=== PATIENT | female | born 1945 | race Caucasian/White ===

== ENCOUNTER 2022-03-22 13:10 | Outpatient (CLI) | payer MEDICARE, SELFPAY ==
--- NOTE | 2022-03-22 13:00 | CRLHL7_ITS ---
For Patients: As a result of the Cures Act, medical imaging exams and procedure reports are released immediately into your electronic medical record. You may view this report before your referring provider. If you have questions, please contact your health care provider. CLINICAL HISTORY: CAD, surgery clearance TECHNIQUE: The carotid circulations and the vertebral arteries in the neck were examined with lopez-scale ultrasound, color-flow and Doppler spectral analysis. Degrees of stenosis were determined using SRU 2002 Consensus Panel Criteria. FINDINGS: Sonographic images demonstrate extensive bilateral atherosclerotic plaque formation without suspicious soft tissue mass. There was antegrade blood flow demonstrated within the vertebral arteries. The subclavian arteries demonstrated a biphasic waveform. The spectral Doppler tracings of the common carotid, internal and external carotid arteries demonstrate abnormal turbulence and spectral broadening bilaterally. There was no significant elevation of peak systolic blood flow which would indicate a hemodynamically-significant stenosis by SRU criteria. However, the velocities are dampened bilaterally. The ICA/CCA peak systolic velocity ratio measures 2.0 on the right and 2.3 on the left. IMPRESSION: Extensive bilateral atherosclerotic disease and spectral broadening/turbulence within the carotid system bilaterally along with diminished velocities and mildly elevated ratios. Findings likely represent a 50-69 percent stenosis of the ICAs bilaterally. However, further evaluation with CTA suggested for further evaluation. Dictated by Austen Perez MD @ 03/26/2022 8:58:25 AM (Electronically Signed)
== END 2022-03-22 13:11 | disposition home or self-care (01) ==
LOC: US 13:15
PROVIDERS: PCP Family Medicine; Visit Provider Internal Medicine
DX: I25.10 Atherosclerotic heart disease of native coronary artery without angina pectoris; I65.23 Occlusion and stenosis of bilateral carotid arteries
CPT/HCPCS: 93880

== ENCOUNTER 2022-06-02 12:05 | Observation (INO) | payer MEDICARE, SELFPAY ==
[2022-06-02 12:15] VITALS: BP 110/76; PULSE 77; RESP 18; TEMP 37.1; O2SAT 92; BMI 25.5
--- NOTE | 2022-06-02 12:58 | ED_ITS ---
HPI - General Adult General Date Seen: 06/02/22 Chief complaint: Psychiatric Problem/Disorder Stated complaint: Mental Health and blood pressure Time Seen by Provider: 06/02/22 12:10 Source: patient and family History of Present Illness HPI narrative: Patient is a 77-year-old woman here for evaluation of depression. She tells me that she has had a little bit of trouble with depression for a couple of years, she has been managed on fluoxetine. She says that for a while she was on 2 pills, but had some trouble with fatigue on that and so was decreased to 1 pill. She says she has done well on that and has not had any significant problems until the past couple of weeks. Of note, she had COVID in mid April. She says since then she has not been well. She has had significant fatigue. She says she gets up in the morning, has some coffee, but then goes back to bed. She has no motivation, she feels sad, has no appetite. She says sometimes she will eat a little fruit but often eats nothing. She may get up and make herself so mething to eat later in the day but sometimes not. She has a roommate but her roommate is gone all day at work. She has a son who lives locally. She has 1 daughter who used to live nearby but has now moved away. Another daughter who lives an hour and half away who is with her here today. She is not sleeping well although she says that is not unusual for her. She wakes up every few hours to go to the bathroom. She says that yesterday she at thoughts of killing herself. She says that she ran through her medications and thought that her tramadol and Tylenol with codeine could be used to help her go to sleep. She says that she just feels useless. Her daughter notes that she has had some trouble in the past year and a half, since suffering a hip fracture, and developing problems with her rotator cuff. She has had a lot of pain with that. Her rotator cuff was supposed to be fixed a couple of times but due to COVID that surgery was pushed out. That has limited her activities and has affected her mood, but she has never seen her anywhere close to how down she is right now. It also mentioned her blood pressure as it was a little lower than the use to at home, 94 systolic. However, she was started on a new blood pressure medication this morning, losartan, on recommendation of the forms builder that she saw on virtual visit yesterday. She has a decreased ejection fraction of 20%. She is not complaining of lightheadedness or syncope. No complaints of chest pain, difficulty breathing, etc.. She does not smoke or drink, no other substances. Related Data Home Medications Medication Instructions Recorded Confirmed acetaminophen 300 mg-codeine 30 mg 1 tab PO PRN 06/02/22 tablet albuterol sulfate 90 mcg/actuation 2 puff inhalation Q4H PRN 06/02/22 06/02/22 aerosol inhaler aspirin 81 mg capsule 81 mg PO DAILY 06/02/22 06/02/22 atorvastatin 40 mg tablet 40 mg PO DAILY 06/02/22 06/02/22 calcium carbonate 600 mg calcium 600 mg PO DAILY 06/02/22 06/02/22 (1,500 mg) tablet (Calcium) carvedilol 3.125 mg tablet 3.125 mg PO BIDWMEAL 06/02/22 06/02/22 cholecalciferol (vitamin D3) 50 50 mcg PO DAILY 06/02/22 06/02/22 mcg (2,000 unit) capsule (Vitamin D3) famotidine 40 mg tablet 40 mg PO DAILY 06/02/22 06/02/22 fluoxetine 40 mg capsule 40 mg PO DAILY 06/02/22 06/02/22 fluticasone fur. 100 mcg-umeclid 1 inh inhalation DAILY 06/02/22 06/02/22 62.5 mcg-vilant 25 mcg inhalat.powder (Trelegy Ellipta) fluticasone fur. 200 mcg-umeclid 1 inh inhalation DAILY 06/02/22 06/02/22 62.5 mcg-vilant 25 mcg inhalat.powder (Trelegy Ellipta) ipratropium 0.5 mg-albuterol 3 mg 3 ml inhalation QID PRN 06/02/22 06/02/22 (2.5 mg base)/3 mL nebulization soln levothyroxine 88 mcg tablet 88 mcg PO DAILY 06/02/22 06/02/22 losartan 25 mg tablet 12.5 mg PO DAILY 06/02/22 06/02/22 mirabegron 25 mg tablet,extended 25 mg PO DAILY 06/02/22 06/02/22 release 24 hr (Myrbetriq) torsemide 20 mg tablet 20 mg PO BIDWMEAL 06/02/22 06/02/22 warfarin 2 mg tablet See Rx Instructions PO .COMPLEX 06/02/22 06/02/22 Allergies Allergy/AdvReac Type Severity Reaction Status Date / Time BRAD Inhibitors Allergy Unknown Verified 06/02/22 12:22 bupropion [From Wellbutrin] Allergy Unknown Verified 06/02/22 12:22 hydrocodone Allergy Unknown Verified 06/02/22 12:22 oxycodone Allergy Unknown Verified 06/02/22 12:22 Review of Systems Status of ROS: Reports: 10 or more systems reviewed and unremarkable except as noted in History and below [facility] Social History service: No Exam Narrative: Exam Narrative: Vital signs as noted above. In general, an alert, nontoxic elderly woman. Well groomed. No eye contact. Head: Normocephalic, atraumatic. Eyes: Pupils are equal reactive. Extraocular movements are full. Conjunctivae are normal. ENT: Mucous membranes are moist. Throat is normal. Neck: Supple without lymphadenopathy. Heart: Regular rate and rhythm. I do not hear a murmur at this time. Lungs: Clear bilaterally. No increased work of breathing, crackles or wheezes. Abdomen: Soft and nontender. No organomegaly. Extremities: Well perfused. No edema. No calf tenderness. Pulses intact. Neurologic: Patient is alert and oriented to person and place. Speech is fluent. Face is symmetric. Moves all extremities equally. Affect: Flat. Skin: Warm and dry. Well perfused. Const: Vital Signs, click to edit/add: Vital Signs - 24 hr 06/02/22 12:15 06/02/22 20:30 06/02/22 21:03 Temperature 98.7 F Pulse Rate [Pulse Oximeter] 77 75 Respiratory Rate 18 18 Blood Pressure [Le ft Upper Arm] 110/76 95/70 Pulse Oximetry 92 94 94 Oxygen Delivery Me thod Room Air Room Air Nasal Cannula Oxygen Flow Rate 1.5 Documenting provider has reviewed patient's vital signs: yes Course Course Hospital Course: After conversation with the patient, I do think she would be best served by inpatient management at this time. I am concerned with her thoughts yesterday of self-harm and her getting as far as deciding which medications she could take. Her affect is extremely flat, she is not making eye contact, and she has reached the point where she is having difficulty getting out of bed to manage activities of daily living. This is an acute change for her in the past couple of weeks. I checked routine labs, CBC, metabolic panel, TSH is pending, other labs are normal. Urinalysis is negative, drug screen is negative, Tylenol, aspirin and alcohol levels are negative. She has been cooperative and without further complaints here. She has spoken with [facility] and they agree with my assessment. Will work on finding inpatient placement for her. At this time no inpatient beds are available. Patient has been cooperative and comfortable here. Evening meds ordered. Patient will be signed out to Dr. Velazquez Vital Signs Vital signs: Initial Vital Signs Temperature 98.7 F 06/02/22 12:15 Temperature Source Temporal Artery Scan 06/02/22 12:15 Pulse Rate 77 06/02/22 12:15 Respiratory Rate 18 06/02/22 12:15 Blood Pressure 110/76 06/02/22 12:15 Blood Pressure Mean 87 06/02/22 12:15 Blood Pressure Position Supine 06/02/22 12:15 Pulse Oximetry 92 06/02/22 12:15 Oxygen Delivery Method 06/02/22 12:15 Vital Signs Temperature 98.7 F 06/02/22 12:15 Pulse Rate 77 06/02/22 12:15 Respiratory Rate 18 06/02/22 12:15 Blood Pressure 110/76 06/02/22 12:15 Pulse Oximetry 92 06/02/22 12:15 Oxygen Delivery Method 06/02/22 12:15 Temperature 98.7 F 06/02/22 12:15 Pulse Rate 75 06/02/22 20:30 Respiratory Rate 18 06/02/22 20:30 Blood Pressure 95/70 06/02/22 20:30 Pulse Oximetry 94 06/02/22 21:03 Oxygen Delivery Method 06/02/22 21:03 Oxygen Flow Rate 1.5 06/02/22 21:03 Medical Decision Making Lab Data Labs: Lab Results 06/02/22 06/02/22 06/02/22 Range/Units 13:05 13:05 13:05 WBC 5.29 (4.50-11.00) K/uL RBC 5.03 (4.00-5.20) m/uL Hgb 15.0 (12.0-16.0) gm/dL Hct 45.0 (33.0-51.0) % MCV 90 (80-100) fL MCH 30 (26-34) pg MCHC 33 (32-36) gm/dL RDW Coeff of Sudha 14.8 (11.5-15.5) % Plt Count 227 (140-440) K/uL Neut % (Auto) 59.8 (42.0-72.0) % Lymph % (Auto) 25.0 (20-44) % [place] % (Auto) 12.5 H (0.0-11.0) % Eos % (Auto) 1.7 (0.0-7.0) % Baso % (Auto) 0.6 (0.0-3.0) % Neut # (Auto) 3.17 (1.7-7.0) K/uL Lymph # (Auto) 1.32 (0.90-2.90) K/uL [place] # (Auto) 0.70 (0.00-0.90) K/UL Eos # (Auto) 0.09 (0.00-0.50) K/uL Baso # (Auto) 0.03 (0.00-0.30) K/uL Abs Immat Gran (auto) 0.02 (0.00-0.30) K/uL Sodium 135 (135-149) mmol/L Potassium 3.9 (3.6-5.1) mmol/L Chloride 98 (96-114) mmol/L Carbon Dioxide 33 H (20-32) mmol/L BUN 21 (7-30) mg/dL Creatinine 1.1 (0.5-1.5) mg/dL Estimated Creat Clear 40.33 Estimated GFR 51 ml/min Glucose 104 (60-115) mg/dL Calcium 9.2 (8.4-10.6) mg/dL TSH (0.270-4.200) uIU/mL Urine Color Yellow (Yellow) Urine Appearance Clear (Clear) Urine pH 7.5 (5.0-8.5) Ur Specific [place] 1.015 (1.000-1.030) Urine Protein Negative (Negative) Urine Glucose (UA) Negative (Negative) Urine Ketones Negative (Negative) Urine Blood Negative (Negative) Urine Nitrite Negative (Negative) Urine Bilirubin Negative (Negative) Urine Urobilinogen 0.2 (0.2-1.0) Ur Leukocyte Esterase Negative (Negative) Urine RBC 0-2 (0-2) Urine WBC 0-2 (0-5) Ur Squamous Epith Cells None (None-Few) Urine Bacteria None (None) Salicylates (1.0-10) mg/dL Urine Opiates Screen (Negative) Ur Oxycodone Screen (Negative) Urine Methadone Screen (Negative) Ur Propoxyphene Screen (Negative) Acetaminophen < 10.0 L (10.0-30.0) ug/mL Ur Barbiturates Screen (Negative) Ur Phencyclidine Scrn (Negative) Ur Amphetamines Screen (Negative) U Methamphetamines Scrn (Negative) U Benzodiazepines Scrn (Negative) Urine Cocaine Screen (Negative) U Marijuana (THC) Screen (Negative) Ur Drug Screen Comment Ethyl Alcohol (0.01-0.03) % SARS-CoV-2 (PCR) (Negative) 06/02/22 06/02/22 06/02/22 Range/Units 13:05 13:05 13:05 WBC (4.50-11.00) K/uL RBC (4.00-5.20) m/uL Hgb (12.0-16.0) gm/dL Hct (33.0-51.0) % MCV (80-100) fL MCH (26-34) pg MCHC (32-36) gm/dL RDW Coeff of Sudha (11.5-15.5) % Plt Count (140-440) K/uL Neut % (Auto) (42.0-72.0) % Lymph % (Auto) (20-44) % [place] % (Auto) (0.0-11.0) % Eos % (Auto) (0.0-7.0) % Baso % (Auto) (0.0-3.0) % Neut # (Auto) (1.7-7.0) K/uL Lymph # (Auto) (0.90-2.90) K/uL [place] # (Auto) (0.00-0.90) K/UL Eos # (Auto) (0.00-0.50) K/uL Baso # (Auto) (0.00-0.30) K/uL Abs Immat Gran (auto) (0.00-0.30) K/uL Sodium (135-149) mmol/L Potassium (3.6-5.1) mmol/L Chloride (96-114) mmol/L Carbon Dioxide (20-32) mmol/L BUN (7-30) mg/dL Creatinine (0.5-1.5) mg/dL Estimated Creat Clear Estimated GFR ml/min Glucose (60-115) mg/dL Calcium (8.4-10.6) mg/dL TSH 3.370 (0.270-4.200) uIU/mL Urine Color (Yellow) Urine Appearance (Clear) Urine pH (5.0-8.5) Ur Specific [place] (1.000-1.030) Urine Protein (Negative) Urine Glucose (UA) (Negative) Urine Ketones (Negative) Urine Blood (Negative) Urine Nitrite (Negative) Urine Bilirubin (Negative) Urine Urobilinogen (0.2-1.0) Ur Leukocyte Esterase (Negative) Urine RBC (0-2) Urine WBC (0-5) Ur Squamous Epith Cells (None-Few) Urine Bacteria (None) Salicylates < 1.0 L (1.0-10) mg/dL Urine Opiates Screen Negative (Negative) Ur Oxycodone Screen Negative (Negative) Urine Methadone Screen Negative (Negative) Ur Propoxyphene Screen Negative (Negative) Acetaminophen (10.0-30.0) ug/mL Ur Barbiturates Screen Negative (Negative) Ur Phencyclidine Scrn Negative (Negative) Ur Amphetamines Screen Negative (Negative) U Methamphetamines Scrn Negative (Negative) U Benzodiazepines Scrn Negative (Negative) Urine Cocaine Screen Negative (Negative) U Marijuana (THC) Screen Negative (Negative) Ur Drug Screen Comment See Note Ethyl Alcohol < 0.01 L (0.01-0.03) % SARS-CoV-2 (PCR) (Negative) 06/02/22 Range/Units 14:20 WBC (4.50-11.00) K/uL RBC (4.00-5.20) m/uL Hgb (12.0-16.0) gm/dL Hct (33.0-51.0) % MCV (80-100) fL MCH (26-34) pg MCHC (32-36) gm/dL RDW Coeff of Sudha (11.5-15.5) % Plt Count (140-440) K/uL Neut % (Auto) (42.0-72.0) % Lymph % (Auto) (20-44) % [place] % (Auto) (0.0-11.0) % Eos % (Auto) (0.0-7.0) % Baso % (Auto) (0.0-3.0) % Neut # (Auto) (1.7-7.0) K/uL Lymph # (Auto) (0.90-2.90) K/uL [place] # (Auto) (0.00-0.90) K/UL Eos # (Auto) (0.00-0.50) K/uL Baso # (Auto) (0.00-0.30) K/uL Abs Immat Gran (auto) (0.00-0.30) K/uL Sodium (135-149) mmol/L Potassium (3.6-5.1) mmol/L Chloride (96-114) mmol/L Carbon Dioxide (20-32) mmol/L BUN (7-30) mg/dL Creatinine (0.5-1.5) mg/dL Estimated Creat Clear Estimated GFR ml/min Glucose (60-115) mg/dL Calcium (8.4-10.6) mg/dL TSH (0.270-4.200) uIU/mL Urine Color (Yellow) Urine Appearance (Clear) Urine pH (5.0-8.5) Ur Specific [place] (1.000-1.030) Urine Protein (Negative) Urine Glucose (UA) (Negative) Urine Ketones (Negative) Urine Blood (Negative) Urine Nitrite (Negative) Urine Bilirubin (Negative) Urine Urobilinogen (0.2-1.0) Ur Leukocyte Esterase (Negative) Urine RBC (0-2) Urine WBC (0-5) Ur Squamous Epith Cells (None-Few) Urine Bacteria (None) Salicylates (1.0-10) mg/dL Urine Opiates Screen (Negative) Ur Oxycodone Screen (Negative) Urine Methadone Screen (Negative) Ur Propoxyphene Screen (Negative) Acetaminophen (10.0-30.0) ug/mL Ur Barbiturates Screen (Negative) Ur Phencyclidine Scrn (Negative) Ur Amphetamines Screen (Negative) U Methamphetamines Scrn (Negative) U Benzodiazepines Scrn (Negative) Urine Cocaine Screen (Negative) U Marijuana (THC) Screen (Negative) Ur Drug Screen Comment Ethyl Alcohol (0.01-0.03) % SARS-CoV-2 (PCR) Negative SARS-CoV-2 (Negative) Discharge Plan Discharge Prescriptions: No Action fluoxetine 40 mg capsule 40 mg PO DAILY Label Comments: TAKE 1 CAPSULE BY MOUTH EVERY DAY. atorvastatin 40 mg tablet 40 mg PO DAILY ipratropium-albuterol 0.5 mg-3 mg(2.5 mg base)/3 mL solution for nebulization 3 ml INHALATION QID PRN Label Comments: USE 3 ML VIA NEBULIZER FOUR TIMES DAILY NEEDED FOR SHORTNESS OF BREATH torsemide 20 mg tablet 20 mg PO BIDWMEAL Label Comments: TAKE 1 TABLET BY MOUTH TWICE DAILY WITH MEALS acetaminophen-codeine 300-30 mg tablet 1 tab PO PRN carvedilol 3.125 mg tablet 3.125 mg PO BIDWMEAL levothyroxine 88 mcg tablet 88 mcg PO DAILY warfarin 2 mg tablet See Rx Instructions PO .COMPLEX Rx Instructions: Take 2 tablets by mouth every MWF Take 3 tablets all other days or as directed losartan 25 mg tablet 12.5 mg PO DAILY Rx Instructions: Take 0.5 tablets by mouth once daily albuterol sulfate 90 mcg/actuation HFA aerosol inhaler 2 puff INHALATION Q4H PRN Label Comments: INHALE 1 TO 2 PUFFS BY MOUTH EVERY 4 HOURS NEEDED FOR SHORTNESS OF BREATH Myrbetriq 25 mg tablet extended release 24 hr 25 mg PO DAILY Trelegy Ellipta 100-62.5-25 mcg blister with device 1 inh INHALATION DAILY Label Comments: INHALE 1 PUFF BY MOUTH EVERY DAY Trelegy Ellipta 200-62.5-25 mcg blister with device 1 inh INHALATION DAILY Label Comments: INHALE 1 PUFF BY MOUTH EVERY DAY aspirin 81 mg capsule 81 mg PO DAILY calcium carbonate [Calcium 600] 600 mg calcium (1,500 mg) tablet 600 mg PO DAILY cholecalciferol (vitamin D3) [Vitamin D3] 50 mcg (2,000 unit) capsule 50 mcg PO DAILY famotidine 40 mg tablet 40 mg PO DAILY Rx Instructions: Take 1 tablet by mouth every day in the evening Follow Up/Referrals: Karma Jang MD [Primary Care Provider] -
[2022-06-02 13:15] LABS: Basophils Absolute Auto 0.03 K/uL (0.00-0.30); Basophils Percent Auto 0.6 % (0.0-3.0); Eosinophils Absolute Auto 0.09 K/uL (0.00-0.50); Eosinophils Percent Auto 1.7 % (0.0-7.0); Immature Granulocytes Abs Auto 0.02 K/uL (0.00-0.30); Lymphocytes Absolute Auto 1.32 K/uL (0.90-2.90); Mean Corpuscular HGB Conc 33 gm/dL (32-36); Mean Corpuscular Hemoglobin 30 pg (26-34); Mean Corpuscular Volume 90 fL (80-100); Monocytes Percent Auto 12.5 % (0.0-11.0); Neutrophils Absolute Auto 3.17 K/uL (1.7-7.0); Neutrophils Percent Auto 59.8 % (42.0-72.0); Platelet Count* 227 K/uL (140-440); RDW Coefficient of Variation % 14.8 % (11.5-15.5); Red Blood Count 5.03 m/uL (4.00-5.20); White Blood Count* 5.29 K/uL (4.50-11.00)
[2022-06-02 13:19] LABS: Appearance Urine Clear (Clear); Bilirubin Urine Negative (Negative); Blood Urine Negative (Negative); Color Urine Yellow (Yellow); Glucose Urine Negative (Negative); Ketones Urine Negative (Negative); Leukocyte Esterase Urine Negative (Negative); Nitrite Urine Negative (Negative); Protein Urine Negative (Negative); Specific Gravity Urine 1.015 (1.000-1.030); Urobilinogen Urine 0.2 (0.2-1.0); pH Urine 7.5 (5.0-8.5)
[2022-06-02 13:20] LABS: Slide Review Reflex No
[2022-06-02 13:27] LABS: RBC Urine 0-2 (0-2); WBC Urine 0-2 (0-5)
[2022-06-02 13:28] LABS: Cannabinoid Screen Urine Negative (Negative); Chloride* 98 mmol/L (96-114)
[2022-06-02 13:29] LABS: Amphetamine Screen Urine Negative (Negative); Barbiturate Screen Urine Negative (Negative); Benzodiazepines Screen Urine Negative (Negative); Cocaine Screen Urine Negative (Negative); Methadone Screen Urine Negative (Negative); Methamphetamines Screen Urine Negative (Negative); Opiate Screen Urine Negative (Negative); Oxycodone Screen Urine Negative (Negative); Phencyclidine Screen Urine Negative (Negative); Potassium* 3.9 mmol/L (3.6-5.1); Sodium* 135 mmol/L (135-149)
[2022-06-02 13:31] LABS: Creatinine* 1.1 mg/dL (0.5-1.5); Est. Creatinine Clearance* 40.33; Estimated Glomerular Filt Rate 51 ml/min
[2022-06-02 13:32] LABS: Blood Urea Nitrogen* 21 mg/dL (7-30); Calcium* 9.2 mg/dL (8.4-10.6); Carbon Dioxide* 33 mmol/L (20-32); Glucose* 104 mg/dL (60-115)
[2022-06-02 13:34] LABS: Acetaminophen* < 10.0 ug/mL (10.0-30.0)
[2022-06-02 13:35] LABS: Ethanol* < 0.01 % (0.01-0.03); Salicylate* < 1.0 mg/dL (1.0-10)
[2022-06-02 15:01] LABS: SARS PCR* Negative SARS-CoV-2 (Negative)
--- NOTE | 2022-06-02 16:30 | PC.NURSE ---
got bed ID from [facility], no beds today anywhere except could call [facility], [facility] called and they have no beds in [place] or [place] which is where they do 65 plus
[2022-06-02 20:30] VITALS: BP 95/70; PULSE 75; RESP 18; O2SAT 94
--- NOTE | 2022-06-02 20:30 | PC.NURSE ---
Patient has been cooperative and pleasant with staff. Has been reading a book. Makes needs known.
--- NOTE | 2022-06-02 20:30 | PC.NURSE ---
Patient states she normally wears 1.5L O2 via NC at home for bedtime. Dr. Alfaro made aware.
[2022-06-02 21:03] VITALS: O2SAT 94
--- NOTE | 2022-06-02 21:54 | PC.NURSE ---
Ok per Dr. Alfaro to give home dose of Mirabegron as we do not have this medication.
[2022-06-02] MEDS: WARFARIN 3 MG TABLET 6 MG PO (22:17)
[2022-06-02] MEDS: FAMOTIDINE 20 MG TABLET 40 MG PO (22:19)
[2022-06-02] MEDS: MELATONIN 3 MG TABLET 6 MG PO (22:20)
[2022-06-03 07:32] VITALS: BP 112/88; PULSE 83; RESP 22; TEMP 36.4; O2SAT 88
[2022-06-03 09:12] LABS: INR 1.59 (0.91-1.10); Prothrombin Time 19.4 Seconds
[2022-06-03] MEDS: LEVOTHYROXINE 88 MCG TABLET PO (09:56)
[2022-06-03] MEDS: TORSEMIDE 20 MG TABLET PO (09:59)
[2022-06-03] MEDS: ASPIRIN 81 MG TABLET EC PO (09:59)
[2022-06-03] MEDS: CARVEDILOL 3.125MG PO ×2 (10:01→20:21)
--- NOTE | 2022-06-03 13:13 | ED.NURSE ---
to [facility] via [facility]. did order a meal. was upset about not getting a menu earlier. was concerned about her inr and oxygen. did have a shower in m/s earlier. uses oxygen at home at night and prn during the day .
--- NOTE | 2022-06-03 13:24 | W.PC.EDHO ---
Primary Language: Preferred Language: Orientation Status: [] Alert & Oriented [] Slight Confusion [] Known Dx Dementia Transfers By: [] Assist of 1 [] Assist of 2 [] Lift Active Medications Generic Name Dose Route Start Last Admin Trade Name Kimberly PRN Reason Stop Dose Admin Aspirin 81 mg 06/03/22 10:00 06/03/22 09:59 Aspirin 81 Mg Tablet Ec PO 81 mg DAILY RAMIREZ Administration Levothyroxine Sodium 88 mcg 06/03/22 10:00 06/03/22 09:56 Levothyroxine 88 Mcg Tablet PO 88 mcg DAILY RAMIREZ Administration Fluoxetine 40mg Cap 0 each 06/03/22 21:00 06/03/22 10:00 PO 1 each HS RAMIREZ Administration Carvedilol 3.125mg 0 each 06/03/22 09:45 06/03/22 10:01 PO 1 each BIDWM RAMIREZ Administration Losartan 25mg Tab 0 each 06/03/22 09:45 06/03/22 09:56 PO 1 each DAILY RAMIREZ Administration Torsemide 20 mg 06/03/22 10:00 06/03/22 09:59 Torsemide 20 Mg Tablet PO 20 mg BIDWM RAMIREZ Administration Discontinued Medications Generic Name Dose Route Start Last Admin Trade Name Kimberly PRN Reason Stop Dose Admin Famotidine 40 mg 06/03/22 09:00 06/02/22 22:19 Famotidine 20 Mg Tablet PO 40 mg DAILY RAMIREZ Administration Melatonin 6 mg 06/02/22 22:01 06/02/22 22:20 Melatonin 3 Mg Tablet PO 06/02/22 22:02 6 mg HS ONE Administration Warfarin Sodium 6 mg 06/02/22 21:03 06/02/22 22:17 Warfarin 3 Mg Tablet PO 06/02/22 21:04 6 mg ONCE ONE Administration Description of Symptoms ED Triage Present Problem my depression has gotten worse, called crisis Description center today and my blood pressure was low and needs to be checked. bp at home 127/67 and 94/57. pt on fluxoteine pt sees primary doctor for depression at [facility]. pt started losartan this am after virtual visit with customer service teller yesterday. [place] Coma Scale [place] coma scale total score 15 Pain Pain Description [Right Dull, Achy Shoulder] Pain Intensity [Right Shoulder 0 ] Pain Scale Used [Right Numeric (1 - 10) Shoulder] Oxygen Administration Pulse Oximetry 88 Pulse Oximetry 94 Pulse Oximetry 94 Pulse Oximetry 92 Oxygen Delivery Method Room Air Oxygen Delivery Method Nasal Cannula Oxygen Delivery Method Room Air Oxygen Delivery Method Room Air Oxygen Flow Rate 1.5
[2022-06-03 14:16] VITALS: BP 93/76; RESP 20; TEMP 36.6; O2SAT 90; BMI 24.8
[2022-06-03 15:48] VITALS: RESP 22; O2SAT 90
--- NOTE | 2022-06-03 16:23 | RESP.RT ---
Pt seen per MD request. On RA SPO2 88% Reviewed rechristie, she does wear oxygen at 1.5 L as prescribed in February at night. She states she uses it more in the day, as needed. Suspect she needs it around the clock, as per pt. she is easily winded at that is some of the reason she has not left the house. She recently acquired portable oxygen but has not used yet. BBS are clear Pt uses Trelegy, Ellipta. She has not used it today, we do not have it here, so she has called roommate to bring to hospital. When it arrives I suggest she use it. She has a good understanding of her respiratory medications. Does see pulmonology at [place], and she stated they have increased her Trelegy dosage.
--- NOTE | 2022-06-03 16:58 | PM.IMHP1 ---
Hospitalist- H&P: HPI History of Present Illness Time Seen by Provider: 15:30 Date Seen: 06/03/22 Chief complaint: Suicidal ideations, low blood pressure Narrative: Nery Oropeza is a 77 year old woman who presented to the [facility] Emergency Department over 24 hours ago for help with depression, suicidal thoughts, and low blood pressures. She has struggled with major depression for over 30 years. She has been on various medications often on throughout that time. Historically she used to have her depression fairly well controlled on fluoxetine 80 mg daily. About 2 years ago she fell and sustained a fracture of her right hip. At that time her dose of fluoxetine was decreased to 40 mg daily. She states that since that time she has struggled with her depression. Over the last 2 weeks however she states that it has been especially difficult for her. She describes isolation, anhedonia, increased anger and frustration, decreased oral intake, weight loss. Has chronic difficulties with sleeping, sleeping intermittently throughout the night, but has been in bed much more so recently than she has in the past. Started having ideas or thoughts about life not being worth it, that she is worthless, thinking how she could expedite this by possibly taking more of her medications than prescribed. She eventually called the crisis line spoke with someone and they recommended she come in for assessment and that she did. In our emergency department efforts have been made to transfer patient to a [facility] however there are no beds available across the [address] [place] [address] region. After being in the emergency department for over 24 hours a decision was made to transfer the patient to the floor while there continued efforts to try to find a appropriate geriatric psych inpatient bed for her. In the emergency department no adjustments have been made in her mood stabilization medications. Review of Systems Status of ROS: Reports: 10 or more systems reviewed and unremarkable except as noted in History and below Narrative: Denies angina, anginal equivalent, palpitations, diaphoresis, fevers, rigors, change in her baseline level of cough. Has baseline dyspnea at rest and this increases with exertion. Utilizes oxygen at 1.5 liters/minute at at bedtime. Is supposed to be using oxygen during the day with activities but she has not been. Continues to have discomforts with aching shoulders. Was scheduled for elective shoulder arthroplasty which was canceled twice, once for increase cardiac assessment and a 2nd time due to recent acquisition of COVID. Early to mid April she had COVID. Was hospitalized for few days at a hospital in [place] when she was in route to visit a daughter in [place]. Since then her mood has been increasingly more depressed. Recently saw cardiologists who recommended she start losartan in addition to the beta-marisa carvedilol that she is on. This is because of her underlying ischemic cardiomyopathy with decreased ejection fraction of 20-25% does have a permanent pacemaker implant but does not having AIDC. Discussions have been started about patient having AIDC implant in the near future. She feels that her health as rapidly declining and this is becoming increasingly overwhelming for her. On the other hand when I discussed with her her desires relative to resuscitation efforts, she is very clear that she wants us to attempt resuscitation in the event of cardiopulmonary demise. She designates her son Mykel as her power of corporate associate attorney for health should that be required. Lives home alone. Does receive support from her children who live near and far. [facility] Medical History Acid reflux Anticoagulated on warfarin Anticoagulation goal of INR 2 to 3 Anxiety Atrial fibrillation CAD (coronary artery disease) CHF (congestive heart failure) Chronic deep vein thrombosis of left lower extremity Chronic hypoxemic respiratory failure Chronic pain of both shoulders CKD stage 4 secondary to hypertension Closed nondisplaced fracture of greater trochanter of right femur with routine healing COPD (chronic obstructive pulmonary disease) Depression Hyperlipidemia Hypertension Hypothyroidism Intrinsic urethral sphincter deficiency Ischemic cardiomyopathy Mixed stress and urge urinary incontinence 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 Panlobular emphysema Paroxysmal atrial fibrillation Presence of permanent cardiac pacemaker Recurrent major depression resistant to treatment Surgical History History of cataract surgery History of cholecystectomy History of hip replacement Social History Highest level of school completed/degree received: high school graduate Smoking Status: Former smoker What tobacco products do you use: cigarettes Smoking quit date/years: >15 years ago Do you use any of these nicotine containing products: None Second hand tobacco smoke exposure: No How often do you have a drink containing alcohol: never AUDIT-C Alcohol total score: 0 Caffeine: Yes (Daily) service: No Meds Home Medications and Allergies Home Medications Medication Instructions Recorded Confirmed Type albuterol sulfate 90 mcg/actuation 2 puff inhalation Q4H PRN 06/02/22 06/02/22 History aerosol inhaler aspirin 81 mg capsule 81 mg PO DAILY 06/02/22 06/02/22 History atorvastatin 40 mg tablet 40 mg PO HS 06/02/22 06/03/22 History calcium carbonate 600 mg calcium 600 mg PO DAILY 06/02/22 06/02/22 History (1,500 mg) tablet (Calcium) carvedilol 3.125 mg tablet 3.125 mg PO BIDWMEAL 06/02/22 06/02/22 History cholecalciferol (vitamin D3) 50 50 mcg PO DAILY 06/02/22 06/02/22 History mcg (2,000 unit) capsule (Vitamin D3) famotidine 40 mg tablet 40 mg PO HS 06/02/22 06/03/22 History fluoxetine 40 mg capsule 40 mg PO DAILY 06/02/22 06/02/22 History fluticasone fur. 200 mcg-umeclid 1 inh inhalation DAILY 06/02/22 06/02/22 History 62.5 mcg-vilant 25 mcg inhalat.powder (Trelegy Ellipta) ipratropium 0.5 mg-albuterol 3 mg 3 ml inhalation QID PRN 06/02/22 06/02/22 History (2.5 mg base)/3 mL nebulization soln levothyroxine 88 mcg tablet 88 mcg PO DAILY 06/02/22 06/02/22 History losartan 25 mg tablet 12.5 mg PO DAILY 06/02/22 06/02/22 History mirabegron 25 mg tablet,extended 25 mg PO DAILY 06/02/22 06/02/22 History release 24 hr (Myrbetriq) torsemide 20 mg tablet 20 mg PO BIDWMEAL 06/02/22 06/02/22 History warfarin 2 mg tablet 4 - 6 mg PO DAILY 06/02/22 06/03/22 History loperamide-simethicone 2 mg-125 mg 1 tab PO BID PRN 06/03/22 06/03/22 History tablet (Imodium Multi-Symptom Relief) multivitamin (Multiple Vitamins 1 tab PO DAILY 06/03/22 06/03/22 History tablet) Allergies Allergy/AdvReac Type Severity Reaction Status Date / Time BRAD Inhibitors Allergy Unknown Verified 06/02/22 12:22 bupropion [From Wellbutrin] Allergy Unknown Verified 06/02/22 12:22 hydrocodone Allergy Unknown Verified 06/02/22 12:22 oxycodone Allergy Unknown Verified 06/02/22 12:22 Exam Narrative: Exam Narrative: Alert, oriented to self, place, time, situation. No acute distress. Depressed mood. Articulate, cooperative, friendly. Mood and affect are congruent. Appears thin. Accentuated bony prominences of face and neck. Thin arms and legs. Hearing and vision are preserved. Midline nasal septum. Dentition in fair repair. Moist buccal mucosa. No icterus. Extraocular muscles intact. Neck is thin. Neck is supple. Midline trachea. Normal thyroid. No JVD, hepatojugular reflux, or carotid bruits. No lymphadenopathy in the pre or postauricular chains, anterior or posterior cervical chains, submandibular or submental fossa, supra or infraclavicular fossa, or axilla bilaterally. Lungs are clear to auscultation. Full respirations. Heart tones with regular rhythm. Soft systolic murmur. No gallops or rubs. Abdomen is thin. Active bowel sounds. Soft, nontender. Extremities without edema. Palpable pulses upper and lower extremities. Ambulates independently, list to the left. No tremor, asterixis, or ataxia. Independent transfer, station, and gait. Skin is thin, intact. Ecchymosis of upper extremities noted. No cyanosis, petechiae, or rash. No jaundice. Const: Vital Signs, click to edit/add: Vital Signs - 24 hr 06/02/22 20:30 06/02/22 21:03 06/03/22 07:32 Temperature 97.6 F Pulse Rate [Pulse Oximeter] 75 83 Respiratory Rate 18 22 Blood Pressure [Le ft Arm] Blood Pressure [Le ft Upper Arm] 95/70 112/88 Pulse Oximetry 94 94 88 Oxygen Delivery Me thod Room Air Nasal Cannula Room Air Oxygen Flow Rate 1.5 06/03/22 14:16 06/03/22 15:48 Temperature 97.8 F Pulse Rate [Pulse Oximeter] Respiratory Rate 20 22 Blood Pressure [Le ft Arm] 93/76 Blood Pressure [Le ft Upper Arm] Pulse Oximetry 90 90 Oxygen Delivery Me thod Room Air Room Air Oxygen Flow Rate Documenting provider has reviewed patient's vital signs: yes Assessment and Plan Assessment and plan (1) Suicidal thoughts: Status: Acute (2) Recurrent major depression resistant to treatment: Status: Acute (3) Ischemic cardiomyopathy: Status: Acute (4) Hypotension: Status: Acute (5) Panlobular emphysema: Status: Acute (6) Chronic hypoxemic respiratory failure: Status: Acute (7) Oxygen dependent: Status: Acute (8) CKD stage 4 secondary to hypertension: Status: Acute Plan 1. Given no bed availability for geriatric psychiatric admission and patient being our emergency department for over 24 hours, we are admitting her to observation as we continue with our efforts to try to find an appropriate placement for her. 2. As we are waiting for availability of a geriatric psychiatric bed, I will initiate efforts to adjust some of her psychiatric medications. I will increase the fluoxetine from 40 mg to 60 mg daily. I will start her on buspirone, small dose of 5 mg twice daily. If she tolerates this then we can increase the dose to 7.5-10 mg twice daily. 3. Would benefit from outpatient psychotherapy such as cognitive behavioral therapy. 4. Patient would certainly benefit from an ARB such as losartan. On the other hand she is relatively hypotensive with this medicine added to her current dose of carvedilol. As such I will continue on the losartan 12.5 mg daily and decrease her carvedilol to 1/2 of a 3.125 mg tab twice daily. 5. Physical therapy, occupational therapy, respiratory therapy, social media marketer, Nutritional consultations. 6. Continue with other supportive efforts. 7. Patient agreeable to above stated plans and recommendations.
--- NOTE | 2022-06-03 17:34 | PC.NURSE ---
PATIENT PLEASANT AND COOPERATIVE, UP SBA WITH NO ASSISTIVE DEVICES, PER PATIENT CURRENTLY NO PLAN TO HARM SELF IM JUST VERY DEPRESSED, NO SUICIDAL PRECAUTIONS AT THIS TIME, TOLERATING REGULAR DIET, NO IV PRESENT, CHRONIC PAIN IN RIGHT SHOULDER AND HIP BOTH AGGREGATED WITH MOVEMENT AND USE.
[2022-06-03] MEDS: WARFARIN 2 MG TABLET 4 MG PO (20:19)
[2022-06-03] MEDS: ATORVASTATIN CALCIUM 40 MG TABLET PO (20:21)
[2022-06-03] MEDS: MYRBETRIQ 25MG PO (20:23)
[2022-06-03] MEDS: BUSPIRONE 10 MG TABLET 5 MG PO (20:25)
[2022-06-03] MEDS: SENNOSIDES/DOCUSATE TABLET 1 TAB PO (20:29)
[2022-06-03 20:30] VITALS: BP 155/94; RESP 20; TEMP 36.6; O2SAT 91
[2022-06-03] MEDS: MELATONIN 3 MG TABLET 6 MG PO (22:10)
[2022-06-03 23:00] VITALS: RESP 18; RESP 20; O2SAT 90
[2022-06-04] VITALS (8 sets, daily range): BP systolic 115–128; BP diastolic 70–78; PULSE 71–75; RESP 14–20; TEMP 36.1–36.6; O2SAT 93–98
--- NOTE | 2022-06-04 06:52 | PC.NURSE ---
SHIFT NOTE : Pt pleasant and cooperative, denies suicidal ideations at this time. Up SBA in the room. Denies pain. Uneventful night.
[2022-06-04] MEDS: LEVOTHYROXINE 88 MCG TABLET PO (08:32)
[2022-06-04] MEDS: ASPIRIN 81 MG TABLET EC PO (08:33)
[2022-06-04] MEDS: FLUOXETINE HCL 20 MG CAPSULE 60 MG PO (08:33)
[2022-06-04] MEDS: BUSPIRONE 10 MG TABLET 5 MG PO ×2 (08:33→20:53)
[2022-06-04] MEDS: MULTIVITAMIN/MINERALS 1 TABLET 1 TAB PO (08:34)
[2022-06-04] MEDS: Fluticasone-Umeclidin-Vilanter [Trelegy Ellipta] 200-62.5-25 mcg IH (08:34)
[2022-06-04] MEDS: CARVEDILOL 3.125MG PO ×2 (08:34→20:38)
[2022-06-04] MEDS: TORSEMIDE 20 MG TABLET 10 MG PO (08:35)
--- NOTE | 2022-06-04 10:13 | PC.SOCIAL ---
Dischagre plan: Late entry: On 06/03/22, attempted to find in-pt mental health placement Per MD request. Per RN, pt is assistance of one with ADL's at this time. Called the following facilities with the listed result: 1. [facility]- no beds available. 2. [facility]- no bed available. 3. [place] [facility] - no bed available. 4. [facility] - no bed availale. 5. [facility] - cannot provide ADL assistance. 6. [facility] - cannot accept suicidal ideation. Called [facility] in [place] and spoke with Danielito who confirmed theya re unable to assist with ADL's. However, if pt improves and does not need assistance with ADL's, they can evaluate pt at that time. marriage and family social worker to follow up as needed.
--- NOTE | 2022-06-04 12:03 | PC.NURSE ---
PATIENT PLEASANT AND COOPERATIVE WITH STAFFING, EATING 100% OF MEALS, SISTER HERE VISITING TODAY, TOOK MEDIATIONS WHOLE WITH WATER, DECLINED PAIN OTHER THAN CHRONIC PAIN IN RIGHT SHOULDER AND LEFT HIP DECLINING NEED FOR INTERVENTION.
--- NOTE | 2022-06-04 14:36 | PC.NURSE ---
Shift Summary [id number]: Patient pleasant and cooperative. Has been resting in bed most of afternoon. Sister hear for lunch has since gone home. Denies pain, nausea or SOB. Continues to use o2 @ 1.5L/NC.
--- NOTE | 2022-06-04 15:24 | P.IMPN_ITS ---
Progress Note: A&P Assessment and plan (1) Recurrent major depression resistant to treatment: Problem details: Increase fluoxetine to 60 mg daily. Started BusPar yesterday at 5 mg b.i.d., increasing to 5 mg t.i.d. for the rest of this week. Inpatient psychotherapy in [place] is being pursued. I think she would be an excellent candidate for this. While she has several chronic illnesses she is ambulatory and can attend to her self-care. She has a supportive family. She has insight and a desire to feel better. In regards to risk of suicide: Patient states she had passive thoughts of overdose a few days ago. However she felt like she could never go through with this as she has never understood suicide and how people could do this to her their families. At this point she is interactive, asking for a treatment plan and looking forward to feeling better. Status: Acute (2) Ischemic cardiomyopathy: Problem details: Known. Reviewed March 2022 echo. Status: Acute (3) Panlobular emphysema: Problem details: Oxygen dependent. Continue home medications Status: Acute (4) Chronic hypoxemic respiratory failure: Problem details: Stable Status: Acute (5) Oxygen dependent: Problem details: Stable Status: Acute (6) CKD stage 4 secondary to hypertension: Problem details: Stable Status: Acute (7) Chronic anticoagulation: Problem details: Will check INR in the morning. Continue warfarin. Status: Acute (8) Paroxysmal atrial fibrillation: Status: Acute (9) Presence of permanent cardiac pacemaker: Problem details: Noted. Status: Acute Subjective Date Seen: 06/04/22 Interval history: Daily Progress Note - Hospital #:2 CC: Resistant major depression, passive suicidal ideation OVERNIGHT UPDATES FROM STAFF & MED, LAB, IMAGING UPDATES Stable night. States that she knows the medicines take a while to take effect but she is feeling more hopeful today. When I went in to visit with her she was playing cards with her sister. No side effects of current medications identified. No thoughts of self-harm. She states she is actually hopeful that a plan can be put in place and she will start feeling better soon. She is open to inpatient or intensive outpatient therapies. Vital stable. She is on continuous oxygen via nasal cannula at 1.5 L for an O2 sat of 93%. CBC on the was unremarkable. INR on the 1.59 Basic metabolic panel with TSH on the 11th is unremarkable. Review of Systems: See subjective Cardiac: No new chest pain/pressure/palpitations. Respiratory: no new dyspnea. GI: No abdominal bloating Objective: Vitals: see above Lungs: Clear. Cardiac: S1S2. Disposition/Potential discharge - Likely to return to previous living situation. Total time is 35 minutes with greater than 50% spent in counseling and coordination of care. Exam Const: Vital Signs, click to edit/add: Vital Signs - 24 hr 06/03/22 15:48 06/03/22 20:30 06/03/22 23:00 Temperature 98 F Respiratory Rate 22 20 20 Blood Pressure [Le ft Arm] 155/94 H Pulse Oximetry 90 91 Oxygen Delivery Me thod Room Air Nasal Cannula Oxygen Flow Rate 1.5 06/03/22 23:00 06/04/22 00:00 06/04/22 04:00 Temperature Respiratory Rate 18 20 18 Blood Pressure [Le ft Arm] Pulse Oximetry 90 Oxygen Delivery Me thod Nasal Cannula Nasal Cannula Nasal Cannula Oxygen Flow Rate 1.5 1.5 1.5 06/04/22 07:00 06/04/22 07:00 06/04/22 08:00 Temperature 97.9 F Respiratory Rate 20 20 20 Blood Pressure [Le ft Arm] 128/78 Pulse Oximetry 93 93 Oxygen Delivery Me thod Nasal Cannula Nasal Cannula Oxygen Flow Rate 1.5 1.5
--- NOTE | 2022-06-04 16:08 | PC.SOCIAL ---
Discharge planning- Phone call to [facility] in [place] at [phone]. Spoke to Danielito and completed initial referral information. Danielito informed that he would call pt directly in her room to complete pt part of initial referral. Provided med/surg phone number and room number. Received a phone call back from Danielito at [facility]. Danielito states he spoke to his trust evaluation supervisor and she has more questions on the pt's ability to do ADL's independently. Informed Danielito that this worker received information that pt is completing her own ADL's independently in the hospital. Danielito asked clarifying information on whether the pt is ready for discharge and would be safe to discharge to home. Provided information that this worker received from nuclear medical tech that pt is safe for discharge and medically cleared. Danielito asked that [facility] have pt call the [facility] directly. Went to pt. room and informed pt that this worker completed the initial referral to [facility]. Informed pt that the [facility] is waiting for pt to call and complete pt portion of the referral. Provided pt with the phone number to the [facility]. Offered to assist pt with phone call to facility. Pt was playing a card game with her sister and stated she will call after the game and she will use her cell phone to call. Received another phone call from [facility] that was referred to charge nurse on med/surg so charge nurse could provide information on pt's physical status and discharge.
[2022-06-04] MEDS: ATORVASTATIN CALCIUM 40 MG TABLET PO (20:38)
[2022-06-04] MEDS: WARFARIN 2 MG TABLET 4 MG PO (20:40)
[2022-06-04] MEDS: MYRBETRIQ 25MG PO (20:40)
[2022-06-04] MEDS: MELATONIN 3 MG TABLET 6 MG PO (20:44)
[2022-06-04] MEDS: CALCIUM CARBONATE 500 MG TABLET PO (20:54)
--- NOTE | 2022-06-04 21:40 | PC.NURSE ---
alert and oriented. talked positive about card games and getting involved volenteering at the senior center. vs wnl. sats 93 ra awake. up in [place]ard with walker. did well. up in chair most of evening. ate all of dinner.
[2022-06-05] VITALS: O2SAT 93
[2022-06-05 02:24] VITALS: BP 134/81; PULSE 75; RESP 14; TEMP 36.7; O2SAT 92
--- NOTE | 2022-06-05 04:46 | PC.NURSE ---
[id number]: patient pleasant and cooperative. appears to have slept well between cares. 1LPM NC overnight to maintain sats above 90%. up ad linda with walker.
[2022-06-05] MEDS: LEVOTHYROXINE 88 MCG TABLET PO (06:54)
[2022-06-05 07:55] LABS: INR 1.69 (0.91-1.10); Prothrombin Time 20.3 Seconds
[2022-06-05 08:15] VITALS: BP 141/86; PULSE 76; RESP 16; TEMP 36.9; O2SAT 91
[2022-06-05] MEDS: TORSEMIDE 20 MG TABLET 10 MG PO (09:14)
[2022-06-05] MEDS: BUSPIRONE 10 MG TABLET 5 MG PO (09:14)
[2022-06-05] MEDS: MULTIVITAMIN/MINERALS 1 TABLET 1 TAB PO (09:14)
[2022-06-05] MEDS: FLUOXETINE HCL 20 MG CAPSULE 60 MG PO (09:15)
[2022-06-05] MEDS: ASPIRIN 81 MG TABLET EC PO (09:15)
[2022-06-05] MEDS: Fluticasone-Umeclidin-Vilanter [Trelegy Ellipta] 200-62.5-25 mcg IH (09:15)
[2022-06-05] MEDS: CARVEDILOL 3.125MG PO (09:16)
--- NOTE | 2022-06-05 10:36 | PC.SOCIAL ---
Went into pt room to assist pt in calling [facility] ([phone]) to set up an appointment for an assessment. Pt talked to Danielito from [facility] and Danielito sent documents for pt to sign and sent a zoom link to begin the assessment right away. This worker assisted pt in submitting documents that needed signature and installing zoom on her cell phone. Danielito called this worker and stated that he could not continue the assessment until pt was back at her home. Informed Danielito that pt. was discharging from the hospital within the hour and this worker will go speak to pt's son and pt and let them know when pt is back home she should call [facility] again. Danielito stated that pt could also come to [facility] if she is wanting to stay inpatient. This worker met pt and pt's son, Mykel, and relayed the information from [facility]. Danielito stated that he will call with pt and come up with the best plan.
--- NOTE | 2022-06-05 10:59 | PC.NURSE ---
Discharge. Pt has been very pleasant. she is alert x4 and knows her mediations and doses. no pain. she is up with SBA. she had o2 on @ 1L nc. she uses o2 at hs. she is eating, drinking and voiding with no problems. went over discharge packet with pt and son. went over 2 new meds. appts x1 instruction and education. pt went over and signed personal belonging sheet. all pt belongings and paperwork sent with pt. pt got a w/c ride to her car.
--- NOTE | 2022-06-05 16:12 | PM.DS1 ---
DS: Providers Provider Date Seen: 06/05/22 Date of admission: 06/03/22 12:56 Primary care physician: Karma Jang MD Admitting Clinician: Liliam Villarreal MD Consults: 06/03/22 16:02 Consult to Respiratory Therapy [CONS] Routine Comment: Reason(s) for RT Consult:: Consult Comment: O2 needs; ? outpatient pulm rehab? Consult to [facility] [CONS] Routine Comment: Reason for Consult:: Discharge Planning Needs Attending Physician on discharge: Liliam Villarreal MD Date of Discharge: 06/05/22 DS: Diagnosis Discharge Diagnosis (1) Recurrent major depression resistant to treatment: Status: Acute Problem details: Increase fluoxetine to 60 mg daily. Started BusPar yesterday at 5 mg b.i.d., increasing to 5 mg t.i.d. for the rest of this week. Inpatient psychotherapy in [place] is being pursued. I think she would be an excellent candidate for this. While she has several chronic illnesses she is ambulatory and can attend to her self-care. She has a supportive family. She has insight and a desire to feel better. In regards to risk of suicide: Patient states she had passive thoughts of overdose a few days ago. However she felt like she could never go through with this as she has never understood suicide and how people could do this to her their families. At this point she is interactive, asking for a treatment plan and looking forward to feeling better. (2) Chronic hypoxemic respiratory failure: Status: Acute Problem details: Stable (3) Ischemic cardiomyopathy: Status: Acute Problem details: Known. Reviewed March 2022 echo. (4) Severe depression: Status: Acute (5) Presence of permanent cardiac pacemaker: Status: Acute Problem details: Noted. (6) Chronic anticoagulation: Status: Acute Problem details: Will check INR in the morning. Continue warfarin. (7) Paroxysmal atrial fibrillation: Status: Acute (8) Oxygen dependent: Status: Acute Problem details: Stable (9) Panlobular emphysema: Status: Acute Problem details: Oxygen dependent. Continue home medications (10) CKD stage 4 secondary to hypertension: Status: Acute Problem details: Stable DS: Summary Hospital Course Hospital Course: HOSPITALIST DISCHARGE SUMMARY ATTENDING PHYSICIAN: Liliam Villarreal MD FINAL DIAGNOSIS: Major depressive disorder, recalcitrant to treatment Chronic comorbidities HOSPITAL FOLLOWUP ISSUES: 1. [facility] Arrangements were made for evaluation this morning at the patient's home. 2. Continue increased doses of fluoxetine and titrating doses BusPar REFERRALS WHILE ADMITTED: None REFERRALS AFTER DISCHARGE: None BRIEF HOSPITAL COURSE: Elsa Gray was admitted after depression had worsened this summer. She had passive thoughts of suicide. She did not have an active plan or an active attempt. She has several chronic illnesses which include oxygen-dependent COPD, ischemic cardiomyopathy and atrial fibrillation on oral anticoagulation. She has worked her whole life and in the last year actually has been fully retired. This has been a very tough transition. She feels useless and has felt more depressed than ever before. No psychotic features. She had an uneventful stay in our emergency room and on the floor. Ultimately she was diagnosed on an increased dose of fluoxetine and we initiated BusPar at 5 mg t.i.d.. She was discharged in the care of her son and was being directly evaluated in her home by the [facility] who has inpatient program for acute psychotherapy. This was a good fit for Elsa and she had insight and was motivated to feel better. VITAL SIGN, MEDICATION, LAB/MICRO, IMAGING SUMMARY (full details available in account tabs or by records request) DISCHARGE MEDICATIONS: See Reconciled list REVIEW OF SYSTEMS No new chest pain or dyspnea Pain controlled No voiding difficulties Tolerating diet challenge PHYSICAL EXAM: CONSTITUTIONAL: VITAL SIGNS: see record. HEENT: Normocephalic, atraumatic. PERRL, EOMI, conjunctivae pink, no scleral icterus. Ears and nose externally normal. Pharynx normal. NECK: No JVD. No carotid bruit, no thyromegaly, no adenopathy. CHEST: Clear to auscultation bilaterally. HEART: S1 and S2 normal. Edema ABDOMEN: Soft, nontender. Normal bowel sounds. MUSCULOSKELETAL: No gross joint deformity or swelling. NEURO: Cranial nerves intact. Grossly intact. No asymmetric findings. SKIN: No rashes, petechiae, concerning changes PSYCHIATRIC: Mood euthymic. DISPOSITION: Time spent on discharge 37 minutes. Status at Discharge Functional status at discharge: uses cane/walker Overall status at discharge: patient is progressing back to baseline Time Spent with Patient Time attestation: Total time spent providing and/or coordinating discharge services: Time spent: Greater than 30 minutes Exam Const: Vital Signs, click to edit/add: Vital Signs - 24 hr 06/04/22 16:37 06/04/22 17:00 06/04/22 23:53 Temperature 97 F L 97.4 F L Pulse Rate [Left B rachial] 75 71 Respiratory Rate 14 14 Blood Pressure [Le ft Arm] 115/70 115/72 Pulse Oximetry 98 93 93 Oxygen Delivery Me thod Room Air Room Air Room Air Oxygen Flow Rate 1.5 06/04/22 23:00 06/05/22 00:00 06/05/22 02:24 Temperature 98.1 F Pulse Rate [Left B rachial] 71 75 Respiratory Rate 14 14 Blood Pressure [Le ft Arm] 134/81 Pulse Oximetry 93 92 Oxygen Delivery Me thod Nasal Cannula Nasal Cannula Oxygen Flow Rate 1 1 06/05/22 08:15 06/05/22 08:15 06/05/22 08:15 Temperature 98.4 F Pulse Rate [Left B rachial] 76 76 Respiratory Rate 16 16 Blood Pressure [Le ft Arm] 141/86 H Pulse Oximetry 91 91 Oxygen Delivery Me thod Nasal Cannula Nasal Cannula Oxygen Flow Rate 1 1 DS: Data Data Completed and Pending Labs on day of discharge: Labs from last 24 hours 06/05/22 06:05 INR 1.69 H Discharge Plan Discharge Disposition: Home w/ Parent or Adult Date of Admission: 06/03/22 12:56 Attending Provider on Discharge: Liliam Villarreal Primary Care Provider: Karma Jang I Anticipated Discharge Date/Time: 06/05/22 08:09 Discharge Medications: New buspirone 10 mg Tablet 5 mg PO TID Qty: 60 0RF melatonin 3 mg Tablet 6 mg PO HS PRNQty: 60 0RF Continued atorvastatin 40 mg tablet 40 mg PO HS ipratropium-albuterol 0.5 mg-3 mg(2.5 mg base)/3 mL solution for nebulization 3 ml INHALATION QID PRN Label Comments: USE 3 ML VIA NEBULIZER FOUR TIMES DAILY NEEDED FOR SHORTNESS OF BREATH torsemide 20 mg tablet 20 mg PO BIDWMEAL Label Comments: TAKE 1 TABLET BY MOUTH TWICE DAILY WITH MEALS carvedilol 3.125 mg tablet 3.125 mg PO BIDWMEAL levothyroxine 88 mcg tablet 88 mcg PO DAILY warfarin 2 mg tablet 4 - 6 mg PO DAILY Rx Instructions: Take 4mg every MWF Take 6mg all other days losartan 25 mg tablet 12.5 mg PO DAILY Rx Instructions: Take 0.5 tablets by mouth once daily albuterol sulfate 90 mcg/actuation HFA aerosol inhaler 2 puff INHALATION Q4H PRN Label Comments: INHALE 1 TO 2 PUFFS BY MOUTH EVERY 4 HOURS NEEDED FOR SHORTNESS OF BREATH Myrbetriq 25 mg tablet extended release 24 hr 25 mg PO DAILY Trelegy Ellipta 200-62.5-25 mcg blister with device 1 inh INHALATION DAILY Label Comments: INHALE 1 PUFF BY MOUTH EVERY DAY aspirin 81 mg capsule 81 mg PO DAILY calcium carbonate [Calcium 600] 600 mg calcium (1,500 mg) tablet 600 mg PO DAILY cholecalciferol (vitamin D3) [Vitamin D3] 50 mcg (2,000 unit) capsule 50 mcg PO DAILY famotidine 40 mg tablet 40 mg PO HS multivitamin [Multiple Vitamins] Tablet 1 tab PO DAILY loperamide-simethicone [Imodium Multi-Symptom Relief] 2-125 mg tablet 1 tab PO BID PRN Changed fluoxetine 40 mg capsule 60 mg PO DAILY Qty: 60 0RF Label Comments: TAKE 1 CAPSULE BY MOUTH EVERY DAY. Rx Instructions: please substitute to tablets in order to do 60mg. Discharge Orders: Discharge Order (Routine); Ordered 06/05/22 Ordered By: Liliam Villarreal Patient Education: Buspirone (By mouth), Melatonin (By mouth), Depression (DC) Activity Level: Activity as Tolerated Activity Detail: [facility] from [place] will meet you at your home this morning. Follow Up Appointments: Karma Jang MD [Primary Care Provider] - Forms: [employer] Info Instructions AMA Form Signed: No (not applicable)
== END 2022-06-05 10:45 | disposition home or self-care (01) ==
LOC: ED 13:02 → MEDSURG 06-03 12:57
PROVIDERS: Family Medicine; Admitting Provider Family Medicine; Emergency Provider Emergency Medicine; PCP Family Medicine; Visit Provider Family Medicine
DX: F32.2 Major depressive disorder, single episode, severe without psychotic features (principal); I25.5 Ischemic cardiomyopathy; I12.9 Hypertensive chronic kidney disease with stage 1 through stage 4 chronic kidney disease, or unspecified chronic kidney disease; N18.4 Chronic kidney disease, stage 4 (severe); J96.11 Chronic respiratory failure with hypoxia; I95.9 Hypotension, unspecified; Z99.81 Dependence on supplemental oxygen; J43.1 Panlobular emphysema; I48.0 Paroxysmal atrial fibrillation; Z79.01 Long term (current) use of anticoagulants; Z95.0 Presence of cardiac pacemaker; Z79.82 Long term (current) use of aspirin; R45.851 Suicidal ideations; E78.5 Hyperlipidemia, unspecified; Z87.891 Personal history of nicotine dependence; Z98.890 Other specified postprocedural states
CPT/HCPCS: 36415; 80048; 80143; 80179; 80306; 81001; 82077; 84443; 85025; 85610; 87635; 99284; A9153; A9270; G0378

== ENCOUNTER 2022-09-23 08:06 | Outpatient (RCR) | payer MEDICAID, SELFPAY | END 2022-12-27 13:02 | disposition home or self-care (01) | LOC: MOW 08:06 | PROVIDERS: PCP Family Medicine; Visit Provider Family Medicine | DX: Z76.0 Encounter for issue of repeat prescription (principal) | CPT/HCPCS: S5170 ==

== ENCOUNTER 2022-10-10 16:57 | Emergency (ER) | payer MEDICARE, MEDICAID, SELFPAY ==
[2022-10-10] VITALS (21 sets, daily range): BP systolic 119–159; BP diastolic 80–90; PULSE 69–82; RESP 14; TEMP 36.7; O2SAT 89–95; BMI 25.1
--- NOTE | 2022-10-10 17:46 | ED.WEAKNESS ---
HPI - Weakness General Time Seen by Provider: 17:46 Date Seen: 10/10/22 Chief complaint: Weakness Stated complaint: Low BP,O2 Low,Pacemaker issues Time Seen by Provider: 10/10/22 17:45 Source: patient, RN notes reviewed and old records reviewed Mode of arrival: ambulatory Limitations: no limitations History of Present Illness HPI Narrative: Patient is a very pleasant 77-year-old female with a history of paroxysmal atrial fibrillation with a pacemaker on chronic anticoagulation as well as COPD O2 at night who comes to the emergency room for evaluation regarding fatigue. Patient notes that she did not sleep well overnight but has no specific complaints. She states that this morning she woke up and she felt okay. At lunch time she felt her legs be very weak and was associated with some shortness of breath. She was able to get herself into her walker and took a nebulizer and states she felt much better. She denies any chest pain at that time. She went about the rest of her day without difficulty and decided that she was going to take a nap in the afternoon as she felt fatigued. She was not able to sleep. She notes that she did use oxygen this afternoon in she usually does not. She only uses oxygen at night and it is 1.5 L at a time. She denies any chills, dysuria but does note increased urinary frequency. She denies any chest pain. She has not had a recent illness. According to a note from her home health nurse this afternoon she had a blood pressure of 88/60 and a pulse of 56. She states that her pacemaker should keep her up over 70. At that time on room air she was at 91%. Usually she is around 93-94% Since she has been in the emergency room her heart rate has been in the 70s. Her blood pressure is 117 systolic. She has no episodes of diaphoresis. Denies any chest pain. Related Data Home Medications Medication Instructions Recorded Confirmed albuterol sulfate 90 mcg/actuation 2 puff inhalation Q4H PRN 06/02/22 07/06/22 aerosol inhaler aspirin 81 mg capsule 81 mg PO DAILY 06/02/22 07/06/22 atorvastatin 40 mg tablet 40 mg PO HS 06/02/22 07/06/22 calcium carbonate 600 mg calcium 600 mg PO DAILY 06/02/22 07/06/22 (1,500 mg) tablet (Calcium) carvedilol 3.125 mg tablet 3.125 mg PO BIDWMEAL 06/02/22 07/06/22 cholecalciferol (vitamin D3) 50 50 mcg PO DAILY 06/02/22 07/06/22 mcg (2,000 unit) capsule (Vitamin D3) famotidine 40 mg tablet 40 mg PO HS 06/02/22 07/06/22 fluticasone fur. 200 mcg-umeclid 1 inh inhalation DAILY 06/02/22 07/06/22 62.5 mcg-vilant 25 mcg inhalat.powder (Trelegy Ellipta) ipratropium 0.5 mg-albuterol 3 mg 3 ml inhalation QID PRN 06/02/22 07/06/22 (2.5 mg base)/3 mL nebulization soln levothyroxine 88 mcg tablet 88 mcg PO DAILY 06/02/22 07/06/22 losartan 25 mg tablet 12.5 mg PO DAILY 06/02/22 06/02/22 mirabegron 25 mg tablet,extended 25 mg PO DAILY 06/02/22 07/06/22 release 24 hr (Myrbetriq) torsemide 20 mg tablet 20 mg PO BIDWMEAL 06/02/22 07/06/22 warfarin 2 mg tablet 4 - 6 mg PO DAILY 06/02/22 07/06/22 loperamide-simethicone 2 mg-125 mg 1 tab PO BID PRN 06/03/22 07/06/22 tablet (Imodium Multi-Symptom Relief) multivitamin (Multiple Vitamins 1 tab PO DAILY 06/03/22 07/06/22 tablet) Previous Rx's Medication Instructions Recorded buspirone 10 mg tablet 5 mg PO TID #60 tabs 06/05/22 fluoxetine 40 mg capsule 60 mg PO DAILY #60 caps 06/05/22 melatonin 3 mg tablet 6 mg PO HS PRN #60 tabs 06/05/22 cefdinir 300 mg capsule 300 mg PO BID 7 days #14 caps 10/10/22 Allergies Allergy/AdvReac Type Severity Reaction Status Date / Time bacitracin Allergy Mild Verified 07/06/22 12:19 [From Neosporin Plus] lidocaine Allergy Mild Verified 07/06/22 12:19 [From Neosporin Plus] neomycin Allergy Mild Verified 07/06/22 12:19 [From Neosporin Plus] Penicillins Allergy Mild Rash Verified 07/06/22 12:18 polymyxin B Allergy Mild Verified 07/06/22 12:19 [From Neosporin Plus] pramoxine Allergy Mild Verified 07/06/22 12:19 [From Neosporin Plus] BRAD Inhibitors Allergy Unknown Verified 07/06/22 12:18 bupropion [From Wellbutrin] Allergy Unknown Verified 07/06/22 12:18 hydrocodone Allergy Unknown Verified 07/06/22 12:18 oxycodone Allergy Unknown Verified 07/06/22 12:18 Review of Systems Status of ROS: Reports: 10 or more systems reviewed and unremarkable except as noted in History and below Const: Denies: fever or chills [facility] History (Updated 10/10/22 @ 20:15 by Margoth Gordillo MD) Acid reflux Anticoagulated on warfarin Anticoagulation goal of INR 2 to 3 Anxiety Atrial fibrillation CAD (coronary artery disease) CHF (congestive heart failure) Chronic anticoagulation Chronic deep vein thrombosis of left lower extremity Chronic hypoxemic respiratory failure Chronic pain of both shoulders CKD stage 4 secondary to hypertension Closed nondisplaced fracture of greater trochanter of right femur with routine healing COPD (chronic obstructive pulmonary disease) Depression Hyperlipidemia Hypertension Hypothyroidism Intrinsic urethral sphincter deficiency Ischemic cardiomyopathy Mixed stress and urge urinary incontinence 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 Panlobular emphysema Paroxysmal atrial fibrillation Presence of permanent cardiac pacemaker Recurrent major depression resistant to treatment Severe depression Surgical History History of cataract surgery History of cholecystectomy History of hip replacement Social History Highest level of school completed/degree received: high school graduate Smoking Status: Former smoker What tobacco products do you use: cigarettes Smoking quit date/years: >15 years ago Do you use any of these nicotine containing products: None Second hand tobacco smoke exposure: No How often do you have a drink containing alcohol: never AUDIT-C Alcohol total score: 0 Non-prescribed substance use: denies use Caffeine: Yes (Daily) service: No Exam Narrative: Exam Narrative: Patient is alert and oriented. She is not in any acute distress. She is mentating normally. Eyes are clear. Oral cavity moist mucous membranes. Neck is supple without lymphadenopathy. Heart with a regular rate and rhythm at this time. Lungs are with decreased breath sounds in the left lower lung base. Abdomen is soft nontender. Lower extremities without any evidence of fluid retention. Calves are without any discomfort and negative Homans sign. When patient sits up and does deep breathing oxygen levels to 95%. Const: Vital Signs, click to edit/add: Vital Signs - 24 hr 10/10/22 17:16 10/10/22 17:45 10/10/22 18:00 Temperature 98.0 F Pulse Rate 76 69 Pulse Rate [Pulse Oximeter] 75 Respiratory Rate 14 Blood Pressure Blood Pressure [Ri ght Upper Arm] 119/83 Pulse Oximetry 95 90 90 Oxygen Delivery Me thod Room Air Room Air 10/10/22 18:01 10/10/22 18:15 10/10/22 18:30 Temperature Pulse Rate 71 70 79 Pulse Rate [Pulse Oximeter] Respiratory Rate Blood Pressure 139/82 Blood Pressure [Ri ght Upper Arm] Pulse Oximetry 91 89 93 Oxygen Delivery Me thod 10/10/22 18:31 10/10/22 18:54 10/10/22 19:00 Temperature Pulse Rate 76 81 71 Pulse Rate [Pulse Oximeter] Respiratory Rate Blood Pressure 159/83 H Blood Pressure [Ri ght Upper Arm] Pulse Oximetry 91 90 91 Oxygen Delivery Me thod 10/10/22 19:15 10/10/22 19:30 10/10/22 19:31 Temperature Pulse Rate 74 75 71 Pulse Rate [Pulse Oximeter] Respiratory Rate Blood Pressure 146/82 H Blood Pressure [Ri ght Upper Arm] Pulse Oximetry 90 90 90 Oxygen Delivery Me thod 10/10/22 19:45 10/10/22 20:00 10/10/22 20:01 Temperature Pulse Rate 74 75 74 Pulse Rate [Pulse Oximeter] Respiratory Rate Blood Pressure 150/90 H Blood Pressure [Ri ght Upper Arm] Pulse Oximetry 92 90 90 Oxygen Delivery Me thod 10/10/22 20:15 10/10/22 20:30 10/10/22 20:33 Temperature Pulse Rate 82 76 77 Pulse Rate [Pulse Oximeter] Respiratory Rate Blood Pressure Blood Pressure [Ri ght Upper Arm] Pulse Oximetry 90 90 91 Oxygen Delivery Me thod 10/10/22 20:34 10/10/22 20:45 Temperature Pulse Rate 74 70 Pulse Rate [Pulse Oximeter] Respiratory Rate Blood Pressure 152/80 H Blood Pressure [Ri ght Upper Arm] Pulse Oximetry 91 90 Oxygen Delivery Me thod Documenting provider has reviewed patient's vital signs: yes Course Course Hospital Course: At this time will check CBC troponin, EKG, comprehensive panel, proBNP, urinalysis and chest x-ray. Differential diagnosis includes but is not limited to acute coronary event, COPD exacerbation, COVID, influenza, CHF, urinary tract infection, sepsis. Reevaluation(s) Reevaluation #1: Patient has remained with O2 sats 90-92% and even improved when she has deep breathing. She has no fever and has had show no hypotension nor bradycardia. Reevaluation #2: I do share with patient that she has had 2 blood test that are negative for any heart attack. She is sitting up in bed at this time. She appears anxious to go. I do state that I think she has a urinary tract infection although I am not 100% certain. She does describe increased frequency. She notes no pain at this time. She is in agreement with an antibiotic. She states that she has allergies to sulfa and to penicillin. Vital Signs Vital signs: Initial Vital Signs Temperature 98.0 F 10/10/22 17:16 Temperature Source Temporal Artery Scan 10/10/22 17:16 Pulse Rate 75 10/10/22 17:16 Pulse Rhythm 10/10/22 17:16 Respiratory Rate 14 10/10/22 17:16 Blood Pressure 119/83 10/10/22 17:16 Blood Pressure Mean 95 10/10/22 17:16 Blood Pressure Position Sitting 10/10/22 17:16 Pulse Oximetry 95 10/10/22 17:16 Oxygen Delivery Method 10/10/22 17:16 Vital Signs Temperature 98.0 F 10/10/22 17:16 Pulse Rate 75 10/10/22 17:16 Respiratory Rate 14 10/10/22 17:16 Blood Pressure 119/83 10/10/22 17:16 Pulse Oximetry 95 10/10/22 17:16 Oxygen Delivery Method 10/10/22 17:16 Temperature 98.0 F 10/10/22 17:16 Pulse Rate 70 10/10/22 20:45 Respiratory Rate 14 10/10/22 17:16 Blood Pressure 152/80 H 10/10/22 20:34 Pulse Oximetry 90 10/10/22 20:45 Oxygen Delivery Method 10/10/22 17:45 MDM - Weakness MDM Narrative Medical decision making narrative: 1. COPD exacerbation-chest x-ray is clear but patient has decreased breath sounds left lower lung base and slightly decreased oxygen levels. Hard to say if this is a chronic condition or not. It would explain increased oxygen needs. Patient is negative for COVID/influenza and RSV. Chest x-ray without evidence of infiltrate. She has no evidence of underlying acute coronary event with 2- troponins and negative EKGs. She did have episode of shortness of breath earlier today that was resolved with a nebulizer. She has no calf tenderness or history of recent activity. Given patient's coexisting UTI as well as allergies to penicillin and sulfa, will treat with 1 dose of Rocephin 1 g IM. Patient will then start on cefdinir 300 mg p.o. b.i.d. x7 days. This was sent to the pharmacy. Lactate is negative. 2. UTI-patient has 3+ leukocyte esterase and positive nitrates. This is not a contaminated specimen. It is unusual however that is showing 0-2 rbc's and 0-2 wbc's. Patient does report urinary frequency but does not have any pain at this time. I do believe she has a UTI and this is also likely source of her weakness. Cefdinir is going to be used for this. I do not have previous records to indicate any history of difficult to treat infection or antibiotic resistance. 3. Elevated proBNP-patient has elevated proBNP of greater than 7000. I have no previous values for comparison. She has known ejection fraction that is reduced. Tonight she has no evidence of heart failure. 3. Disposition -home with family at this time. For any change in symptoms. Return for fever, vomiting, difficulty breathing and as needed. Patient has reported an episode of hypotension with systolic blood pressure at 88 and pulse of 50. Throughout her stay here she has never been bradycardic nor has she been hypotensive. EKG initially shows a paced rhythm in the 70s. Subsequent EKG shows wide QRS rhythm at a rate of 81. I do not note any evidence of acute coronary event and troponins are negative x2. I am able to speak to patient's son regarding what I think her diagnoses. Initially we were going to use doxycycline but that has been canceled and we will now use cefdinir. Patient is in agreement that she will return for any worsening symptoms. Medical Records Attestation: I reviewed the patient's medical records. Lab Data Attestation: I reviewed the patient's lab results. Labs: Lab Results 10/10/22 10/10/22 10/10/22 Range/Units 17:45 18:34 19:01 WBC 7.02 (4.50-11.00) K/uL RBC 4.28 (4.00-5.20) m/uL Hgb 12.4 (12.0-16.0) gm/dL Hct 38.3 (33.0-51.0) % MCV 90 (80-100) fL MCH 29 (26-34) pg MCHC 32 (32-36) gm/dL RDW Coeff of Sudha 14.4 (11.5-15.5) % Plt Count 266 (140-440) K/uL Neut % (Auto) 62.8 (42.0-72.0) % Lymph % (Auto) 24.4 (20-44) % [place] % (Auto) 10.0 (0.0-11.0) % Eos % (Auto) 1.9 (0.0-7.0) % Baso % (Auto) 0.6 (0.0-3.0) % Neut # (Auto) 4.42 (1.7-7.0) K/uL Lymph # (Auto) 1.71 (0.90-2.90) K/uL [place] # (Auto) 0.70 (0.00-0.90) K/UL Eos # (Auto) 0.13 (0.00-0.50) K/uL Baso # (Auto) 0.04 (0.00-0.30) K/uL Sodium (135-149) mmol/L Potassium (3.6-5.1) mmol/L Chloride (96-114) mmol/L Carbon Dioxide (20-32) mmol/L BUN (7-30) mg/dL Creatinine (0.5-1.5) mg/dL Estimated Creat Clear Estimated GFR ml/min Glucose (60-115) mg/dL Lactate (0.5-1.9) mmol/L Calcium (8.4-10.6) mg/dL Total Bilirubin (0.1-1.5) mg/dL AST (12-35) U/L ALT (4-35) U/L Alkaline Phosphatase (40-150) U/L C-Reactive Protein (0.5-1.0) mg/dL NT-Pro-B Natriuret Pep pg/mL Total Protein (6.0-8.3) g/dL Albumin (3.3-5.0) g/dL Urine Color Yellow (Yellow) Urine Appearance Clear (Clear) Urine pH 7.0 (5.0-8.5) Ur Specific [place] 1.010 (1.000-1.030) Urine Protein Negative (Negative) Urine Glucose (UA) Negative (Negative) Urine Ketones Negative (Negative) Urine Blood Trace-intact A (Negative) Urine Nitrite Positive A (Negative) Urine Bilirubin Negative (Negative) Urine Urobilinogen 0.2 (0.2-1.0) Ur Leukocyte Esterase 3+ A (Negative) Urine RBC 0-2 (0-2) Urine WBC 0-2 (0-5) Ur Squamous Epith Cells Few (None-Few) Urine Bacteria Few A (None) SARS-CoV-2 (PCR) Negative SARS-CoV-2 (Negative) Influenza Type A (PCR) Negative PCR FLU A (Negative) Influenza Type B (PCR) Negative PCR FLU B (Negative) RSV (PCR) Negative PCR RSV (Negative) POC Troponin I (0.01-0.04) ng/ml 10/10/22 10/10/22 10/10/22 Range/Units 19:01 19:01 19:01 WBC (4.50-11.00) K/uL RBC (4.00-5.20) m/uL Hgb (12.0-16.0) gm/dL Hct (33.0-51.0) % MCV (80-100) fL MCH (26-34) pg MCHC (32-36) gm/dL RDW Coeff of Sudha (11.5-15.5) % Plt Count (140-440) K/uL Neut % (Auto) (42.0-72.0) % Lymph % (Auto) (20-44) % [place] % (Auto) (0.0-11.0) % Eos % (Auto) (0.0-7.0) % Baso % (Auto) (0.0-3.0) % Neut # (Auto) (1.7-7.0) K/uL Lymph # (Auto) (0.90-2.90) K/uL [place] # (Auto) (0.00-0.90) K/UL Eos # (Auto) (0.00-0.50) K/uL Baso # (Auto) (0.00-0.30) K/uL Sodium 135 (135-149) mmol/L Potassium 4.2 (3.6-5.1) mmol/L Chloride 103 (96-114) mmol/L Carbon Dioxide 25 (20-32) mmol/L BUN 36 H (7-30) mg/dL Creatinine 1.2 (0.5-1.5) mg/dL Estimated Creat Clear 36.97 Estimated GFR 46 ml/min Glucose 96 (60-115) mg/dL Lactate 0.9 (0.5-1.9) mmol/L Calcium 9.3 (8.4-10.6) mg/dL Total Bilirubin 0.7 (0.1-1.5) mg/dL AST 27 (12-35) U/L ALT 20 (4-35) U/L Alkaline Phosphatase 122 (40-150) U/L C-Reactive Protein 0.6 (0.5-1.0) mg/dL NT-Pro-B Natriuret Pep 7270 pg/mL Total Protein 6.7 (6.0-8.3) g/dL Albumin 3.9 (3.3-5.0) g/dL Urine Color (Yellow) Urine Appearance (Clear) Urine pH (5.0-8.5) Ur Specific [place] (1.000-1.030) Urine Protein (Negative) Urine Glucose (UA) (Negative) Urine Ketones (Negative) Urine Blood (Negative) Urine Nitrite (Negative) Urine Bilirubin (Negative) Urine Urobilinogen (0.2-1.0) Ur Leukocyte Esterase (Negative) Urine RBC (0-2) Urine WBC (0-5) Ur Squamous Epith Cells (None-Few) Urine Bacteria (None) SARS-CoV-2 (PCR) (Negative) Influenza Type A (PCR) (Negative) Influenza Type B (PCR) (Negative) RSV (PCR) (Negative) POC Troponin I 0.02 (0.01-0.04) ng/ml 10/10/22 Range/Units 20:29 WBC (4.50-11.00) K/uL RBC (4.00-5.20) m/uL Hgb (12.0-16.0) gm/dL Hct (33.0-51.0) % MCV (80-100) fL MCH (26-34) pg MCHC (32-36) gm/dL RDW Coeff of Sudha (11.5-15.5) % Plt Count (140-440) K/uL Neut % (Auto) (42.0-72.0) % Lymph % (Auto) (20-44) % [place] % (Auto) (0.0-11.0) % Eos % (Auto) (0.0-7.0) % Baso % (Auto) (0.0-3.0) % Neut # (Auto) (1.7-7.0) K/uL Lymph # (Auto) (0.90-2.90) K/uL [place] # (Auto) (0.00-0.90) K/UL Eos # (Auto) (0.00-0.50) K/uL Baso # (Auto) (0.00-0.30) K/uL Sodium (135-149) mmol/L Potassium (3.6-5.1) mmol/L Chloride (96-114) mmol/L Carbon Dioxide (20-32) mmol/L BUN (7-30) mg/dL Creatinine (0.5-1.5) mg/dL Estimated Creat Clear Estimated GFR ml/min Glucose (60-115) mg/dL Lactate (0.5-1.9) mmol/L Calcium (8.4-10.6) mg/dL Total Bilirubin (0.1-1.5) mg/dL AST (12-35) U/L ALT (4-35) U/L Alkaline Phosphatase (40-150) U/L C-Reactive Protein (0.5-1.0) mg/dL NT-Pro-B Natriuret Pep pg/mL Total Protein (6.0-8.3) g/dL Albumin (3.3-5.0) g/dL Urine Color (Yellow) Urine Appearance (Clear) Urine pH (5.0-8.5) Ur Specific [place] (1.000-1.030) Urine Protein (Negative) Urine Glucose (UA) (Negative) Urine Ketones (Negative) Urine Blood (Negative) Urine Nitrite (Negative) Urine Bilirubin (Negative) Urine Urobilinogen (0.2-1.0) Ur Leukocyte Esterase (Negative) Urine RBC (0-2) Urine WBC (0-5) Ur Squamous Epith Cells (None-Few) Urine Bacteria (None) SARS-CoV-2 (PCR) (Negative) Influenza Type A (PCR) (Negative) Influenza Type B (PCR) (Negative) RSV (PCR) (Negative) POC Troponin I 0.00 L (0.01-0.04) ng/ml Imaging Data Chest x-ray: Attestation: I have reviewed the pertinent imaging results. My impression: No obvious infiltrates. Radiologist's impression: ?portable AP view of the chest was obtained. There is a left-sided pacemaker. The leads appear intact. There are sternotomy wires.? The cardiac silhouette and pulmonary vasculature are within normal limits. There is bibasilar atelectasis or scarring. The lungs otherwise are clear. There are degenerative changes in the shoulders right greater than left. Impression: Bibasilar atelectasis or scarring. ECG Data Attestation: I personally reviewed and interpreted this ECG as follows: ECG interpretation date: 10/10/22 Prior ECG tracings: available for review Interpretation: EKG 1. Shows patent atrial paced rhythm at a rate of 72. EKG 2. By my read shows sinus rhythm at a rate of 81. She does have wide QRS complexes I do not see any pacer spikes. Discharge Plan Discharge Clinical Impression: Breath shortness, Weakness, Acute UTI Patient Disposition: Home, Self-Care Condition: Improved Additional Instructions: At this time we did not note any slow heart rate or low blood pressure. You have a urinalysis that strongly suggests a urinary tract infection. In addition I am wondering if you have a flare of COPD. We gave you a dose of a antibiotic called Rocephin tonight. We will have you continue a similar antibiotic tomorrow called cefdinir. I will send that to your pharmacy. Increase her fluids. Monitor for any return of weakness, fever, chest pain, shortness of breath and return if that should occur. Prescriptions: New cefdinir 300 mg capsule 300 mg PO BID 7 Days Qty: 14 0RF No Action atorvastatin 40 mg tablet 40 mg PO HS ipratropium-albuterol 0.5 mg-3 mg(2.5 mg base)/3 mL solution for nebulization 3 ml INHALATION QID PRN Label Comments: USE 3 ML VIA NEBULIZER FOUR TIMES DAILY NEEDED FOR SHORTNESS OF BREATH torsemide 20 mg tablet 20 mg PO BIDWMEAL Label Comments: TAKE 1 TABLET BY MOUTH TWICE DAILY WITH MEALS carvedilol 3.125 mg tablet 3.125 mg PO BIDWMEAL levothyroxine 88 mcg tablet 88 mcg PO DAILY warfarin 2 mg tablet 4 - 6 mg PO DAILY Rx Instructions: Take 4mg every MWF Take 6mg all other days losartan 25 mg tablet 12.5 mg PO DAILY Rx Instructions: Take 0.5 tablets by mouth once daily albuterol sulfate 90 mcg/actuation HFA aerosol inhaler 2 puff INHALATION Q4H PRN Label Comments: INHALE 1 TO 2 PUFFS BY MOUTH EVERY 4 HOURS NEEDED FOR SHORTNESS OF BREATH Myrbetriq 25 mg tablet extended release 24 hr 25 mg PO DAILY Trelegy Ellipta 200-62.5-25 mcg blister with device 1 inh INHALATION DAILY Label Comments: INHALE 1 PUFF BY MOUTH EVERY DAY aspirin 81 mg capsule 81 mg PO DAILY calcium carbonate [Calcium 600] 600 mg calcium (1,500 mg) tablet 600 mg PO DAILY cholecalciferol (vitamin D3) [Vitamin D3] 50 mcg (2,000 unit) capsule 50 mcg PO DAILY famotidine 40 mg tablet 40 mg PO HS multivitamin [Multiple Vitamins] Tablet 1 tab PO DAILY loperamide-simethicone [Imodium Multi-Symptom Relief] 2-125 mg tablet 1 tab PO BID PRN buspirone 10 mg Tablet 5 mg PO TID Qty: 60 0RF melatonin 3 mg Tablet 6 mg PO HS PRNQty: 60 0RF fluoxetine 40 mg capsule 60 mg PO DAILY Qty: 60 0RF Label Comments: TAKE 1 CAPSULE BY MOUTH EVERY DAY. Rx Instructions: please substitute to tablets in order to do 60mg. Follow Up/Referrals: Karma Jang MD [Primary Care Provider] - Stand Alone Forms: [facility] Info Instructions
--- NOTE | 2022-10-10 18:08 | CRLHL7_ITS ---
For Patients: As a result of the Cures Act, medical imaging exams and procedure reports are released immediately into your electronic medical record. You may view this report before your referring provider. If you have questions, please contact your health care provider. INDICATION: Low O2 levels. Pacemaker issues. Comparison: None could FINDINGS: A portable AP view of the chest was obtained. There is a left-sided pacemaker. The leads appear intact. There are sternotomy wires. The cardiac silhouette and pulmonary vasculature are within normal limits. There is bibasilar atelectasis or scarring. The lungs otherwise are clear. There are degenerative changes in the shoulders right greater than left. Impression: Bibasilar atelectasis or scarring. Dictated by Justo Blackwell MD @ 10/10/2022 6:46:47 PM (Electronically Signed)
[2022-10-10 18:40] LABS: PCR FLU A Negative PCR FLU A (Negative); PCR FLU B Negative PCR FLU B (Negative); PCR RSV Negative PCR RSV (Negative)
[2022-10-10 18:46] LABS: Appearance Urine Clear (Clear); Bilirubin Urine Negative (Negative); Blood Urine Trace-intact (Negative); Color Urine Yellow (Yellow); Glucose Urine Negative (Negative); Ketones Urine Negative (Negative); Leukocyte Esterase Urine 3+ (Negative); Nitrite Urine Positive (Negative); Protein Urine Negative (Negative); Urobilinogen Urine 0.2 (0.2-1.0)
[2022-10-10 18:48] LABS: SARS PCR* Negative SARS-CoV-2 (Negative)
--- NOTE | 2022-10-10 18:49 | ED.NURSE ---
Pt refusing IV, but states she will consent to IV placement if MD deems it necessary after blood results are back. MD updated. Call to lab for blood draw.
[2022-10-10 18:59] LABS: Bacteria Urine Few; RBC Urine 0-2 (0-2); Squamous Epithelial Cell Urine Few (None-Few); WBC Urine 0-2 (0-5)
[2022-10-10 19:16] LABS: Lactate* 0.9 mmol/L (0.5-1.9)
[2022-10-10 19:18] LABS: Troponin, Point-of-Care* 0.02 ng/ml (0.01-0.04)
[2022-10-10 19:19] LABS: Basophils Absolute Auto 0.04 K/uL (0.00-0.30); Basophils Percent Auto 0.6 % (0.0-3.0); Eosinophils Absolute Auto 0.13 K/uL (0.00-0.50); Eosinophils Percent Auto 1.9 % (0.0-7.0); Hematocrit 38.3 % (33.0-51.0); Hemoglobin* 12.4 gm/dL (12.0-16.0); Immature Granulocytes Abs Auto 0.02 K/uL (0.00-0.30); Immature Granulocytes Pct Auto 0.3 %; Lymphocytes Absolute Auto 1.71 K/uL (0.90-2.90); Lymphocytes Percent Auto 24.4 % (20-44); Mean Corpuscular HGB Conc 32 gm/dL (32-36); Mean Corpuscular Hemoglobin 29 pg (26-34); Mean Corpuscular Volume 90 fL (80-100); Neutrophils Absolute Auto 4.42 K/uL (1.7-7.0); Neutrophils Percent Auto 62.8 % (42.0-72.0); Platelet Count* 266 K/uL (140-440); RDW Coefficient of Variation % 14.4 % (11.5-15.5); Red Blood Count 4.28 m/uL (4.00-5.20); White Blood Count* 7.02 K/uL (4.50-11.00)
[2022-10-10 19:20] LABS: Slide Review Reflex No
[2022-10-10 19:33] LABS: Chloride* 103 mmol/L (96-114)
[2022-10-10 19:34] LABS: Albumin* 3.9 g/dL (3.3-5.0); Potassium* 4.2 mmol/L (3.6-5.1); Sodium* 135 mmol/L (135-149)
[2022-10-10 19:36] LABS: Creatinine* 1.2 mg/dL (0.5-1.5); Est. Creatinine Clearance* 36.97; Estimated Glomerular Filt Rate 46 ml/min
[2022-10-10 19:37] LABS: Alanine Aminotransferase* 20 U/L (4-35); Alkaline Phosphatase* 122 U/L (40-150); Aspartate Amino Transferase* 27 U/L (12-35); Bilirubin Total* 0.7 mg/dL (0.1-1.5); Blood Urea Nitrogen* 36 mg/dL (7-30); Carbon Dioxide* 25 mmol/L (20-32); Glucose* 96 mg/dL (60-115); Total Protein* 6.7 g/dL (6.0-8.3)
[2022-10-10 19:38] LABS: Calcium* 9.3 mg/dL (8.4-10.6)
[2022-10-10 19:40] LABS: C Reactive Protein* 0.6 mg/dL (0.5-1.0)
[2022-10-10 19:46] LABS: NT Pro B Type NatriureticPept* 7270 pg/mL
[2022-10-10] MEDS: LIDOCAINE 1% 5 ml (pf) 5 ML VIAL 2.1 ML IM (20:54)
[2022-10-10] MEDS: cefTRIAXone 1 GM VIAL IM (20:54)
--- NOTE | 2022-10-10 21:15 | ED.NURSE ---
written snd verbal D/C per MD and RN. then cancelled Inst[facility] as she discussed with son and pt. Pt able to transfer self to w/c with stand by assist.
== END 2022-10-10 21:00 | disposition home or self-care (01) ==
PROVIDERS: Emergency Provider Family Medicine; PCP Family Medicine
DX: J44.1 Chronic obstructive pulmonary disease with (acute) exacerbation (principal); N39.0 Urinary tract infection, site not specified
CPT/HCPCS: 36415; 71045; 80053; 81001; 83605; 83880; 84484; 85025; 86140; 87086; 87186; 87502; 87634; 87635; 93005; 94761; 96365; 99285; J0696

== ENCOUNTER 2023-03-21 14:52 | Outpatient (RCR) | payer MEDICAID, SELFPAY | END 2024-01-19 14:51 | disposition home or self-care (01) | LOC: MOW 14:52 | PROVIDERS: PCP Family Medicine; Visit Provider Family Medicine | DX: Z76.0 Encounter for issue of repeat prescription (principal) | CPT/HCPCS: S5170 ==

== ENCOUNTER 2023-04-02 17:46 | Emergency (ER) | payer MEDICARE, MEDICAID, SELFPAY ==
[2023-04-02] VITALS (17 sets, daily range): BP systolic 118–144; BP diastolic 70–92; PULSE 37–100; RESP 16; TEMP 36.7; O2SAT 89–95; BMI 25.1
--- NOTE | 2023-04-02 18:00 | ED.NURSE ---
pt had hematoma on the lower right extremity wrapped with a meaghan bandage. skin tear on the right wrist bandage replaced with Telfa, 2x2 and Coban.
--- NOTE | 2023-04-02 18:08 | CRLHL7_ITS ---
For Patients: As a result of the Century Cures Act, medical imaging exams and procedure reports are released immediately into your electronic medical record. You may view this report before your referring provider. If you have questions, please contact your health care provider. CLINICAL HISTORY: Trauma. TECHNIQUE: Standard helical CT image acquisition of the brain was performed. COMPARISON: None available. FINDINGS: There is small volume subarachnoid hemorrhage within the left superior frontal sulcus. No significant mass effect or midline shift. [place]-white matter differentiation is preserved. Age-appropriate mild generalized parenchymal volume loss with resulting prominence of cerebral sulci and the ventricular system. No displaced calvarial fracture. Thinning of the ocular lenses. The paranasal sinuses are unremarkable. The mastoid air cells are unremarkable. IMPRESSION: 1. Small volume subarachnoid hemorrhage in the left superior frontal sulcus which is favored to be posttraumatic in etiology. 2. Age-appropriate mild generalized parenchymal volume loss. These findings were discussed with Dr. Alfaro at 1856 hours on 04/02/2023. Please note that all CT scans at this facility use dose modulation, iterative reconstruction, and/or weight-based dosing when appropriate to reduce radiation dose to as low as reasonably achievable. Dictated by Cal Contreras MD @ 04/02/2023 7:00:45 PM (Electronically Signed)
--- NOTE | 2023-04-02 18:44 | CRLHL7_ITS ---
For Patients: As a result of the Cures Act, medical imaging exams and procedure reports are released immediately into your electronic medical record. You may view this report before your referring provider. If you have questions, please contact your health care provider. Indication: Fall, pain Technique: Three views Comparison: None Findings/Impression: Bones: No evidence of fracture. Status post lower cervical spine fusion and prior median sternotomy. Joint spaces: Narrowing of the acromiohumeral distance consistent with rotator cuff disease. Glenohumeral osteoarthritis with bone on bone apposition and marginal osteophytes. No dislocation. Soft tissues: Atherosclerosis. Pacemaker wires partially included on the exam. Dictated by Noah Chavarria MD @ 04/02/2023 8:22:13 PM (Electronically Signed)
--- NOTE | 2023-04-02 18:44 | CRLHL7_ITS ---
For Patients: As a result of the Cures Act, medical imaging exams and procedure reports are released immediately into your electronic medical record. You may view this report before your referring provider. If you have questions, please contact your health care provider. Indication: Fall, pain Technique: Three views Comparison: None Findings/Impression: Bones: No evidence of fracture. Joint spaces: Osteoarthritis at the 1st carpometacarpal joint. Soft tissues: Prominent lateral soft tissue swelling. Atherosclerosis. Dictated by Noah Chavarria MD @ 04/02/2023 8:18:28 PM (Electronically Signed)
--- NOTE | 2023-04-02 19:20 | ED_ITS ---
HPI - General Adult General Date Seen: 04/02/23 Chief complaint: Fall/Minor Trauma Stated complaint: Fell, R leg/wrist injuries Time Seen by Provider: 04/02/23 18:34 Source: patient Mode of arrival: ambulatory Limitations: no limitations History of Present Illness HPI narrative: Patient is an 78-year-old woman who is on Coumadin, she says for history of CABG as well as DVT PE, she also has a history of atrial fibrillation on review of her records. She had a fall at home, she says she was at the sink running water and suddenly had to urinate. She was rushing to the bathroom when she fell hitting her head 1st on the refrigerator and then on the ground. She also hit her wrist and shoulder. She denies any loss of consciousness, seizure, nausea or vomiting. She actually does not have a headache either. Denies neck pain. She notes bruising and swelling on her right wrist and says it is somewhat sore but not that painful. She has some soreness in her right shoulder as well, says she does not have a rotator cuff on that side but does not feel that that is significantly painful either. She also has some swelling on her right medial lower leg, it is somewhat painful when she moves that. She the right side of her head, right shoulder, right wrist, right leg. Related Data Home Medications Medication Instructions Recorded Confirmed albuterol sulfate 90 mcg/actuation 2 puff inhalation Q4H PRN 06/02/22 12/23/22 aerosol inhaler aspirin 81 mg capsule 81 mg PO DAILY 06/02/22 12/23/22 atorvastatin 40 mg tablet 40 mg PO HS 06/02/22 12/23/22 calcium carbonate 600 mg calcium 600 mg PO DAILY 06/02/22 12/23/22 (1,500 mg) tablet (Calcium) carvedilol 3.125 mg tablet 3.125 mg PO BIDWMEAL 06/02/22 12/23/22 cholecalciferol (vitamin D3) 50 50 mcg PO DAILY 06/02/22 12/23/22 mcg (2,000 unit) capsule (Vitamin D3) famotidine 40 mg tablet 40 mg PO HS 06/02/22 12/23/22 fluticasone fur. 200 mcg-umeclid 1 inh inhalation DAILY 06/02/22 12/23/22 62.5 mcg-vilant 25 mcg inhalat.powder (Trelegy Ellipta) ipratropium 0.5 mg-albuterol 3 mg 3 ml inhalation QID PRN 06/02/22 12/23/22 (2.5 mg base)/3 mL nebulization soln levothyroxine 88 mcg tablet 88 mcg PO DAILY 06/02/22 12/23/22 losartan 25 mg tablet 12.5 mg PO DAILY 06/02/22 12/23/22 mirabegron 25 mg tablet,extended 25 mg PO DAILY 06/02/22 12/23/22 release 24 hr (Myrbetriq) torsemide 20 mg tablet 20 mg PO BIDWMEAL 06/02/22 12/23/22 warfarin 2 mg tablet 4 - 6 mg PO DAILY 06/02/22 12/23/22 loperamide-simethicone 2 mg-125 mg 1 tab PO BID PRN 06/03/22 12/23/22 tablet (Imodium Multi-Symptom Relief) multivitamin (Multiple Vitamins 1 tab PO DAILY 06/03/22 12/23/22 tablet) spironolactone 25 mg tablet 12.5 mg PO QDAY 12/23/22 12/23/22 Previous Rx's Medication Instructions Recorded fluoxetine 40 mg capsule 60 mg (1.5 x 40 mg) PO DAILY #60 06/05/22 caps doxycycline hyclate 100 mg capsule 100 mg PO BID #20 caps 12/23/22 Allergies Allergy/AdvReac Type Severity Reaction Status Date / Time bacitracin Allergy Mild Verified 07/06/22 12:19 [From Neosporin Plus] lidocaine Allergy Mild Verified 07/06/22 12:19 [From Neosporin Plus] neomycin Allergy Mild Verified 07/06/22 12:19 [From Neosporin Plus] Penicillins Allergy Mild Rash Verified 07/06/22 12:18 polymyxin B Allergy Mild Verified 07/06/22 12:19 [From Neosporin Plus] pramoxine Allergy Mild Verified 07/06/22 12:19 [From Neosporin Plus] BRAD Inhibitors Allergy Unknown Verified 07/06/22 12:18 bupropion [From Wellbutrin] Allergy Unknown Verified 07/06/22 12:18 hydrocodone Allergy Unknown Verified 07/06/22 12:18 oxycodone Allergy Unknown Verified 07/06/22 12:18 Review of Systems Status of ROS: Reports: 10 or more systems reviewed and unremarkable except as noted in History and below [facility] Medical History COPD exacerbation ?J44.1 - Chronic obstructive pulmonary disease with (acute) exacerbation (ICD-10) Cough ?R05.9 - Cough, unspecified (ICD-10) Chronic anticoagulation ?Z79.01 - extermination inspector (current) use of anticoagulants (ICD-10) Presence of permanent cardiac pacemaker ?Z95.0 - Presence of cardiac pacemaker (ICD-10) Oxygen dependent ?Z99.81 - Dependence on supplemental oxygen (ICD-10) Chronic hypoxemic respiratory failure ?J96.11 - Chronic respiratory failure with hypoxia (ICD-10) Panlobular emphysema ?J43.1 - Panlobular emphysema (ICD-10) Chronic pain of both shoulders ?M25.511 - Pain in right shoulder (ICD-10) ?M25.512 - Pain in left shoulder (ICD-10) ?G89.29 - Other chronic pain (ICD-10) Anticoagulation goal of INR 2 to 3 ?Z51.81 - Encounter for therapeutic drug level monitoring (ICD-10) ?Z79.01 - senior care (current) use of anticoagulants (ICD-10) Anticoagulated on warfarin ?Z79.01 - extermination inspector (current) use of anticoagulants (ICD-10) Paroxysmal atrial fibrillation ?I48.0 - Paroxysmal atrial fibrillation (ICD-10) Closed nondisplaced fracture of greater trochanter of right femur with routine healing ?S72.114D - Nondisplaced fracture of greater trochanter of right femur, subsequent encounter for closed fracture with routine healing (ICD-10) Chronic deep vein thrombosis of left lower extremity ?I82.502 - Chronic embolism and thrombosis of unspecified deep veins of left lower extremity (ICD-10) Intrinsic urethral sphincter deficiency ?N36.42 - Intrinsic sphincter deficiency (ISD) (ICD-10) Mixed stress and urge urinary incontinence ?N39.46 - Mixed incontinence (ICD-10) CKD stage 4 secondary to hypertension ?I12.9 - Hypertensive chronic kidney disease with stage 1 through stage 4 chronic kidney disease, or unspecified chronic kidney disease (ICD-10) ?N18.4 - Chronic kidney disease, stage 4 (severe) (ICD-10) Ischemic cardiomyopathy ?I25.5 - Ischemic cardiomyopathy (ICD-10) Recurrent major depression resistant to treatment ?F33.9 - Major depressive disorder, recurrent, unspecified (ICD-10) Hyperlipidemia ?E78.5 - Hyperlipidemia, unspecified (ICD-10) Hypertension ?I10 - Essential (primary) hypertension (ICD-10) MRSA (methicillin resistant Staphylococcus aureus) ?A49.02 - Methicillin resistant Staphylococcus aureus infection, unspecified site (ICD-10) Hypothyroidism ?E03.9 - Hypothyroidism, unspecified (ICD-10) COPD (chronic obstructive pulmonary disease) ?J44.9 - Chronic obstructive pulmonary disease, unspecified (ICD-10) CHF (congestive heart failure) ?I50.9 - Heart failure, unspecified (ICD-10) CAD (coronary artery disease) ?I25.10 - Atherosclerotic heart disease of [place] coronary artery without angina pectoris (ICD-10) Depression ?F32.A - Depression, unspecified (ICD-10) Atrial fibrillation ?I48.91 - Unspecified atrial fibrillation (ICD-10) Anxiety ?F41.9 - Anxiety disorder, unspecified (ICD-10) Acid reflux ?K21.9 - Gastro-esophageal reflux disease without esophagitis (ICD-10) Severe depression ?F32.2 - Major depressive disorder, single episode, severe without psychotic features (ICD-10) Surgical History History of hip replacement ?Z96.649 - Presence of unspecified artificial hip joint (ICD-10) History of cholecystectomy ?Z90.49 - Acquired absence of other specified parts of digestive tract (ICD- 10) History of cataract surgery ?Z98.49 - Cataract extraction status, unspecified eye (ICD-10) Social History Highest level of school completed/degree received: high school graduate Smoking Status: Former smoker What tobacco products do you use: cigarettes Smoking quit date/years: >15 years ago Do you use any of these nicotine containing products: None Second hand tobacco smoke exposure: No How often do you have a drink containing alcohol: never AUDIT-C Alcohol total score: 0 Non-prescribed substance use: denies use Caffeine: Yes (Daily) service: No Exam Narrative: Exam Narrative: Vital signs as noted above. In general, an alert, nontoxic elderly woman. She is alert, conversant. Head: Normocephalic, small bruise on the right temporal area. No significant hematoma, laceration, abrasion. Eyes: Pupils are equal reactive. Extraocular movements are full. Conjunctivae are normal. ENT: Mucous membranes are moist. No facial trauma. Neck: Supple without lymphadenopathy. Nontender to palpation. Heart: Regular rate and rhythm. Lungs: No increased work of breathing. Abdomen: Soft and nontender. No organomegaly. Extremities: Right wrist she has a significant amount of subcutaneous bleeding, but she does not seem to have bony tenderness. She has a skin tear over the thenar eminence. No tenderness over the shoulder, range of motion is limited but she says this is baseline. On the right lower leg she has a hematoma over the medial aspect. She does not have any bony tenderness over the ankle. Neurologic: Patient is alert and oriented to person and place. Speech is fluent. Face is symmetric. Moves all extremities equally. Affect: Normal. Skin: Warm and dry. Well perfused. Const: Vital Signs, click to edit/add: Vital Signs - 24 hr 04/02/23 18:03 Temperature 98.1 F Pulse Rate [Pulse Oximeter] 77 Respiratory Rate 16 Blood Pressure [Ri ght Upper Arm] 120/70 Pulse Oximetry 94 Oxygen Delivery Me thod Room Air Documenting provider has reviewed patient's vital signs: yes Course Course Hospital Course: On arrival patient went over for a CT of the head. By my review the showed a small amount of hemorrhage in the left frontal lobe. I did call and ask that the radiologist read this emergently, radiology read was of a small amount of subarachnoid blood in the left frontal lobe. As such, I have ordered 10 mg of IV vitamin K as well as Kcentra. Neurosurgery paged at 7:10 p.m.. She is neurologically intact, continues to be without complaints. Labs are pending including CBC, coags, metabolic panel, LFTs. I have ordered x-rays of her wrist and shoulder. X-rays of her wrist and shoulder read by Radiology as negative for any acute findings. I spoke with Dr. Trejo from [facility] who recommended transfer there to the ICU as well as reversal of her anticoagulation which is already been accomplished. They do have a 4-8 hour bed delay. She needs a repeat head CT at 6 hours, so if she is still in our ER at that time we will do that here. I have relayed this to Dr. Putnam, as I will not be here at that time. For now, she is neurologically intact, without any complaints. Vital Signs Vital signs: Initial Vital Signs Temperature 98.1 F 04/02/23 18:03 Temperature Source Temporal Artery Scan 04/02/23 18:03 Pulse Rate 77 04/02/23 18:03 Respiratory Rate 16 04/02/23 18:03 Blood Pressure 120/70 04/02/23 18:03 Blood Pressure Mean 86 04/02/23 18:03 Blood Pressure Position Sitting 04/02/23 18:03 Pulse Oximetry 94 04/02/23 18:03 Oxygen Delivery Method Room Air 04/02/23 18:03 Vital Signs Temperature 98.1 F 04/02/23 18:03 Pulse Rate 77 04/02/23 18:03 Respiratory Rate 16 04/02/23 18:03 Blood Pressure 120/70 04/02/23 18:03 Pulse Oximetry 94 04/02/23 18:03 Oxygen Delivery Method Room Air 04/02/23 18:03 Temperature 98.1 F 04/02/23 18:03 Pulse Rate 70 04/02/23 22:00 Respiratory Rate 16 04/02/23 18:03 Blood Pressure 133/76 04/02/23 21:47 Pulse Oximetry 92 04/02/23 22:00 Oxygen Delivery Method Room Air 04/02/23 18:03 Medical Decision Making Lab Data Labs: Lab Results 04/02/23 Range/Units 19:33 WBC 5.64 (4.50-11.00) K/uL RBC 4.59 (4.00-5.20) m/uL Hgb 13.5 (12.0-16.0) gm/dL Hct 41.4 (33.0-51.0) % MCV 90 (80-100) fL MCH 29 (26-34) pg MCHC 33 (32-36) gm/dL RDW Coeff of Sudha 15.1 (11.5-15.5) % Plt Count 210 (140-440) K/uL Neut % (Auto) 64.6 (42.0-72.0) % Lymph % (Auto) 25.9 (20-44) % Cass % (Auto) 7.4 (0.0-11.0) % Eos % (Auto) 1.4 (0.0-7.0) % Baso % (Auto) 0.5 (0.0-3.0) % Neut # (Auto) 3.64 (1.7-7.0) K/uL Lymph # (Auto) 1.46 (0.90-2.90) K/uL Cass # (Auto) 0.40 (0.00-0.90) K/UL Eos # (Auto) 0.08 (0.00-0.50) K/uL Baso # (Auto) 0.03 (0.00-0.30) K/uL Abs Immat Gran (auto) 0.01 (0.00-0.30) K/uL Imm/Tot Granulo (auto) 0.2 % INR 2.79 H (0.91-1.10) APTT 33 (23-33) Seconds Sodium 136 (135-149) mmol/L Potassium 4.4 (3.6-5.1) mmol/L Chloride 101 (96-114) mmol/L Carbon Dioxide 28 (20-32) mmol/L BUN 45 H (7-30) mg/dL Creatinine 1.3 (0.5-1.5) mg/dL Estimated Creat Clear 33.56 Estimated GFR 42 ml/min Glucose 94 (60-115) mg/dL Calcium 9.1 (8.4-10.6) mg/dL Total Bilirubin 0.6 (0.1-1.5) mg/dL Direct Bilirubin 0.2 (0.0-0.5) mg/dL AST 38 H (12-35) U/L ALT 29 (4-35) U/L Alkaline Phosphatase 82 (40-150) U/L Total Protein 6.9 (6.0-8.3) g/dL Albumin 4.1 (3.3-5.0) g/dL Discharge Plan Discharge Clinical Impression: Traumatic subarachnoid hemorrhage, Anticoagulated Patient Disposition: [facility] Condition: Stable Prescriptions: No Action spironolactone 25 mg tablet 12.5 mg PO QDAY doxycycline hyclate 100 mg capsule 100 mg PO BID Qty: 20 0RF atorvastatin 40 mg tablet 40 mg PO HS ipratropium-albuterol 0.5 mg-3 mg(2.5 mg base)/3 mL solution for nebulization 3 ml INHALATION QID PRN Patient Comments: USE 3 ML VIA NEBULIZER FOUR TIMES DAILY NEEDED FOR SHORTNESS OF BREATH torsemide 20 mg tablet 20 mg PO BIDWMEAL Patient Comments: TAKE 1 TABLET BY MOUTH TWICE DAILY WITH MEALS carvedilol 3.125 mg tablet 3.125 mg PO BIDWMEAL levothyroxine 88 mcg tablet 88 mcg PO DAILY warfarin 2 mg tablet 4 - 6 mg PO DAILY Rx Instructions: Take 4mg every MWF Take 6mg all other days losartan 25 mg tablet 12.5 mg PO DAILY Rx Instructions: Take 0.5 tablets by mouth once daily albuterol sulfate 90 mcg/actuation HFA aerosol inhaler 2 puff INHALATION Q4H PRN Patient Comments: INHALE 1 TO 2 PUFFS BY MOUTH EVERY 4 HOURS NEEDED FOR SHORTNESS OF BREATH Myrbetriq 25 mg tablet extended release 24 hr 25 mg PO DAILY Trelegy Ellipta 200-62.5-25 mcg blister with device 1 inh INHALATION DAILY Patient Comments: INHALE 1 PUFF BY MOUTH EVERY DAY aspirin 81 mg capsule 81 mg PO DAILY calcium carbonate [Calcium 600] 600 mg calcium (1,500 mg) tablet 600 mg PO DAILY cholecalciferol (vitamin D3) [Vitamin D3] 50 mcg (2,000 unit) capsule 50 mcg PO DAILY famotidine 40 mg tablet 40 mg PO HS multivitamin [Multiple Vitamins] Tablet 1 tab PO DAILY loperamide-simethicone [Imodium Multi-Symptom Relief] 2-125 mg tablet 1 tab PO BID PRN fluoxetine 40 mg capsule 60 mg PO DAILY Qty: 60 0RF Patient Comments: TAKE 1 CAPSULE BY MOUTH EVERY DAY. Rx Instructions: please substitute to tablets in order to do 60mg. Stand Alone Forms: [employer] Info Instructions
--- OUTSIDE RECORDS SUMMARY | 2023-04-02 19:37 | XMS_ITS | Continuity of Care Document ---
Author Name Unknown Organization [facility] Address [address] [place] [id number] Care Team Providers Care Contact Lens Cutter Name Role Phone Enoc Hidalgo Primary Care Physician Encounter LUISA_SANDRA EDWARDS [id number] Date(s): 01/21/23 - 01/21/[address] [phone] Encounter Diagnosis Chronic atrial fibrillation, unspecified(Final) - Discharge Disposition: Home Attending Physician: Karma Jang MD Allergies, Adverse Reactions, Alerts No Known Medication Allergies Medications Zithromax 250 mg oral tablet 1 packet(s), Oral, Once, Instructions: as directed on package labeling, # 6 tab(s), 0 Refill(s), Pharmacy: Prescription Pharmacy, Tab Start Date: 01/17/23 Status: Ordered Problem List Condition Confirmation Course Effective Dates Status [facility] Informant COPD without exacerbation Confirmed Active CHF (congestive heart failure) Confirmed Active Results Laboratory List Name Date PT/INR 01/21/23 Most recent to oldest [Reference Range]: 1 INR [0.8-1.2 mg/dL] 1.9 mg/dL *HI* (01/21/23 3:25 PM) PT [11.9-14.2 second(s)] 21.9 second(s) *HI* (01/21/23 3:25 PM) Patient Care team information Care Team Personnel Name: Enoc Hidalgo DO Position: [facility] Physician Acute/ED/Clinic Member Role: Primary Care Physician Address: Address: [place] [address]
--- OUTSIDE RECORDS SUMMARY | 2023-04-02 19:37 | XMS_ITS | Continuity of Care Document ---
Author Name Unknown Organization [facility] Address [address] [place] [phone] Care Team Providers Care Waxed Bag Machine Operator Name Role Phone Enoc Hidalgo Primary Care Physician [phone] Encounter KELY EDWARDS [id number] Date(s): 02/10/23 - 02/10/[address] [phone] Discharge Disposition: Home Attending Physician: Karma Jang [...] Active Results Laboratory List Name Date PT/INR 02/10/23 Most recent to oldest [Reference Range]: 1 INR [0.8-1.2 mg/dL] 1.9 mg/dL *HI* (02/10/23 4:45 PM) PT [11.9-14.2 second(s)] 21.4 second(s) *HI* (02/10/23 4:45 PM) Patient Care team information Care Team Personnel Name: Enoc Hidalgo DO Position: [facility] Physician Acute/ED/Clinic Member Role: Primary Care Physician Address: Address: [address] [place] [address]
--- OUTSIDE RECORDS SUMMARY | 2023-04-02 19:37 | XMS_ITS | Continuity of Care Document ---
Author Name Unknown Organization [facility] Address [address] [place] [phone] Care Team Providers Care Wireless Store Manager Name Role Phone Enoc Hidalgo Primary Care Physician Encounter KELY EDWARDS [id number] Date(s): 01/02/23 - 01/02/[address] [phone] Encounter Diagnosis Chronic atrial fibrillation, unspecified(Final) - Discharge Disposition: Home Attending Physician: Karma Jang MD Results Laboratory List Name Date PT/INR 01/02/23 Most recent to oldest [Reference Range]: 1 INR [0.8-1.2 mg/dL] 2.3 mg/dL *HI* (01/02/23 12:50 PM) PT [11.9-14.2 second(s)] 24.8 second(s) *HI* (01/02/23 12:50 PM) Patient Care team information Care Team Personnel Name: Enoc Hidalgo DO Position: [facility] Physician Acute/ED/Clinic Member Role: Primary Care Physician Address: Address: [place] [id number]
[2023-04-02 19:42] LABS: Basophils Absolute Auto 0.03 K/uL (0.00-0.30); Basophils Percent Auto 0.5 % (0.0-3.0); Eosinophils Absolute Auto 0.08 K/uL (0.00-0.50); Eosinophils Percent Auto 1.4 % (0.0-7.0); Hematocrit 41.4 % (33.0-51.0); Hemoglobin* 13.5 gm/dL (12.0-16.0); Immature Granulocytes Abs Auto 0.01 K/uL (0.00-0.30); Immature Granulocytes Pct Auto 0.2 %; Lymphocytes Absolute Auto 1.46 K/uL (0.90-2.90); Lymphocytes Percent Auto 25.9 % (20-44); Mean Corpuscular HGB Conc 33 gm/dL (32-36); Mean Corpuscular Hemoglobin 29 pg (26-34); Mean Corpuscular Volume 90 fL (80-100); Monocytes Percent Auto 7.4 % (0.0-11.0); Neutrophils Absolute Auto 3.64 K/uL (1.7-7.0); Neutrophils Percent Auto 64.6 % (42.0-72.0); Platelet Count* 210 K/uL (140-440); RDW Coefficient of Variation % 15.1 % (11.5-15.5); Red Blood Count 4.59 m/uL (4.00-5.20); White Blood Count* 5.64 K/uL (4.50-11.00)
--- NOTE | 2023-04-02 19:43 | ED.NURSE ---
contacted logging supervisor to bring medications from pharmacy, pt at neurological baseline will continue to monitor
[2023-04-02 19:57] LABS: Albumin* 4.1 g/dL (3.3-5.0); Chloride* 101 mmol/L (96-114)
[2023-04-02 19:58] LABS: Potassium* 4.4 mmol/L (3.6-5.1); Sodium* 136 mmol/L (135-149)
[2023-04-02 20:00] LABS: Bilirubin Direct* 0.2 mg/dL (0.0-0.5); Bilirubin Total* 0.6 mg/dL (0.1-1.5); Carbon Dioxide* 28 mmol/L (20-32); Creatinine* 1.3 mg/dL (0.5-1.5); Est. Creatinine Clearance* 33.56; Estimated Glomerular Filt Rate 42 ml/min; INR 2.79 (0.91-1.10); Partial Thromboplastin Time* 33 Seconds (23-33); Prothrombin Time 30.7 Seconds; Total Protein* 6.9 g/dL (6.0-8.3)
[2023-04-02 20:01] LABS: Alanine Aminotransferase* 29 U/L (4-35); Alkaline Phosphatase* 82 U/L (40-150); Aspartate Amino Transferase* 38 U/L (12-35); Blood Urea Nitrogen* 45 mg/dL (7-30); Calcium* 9.1 mg/dL (8.4-10.6); Glucose* 94 mg/dL (60-115)
[2023-04-02 20:02] LABS: Slide Review Reflex No
[2023-04-02] MEDS: PHYTONADIONE (VIT K1) 10 MG in 0.9 % SODIUM CHLORIDE 50 ml 50 ML 100 MG IVPB (20:04)
--- NOTE | 2023-04-02 21:09 | ED.NURSE ---
Remote pharmacy utilized to verify dosing of K-Centra. Two vials with factor IX of 1035 each. These were reconstituted and total volume given was 69.5ml for total of 1800U.
--- NOTE | 2023-04-02 21:58 | ED.NURSE ---
Voice mail left with transfer information to patient's son.
--- NOTE | 2023-04-02 22:29 | ED.NURSE ---
Patient transferred to [place] [id number]. No changes to neurologic status since arrival to ED.
== END 2023-04-02 22:31 | disposition short-term general hospital (02) ==
PROVIDERS: Emergency Provider Emergency Medicine; PCP Family Medicine
DX: S06.6X0A Traumatic subarachnoid hemorrhage without loss of consciousness, initial encounter (principal); W01.10XA Fall on same level from slipping, tripping and stumbling with subsequent striking against unspecified object, initial encounter; M25.511 Pain in right shoulder; M25.531 Pain in right wrist
CPT/HCPCS: 36415; 70450; 73030; 73110; 80048; 80076; 85025; 85610; 85730; 96365; 99284; 99285; J3430; J7168

== ENCOUNTER 2023-04-02 22:18 | Outpatient (CLI) | payer MEDICARE, MEDICAID, SELFPAY | END 2023-04-02 22:19 | disposition home or self-care (01) | LOC: AMB 04-03 09:26 | PROVIDERS: PCP Family Medicine; Visit Provider Family Medicine | DX: R51.9 Headache, unspecified (principal) | CPT/HCPCS: A0425; A0428 ==

== ENCOUNTER 2023-04-20 13:27 | Emergency (ER) | payer MEDICARE, MEDICAID, SELFPAY ==
[2023-04-20] VITALS (15 sets, daily range): BP systolic 85–120; BP diastolic 56–79; PULSE 71–83; RESP 18; TEMP 36.4–36.6; O2SAT 82–94; BMI 24.3
--- NOTE | 2023-04-20 13:51 | ED.GENADULT ---
HPI - General Adult General Chief complaint: Weakness Stated complaint: weak and shakey, short of breath Time Seen by Provider: 04/20/23 13:30 Source: patient Mode of arrival: wheelchair Limitations: no limitations History of Present Illness HPI narrative: 78-year-old female coming in today complaining of weakness. States that she had an episode of diarrhea 2 days ago and has been lying in bed since. Aside from the 1 episode of significant amount of loose stool, she has had no more bowel movements since. She complains of increased urinary frequency with little urine output. She states that she has not been eating anything over the last 2 days but has been drinking water and had a powerade yesterday. She denies headache, changes in her vision, chest pain or shortness of breath, no abdominal pain. Patient fell approximately 2 weeks ago and was transferred to [facility] for a intracranial hemorrhage. She states that she was discharged to a long-term care facility and went home this last Friday. She feels like she was doing fine until Friday when she had the episode of diarrhea. She complains of feeling ?weak?. However, there is not appear to be any changes in her physical abilities-for example she continues to use a walker which she has used since her fall and she gets around independently. She has not really wanted to get out of bed in the last 2 days because she does not feel good. Again, she has been able to get up and use the bathroom and get water independently. She vomited 1 time 4 days ago, has not had any vomiting since. She denies any nausea. There was no blood in her episode of diarrhea. She denies any fevers. She had an episode of chills this morning. Related Data Home Medications Medication Instructions Recorded Confirmed albuterol sulfate 90 mcg/actuation 2 puff inhalation Q4H PRN 06/02/22 04/20/23 aerosol inhaler atorvastatin 40 mg tablet 40 mg PO HS 06/02/22 04/20/23 calcium carbonate 600 mg calcium 600 mg PO DAILY 06/02/22 04/20/23 (1,500 mg) tablet (Calcium) carvedilol 3.125 mg tablet 3.125 mg PO BIDWMEAL 06/02/22 04/20/23 cholecalciferol (vitamin D3) 50 50 mcg PO DAILY 06/02/22 04/20/23 mcg (2,000 unit) capsule (Vitamin D3) famotidine 40 mg tablet 40 mg PO HS 06/02/22 04/20/23 fluticasone fur. 200 mcg-umeclid 1 inh inhalation DAILY 06/02/22 04/20/23 62.5 mcg-vilant 25 mcg inhalat.powder (Trelegy Ellipta) levothyroxine 88 mcg tablet 88 mcg PO DAILY 06/02/22 04/20/23 mirabegron 25 mg tablet,extended 25 mg PO DAILY 06/02/22 04/20/23 release 24 hr (Myrbetriq) warfarin 2 mg tablet 4 - 6 mg PO DAILY 06/02/22 04/20/23 loperamide-simethicone 2 mg-125 mg 1 tab PO BID PRN 06/03/22 04/20/23 tablet (Imodium Multi-Symptom Relief) multivitamin (Multiple Vitamins 1 tab PO DAILY 06/03/22 04/20/23 tablet) spironolactone 25 mg tablet 12.5 mg PO QDAY 12/23/22 04/20/23 acetaminophen 300 mg-codeine 30 mg tab PO 04/20/23 tablet Previous Rx's Medication Instructions Recorded fluoxetine 40 mg capsule 60 mg (1.5 x 40 mg) PO DAILY #60 06/05/22 caps nitrofurantoin 100 mg PO Q12H 5 days #10 caps 04/20/23 monohydrate/macrocrystals 100 mg capsule (Macrobid) Allergies Allergy/AdvReac Type Severity Reaction Status Date / Time bacitracin Allergy Mild Verified 07/06/22 12:19 [From Neosporin Plus] lidocaine Allergy Mild Verified 07/06/22 12:19 [From Neosporin Plus] neomycin Allergy Mild Verified 07/06/22 12:19 [From Neosporin Plus] Penicillins Allergy Mild Rash Verified 07/06/22 12:18 polymyxin B Allergy Mild Verified 07/06/22 12:19 [From Neosporin Plus] pramoxine Allergy Mild Verified 07/06/22 12:19 [From Neosporin Plus] BRAD Inhibitors Allergy Unknown Verified 07/06/22 12:18 bupropion [From Wellbutrin] Allergy Unknown Verified 07/06/22 12:18 hydrocodone Allergy Unknown Verified 07/06/22 12:18 oxycodone Allergy Unknown Verified 07/06/22 12:18 Review of Systems Status of ROS: Reports: 10 or more systems reviewed and unremarkable except as noted in History and below [facility] Medical History COPD exacerbation ?J44.1 - Chronic obstructive pulmonary disease with (acute) exacerbation (ICD-10) Cough ?R05.9 - Cough, unspecified (ICD-10) Chronic anticoagulation ?Z79.01 - shelter (current) use of anticoagulants (ICD-10) Presence of permanent cardiac pacemaker ?Z95.0 - Presence of cardiac pacemaker (ICD-10) Oxygen dependent ?Z99.81 - Dependence on supplemental oxygen (ICD-10) Chronic hypoxemic respiratory failure ?J96.11 - Chronic respiratory failure with hypoxia (ICD-10) Panlobular emphysema ?J43.1 - Panlobular emphysema (ICD-10) Chronic pain of both shoulders ?M25.511 - Pain in right shoulder (ICD-10) ?M25.512 - Pain in left shoulder (ICD-10) ?G89.29 - Other chronic pain (ICD-10) Anticoagulation goal of INR 2 to 3 ?Z51.81 - Encounter for therapeutic drug level monitoring (ICD-10) ?Z79.01 - termite renewal inspector (current) use of anticoagulants (ICD-10) Anticoagulated on warfarin ?Z79.01 - termite renewal inspector (current) use of anticoagulants (ICD-10) Paroxysmal atrial fibrillation ?I48.0 - Paroxysmal atrial fibrillation (ICD-10) Closed nondisplaced fracture of greater trochanter of right femur with routine healing ?S72.114D - Nondisplaced fracture of greater trochanter of right femur, subsequent encounter for closed fracture with routine healing (ICD-10) Chronic deep vein thrombosis of left lower extremity ?I82.502 - Chronic embolism and thrombosis of unspecified deep veins of left lower extremity (ICD-10) Intrinsic urethral sphincter deficiency ?N36.42 - Intrinsic sphincter deficiency (ISD) (ICD-10) Mixed stress and urge urinary incontinence ?N39.46 - Mixed incontinence (ICD-10) CKD stage 4 secondary to hypertension ?I12.9 - Hypertensive chronic kidney disease with stage 1 through stage 4 chronic kidney disease, or unspecified chronic kidney disease (ICD-10) ?N18.4 - Chronic kidney disease, stage 4 (severe) (ICD-10) Ischemic cardiomyopathy ?I25.5 - Ischemic cardiomyopathy (ICD-10) Recurrent major depression resistant to treatment ?F33.9 - Major depressive disorder, recurrent, unspecified (ICD-10) Hyperlipidemia ?E78.5 - Hyperlipidemia, unspecified (ICD-10) Hypertension ?I10 - Essential (primary) hypertension (ICD-10) MRSA (methicillin resistant Staphylococcus aureus) ?A49.02 - Methicillin resistant Staphylococcus aureus infection, unspecified site (ICD-10) Hypothyroidism ?E03.9 - Hypothyroidism, unspecified (ICD-10) COPD (chronic obstructive pulmonary disease) ?J44.9 - Chronic obstructive pulmonary disease, unspecified (ICD-10) CHF (congestive heart failure) ?I50.9 - Heart failure, unspecified (ICD-10) CAD (coronary artery disease) ?I25.10 - Atherosclerotic heart disease of [place] coronary artery without angina pectoris (ICD-10) Depression ?F32.A - Depression, unspecified (ICD-10) Atrial fibrillation ?I48.91 - Unspecified atrial fibrillation (ICD-10) Anxiety ?F41.9 - Anxiety disorder, unspecified (ICD-10) Acid reflux ?K21.9 - Gastro-esophageal reflux disease without esophagitis (ICD-10) Severe depression ?F32.2 - Major depressive disorder, single episode, severe without psychotic features (ICD-10) Surgical History History of hip replacement ?Z96.649 - Presence of unspecified artificial hip joint (ICD-10) History of cholecystectomy ?Z90.49 - Acquired absence of other specified parts of digestive tract (ICD-10) History of cataract surgery ?Z98.49 - Cataract extraction status, unspecified eye (ICD-10) Social History Highest level of school completed/degree received: high school graduate Smoking Status: Former smoker What tobacco products do you use: cigarettes Smoking quit date/years: >15 years ago Do you use any of these nicotine containing products: None Second hand tobacco smoke exposure: No How often do you have a drink containing alcohol: never How often do you have six or more drinks on one occasion: Never AUDIT-C Alcohol total score: 0 Non-prescribed substance use: denies use Caffeine: Yes (Daily) service: No Exam Narrative: Exam Narrative: Elderly, well-developed patient in no acute distress. Alert and oriented x3. Answers questions appropriately. Mood and affect are appropriate. Thoughts are goal oriented and rational. No tangential or magical thinking noted. Patient speaks in full sentences without needing to catch her breath. HEENT: Normocephalic atraumatic. Pupils are equally round reactive to light. Extraocular muscles are intact. Conjunctivae are moist without any icterus noted. Moist mucous membranes. Posterior pharynx is normal. Neck is soft without any lymphadenopathy or thyromegaly. No masses are appreciated. Cardiovascular: Heart is regular rate and rhythm S1 and S2 are present without any murmurs. Lungs: Clear to auscultation bilaterally no wheezes rhonchi or rales are appreciated. Patient takes deep breaths without any discomfort. Abdomen: Soft and nontender nondistended with normal bowel sounds. No guarding or rebound. Extremities: Bilateral lower extremities are without edema. Normal DP and PT pulses. Patient does have a ulceration on the inner lower leg on the right which per the patient is a sequelae from her recent fall. She also has bruising over the right wrist which she also states is from her fall. Images of her wrist were obtained according to the patient and no fractures were found. Patient does have chronic right shoulder pain which is unchanged, she has visible discomfort when having to move that arm. Skin: Well perfused. Const: Vital Signs, click to edit/add: Vital Signs - 24 hr 04/20/23 13:32 04/20/23 14:02 04/20/23 14:15 Temperature 97.8 F Pulse Rate 73 74 Pulse Rate [Right Pulse Oximeter] 76 Respiratory Rate 18 Blood Pressure Blood Pressure [Le ft Upper Arm] 85/56 L Pulse Oximetry 94 93 90 Oxygen Delivery Me thod Room Air 04/20/23 14:30 04/20/23 14:45 04/20/23 14:50 Temperature Pulse Rate 71 74 Pulse Rate [Right Pulse Oximeter] Respiratory Rate Blood Pressure Blood Pressure [Le ft Upper Arm] Pulse Oximetry 89 90 89 Oxygen Delivery Me thod 04/20/23 14:52 04/20/23 15:00 04/20/23 15:01 Temperature Pulse Rate 79 75 76 Pulse Rate [Right Pulse Oximeter] Respiratory Rate Blood Pressure 90/60 110/65 Blood Pressure [Le ft Upper Arm] Pulse Oximetry 87 L 91 92 Oxygen Delivery Me thod 04/20/23 15:15 04/20/23 15:31 04/20/23 15:37 Temperature Pulse Rate 71 81 Pulse Rate [Right Pulse Oximeter] Respiratory Rate Blood Pressure 120/79 Blood Pressure [Le ft Upper Arm] Pulse Oximetry 90 89 Oxygen Delivery Me thod 04/20/23 16:00 04/20/23 16:01 04/20/23 16:26 Temperature 97.6 F Pulse Rate 83 Pulse Rate [Right Pulse Oximeter] Respiratory Rate 18 Blood Pressure 117/67 Blood Pressure [Le ft Upper Arm] Pulse Oximetry 91 82 L Oxygen Delivery Me thod Course Course Hospital Course: IV was established and fluids were started. Patient was placed on a private duty nurse. EKG, read by me, shows atrial paced rhythm with premature atrial complexes, left axis deviation, pulse 76. Upon arrival patient cell blood pressure was 85, this went up to 90 without intervention, and after 500 mL of normal saline she was up to 120 systolic. She also appear to become hypoxic during her 1st hour here, dipping down to 87% on room air and hovering around 89-90%. However these appear to be erroneous readings - after her finger pulse ox was changed patient went up to and stayed between 94-97% on room air. Her lab work was unremarkable, however urinalysis was grossly positive for signs of infection. Because of this she received IV Rocephin while she was here. Of note, blood pressure remained stable in the 120s systolic throughout her stay after fluids were given. Vital Signs Vital signs: Initial Vital Signs Temperature 97.8 F 04/20/23 13:32 Temperature Source Temporal Artery Scan 04/20/23 13:32 Pulse Rate 76 04/20/23 13:32 Respiratory Rate 18 04/20/23 13:32 Blood Pressure 85/56 L 04/20/23 13:32 Blood Pressure Mean 65 L 04/20/23 13:32 Blood Pressure Position Sitting 04/20/23 13:32 Pulse Oximetry 94 04/20/23 13:32 Oxygen Delivery Method Room Air 04/20/23 13:32 Vital Signs Temperature 97.8 F 04/20/23 13:32 Pulse Rate 76 04/20/23 13:32 Respiratory Rate 18 04/20/23 13:32 Blood Pressure 85/56 L 04/20/23 13:32 Pulse Oximetry 94 04/20/23 13:32 Oxygen Delivery Method Room Air 04/20/23 13:32 Temperature 97.6 F 04/20/23 16:26 Pulse Rate 83 04/20/23 16:00 Respiratory Rate 18 04/20/23 16:26 Blood Pressure 117/67 04/20/23 16:01 Pulse Oximetry 82 L 04/20/23 16:01 Oxygen Delivery Method Room Air 04/20/23 13:32 Medical Decision Making MDM Narrative Medical decision making narrative: 78-year-old female with UTI, weakness, low blood pressure on arrival now resolved. Patient was monitored for over 3 hours and remained hemodynamically stable. She will be discharged home with Macrobid. We did discuss the potential hospitalization given her low blood pressure on presentation 1 the patient is adamant that she feels better and would like to go home at this point. We discussed that she needs to get out of bed and walk around, she also needs to eat and increase her fluid intake. Patient states that she will do these things because she does not want to return to the hospital. Medical Records Medical records reviewed: Yes I reviewed the patient's medical records Lab Data Lab results reviewed: Yes I reviewed the patient's lab results Labs: Lab Results 04/20/23 04/20/23 04/20/23 Range/Units 14:00 14:35 15:30 WBC 7.45 (4.50-11.00) K/uL RBC 4.67 (4.00-5.20) m/uL Hgb 13.8 (12.0-16.0) gm/dL Hct 42.4 (33.0-51.0) % MCV 91 (80-100) fL MCH 30 (26-34) pg MCHC 33 (32-36) gm/dL RDW Coeff of Sudha 14.6 (11.5-15.5) % Plt Count 219 (140-440) K/uL Neut % (Auto) 67.2 (42.0-72.0) % Lymph % (Auto) 23.0 (20-44) % [place] % (Auto) 8.9 (0.0-11.0) % Eos % (Auto) 0.5 (0.0-7.0) % Baso % (Auto) 0.1 (0.0-3.0) % Neut # (Auto) 5.01 (1.7-7.0) K/uL Lymph # (Auto) 1.71 (0.90-2.90) K/uL [place] # (Auto) 0.70 (0.00-0.90) K/UL Eos # (Auto) 0.04 (0.00-0.50) K/uL Baso # (Auto) 0.01 (0.00-0.30) K/uL Abs Immat Gran (auto) 0.02 (0.00-0.30) K/uL Imm/Tot Granulo (auto) 0.3 % INR 0.96 (0.91-1.10) Sodium 135 (135-149) mmol/L Potassium 4.1 (3.6-5.1) mmol/L Chloride 104 (96-114) mmol/L Carbon Dioxide 23 (20-32) mmol/L BUN 22 (7-30) mg/dL Creatinine 1.1 (0.5-1.5) mg/dL Estimated Creat Clear 39.67 Estimated GFR 51 ml/min Glucose 102 (60-115) mg/dL Lactate 1.2 (0.5-1.9) mmol/L Calcium 8.9 (8.4-10.6) mg/dL Total Bilirubin 0.8 (0.1-1.5) mg/dL Direct Bilirubin 0.0 (0.0-0.5) mg/dL AST 30 (12-35) U/L ALT 25 (4-35) U/L Alkaline Phosphatase 87 (40-150) U/L Troponin I 0.01 (0.01-0.04) ng/mL C-Reactive Protein < 0.5 L (0.5-1.0) mg/dL Total Protein 6.6 (6.0-8.3) g/dL Albumin 3.8 (3.3-5.0) g/dL Lipase 84 (23-300) U/L TSH 3.990 (0.270-4.20) uIU/mL Urine Color Yellow (Yellow) Urine Appearance Cloudy A (Clear) Urine pH 7.0 (5.0-8.5) Ur Specific [place] 1.015 (1.000-1.030) Urine Protein Trace A (Negative) Urine Glucose (UA) Negative (Negative) Urine Ketones Negative (Negative) Urine Blood 1+ A (Negative) Urine Nitrite Positive A (Negative) Urine Bilirubin Negative (Negative) Urine Urobilinogen 0.2 (0.2-1.0) Ur Leukocyte Esterase 3+ A (Negative) Urine RBC 10-25 A (0-2) Urine WBC 50-100 A (0-5) Urine WBC Clumps Few A (None) Ur Squamous Epith Cells Few (None-Few) Urine Bacteria Moderate A (None) SARS-CoV-2 (PCR) Negative SARS-CoV-2 (Negative) Monoscreen Negative (Negative) Influenza Type A (PCR) Negative PCR FLU A (Negative) Influenza Type B (PCR) Negative PCR FLU B (Negative) RSV (PCR) Negative PCR RSV (Negative) POC Troponin I 0.01 (0.01-0.04) ng/ml Imaging Data Chest x-ray: Attestation: I have reviewed the pertinent imaging results. Radiologist's impression: Chest 1 view Comparison: 12/23/2022 Findings: Cardiomegaly similar to prior. No focal lung consolidation, pleural effusion or pneumothorax. Pacemaker leads and sternal wires are unchanged. High-riding humeral head consistent with underlying chronic rotator cuff tear. Impression: No acute cardiopulmonary abnormality. ECG Data Attestation: I personally reviewed and interpreted this ECG as follows: Discharge Plan Discharge Clinical Impression: Decreased oral intake, Acute UTI, Hypotension Patient Disposition: Home, Self-Care Condition: Stable Additional Instructions: Make sure that you are getting out of bed every day and walking around. You need to eat daily and increase your fluid intake. Return to the ER if you start to feel worse, develop increasing weakness, fevers or vomiting. Take all antibiotics as prescribed. Prescriptions: New nitrofurantoin monohyd/m-cryst [Macrobid] 100 mg capsule 100 mg PO Q12H 5 Days Qty: 10 0RF Rx Instructions: must administer with a meal/food No Action spironolactone 25 mg tablet 12.5 mg PO QDAY atorvastatin 40 mg tablet 40 mg PO HS carvedilol 3.125 mg tablet 3.125 mg PO BIDWMEAL levothyroxine 88 mcg tablet 88 mcg PO DAILY warfarin 2 mg tablet 4 - 6 mg PO DAILY Hold Instructions: on hold Rx Instructions: Take 4mg every MWF Take 6mg all other days albuterol sulfate 90 mcg/actuation HFA aerosol inhaler 2 puff INHALATION Q4H PRN Patient Comments: INHALE 1 TO 2 PUFFS BY MOUTH EVERY 4 HOURS NEEDED FOR SHORTNESS OF BREATH Myrbetriq 25 mg tablet extended release 24 hr 25 mg PO DAILY Treleariadna Ellipta 200-62.5-25 mcg blister with device 1 inh INHALATION DAILY Patient Comments: INHALE 1 PUFF BY MOUTH EVERY DAY calcium carbonate [Calcium 600] 600 mg calcium (1,500 mg) tablet 600 mg PO DAILY cholecalciferol (vitamin D3) [Vitamin D3] 50 mcg (2,000 unit) capsule 50 mcg PO DAILY famotidine 40 mg tablet 40 mg PO HS multivitamin [Multiple Vitamins] Tablet 1 tab PO DAILY loperamide-simethicone [Imodium Multi-Symptom Relief] 2-125 mg tablet 1 tab PO BID PRN fluoxetine 40 mg capsule 60 mg PO DAILY Qty: 60 0RF Patient Comments: TAKE 1 CAPSULE BY MOUTH EVERY DAY. Rx Instructions: please substitute to tablets in order to do 60mg. acetaminophen-codeine 300-30 mg tablet PO Follow Up/Referrals: Karma Jang MD [Primary Care Provider] - Stand Alone Forms: [employer] Info Instructions
[2023-04-20 14:43] LABS: Lactate* 1.2 mmol/L (0.5-1.9)
[2023-04-20] MEDS: 0.9 % SODIUM CHLORIDE 1000 ml 1,000 ML IV (14:45)
[2023-04-20 14:52] LABS: Basophils Absolute Auto 0.01 K/uL (0.00-0.30); Basophils Percent Auto 0.1 % (0.0-3.0); Eosinophils Absolute Auto 0.04 K/uL (0.00-0.50); Eosinophils Percent Auto 0.5 % (0.0-7.0); Hematocrit 42.4 % (33.0-51.0); Hemoglobin* 13.8 gm/dL (12.0-16.0); Immature Granulocytes Abs Auto 0.02 K/uL (0.00-0.30); Immature Granulocytes Pct Auto 0.3 %; Lymphocytes Absolute Auto 1.71 K/uL (0.90-2.90); Mean Corpuscular HGB Conc 33 gm/dL (32-36); Mean Corpuscular Hemoglobin 30 pg (26-34); Mean Corpuscular Volume 91 fL (80-100); Monocytes Percent Auto 8.9 % (0.0-11.0); Neutrophils Absolute Auto 5.01 K/uL (1.7-7.0); Neutrophils Percent Auto 67.2 % (42.0-72.0); Platelet Count* 219 K/uL (140-440); RDW Coefficient of Variation % 14.6 % (11.5-15.5); Red Blood Count 4.67 m/uL (4.00-5.20); White Blood Count* 7.45 K/uL (4.50-11.00)
[2023-04-20 14:53] LABS: Troponin, Point-of-Care* 0.01 ng/ml (0.01-0.04)
[2023-04-20 14:59] LABS: Slide Review Reflex No
[2023-04-20 15:04] LABS: Albumin* 3.8 g/dL (3.3-5.0); Chloride* 104 mmol/L (96-114)
[2023-04-20 15:05] LABS: INR 0.96 (0.91-1.10); Potassium* 4.1 mmol/L (3.6-5.1); Prothrombin Time 13.3 Seconds; Sodium* 135 mmol/L (135-149)
[2023-04-20 15:07] LABS: Alkaline Phosphatase* 87 U/L (40-150); Aspartate Amino Transferase* 30 U/L (12-35); Bilirubin Total* 0.8 mg/dL (0.1-1.5); Blood Urea Nitrogen* 22 mg/dL (7-30); Carbon Dioxide* 23 mmol/L (20-32); Creatinine* 1.1 mg/dL (0.5-1.5); Est. Creatinine Clearance* 39.67; Estimated Glomerular Filt Rate 51 ml/min; Glucose* 102 mg/dL (60-115); Lipase* 84 U/L (23-300); Total Protein* 6.6 g/dL (6.0-8.3)
[2023-04-20 15:08] LABS: Alanine Aminotransferase* 25 U/L (4-35); Calcium* 8.9 mg/dL (8.4-10.6)
[2023-04-20 15:10] LABS: Mono Screen* Negative (Negative)
[2023-04-20 15:11] LABS: C Reactive Protein* < 0.5 mg/dL (0.5-1.0)
[2023-04-20 15:19] LABS: Troponin I* 0.01 ng/mL (0.01-0.04)
--- NOTE | 2023-04-20 15:40 | CRLHL7_ITS ---
For Patients: As a result of the Cures Act, medical imaging exams and procedure reports are released immediately into your electronic medical record. You may view this report before your referring provider. If you have questions, please contact your health care provider. INDICATION: Weakness TECHNIQUE: Chest 1 view Comparison: 12/23/2022 Findings: Cardiomegaly similar to prior. No focal lung consolidation, pleural effusion or pneumothorax. Pacemaker leads and sternal wires are unchanged. High-riding humeral head consistent with underlying chronic rotator cuff tear. Impression: No acute cardiopulmonary abnormality. Dictated by Austen Ríos MD @ 04/20/2023 5:16:11 PM (Electronically Signed)
[2023-04-20 15:50] LABS: Appearance Urine Cloudy (Clear); Bilirubin Urine Negative (Negative); Blood Urine 1+ (Negative); Color Urine Yellow (Yellow); Glucose Urine Negative (Negative); Ketones Urine Negative (Negative); Leukocyte Esterase Urine 3+ (Negative); Nitrite Urine Positive (Negative); Protein Urine Trace (Negative); Specific Gravity Urine 1.015 (1.000-1.030); Urobilinogen Urine 0.2 (0.2-1.0)
[2023-04-20 15:52] LABS: PCR FLU A Negative PCR FLU A (Negative); PCR FLU B Negative PCR FLU B (Negative); PCR RSV Negative PCR RSV (Negative)
[2023-04-20 16:06] LABS: SARS PCR* Negative SARS-CoV-2 (Negative)
[2023-04-20] MEDS: cefTRIAXone 1 GM in 0.9 % SODIUM CHLORIDE Mini-bag 100 ML IVPB (16:09)
[2023-04-20 16:11] LABS: WBC Urine 50-100 (0-5)
[2023-04-20 16:12] LABS: Bacteria Urine Moderate; Squamous Epithelial Cell Urine Few (None-Few); WBC Clumps Urine Few
--- NOTE | 2023-04-20 17:10 | ED.NURSE ---
Pt discharged after antibiotic was finished. Have d/c instructions to her and her son.
== END 2023-04-20 17:05 | disposition home or self-care (01) ==
PROVIDERS: Emergency Provider Family Medicine; PCP Family Medicine
DX: N39.0 Urinary tract infection, site not specified (principal); I95.9 Hypotension, unspecified; F50.89 Other specified eating disorder
CPT/HCPCS: 36415; 71045; 80048; 80076; 81001; 83605; 83690; 84443; 84484; 85025; 85379; 85610; 86140; 86308; 87086; 87186; 87631; 93005; 94761; 96365; 99284; 99285; J0696; J7030

== ENCOUNTER 2023-04-22 09:57 | Outpatient (CLI) | payer MEDICARE, MEDICAID, SELFPAY | END 2023-04-22 09:58 | disposition home or self-care (01) | LOC: AMB 04-25 19:36 | PROVIDERS: PCP Family Medicine; Visit Provider Family Medicine | DX: I95.9 Hypotension, unspecified (principal) | CPT/HCPCS: A0425; A0427 ==

== ENCOUNTER 2023-04-22 10:32 | Emergency (ER) | payer MEDICARE, MEDICAID, SELFPAY ==
[2023-04-22] VITALS (13 sets, daily range): BP systolic 113–154; BP diastolic 61–109; PULSE 72–80; RESP 18; TEMP 36.3; O2SAT 90–95; BMI 24.3
--- NOTE | 2023-04-22 11:09 | CRLHL7_ITS ---
For Patients: As a result of the Century Cures Act, medical imaging exams and procedure reports are released immediately into your electronic medical record. You may view this report before your referring provider. If you have questions, please contact your health care provider. INDICATION: Weakness, recent subarachnoid hemorrhage TECHNIQUE: CT head without contrast. COMPARISON: Head CT 04/02/2023 FINDINGS: CSF spaces: Previously noted extra-axial hemorrhage is no longer seen. No new extra-axial bleed. Brain parenchyma: Cerebral atrophy with mild low density in the deep white matter. [place]-white differentiation is distinct. Skull base and calvarium: The visualized paranasal sinuses and mastoid air cells demonstrate no acute or significant findings. The visualized orbits are grossly unremarkable. No skull fractures. Atherosclerosis. IMPRESSION: 1. No intracranial bleed or mass effect. Interval resolution of the previously noted subarachnoid hemorrhage. 2. Cerebral atrophy with nonspecific white matter disease, likely microangiopathy. Please note that all CT scans at this facility use dose modulation, iterative reconstruction, and/or weight-based dosing when appropriate to reduce radiation dose to as low as reasonably achievable. Dictated by Noah Chavarria MD @ 04/22/2023 12:40:54 PM (Electronically Signed)
--- NOTE | 2023-04-22 11:15 | ED_ITS ---
HPI - General Adult General Time Seen by Provider: 11:10 Date Seen: 04/22/23 Chief complaint: Weakness Stated complaint: weak, blood pressure issues Time Seen by Provider: 04/22/23 11:03 Source: patient Mode of arrival: ambulatory Limitations: no limitations History of Present Illness HPI narrative: Patient is an 78-year-old female with a history of a subarachnoid hemorrhages 2 weeks ago, CKD stage 4, hypertension, cardiac pacemaker, paroxysmal AFib, COPD presented to the emergency department for weakness. Patient states for the past 3 or 4 days she has been feeling weak. She she also had some urinary hesitancy. She can emergency department 2 days ago and was diagnosed with UTI tired started on Macrobid. She states she felt much better yesterday and everything was going well up until this morning when she woke up and stated she felt weak and shaky again. Shows the symptoms have since resolved but she was concerned because she checked her blood pressure and it was low at home. EMS arrived and they checked him out 4 times a noticed most lumbar normal but did have 1 single blood pressure levels in the 80s systolic. Of note 2 weeks ago she fell causing a subarachnoid bleed which she was transferred to [facility]. She was there for 4 days then went to rehab. She is discharged from rehab this past Friday. Denies fevers, chills, chest pain, abdominal pain, headache, vision changes, numbness, diarrhea, constipation, shortness of breath. Related Data Home Medications Medication Instructions Recorded Confirmed albuterol sulfate 90 mcg/actuation 2 puff inhalation Q4H PRN 06/02/22 04/22/23 aerosol inhaler atorvastatin 40 mg tablet 40 mg PO HS 06/02/22 04/22/23 calcium carbonate 600 mg calcium 600 mg PO DAILY 06/02/22 04/22/23 (1,500 mg) tablet (Calcium) carvedilol 3.125 mg tablet 3.125 mg PO BIDWMEAL 06/02/22 04/22/23 cholecalciferol (vitamin D3) 50 50 mcg PO DAILY 06/02/22 04/22/23 mcg (2,000 unit) capsule (Vitamin D3) famotidine 40 mg tablet 40 mg PO HS 06/02/22 04/22/23 fluticasone fur. 200 mcg-umeclid 1 inh inhalation DAILY 06/02/22 04/20/23 62.5 mcg-vilant 25 mcg inhalat.powder (Trelegy Ellipta) levothyroxine 88 mcg tablet 88 mcg PO DAILY 06/02/22 04/22/23 mirabegron 25 mg tablet,extended 25 mg PO DAILY 06/02/22 04/20/23 release 24 hr (Myrbetriq) warfarin 2 mg tablet 4 - 6 mg PO DAILY 06/02/22 04/22/23 loperamide-simethicone 2 mg-125 mg 1 tab PO BID PRN 06/03/22 04/20/23 tablet (Imodium Multi-Symptom Relief) multivitamin (Multiple Vitamins 1 tab PO DAILY 06/03/22 04/20/23 tablet) spironolactone 25 mg tablet 12.5 mg PO QDAY 12/23/22 04/20/23 acetaminophen 300 mg-codeine 30 mg tab PO 04/20/23 tablet famotidine 20 mg tablet 20 mg PO DAILY 04/22/23 04/22/23 Previous Rx's Medication Instructions Recorded fluoxetine 40 mg capsule 60 mg (1.5 x 40 mg) PO DAILY #60 06/05/22 caps nitrofurantoin 100 mg PO Q12H 5 days #10 caps 04/20/23 monohydrate/macrocrystals 100 mg capsule (Macrobid) Allergies Allergy/AdvReac Type Severity Reaction Status Date / Time bacitracin Allergy Mild Verified 04/22/23 11:00 [From Neosporin Plus] lidocaine Allergy Mild Verified 04/22/23 11:00 [From Neosporin Plus] morphine Allergy Mild Hives Verified 04/22/23 11:00 neomycin Allergy Mild Verified 04/22/23 11:00 [From Neosporin Plus] Penicillins Allergy Mild Rash Verified 04/22/23 11:00 polymyxin B Allergy Mild Verified 04/22/23 11:00 [From Neosporin Plus] pramoxine Allergy Mild Verified 04/22/23 11:00 [From Neosporin Plus] BRAD Inhibitors Allergy Unknown Verified 04/22/23 11:00 bupropion [From Wellbutrin] Allergy Unknown Verified 04/22/23 11:00 hydrocodone Allergy Unknown Verified 04/22/23 11:00 levofloxacin [From Levaquin] Allergy Unknown Verified 04/22/23 11:00 oxycodone Allergy Unknown Verified 04/22/23 11:00 sulfamethoxazole Allergy Unknown Verified 04/22/23 11:00 Review of Systems Status of ROS: Reports: 10 or more systems reviewed and unremarkable except as noted in History and below [facility] Medical History COPD exacerbation ?J44.1 - Chronic obstructive pulmonary disease with (acute) exacerbation (ICD-10) Cough ?R05.9 - Cough, unspecified (ICD-10) Chronic anticoagulation ?Z79.01 - [facility] (current) use of anticoagulants (ICD-10) Presence of permanent cardiac pacemaker ?Z95.0 - Presence of cardiac pacemaker (ICD-10) Oxygen dependent ?Z99.81 - Dependence on supplemental oxygen (ICD-10) Chronic hypoxemic respiratory failure ?J96.11 - Chronic respiratory failure with hypoxia (ICD-10) Panlobular emphysema ?J43.1 - Panlobular emphysema (ICD-10) Chronic pain of both shoulders ?M25.511 - Pain in right shoulder (ICD-10) ?M25.512 - Pain in left shoulder (ICD-10) ?G89.29 - Other chronic pain (ICD-10) Anticoagulation goal of INR 2 to 3 ?Z51.81 - Encounter for therapeutic drug level monitoring (ICD-10) ?Z79.01 - [facility] (current) use of anticoagulants (ICD-10) Anticoagulated on warfarin ?Z79.01 - [facility] (current) use of anticoagulants (ICD-10) Paroxysmal atrial fibrillation ?I48.0 - Paroxysmal atrial fibrillation (ICD-10) Closed nondisplaced fracture of greater trochanter of right femur with routine healing ?S72.114D - Nondisplaced fracture of greater trochanter of right femur, subsequent encounter for closed fracture with routine healing (ICD-10) Chronic deep vein thrombosis of left lower extremity ?I82.502 - Chronic embolism and thrombosis of unspecified deep veins of left lower extremity (ICD-10) Intrinsic urethral sphincter deficiency ?N36.42 - Intrinsic sphincter deficiency (ISD) (ICD-10) Mixed stress and urge urinary incontinence ?N39.46 - Mixed incontinence (ICD-10) CKD stage 4 secondary to hypertension ?I12.9 - Hypertensive chronic kidney disease with stage 1 through stage 4 chronic kidney disease, or unspecified chronic kidney disease (ICD-10) ?N18.4 - Chronic kidney disease, stage 4 (severe) (ICD-10) Ischemic cardiomyopathy ?I25.5 - Ischemic cardiomyopathy (ICD-10) Recurrent major depression resistant to treatment ?F33.9 - Major depressive disorder, recurrent, unspecified (ICD-10) Hyperlipidemia ?E78.5 - Hyperlipidemia, unspecified (ICD-10) Hypertension ?I10 - Essential (primary) hypertension (ICD-10) MRSA (methicillin resistant Staphylococcus aureus) ?A49.02 - Methicillin resistant Staphylococcus aureus infection, unspecified site (ICD-10) Hypothyroidism ?E03.9 - Hypothyroidism, unspecified (ICD-10) COPD (chronic obstructive pulmonary disease) ?J44.9 - Chronic obstructive pulmonary disease, unspecified (ICD-10) CHF (congestive heart failure) ?I50.9 - Heart failure, unspecified (ICD-10) CAD (coronary artery disease) ?I25.10 - Atherosclerotic heart disease of [place] coronary artery without angina pectoris (ICD-10) Depression ?F32.A - Depression, unspecified (ICD-10) Atrial fibrillation ?I48.91 - Unspecified atrial fibrillation (ICD-10) Anxiety ?F41.9 - Anxiety disorder, unspecified (ICD-10) Acid reflux ?K21.9 - Gastro-esophageal reflux disease without esophagitis (ICD-10) Severe depression ?F32.2 - Major depressive disorder, single episode, severe without psychotic features (ICD-10) Surgical History History of hip replacement ?Z96.649 - Presence of unspecified artificial hip joint (ICD-10) History of cholecystectomy ?Z90.49 - Acquired absence of other specified parts of digestive tract (ICD- 10) History of cataract surgery ?Z98.49 - Cataract extraction status, unspecified eye (ICD-10) Social History Highest level of school completed/degree received: high school graduate Smoking Status: Former smoker What tobacco products do you use: cigarettes Smoking quit date/years: >15 years ago Do you use any of these nicotine containing products: None Second hand tobacco smoke exposure: No How often do you have a drink containing alcohol: never How often do you have six or more drinks on one occasion: Never AUDIT-C Alcohol total score: 0 Non-prescribed substance use: denies use Caffeine: Yes (Daily) service: No Exam Narrative: Exam Narrative: Const: Well-nourished, Well-developed, in mild distress Eyes: PERRL, no conjunctival injection, and symmetrical lids ENMT: Atraumatic external nose and ears. Moist mucous membranes. Neck: Symmetric, trachea midline, No thyromegaly. CVS: RRR, No murmurs or gallops. Peripheral pulses 2+ and equal in all extre mities RESP: Unlabored respiratory effort. Clear to auscultation bilaterally. GI: Nontender/Nondistended, No rebound or guarding. MSK:Extremities w/o deformity, Normal Active ROM Skin: Warm, Dry. No rashes or lesions. Neuro: Normal Muscle tone, No focal neurological deficits. Psych: Awake, Alert, & Oriented x3. Appropriate mood and affect. Const: Vital Signs, click to edit/add: Vital Signs - 24 hr 04/22/23 10:43 04/22/23 11:11 04/22/23 11:15 Temperature 97.3 F L Pulse Rate 74 76 Pulse Rate [Pulse Oximeter] 74 Pulse Rate [orthos tatic lying] Pulse Rate [orthos tatic sitting] Pulse Rate [orthos tatic standing] Respiratory Rate 18 Blood Pressure Blood Pressure [Ri ght Upper Arm] 123/61 Blood Pressure [or thostatic lying] Blood Pressure [or thostatic sitting] Blood Pressure [or thostatic standing ] Pulse Oximetry 94 95 93 [facility] 04/22/23 11:30 04/22/23 11:33 04/22/23 11:47 Temperature Pulse Rate 76 80 Pulse Rate [Pulse Oximeter] Pulse Rate [orthos tatic lying] Pulse Rate [orthos tatic sitting] Pulse Rate [orthos tatic standing] Respiratory Rate Blood Pressure 113/73 Blood Pressure [Ri ght Upper Arm] Blood Pressure [or thostatic lying] Blood Pressure [or thostatic sitting] Blood Pressure [or thostatic standing ] Pulse Oximetry 93 93 94 Oxygen Delivery Me thod 04/22/23 12:07 04/22/23 12:15 04/22/23 12:30 Temperature Pulse Rate 74 72 78 Pulse Rate [Pulse Oximeter] Pulse Rate [orthos tatic lying] Pulse Rate [orthos tatic sitting] Pulse Rate [orthos tatic standing] Respiratory Rate Blood Pressure Blood Pressure [Ri ght Upper Arm] Blood Pressure [or thostatic lying] Blood Pressure [or thostatic sitting] Blood Pressure [or thostatic standing ] Pulse Oximetry 95 92 91 Oxygen Delivery Me thod 04/22/23 12:31 04/22/23 13:00 04/22/23 13:01 Temperature Pulse Rate 74 73 74 Pulse Rate [Pulse Oximeter] Pulse Rate [orthos tatic lying] Pulse Rate [orthos tatic sitting] Pulse Rate [orthos tatic standing] Respiratory Rate Blood Pressure 132/107 H 152/82 H Blood Pressure [Ri ght Upper Arm] Blood Pressure [or thostatic lying] Blood Pressure [or thostatic sitting] Blood Pressure [or thostatic standing ] Pulse Oximetry 90 91 92 Oxygen Delivery Dc thod 04/22/23 13:09 Temperature Pulse Rate Pulse Rate [Pulse Oximeter] Pulse Rate [orthos tatic lying] 76 Pulse Rate [orthos tatic sitting] 78 Pulse Rate [orthos tatic standing] 75 Respiratory Rate Blood Pressure Blood Pressure [Ri ght Upper Arm] Blood Pressure [or thostatic lying] 154/87 H Blood Pressure [or thostatic sitting] 132/109 H Blood Pressure [or thostatic standing ] 115/74 Pulse Oximetry Oxygen Delivery Me thod Course Vital Signs Vital signs: Initial Vital Signs Temperature 97.3 F L 04/22/23 10:43 Temperature Source Temporal Artery Scan 04/22/23 10:43 Pulse Rate 74 04/22/23 10:43 Respiratory Rate 18 04/22/23 10:43 Blood Pressure 123/61 04/22/23 10:43 Blood Pressure Mean 81 04/22/23 10:43 Blood Pressure Position Sitting 04/22/23 10:43 Pulse Oximetry 94 04/22/23 10:43 Oxygen Delivery Method Room Air 04/22/23 10:43 Vital Signs Temperature 97.3 F L 04/22/23 10:43 Pulse Rate 74 04/22/23 10:43 Respiratory Rate 18 04/22/23 10:43 Blood Pressure 123/61 04/22/23 10:43 Pulse Oximetry 94 04/22/23 10:43 Oxygen Delivery Method Room Air 04/22/23 10:43 Temperature 97.3 F L 04/22/23 10:43 Pulse Rate 76 04/22/23 13:09 Respiratory Rate 18 04/22/23 10:43 Blood Pressure 154/87 H 04/22/23 13:09 Pulse Oximetry 92 04/22/23 13:01 Oxygen Delivery Method Room Air 04/22/23 10:43 Medical Decision Making MDM Narrative Medical decision making narrative: Patient is an 78-year-old female presents presents tumors department for further is of weakness and hypotension. She identified a potential home she states but when EMS arrived they checked her blood pressure several times and was normal other than 1 solitary low blood pressure but resolved symptoms they checked again. She also had a recent subarachnoid hemorrhage 2 weeks ago. She was diagnosed with a UTI 2 days ago. She started Macrobid. Patient states she is feeling well just with the scope and was feeling weak and shaky. The weakness has since resolved. States she has been taking medication as directed. This 76 could be UTI causing her symptoms but with her history and continued weakness this also could send for possible bleed again in the supine will also order head CT. She is having no respiratory symptoms so pneumonia or viral URI is unlikely at this time. She is not having any abdominal symptoms and I do not believe it is necessary to get an abdominal CT. CBC, CBC, troponin, EKG, and and head CT were all ordered. Patient's EKG showed no concerning abnormalities other than smaller R-waves in the lateral leads. This is inconclusive finding concerned she is having no chest pain, abdominal pain, shortness of breath and has a normal troponin this is unlikely to be an [place]. Head CT returned showing interval resolution of the subarachnoid bleeding no other acute abnormalities. Patient's lab work all returned showing new acute abnormalities. COVID/flu/RSV were all negative. Patient's urinalysis shows good interval resolution of her UTI. Patient states she has rheumatoid follow-up with her primary doctor the end of the week. I am unsure what is causing her symptoms. She does states she feels blah but still says she is able to move around with a walker without issue. Since she did have some possible but blood pressure issues we did do orthostatic blood pressures. The came back positive with a systolic dropped from 154-115. Heart rate stayed stable. She was asymptomatic throughout this. I did offer the patient IV fluids. She declined and states she would rather be discharged home will drink plenty of fluids at home. She has a neurology appointment tomorrow and primary care follow-up within the week. She does live at home with a roommate and states she feels comfortable with going home. Patient will be discharged home at this time. Lab Data Labs: Lab Results 04/22/23 04/22/23 04/22/23 Range/Units 11:30 12:05 12:40 WBC 6.26 (4.50-11.00) K/uL RBC 4.47 (4.00-5.20) m/uL Hgb 13.4 (12.0-16.0) gm/dL Hct 41.7 (33.0-51.0) % MCV 93 (80-100) fL MCH 30 (26-34) pg MCHC 32 (32-36) gm/dL RDW Coeff of Sudha 14.9 (11.5-15.5) % Plt Count 175 (140-440) K/uL Neut % (Auto) 66.9 (42.0-72.0) % Lymph % (Auto) 22.7 (20-44) % Mathews % (Auto) 8.5 (0.0-11.0) % Eos % (Auto) 1.3 (0.0-7.0) % Baso % (Auto) 0.3 (0.0-3.0) % Neut # (Auto) 4.19 (1.7-7.0) K/uL Lymph # (Auto) 1.42 (0.90-2.90) K/uL Mathews # (Auto) 0.50 (0.00-0.90) K/UL Eos # (Auto) 0.08 (0.00-0.50) K/uL Baso # (Auto) 0.02 (0.00-0.30) K/uL Abs Immat Gran (auto) 0.02 (0.00-0.30) K/uL Imm/Tot Granulo (auto) 0.3 % INR 0.93 (0.91-1.10) Sodium 137 (135-149) mmol/L Potassium 4.3 (3.6-5.1) mmol/L Chloride 107 (96-114) mmol/L Carbon Dioxide 23 (20-32) mmol/L BUN 27 (7-30) mg/dL Creatinine 1.1 (0.5-1.5) mg/dL Estimated Creat Clear 39.67 Estimated GFR 51 ml/min Glucose 92 (60-115) mg/dL Calcium 8.8 (8.4-10.6) mg/dL Total Bilirubin 0.6 (0.1-1.5) mg/dL AST 30 (12-35) U/L ALT 22 (4-35) U/L Alkaline Phosphatase 72 (40-150) U/L Troponin I 0.01 (0.01-0.04) ng/mL Total Protein 6.2 (6.0-8.3) g/dL Albumin 3.7 (3.3-5.0) g/dL Urine Color Yellow (Yellow) Urine Appearance Clear (Clear) Urine pH 6.0 (5.0-8.5) Ur Specific [place] 1.015 (1.000-1.030) Urine Protein Negative (Negative) Urine Glucose (UA) Negative (Negative) Urine Ketones Negative (Negative) Urine Blood Negative (Negative) Urine Nitrite Negative (Negative) Urine Bilirubin Negative (Negative) Urine Urobilinogen 0.2 (0.2-1.0) Ur Leukocyte Esterase Trace A (Negative) Urine RBC 0-2 (0-2) Urine WBC 2-5 (0-5) Ur Squamous Epith Cells None (None-Few) Urine Bacteria None (None) SARS-CoV-2 (PCR) Negative SARS-CoV-2 (Negative) Influenza Type A (PCR) Negative PCR FLU A (Negative) Influenza Type B (PCR) Negative PCR FLU B (Negative) RSV (PCR) Negative PCR RSV (Negative) ECG Data Attestation: I personally reviewed and interpreted this ECG as follows: (Atrial paced rhythms rate of 74 beats per minute, left axis deviation no ST or T-wave abnormalities. Premature ventricular and atrial complexes. Other than poor R- wave progression lateral needs looks similar to previous EKGs were performed.) Prior ECG tracings: available for review (04/20/2023, 10/10/2022) Discharge Plan Discharge Clinical Impression: Dehydration Patient Disposition: Home, Self-Care Condition: Stable Instructions: Dehydration (ED) Additional Instructions: Is unclear was the exact cause of his symptoms at this time. UTI appears to have resolved but finish her antibiotic course as prescribed from your previous ED visit. Follow-up with your primary care provider. Return for new or worsening symptoms. You will receive a call from [facility] regarding your follow up appointment. If you haven't received a call from them by the end of the day, please call [phone]. Prescriptions: No Action spironolactone 25 mg tablet 12.5 mg PO QDAY atorvastatin 40 mg tablet 40 mg PO HS carvedilol 3.125 mg tablet 3.125 mg PO BIDWMEAL levothyroxine 88 mcg tablet 88 mcg PO DAILY warfarin 2 mg tablet 4 - 6 mg PO DAILY Hold Instructions: on hold Rx Instructions: Take 4mg every MWF Take 6mg all other days albuterol sulfate 90 mcg/actuation HFA aerosol inhaler 2 puff INHALATION Q4H PRN Patient Comments: INHALE 1 TO 2 PUFFS BY MOUTH EVERY 4 HOURS NEEDED FOR SHORTNESS OF BREATH Myrbetriq 25 mg tablet extended release 24 hr 25 mg PO DAILY Trelegy Ellipta 200-62.5-25 mcg blister with device 1 inh INHALATION DAILY Patient Comments: INHALE 1 PUFF BY MOUTH EVERY DAY calcium carbonate [Calcium 600] 600 mg calcium (1,500 mg) tablet 600 mg PO DAILY cholecalciferol (vitamin D3) [Vitamin D3] 50 mcg (2,000 unit) capsule 50 mcg PO DAILY famotidine 40 mg tablet 40 mg PO HS multivitamin [Multiple Vitamins] Tablet 1 tab PO DAILY loperamide-simethicone [Imodium Multi-Symptom Relief] 2-125 mg tablet 1 tab PO BID PRN fluoxetine 40 mg capsule 60 mg PO DAILY Qty: 60 0RF Patient Comments: TAKE 1 CAPSULE BY MOUTH EVERY DAY. Rx Instructions: please substitute to tablets in order to do 60mg. famotidine 20 mg tablet 20 mg PO DAILY acetaminophen-codeine 300-30 mg tablet PO nitrofurantoin monohyd/m-cryst [Macrobid] 100 mg capsule 100 mg PO Q12H 5 Days Qty: 10 0RF Rx Instructions: must administer with a meal/food Follow Up/Referrals: Karma Jang MD [Primary Care Provider] - Stand Alone Forms: [employer] Info Instructions
[2023-04-22 11:38] LABS: Basophils Absolute Auto 0.02 K/uL (0.00-0.30); Basophils Percent Auto 0.3 % (0.0-3.0); Eosinophils Absolute Auto 0.08 K/uL (0.00-0.50); Eosinophils Percent Auto 1.3 % (0.0-7.0); Hematocrit 41.7 % (33.0-51.0); Hemoglobin* 13.4 gm/dL (12.0-16.0); Immature Granulocytes Abs Auto 0.02 K/uL (0.00-0.30); Immature Granulocytes Pct Auto 0.3 %; Lymphocytes Absolute Auto 1.42 K/uL (0.90-2.90); Lymphocytes Percent Auto 22.7 % (20-44); Mean Corpuscular HGB Conc 32 gm/dL (32-36); Mean Corpuscular Hemoglobin 30 pg (26-34); Mean Corpuscular Volume 93 fL (80-100); Monocytes Percent Auto 8.5 % (0.0-11.0); Neutrophils Absolute Auto 4.19 K/uL (1.7-7.0); Neutrophils Percent Auto 66.9 % (42.0-72.0); Platelet Count* 175 K/uL (140-440); RDW Coefficient of Variation % 14.9 % (11.5-15.5); Red Blood Count 4.47 m/uL (4.00-5.20); White Blood Count* 6.26 K/uL (4.50-11.00)
[2023-04-22 11:41] LABS: Slide Review Reflex No
[2023-04-22 11:52] LABS: Albumin* 3.7 g/dL (3.3-5.0); Chloride* 107 mmol/L (96-114); Potassium* 4.3 mmol/L (3.6-5.1); Sodium* 137 mmol/L (135-149)
[2023-04-22 11:54] LABS: Creatinine* 1.1 mg/dL (0.5-1.5); Est. Creatinine Clearance* 39.67; Estimated Glomerular Filt Rate 51 ml/min
[2023-04-22 11:55] LABS: Alanine Aminotransferase* 22 U/L (4-35); Alkaline Phosphatase* 72 U/L (40-150); Aspartate Amino Transferase* 30 U/L (12-35); Bilirubin Total* 0.6 mg/dL (0.1-1.5); Blood Urea Nitrogen* 27 mg/dL (7-30); Carbon Dioxide* 23 mmol/L (20-32); Glucose* 92 mg/dL (60-115); Total Protein* 6.2 g/dL (6.0-8.3)
[2023-04-22 11:56] LABS: Calcium* 8.8 mg/dL (8.4-10.6); INR 0.93 (0.91-1.10)
[2023-04-22 12:07] LABS: Troponin I* 0.01 ng/mL (0.01-0.04)
[2023-04-22 12:46] LABS: Appearance Urine Clear (Clear); Bilirubin Urine Negative (Negative); Blood Urine Negative (Negative); Color Urine Yellow (Yellow); Glucose Urine Negative (Negative); Ketones Urine Negative (Negative); Leukocyte Esterase Urine Trace (Negative); Nitrite Urine Negative (Negative); Protein Urine Negative (Negative); Specific Gravity Urine 1.015 (1.000-1.030); Urobilinogen Urine 0.2 (0.2-1.0)
[2023-04-22 12:49] LABS: PCR FLU A Negative PCR FLU A (Negative); PCR FLU B Negative PCR FLU B (Negative); PCR RSV Negative PCR RSV (Negative)
[2023-04-22 12:51] LABS: SARS PCR* Negative SARS-CoV-2 (Negative)
--- NOTE | 2023-04-22 12:52 | ED.NURSE ---
Pt had IV in L forearm that was started by EMS pre-arrival. Bathhouse Attendant attempted to flush IV, IV occluded, not patent. IV DC'd, catheter intact. notified.
[2023-04-22 12:55] LABS: RBC Urine 0-2 (0-2)
--- NOTE | 2023-04-22 13:21 | ED.NURSE ---
Pt informed that MD ordered IV placement and fluids for her. Pt states she would prefer not to have another IV placed and would like to go home. MD notified and in RM to speak with pt.
== END 2023-04-22 13:49 | disposition home or self-care (01) ==
PROVIDERS: Emergency Provider Student in an Organized Health Care Education/Training Program; PCP Family Medicine
DX: E86.0 Dehydration (principal)
CPT/HCPCS: 36415; 70450; 80053; 81001; 84484; 85025; 85610; 87631; 93005; 99283; 99284

== ENCOUNTER 2023-04-24 14:34 | Emergency (ER) | payer MEDICARE, MEDICAID, SELFPAY ==
[2023-04-24 14:47] VITALS: BP 86/56; PULSE 72; RESP 20; TEMP 36.1; O2SAT 95; BMI 24.4
--- NOTE | 2023-04-24 15:07 | ED_ITS ---
HPI - General Adult General Chief complaint: Unspecified Complaint, Adult Stated complaint: Spiking BP Time Seen by Provider: 04/24/23 15:00 History of Present Illness HPI narrative: Patient is a 78-year-old woman who went to routine follow-up today and was noted to have a low blood pressure. This has been present most of the week. Patient has had a thorough workup x2 as recently as 2 days ago here in the emergency room she has been found have Pseudomonas in her urine and is currently started on Cipro as of today. The patient had is 0 chest pain shortness a breath orthopnea no PND. She does take a somewhat complex medical regiment for her congestive heart failure hypertension including carvedilol Entresto and spironolactone. She was directed to the emergency room and states that she is very annoyed that she has come back as she feels fine. She does have a full physical tomorrow with her regular doctor. No other complaints or concerns are noted. Related Data Home Medications Medication Instructions Recorded Confirmed albuterol sulfate 90 mcg/actuation 2 puff inhalation Q4H PRN 06/02/22 04/24/23 aerosol inhaler atorvastatin 40 mg tablet 40 mg PO HS 06/02/22 04/24/23 calcium carbonate 600 mg calcium 600 mg PO DAILY 06/02/22 04/24/23 (1,500 mg) tablet (Calcium) carvedilol 3.125 mg tablet 3.125 mg PO BIDWMEAL 06/02/22 04/24/23 cholecalciferol (vitamin D3) 50 50 mcg PO DAILY 06/02/22 04/24/23 mcg (2,000 unit) capsule (Vitamin D3) famotidine 40 mg tablet 40 mg PO HS 06/02/22 04/22/23 fluticasone fur. 200 mcg-umeclid 1 inh inhalation DAILY 06/02/22 04/24/23 62.5 mcg-vilant 25 mcg inhalat.powder (Trelegy Ellipta) levothyroxine 88 mcg tablet 88 mcg PO DAILY 06/02/22 04/24/23 mirabegron 25 mg tablet,extended 25 mg PO DAILY 06/02/22 04/24/23 release 24 hr (Myrbetriq) warfarin 2 mg tablet 4 - 6 mg PO DAILY 06/02/22 04/22/23 loperamide-simethicone 2 mg-125 mg 1 tab PO BID PRN 06/03/22 04/20/23 tablet (Imodium Multi-Symptom Relief) multivitamin (Multiple Vitamins 1 tab PO DAILY 06/03/22 04/24/23 tablet) spironolactone 25 mg tablet 12.5 mg PO QDAY 12/23/22 04/24/23 acetaminophen 300 mg-codeine 30 mg 1 tab PO PRN 04/20/23 04/24/23 tablet famotidine 20 mg tablet 20 mg PO DAILY 04/22/23 04/24/23 azithromycin 250 mg tablet mg PO 04/24/23 Previous Rx's Medication Instructions Recorded fluoxetine 40 mg capsule 60 mg (1.5 x 40 mg) PO DAILY #60 06/05/22 caps Allergies Allergy/AdvReac Type Severity Reaction Status Date / Time bacitracin Allergy Mild Verified 04/24/23 14:55 [From Neosporin Plus] lidocaine Allergy Mild Verified 04/24/23 14:55 [From Neosporin Plus] morphine Allergy Mild Hives Verified 04/24/23 14:55 neomycin Allergy Mild Verified 04/24/23 14:55 [From Neosporin Plus] Penicillins Allergy Mild Rash Verified 04/24/23 14:55 polymyxin B Allergy Mild Verified 04/24/23 14:55 [From Neosporin Plus] pramoxine Allergy Mild Verified 04/24/23 14:55 [From Neosporin Plus] BRAD Inhibitors Allergy Unknown Verified 04/24/23 14:55 bupropion [From Wellbutrin] Allergy Unknown Verified 04/24/23 14:55 hydrocodone Allergy Unknown Verified 04/24/23 14:55 levofloxacin [From Levaquin] Allergy Unknown Verified 04/24/23 14:55 oxycodone Allergy Unknown Verified 04/24/23 14:55 sulfamethoxazole Allergy Unknown Verified 04/24/23 14:55 Review of Systems Status of ROS: Reports: 10 or more systems reviewed and unremarkable except as noted in History and below [facility] Medical History COPD exacerbation ?J44.1 - Chronic obstructive pulmonary disease with (acute) exacerbation (ICD-10) Cough ?R05.9 - Cough, unspecified (ICD-10) Chronic anticoagulation ?Z79.01 - children's author (current) use of anticoagulants (ICD-10) Presence of permanent cardiac pacemaker ?Z95.0 - Presence of cardiac pacemaker (ICD-10) Oxygen dependent ?Z99.81 - Dependence on supplemental oxygen (ICD-10) Chronic hypoxemic respiratory failure ?J96.11 - Chronic respiratory failure with hypoxia (ICD-10) Panlobular emphysema ?J43.1 - Panlobular emphysema (ICD-10) Chronic pain of both shoulders ?M25.511 - Pain in right shoulder (ICD-10) ?M25.512 - Pain in left shoulder (ICD-10) ?G89.29 - Other chronic pain (ICD-10) Anticoagulation goal of INR 2 to 3 ?Z51.81 - Encounter for therapeutic drug level monitoring (ICD-10) ?Z79.01 - children's author (current) use of anticoagulants (ICD-10) Anticoagulated on warfarin ?Z79.01 - children's author (current) use of anticoagulants (ICD-10) Paroxysmal atrial fibrillation ?I48.0 - Paroxysmal atrial fibrillation (ICD-10) Closed nondisplaced fracture of greater trochanter of right femur with routine healing ?S72.114D - Nondisplaced fracture of greater trochanter of right femur, subsequent encounter for closed fracture with routine healing (ICD-10) Chronic deep vein thrombosis of left lower extremity ?I82.502 - Chronic embolism and thrombosis of unspecified deep veins of left lower extremity (ICD-10) Intrinsic urethral sphincter deficiency ?N36.42 - Intrinsic sphincter deficiency (ISD) (ICD-10) Mixed stress and urge urinary incontinence ?N39.46 - Mixed incontinence (ICD-10) CKD stage 4 secondary to hypertension ?I12.9 - Hypertensive chronic kidney disease with stage 1 through stage 4 chronic kidney disease, or unspecified chronic kidney disease (ICD-10) ?N18.4 - Chronic kidney disease, stage 4 (severe) (ICD-10) Ischemic cardiomyopathy ?I25.5 - Ischemic cardiomyopathy (ICD-10) Recurrent major depression resistant to treatment ?F33.9 - Major depressive disorder, recurrent, unspecified (ICD-10) Hyperlipidemia ?E78.5 - Hyperlipidemia, unspecified (ICD-10) Hypertension ?I10 - Essential (primary) hypertension (ICD-10) MRSA (methicillin resistant Staphylococcus aureus) ?A49.02 - Methicillin resistant Staphylococcus aureus infection, unspecified site (ICD-10) Hypothyroidism ?E03.9 - Hypothyroidism, unspecified (ICD-10) COPD (chronic obstructive pulmonary disease) ?J44.9 - Chronic obstructive pulmonary disease, unspecified (ICD-10) CHF (congestive heart failure) ?I50.9 - Heart failure, unspecified (ICD-10) CAD (coronary artery disease) ?I25.10 - Atherosclerotic heart disease of [place] coronary artery without angina pectoris (ICD-10) Depression ?F32.A - Depression, unspecified (ICD-10) Atrial fibrillation ?I48.91 - Unspecified atrial fibrillation (ICD-10) Anxiety ?F41.9 - Anxiety disorder, unspecified (ICD-10) Acid reflux ?K21.9 - Gastro-esophageal reflux disease without esophagitis (ICD-10) Severe depression ?F32.2 - Major depressive disorder, single episode, severe without psychotic features (ICD-10) Surgical History History of hip replacement ?Z96.649 - Presence of unspecified artificial hip joint (ICD-10) History of cholecystectomy ?Z90.49 - Acquired absence of other specified parts of digestive tract (ICD- 10) History of cataract surgery ?Z98.49 - Cataract extraction status, unspecified eye (ICD-10) Social History Highest level of school completed/degree received: high school graduate Smoking Status: Former smoker What tobacco products do you use: cigarettes Smoking quit date/years: >15 years ago Do you use any of these nicotine containing products: None Second hand tobacco smoke exposure: No How often do you have a drink containing alcohol: never How often do you have six or more drinks on one occasion: Never AUDIT-C Alcohol total score: 0 Non-prescribed substance use: denies use Caffeine: Yes (Daily) service: No Exam Narrative: Exam Narrative: EXAM GENERAL: Patient appears comfortable and well. EYES: No scleral icterus. ENT: Tympanic membranes and oropharynx normal. THYROID: no thyroid nodules or thyromegaly. LYMPH: No supraclavicular or cervical lymphadenopathy. SKIN: Visible skin seen during exam normal or with benign process only. EXT: No dependent lower extremity pedal edema. HEART: Regular rate and rhythm with no murmurs, rubs, or gallops. LUNGS: Clear to auscultation bilaterally with no crackles or wheezes. ABD: Soft, non tender, non distended. PSYCH: Good eye contact, speech is not pressured. Extremities no cyanosis no edema Const: Vital Signs, click to edit/add: Vital Signs - 24 hr 04/24/23 14:47 Temperature 96.9 F L Pulse Rate [Pulse Oximeter] 72 Respiratory Rate 20 Blood Pressure [Le ft Upper Arm] 86/56 L Pulse Oximetry 95 Oxygen Delivery Me thod Room Air Course Course Hospital Course: Patient seen and examined. Vital Signs Vital signs: Initial Vital Signs Temperature 96.9 F L 04/24/23 14:47 Temperature Source Temporal Artery Scan 04/24/23 14:47 Pulse Rate 72 04/24/23 14:47 Respiratory Rate 20 04/24/23 14:47 Blood Pressure 86/56 L 04/24/23 14:47 Blood Pressure Mean 66 L 04/24/23 14:47 Blood Pressure Position Sitting 04/24/23 14:47 Pulse Oximetry 95 04/24/23 14:47 Oxygen Delivery Method Room Air 04/24/23 14:47 Vital Signs Temperature 96.9 F L 04/24/23 14:47 Pulse Rate 72 04/24/23 14:47 Respiratory Rate 20 04/24/23 14:47 Blood Pressure 86/56 L 04/24/23 14:47 Pulse Oximetry 95 04/24/23 14:47 Oxygen Delivery Method Room Air 04/24/23 14:47 Temperature 96.9 F L 04/24/23 14:47 Pulse Rate 72 04/24/23 14:47 Respiratory Rate 20 04/24/23 14:47 Blood Pressure 86/56 L 04/24/23 14:47 Pulse Oximetry 95 04/24/23 14:47 Oxygen Delivery Method Room Air 04/24/23 14:47 Medical Decision Making MDM Narrative Medical decision making narrative: Patient seen examined. She is slightly hypotensive with a blood pressure of 86/56. She does not appear to be in congestive heart failure. I do not believe she is septic with Pseudomonas sits in her urine and I do think that oral ciprofloxacin is an appropriate choice. I did review her thorough workup that she has had twice in the ready this week and I do not believe repeating it is indicated. I do think that holding her Entresto would be the right thing to do and ensure close follow-up tomorrow. I did review the rest of her medications and they do see reasonable. Differential Diagnosis Differential Diagnosis: Sepsis congestive heart failure hypotension anemia Discharge Plan Discharge Clinical Impression: Chronic hypotension Patient Disposition: Home, Self-Care Condition: Stable Instructions: Hypotension (ED) Additional Instructions: Stop Entresto Keep outpatient follow-up tomorrow Activity Level: No Restrictions Discharge Diet: Regular Prescriptions: No Action spironolactone 25 mg tablet 12.5 mg PO QDAY atorvastatin 40 mg tablet 40 mg PO HS carvedilol 3.125 mg tablet 3.125 mg PO BIDWMEAL levothyroxine 88 mcg tablet 88 mcg PO DAILY warfarin 2 mg tablet 4 - 6 mg PO DAILY Hold Instructions: on hold Rx Instructions: Take 4mg every MWF Take 6mg all other days albuterol sulfate 90 mcg/actuation HFA aerosol inhaler 2 puff INHALATION Q4H PRN Patient Comments: INHALE 1 TO 2 PUFFS BY MOUTH EVERY 4 HOURS NEEDED FOR SHORTNESS OF BREATH Myrbetriq 25 mg tablet extended release 24 hr 25 mg PO DAILY Trelegy Ellipta 200-62.5-25 mcg blister with device 1 inh INHALATION DAILY Patient Comments: INHALE 1 PUFF BY MOUTH EVERY DAY calcium carbonate [Calcium 600] 600 mg calcium (1,500 mg) tablet 600 mg PO DAILY cholecalciferol (vitamin D3) [Vitamin D3] 50 mcg (2,000 unit) capsule 50 mcg PO DAILY famotidine 40 mg tablet 40 mg PO HS multivitamin [Multiple Vitamins] Tablet 1 tab PO DAILY loperamide-simethicone [Imodium Multi-Symptom Relief] 2-125 mg tablet 1 tab PO BID PRN fluoxetine 40 mg capsule 60 mg PO DAILY Qty: 60 0RF Patient Comments: TAKE 1 CAPSULE BY MOUTH EVERY DAY. Rx Instructions: please substitute to tablets in order to do 60mg. famotidine 20 mg tablet 20 mg PO DAILY azithromycin 250 mg tablet PO acetaminophen-codeine 300-30 mg tablet 1 tab PO PRN Follow Up/Referrals: Karma Jang MD [Primary Care Provider] - Stand Alone Forms: [employer] Info Instructions
[2023-04-24 15:30] VITALS: BP 97/57; PULSE 74; O2SAT 94
== END 2023-04-24 15:34 | disposition home or self-care (01) ==
LOC: ED 15:25
PROVIDERS: Emergency Provider Internal Medicine; PCP Family Medicine
DX: I95.9 Hypotension, unspecified (principal)
CPT/HCPCS: 99283

== ENCOUNTER 2023-04-25 11:01 | Outpatient (CLI) | payer MEDICARE, MEDICAID, SELFPAY | END 2023-04-25 11:02 | disposition home or self-care (01) | LOC: AMB 04-29 11:23 | PROVIDERS: PCP Family Medicine; Visit Provider Family Medicine | DX: R06.02 Shortness of breath (principal) | CPT/HCPCS: A0425; A0429 ==

== ENCOUNTER 2023-05-22 11:30 | Emergency (ER) | payer MEDICARE, MEDICAID, SELFPAY ==
[2023-05-22] VITALS (23 sets, daily range): BP systolic 132–151; BP diastolic 84–96; PULSE 59–76; RESP 16; TEMP 36.7; O2SAT 84–93; BMI 24.4
--- NOTE | 2023-05-22 12:11 | CRLHL7_ITS ---
For Patients: As a result of the Century Cures Act, medical imaging exams and procedure reports are released immediately into your electronic medical record. You may view this report before your referring provider. If you have questions, please contact your health care provider. Indication: Fall, hit head Technique: Noncontrast axial CT of the cervical spine with coronal and sagittal reformats. Comparison: Same day CT head Findings: Preserved cervical lordosis. Grade 1 retrolisthesis at C3-4. Anterior interbody fusion and posterior instrumented spinal fusion C4-C7, with mature bony ankylosis. Chronic appearing anterior wedge superior endplate compression deformity of T1. No evidence of acute cervical spine fracture. Craniocervical articulation appears within normal limits. Scattered spondylosis. Visualized spinal canal appears grossly patent, without evidence of significant osseous spinal canal stenosis. Included intracranial structures are unremarkable for technique. Small lucent foci at the lung apices, presumed paraseptal emphysema. No obvious apical pneumothorax. Impression: 1. No CT evidence of acute fracture or traumatic malalignment in the cervical spine. 2. Mature surgical spinal fusion changes from C4-7, with chronic appearing anterior wedge superior endplate compression deformity at T1. Please note that all CT scans at this facility use dose modulation, iterative reconstruction, and/or weight-based dosing when appropriate to reduce radiation dose to as low as reasonably achievable. Dictated by Ameena Gonzales MD @ 05/22/2023 1:15:43 PM (Electronically Signed)
--- NOTE | 2023-05-22 12:11 | CRLHL7_ITS ---
For Patients: As a result of the Century Cures Act, medical imaging exams and procedure reports are released immediately into your electronic medical record. You may view this report before your referring provider. If you have questions, please contact your health care provider. INDICATION: Fall, hit head TECHNIQUE: Noncontrast axial CT of the head. Coronal and sagittal reformats. Bone and soft tissue algorithms. COMPARISON: CT head 04/22/2023 FINDINGS: The ventricles and cortical sulci are mildly prominent. No midline shift or mass effect. No acute intracranial hemorrhage or extra-axial fluid collection. [place]-white matter differentiation is grossly maintained. White matter attenuation is unremarkable. Calcific plaquing at the carotid siphons. Midline structures are unremarkable. Bony calvarium appears grossly intact. Minor bubbly secretions within the right sphenoid sinus. No mastoid effusion. Bilateral lens implants. IMPRESSION: No evidence of skull fracture or acute intracranial hemorrhage. Please note that all CT scans at this facility use dose modulation, iterative reconstruction, and/or weight-based dosing when appropriate to reduce radiation dose to as low as reasonably achievable. Dictated by Ameena Gonzales MD @ 05/22/2023 1:09:32 PM (Electronically Signed)
--- NOTE | 2023-05-22 12:11 | CRLHL7_ITS ---
For Patients: As a result of the Century Cures Act, medical imaging exams and procedure reports are released immediately into your electronic medical record. You may view this report before your referring provider. If you have questions, please contact your health care provider. Indication: Fall, hit head, low back and sacral pain Technique: Noncontrast axial CT of the lumbar spine with coronal and sagittal reformats. Comparison: No relevant comparison studies available at this institution. Findings: Preserved lumbar lordosis. No significant spondylolisthesis. Acute L3 superior endplate compression fracture, with mild vertebral height loss, but no cortical retropulsion. No other acute osseous abnormality identified. Remaining vertebral body heights are grossly maintained. Scattered spondylosis, including degenerative disc bulges and facet arthropathy. No evidence of significant neural foraminal or spinal canal stenosis. Aortoiliac atherosclerotic plaquing. Postsurgical changes of cholecystectomy and right hip arthroplasty. Asymmetric SI joint degeneration, right more than left. Impression: 1. Acute L3 superior endplate compression fracture, with mild vertebral height loss, but no cortical retropulsion. 2. Lumbar spondylosis, without evidence of significant neural foraminal or spinal canal stenosis. Please note that all CT scans at this facility use dose modulation, iterative reconstruction, and/or weight-based dosing when appropriate to reduce radiation dose to as low as reasonably achievable. Dictated by Ameena Gonzales MD @ 05/22/2023 1:21:12 PM (Electronically Signed)
--- NOTE | 2023-05-22 12:24 | ED.GENADULT ---
HPI - General Adult General Date Seen: 05/22/23 Chief complaint: Fall/Minor Trauma Stated complaint: fell Time Seen by Provider: 05/22/23 11:41 Source: patient Mode of arrival: ambulatory Limitations: no limitations History of Present Illness HPI narrative: Patient is an 78-year-old female with a previous traumatic brain bleed presented to the emergency department for a fall. She states she was with her son-in-law when she let go of the cart and fell to to losing her balance. She states she was not aware she was on uneven terrain and this is why she fell. Denies any lightheadedness or dizziness before the fall. She says she fell onto her butt and then hit the back of her head on the cement. She is having mostly lower lumbar pain at this time. Denies any lightheadedness or dizziness at this time. Denies any loss of consciousness. She is on Coumadin. Denies weakness, numbness, vision changes. Does states she has a headache but most the pain is in the posterior aspect of her head, where she hit the ground. Denies any other pain at this time. Related Data Home Medications Medication Instructions Recorded Confirmed albuterol sulfate 90 mcg/actuation 2 puff inhalation Q4H PRN 06/02/22 05/22/23 aerosol inhaler atorvastatin 40 mg tablet 40 mg PO HS 06/02/22 05/22/23 calcium carbonate 600 mg calcium 600 mg PO DAILY 06/02/22 05/22/23 (1,500 mg) tablet (Calcium) carvedilol 3.125 mg tablet 3.125 mg PO BIDWMEAL 06/02/22 05/22/23 cholecalciferol (vitamin D3) 50 50 mcg PO DAILY 06/02/22 05/22/23 mcg (2,000 unit) capsule (Vitamin D3) famotidine 40 mg tablet 40 mg PO HS 06/02/22 05/22/23 fluticasone fur. 200 mcg-umeclid 1 inh inhalation DAILY 06/02/22 05/22/23 62.5 mcg-vilant 25 mcg inhalat.powder (Trelegy Ellipta) levothyroxine 88 mcg tablet 88 mcg PO DAILY 06/02/22 05/22/23 mirabegron 25 mg tablet,extended 25 mg PO DAILY 06/02/22 05/22/23 release 24 hr (Myrbetriq) warfarin 2 mg tablet 4 - 6 mg PO DAILY 06/02/22 05/22/23 loperamide-simethicone 2 mg-125 mg 1 tab PO BID PRN 06/03/22 05/22/23 tablet (Imodium Multi-Symptom Relief) multivitamin (Multiple Vitamins 1 tab PO DAILY 06/03/22 05/22/23 tablet) spironolactone 25 mg tablet 12.5 mg PO QDAY 12/23/22 05/22/23 acetaminophen 300 mg-codeine 30 mg 1 tab PO PRN 04/20/23 05/22/23 tablet famotidine 20 mg tablet 20 mg PO DAILY 04/22/23 05/22/23 Previous Rx's Medication Instructions Recorded fluoxetine 40 mg capsule 60 mg (1.5 x 40 mg) PO DAILY #60 06/05/22 caps hydromorphone 2 mg tablet 2 mg PO Q6H PRN pain #14 tabs 05/22/23 (Dilaudid) Allergies Allergy/AdvReac Type Severity Reaction Status Date / Time bacitracin Allergy Mild Verified 05/22/23 11:52 [From Neosporin Plus] lidocaine Allergy Mild Verified 05/22/23 11:52 [From Neosporin Plus] morphine Allergy Mild Hives Verified 05/22/23 11:52 neomycin Allergy Mild Verified 05/22/23 11:52 [From Neosporin Plus] Penicillins Allergy Mild Rash Verified 05/22/23 11:52 polymyxin B Allergy Mild Verified 05/22/23 11:52 [From Neosporin Plus] pramoxine Allergy Mild Verified 05/22/23 11:52 [From Neosporin Plus] BRAD Inhibitors Allergy Unknown Verified 05/22/23 11:52 bupropion [From Wellbutrin] Allergy Unknown Verified 05/22/23 11:52 hydrocodone Allergy Unknown Verified 05/22/23 11:52 levofloxacin [From Levaquin] Allergy Unknown Verified 05/22/23 11:52 oxycodone Allergy Unknown Verified 05/22/23 11:52 sulfamethoxazole Allergy Unknown Verified 05/22/23 11:52 Review of Systems Status of ROS: Reports: 10 or more systems reviewed and unremarkable except as noted in History and below [facility] Medical History COPD exacerbation ?J44.1 - Chronic obstructive pulmonary disease with (acute) exacerbation (ICD-10) Cough ?R05.9 - Cough, unspecified (ICD-10) Chronic anticoagulation ?Z79.01 - terminal operations manager (current) use of anticoagulants (ICD-10) Presence of permanent cardiac pacemaker ?Z95.0 - Presence of cardiac pacemaker (ICD-10) Oxygen dependent ?Z99.81 - Dependence on supplemental oxygen (ICD-10) Chronic hypoxemic respiratory failure ?J96.11 - Chronic respiratory failure with hypoxia (ICD-10) Panlobular emphysema ?J43.1 - Panlobular emphysema (ICD-10) Chronic pain of both shoulders ?M25.511 - Pain in right shoulder (ICD-10) ?M25.512 - Pain in left shoulder (ICD-10) ?G89.29 - Other chronic pain (ICD-10) Anticoagulation goal of INR 2 to 3 ?Z51.81 - Encounter for therapeutic drug level monitoring (ICD-10) ?Z79.01 - [facility] (current) use of anticoagulants (ICD-10) Anticoagulated on warfarin ?Z79.01 - terminal operations manager (current) use of anticoagulants (ICD-10) Paroxysmal atrial fibrillation ?I48.0 - Paroxysmal atrial fibrillation (ICD-10) Closed nondisplaced fracture of greater trochanter of right femur with routine healing ?S72.114D - Nondisplaced fracture of greater trochanter of right femur, subsequent encounter for closed fracture with routine healing (ICD-10) Chronic deep vein thrombosis of left lower extremity ?I82.502 - Chronic embolism and thrombosis of unspecified deep veins of left lower extremity (ICD-10) Intrinsic urethral sphincter deficiency ?N36.42 - Intrinsic sphincter deficiency (ISD) (ICD-10) Mixed stress and urge urinary incontinence ?N39.46 - Mixed incontinence (ICD-10) CKD stage 4 secondary to hypertension ?I12.9 - Hypertensive chronic kidney disease with stage 1 through stage 4 chronic kidney disease, or unspecified chronic kidney disease (ICD-10) ?N18.4 - Chronic kidney disease, stage 4 (severe) (ICD-10) Ischemic cardiomyopathy ?I25.5 - Ischemic cardiomyopathy (ICD-10) Recurrent major depression resistant to treatment ?F33.9 - Major depressive disorder, recurrent, unspecified (ICD-10) Hyperlipidemia ?E78.5 - Hyperlipidemia, unspecified (ICD-10) Hypertension ?I10 - Essential (primary) hypertension (ICD-10) MRSA (methicillin resistant Staphylococcus aureus) ?A49.02 - Methicillin resistant Staphylococcus aureus infection, unspecified site (ICD-10) Hypothyroidism ?E03.9 - Hypothyroidism, unspecified (ICD-10) COPD (chronic obstructive pulmonary disease) ?J44.9 - Chronic obstructive pulmonary disease, unspecified (ICD-10) CHF (congestive heart failure) ?I50.9 - Heart failure, unspecified (ICD-10) CAD (coronary artery disease) ?I25.10 - Atherosclerotic heart disease of [place] coronary artery without angina pectoris (ICD-10) Depression ?F32.A - Depression, unspecified (ICD-10) Atrial fibrillation ?I48.91 - Unspecified atrial fibrillation (ICD-10) Anxiety ?F41.9 - Anxiety disorder, unspecified (ICD-10) Acid reflux ?K21.9 - Gastro-esophageal reflux disease without esophagitis (ICD-10) Severe depression ?F32.2 - Major depressive disorder, single episode, severe without psychotic features (ICD-10) Surgical History History of hip replacement ?Z96.649 - Presence of unspecified artificial hip joint (ICD-10) History of cholecystectomy ?Z90.49 - Acquired absence of other specified parts of digestive tract (ICD-10) History of cataract surgery ?Z98.49 - Cataract extraction status, unspecified eye (ICD-10) Social History Highest level of school completed/degree received: high school graduate Smoking Status: Former smoker What tobacco products do you use: cigarettes Smoking quit date/years: >15 years ago Do you use any of these nicotine containing products: None Second hand tobacco smoke exposure: No How often do you have a drink containing alcohol: never How often do you have six or more drinks on one occasion: Never AUDIT-C Alcohol total score: 0 Non-prescribed substance use: denies use Caffeine: Yes (Daily) service: No Exam Const: Vital Signs, click to edit/add: Vital Signs - 24 hr 05/22/23 11:54 05/22/23 12:00 05/22/23 12:02 Temperature 98.0 F Pulse Rate 71 Pulse Rate [Pulse Oximeter] 68 Respiratory Rate 16 Blood Pressure Blood Pressure [Le ft Upper Arm] 151/91 H Pulse Oximetry 86 L 91 92 Oxygen Delivery Me thod Room Air Nasal Cannula Oxygen Flow Rate 2 05/22/23 12:03 05/22/23 12:15 05/22/23 12:22 Temperature Pulse Rate 74 70 70 Pulse Rate [Pulse Oximeter] Respiratory Rate Blood Pressure 133/89 144/84 H Blood Pressure [Le ft Upper Arm] Pulse Oximetry 91 89 90 Oxygen Delivery Me thod Oxygen Flow Rate 05/22/23 12:42 05/22/23 12:43 05/22/23 12:45 Temperature Pulse Rate 73 71 72 Pulse Rate [Pulse Oximeter] Respiratory Rate Blood Pressure 145/96 H Blood Pressure [Le ft Upper Arm] Pulse Oximetry 86 L 90 92 Oxygen Delivery Me thod Oxygen Flow Rate 05/22/23 13:00 05/22/23 13:02 05/22/23 13:15 Temperature Pulse Rate 71 71 70 Pulse Rate [Pulse Oximeter] Respiratory Rate Blood Pressure 137/85 Blood Pressure [Le ft Upper Arm] Pulse Oximetry 93 92 93 Oxygen Delivery Me thod Oxygen Flow Rate 05/22/23 13:21 05/22/23 13:30 05/22/23 13:42 Temperature Pulse Rate 70 70 70 Pulse Rate [Pulse Oximeter] Respiratory Rate Blood Pressure 145/86 H 146/93 H Blood Pressure [Le ft Upper Arm] Pulse Oximetry 93 93 93 Oxygen Delivery Me thod Oxygen Flow Rate 05/22/23 13:45 05/22/23 14:10 05/22/23 14:15 Temperature Pulse Rate 70 76 74 Pulse Rate [Pulse Oximeter] Respiratory Rate Blood Pressure Blood Pressure [Le ft Upper Arm] Pulse Oximetry 93 90 88 Oxygen Delivery Me thod Oxygen Flow Rate 05/22/23 14:25 05/22/23 14:30 05/22/23 14:45 Temperature Pulse Rate 71 74 73 Pulse Rate [Pulse Oximeter] Respiratory Rate Blood Pressure Blood Pressure [Le ft Upper Arm] Pulse Oximetry 84 L 88 87 L Oxygen Delivery Me thod Oxygen Flow Rate 05/22/23 14:46 05/22/23 14:49 Temperature Pulse Rate 59 L 73 Pulse Rate [Pulse Oximeter] Respiratory Rate Blood Pressure 132/94 H Blood Pressure [Le ft Upper Arm] Pulse Oximetry 84 L 89 Oxygen Delivery Me thod Oxygen Flow Rate Course Vital Signs Vital signs: Initial Vital Signs Temperature 98.0 F 05/22/23 11:54 Temperature Source Temporal Artery Scan 05/22/23 11:54 Pulse Rate 68 05/22/23 11:54 Pulse Rhythm Regular 05/22/23 11:54 Pulse Strength 3+ Normal 05/22/23 11:54 Respiratory Rate 16 05/22/23 11:54 Blood Pressure 151/91 H 05/22/23 11:54 Blood Pressure Mean 111 H 05/22/23 11:54 Blood Pressure Position Supine 05/22/23 11:54 Pulse Oximetry 86 L 05/22/23 11:54 Oxygen Delivery Method Room Air 05/22/23 11:54 Vital Signs Temperature 98.0 F 05/22/23 11:54 Pulse Rate 68 05/22/23 11:54 Respiratory Rate 16 05/22/23 11:54 Blood Pressure 151/91 H 05/22/23 11:54 Pulse Oximetry 86 L 05/22/23 11:54 Oxygen Delivery Method Room Air 05/22/23 11:54 Temperature 98.0 F 05/22/23 11:54 Pulse Rate 73 05/22/23 14:49 Respiratory Rate 16 05/22/23 11:54 Blood Pressure 132/94 H 05/22/23 14:49 Pulse Oximetry 89 05/22/23 14:49 Oxygen Delivery Method Nasal Cannula 05/22/23 12:00 Oxygen Flow Rate 2 05/22/23 12:00 Medical Decision Making MDM Narrative Medical decision making narrative: Patient is an 78-year-old female presenting emergency department after fall. She is on Coumadin. INR was ordered. She states it was mechanical in nature description of it confirms this. She had no lightheadedness or dizziness. No loss of consciousness. She is having lower back pain at this time. Rule ordered CT of the head, cervical spine, lumbar spine. INR is 2.4. Head and cervical CT showed no concerning abnormalities. Lumbar spine CT returned showing an L3 compression fracture with minimal loss of height. No retropulsion. This appears to be stable at this time. She was given Tylenol with codeine for pain. She states she cannot take oral morphine it is not want an IV at this time. I tried to give her oral oxycodone and her history is states she has allergy to it but she does not know what that is about it or what the side effect was. We did manage to ambulate the patient and staff states she ambulated well. She still appears to be in pain but states she will have family with her for the next few days to help her. I spoke to her about possible admission for rehab placement and she states she would rather go home to try it out 1st. I gave her strict return precautions. She will follow up with primary care provider. Lab Data Labs: Lab Results 05/22/23 Range/Units 14:30 INR 2.44 H (0.91-1.10) Discharge Plan Discharge Clinical Impression: Compression fracture Patient Disposition: Home w/ Parent or Adult Condition: Improved Instructions: Vertebral Compression Fracture (ED) Additional Instructions: Follow-up with your primary care provider. Take the Dilaudid as needed for pain. You can also take Tylenol and ibuprofen for pain. If you are having difficulty ambulating at home please return to emergency department immediately for possible placement for rehab. Prescriptions: New hydromorphone [Dilaudid] 2 mg tablet 2 mg PO Q6H PRN (Reason: pain) Qty: 14 0RF No Action spironolactone 25 mg tablet 12.5 mg PO QDAY atorvastatin 40 mg tablet 40 mg PO HS carvedilol 3.125 mg tablet 3.125 mg PO BIDWMEAL levothyroxine 88 mcg tablet 88 mcg PO DAILY warfarin 2 mg tablet 4 - 6 mg PO DAILY Hold Instructions: on hold Rx Instructions: Take 3mg every MWF Take 6mg all other days albuterol sulfate 90 mcg/actuation HFA aerosol inhaler 2 puff INHALATION Q4H PRN Patient Comments: INHALE 1 TO 2 PUFFS BY MOUTH EVERY 4 HOURS NEEDED FOR SHORTNESS OF BREATH Myrbetriq 25 mg tablet extended release 24 hr 25 mg PO DAILY Trelegy Ellipta 200-62.5-25 mcg blister with device 1 inh INHALATION DAILY Patient Comments: INHALE 1 PUFF BY MOUTH EVERY DAY calcium carbonate [Calcium 600] 600 mg calcium (1,500 mg) tablet 600 mg PO DAILY cholecalciferol (vitamin D3) [Vitamin D3] 50 mcg (2,000 unit) capsule 50 mcg PO DAILY famotidine 40 mg tablet 40 mg PO HS multivitamin [Multiple Vitamins] Tablet 1 tab PO DAILY loperamide-simethicone [Imodium Multi-Symptom Relief] 2-125 mg tablet 1 tab PO BID PRN fluoxetine 40 mg capsule 60 mg PO DAILY Qty: 60 0RF Patient Comments: TAKE 1 CAPSULE BY MOUTH EVERY DAY. Rx Instructions: please substitute to tablets in order to do 60mg. famotidine 20 mg tablet 20 mg PO DAILY acetaminophen-codeine 300-30 mg tablet 1 tab PO PRN Follow Up/Referrals: Karma Jang MD [Primary Care Provider] - Stand Alone Forms: Blink Info Instructions
[2023-05-22] MEDS: MORPHINE 4 MG/ML INJ IM (13:48)
[2023-05-22 14:54] LABS: INR 2.44 (0.91-1.10); Prothrombin Time 27.7 Seconds
--- NOTE | 2023-05-22 17:24 | ED.NURSE ---
Addendum entered by Iván Hernandez 05/22/23 17:29: I reassured pt that need for follow with PCP as soon as possible. Original Note: pt called in after discharge due to singular muscle spasm. she was wondering if she could take a muscle relaxer with the pain medication that was prescribed, I followed up with the MD he stated to take the muscle relaxer first if needed and then wait at least an hour before taking the pain medication, pt stated that she only had one spasm so she was going to just take the pain medication when it is due at 1730 per instructions.
--- NOTE | 2023-05-22 17:46 | ED.NURSE ---
called pt back, informed pt that i had a phone number for the spine clinic referral that she wanted pt stated I am laying down, she requested that I call back and leave a message on the pt voice mail with the number. the residential mortgage underwriter did leaving the number [phone], I also informed that pt that we no longer have the urine sample that we collected preemptively , so we would not be able to process a UA at this time, I again emphasized the importance of following up with PCP.
--- NOTE | 2023-05-23 09:52 | PC.NURSE ---
Pt called, stated that she was in the ER for a compression fx, was offered admission but pt declined. Pt stated that she could not manage at home and wondering if she should come in. Advised per d/c note that pt was to come back to ER is she was unable to ambulate. Pt stated she will come back to ER
== END 2023-05-22 15:18 | disposition home or self-care (01) ==
PROVIDERS: Emergency Provider Student in an Organized Health Care Education/Training Program; PCP Family Medicine
DX: S32.030A Wedge compression fracture of third lumbar vertebra, initial encounter for closed fracture (principal); W17.89XA Other fall from one level to another, initial encounter
CPT/HCPCS: 36415; 70450; 72125; 72131; 85610; 96372; 99283; 99284; A9270; J2270

== ENCOUNTER 2023-05-23 10:04 | Outpatient (CLI) | payer MEDICARE, MEDICAID, SELFPAY | END 2023-05-23 10:05 | disposition home or self-care (01) | LOC: AMB 05-26 13:00 | PROVIDERS: PCP Family Medicine; Visit Provider Family Medicine | DX: M54.9 Dorsalgia, unspecified (principal) | CPT/HCPCS: A0425; A0433 ==

== ENCOUNTER 2023-05-23 10:53 | Observation (INO) | payer MEDICARE, MEDICAID, SELFPAY ==
[2023-05-23 11:05] VITALS: BP 101/73; PULSE 70; TEMP 36.4; O2SAT 88
--- NOTE | 2023-05-23 11:31 | ED.GENADULT ---
HPI - General Adult General Time Seen by Provider: 11: Date Seen: 05/23/23 Chief complaint: Back Injury/Pain Stated complaint: back pain Time Seen by Provider: 05/23/23 11:09 History of Present Illness HPI narrative: This is a very pleasant 78-year-old female with a past medical history including COPD (on p.r.n. oxygen at home) mechanical heart valve (on warfarin), paroxysmal AFib, hypertension, CHF, coronary disease, anxiety, GERD, depression. She is brought to the ER today from her home today by EMS for treatment of severe low back pain. She had a mechanical trip and fall on uneven ground yesterday on 05/22. She was seen here in the ER. She is on warfarin because of mechanical heart valve. INR was 2.4. She had a workup that included a normal noncontrast head CT. CT scan of her C-spine showed no acute fracture. She has had previous C4-7 fusion and an old T1 compression fracture. CT scan of her lumbar spine showed a acute appearing L3 endplate compression fracture with mild vertebral height loss but no retropulsion of fragments. Admission was offered but declined. She was discharged home with Dilaudid tablets 2 mg q.[address] 05/22 Impression: 1. Acute L3 superior endplate compression fracture, with mild vertebral height loss, but no cortical retropulsion. 2. Lumbar spondylosis, without evidence of significant neural foraminal or spinal canal stenosis. She has been taking the prescribed Dilaudid. It is only marginally effective. She had a lot of back pain last night. Especially she had pain when she was trying to transfer on and off of her toilet. She and her family already have a elevated toilet seat that should make transferring easier. She was having so much pain that she elected to simply wear a brief, go to the bathroom, stand up urinating in the brief, and unchanged. She did want to sit on the toilet because her low back was hurting. Today she was just having so much pain that she was having trouble transferring out of her bed. She was worried she might fall again. She made the decision to call the ambulance. EMS gave her morphine 9 mg IV which has improved her pain. Now that she is resting in bed, pain is tolerable. She did become hypoxic after the pain meds and is now on 3 L nasal cannula to maintain sats in the low 90s. She is not short of breath. No chest pain. She also notes that she has been having some urinary frequency and dysuria for the past several days. She thinks she might have a UTI. It turns out she actually had an appointment to see her primary care provider (at the at the [facility] in [place]) yesterday but could not go to that appointment because our clinic was closed due to computer problems. She requests that we check a urine sample. She has not been febrile. No nauseous or vomiting. She did have a little bit of low back pain with this UTI, preceding her fall. No new numbness or weakness down her legs. Other than back pain when she tries to sit on the toilet since yesterday, no new disturbance in her bowel or bladder function. No previous lumbar spine fractures or low back surgeries. Related Data Home Medications Medication Instructions Recorded Confirmed albuterol sulfate 90 mcg/actuation 2 puff inhalation Q4H PRN 06/02/22 05/23/23 aerosol inhaler atorvastatin 40 mg tablet 40 mg PO HS 06/02/22 05/23/23 calcium carbonate 600 mg calcium 600 mg PO DAILY 06/02/22 05/23/23 (1,500 mg) tablet (Calcium) carvedilol 3.125 mg tablet 3.125 mg PO BIDWMEAL 06/02/22 05/23/23 cholecalciferol (vitamin D3) 50 50 mcg PO DAILY 06/02/22 05/23/23 mcg (2,000 unit) capsule (Vitamin D3) famotidine 40 mg tablet 40 mg PO HS 06/02/22 05/23/23 fluticasone fur. 200 mcg-umeclid 1 inh inhalation DAILY 06/02/22 05/23/23 62.5 mcg-vilant 25 mcg inhalat.powder (Trelegy Ellipta) levothyroxine 88 mcg tablet 88 mcg PO DAILY 06/02/22 05/23/23 mirabegron 25 mg tablet,extended 25 mg PO DAILY 06/02/22 05/23/23 release 24 hr (Myrbetriq) warfarin 2 mg tablet 4 - 6 mg PO DAILY 06/02/22 05/23/23 loperamide-simethicone 2 mg-125 mg 1 tab PO BID PRN 06/03/22 05/23/23 tablet (Imodium Multi-Symptom Relief) multivitamin (Multiple Vitamins 1 tab PO DAILY 06/03/22 05/23/23 tablet) spironolactone 25 mg tablet 12.5 mg PO QDAY 12/23/22 05/23/23 famotidine 20 mg tablet 20 mg PO DAILY 04/22/23 05/23/23 Previous Rx's Medication Instructions Recorded fluoxetine 40 mg capsule 60 mg (1.5 x 40 mg) PO DAILY #60 06/05/22 caps hydromorphone 2 mg tablet 2 mg PO Q6H PRN pain #14 tabs 05/22/23 (Dilaudid) Allergies Allergy/AdvReac Type Severity Reaction Status Date / Time bacitracin Allergy Mild Verified 05/22/23 11:52 [From Neosporin Plus] lidocaine Allergy Mild Verified 05/22/23 11:52 [From Neosporin Plus] morphine Allergy Mild Hives Verified 05/22/23 11:52 neomycin Allergy Mild Verified 05/22/23 11:52 [From Neosporin Plus] Penicillins Allergy Mild Rash Verified 05/22/23 11:52 polymyxin B Allergy Mild Verified 05/22/23 11:52 [From Neosporin Plus] pramoxine Allergy Mild Verified 05/22/23 11:52 [From Neosporin Plus] BRAD Inhibitors Allergy Unknown Verified 05/22/23 11:52 bupropion [From Wellbutrin] Allergy Unknown Verified 05/22/23 11:52 hydrocodone Allergy Unknown Verified 05/22/23 11:52 levofloxacin [From Levaquin] Allergy Unknown Verified 05/22/23 11:52 oxycodone Allergy Unknown Verified 05/22/23 11:52 sulfamethoxazole Allergy Unknown Verified 05/22/23 11:52 [facility] Medical History (Updated 05/23/23 @ 15:16 by Liliam Villarreal MD) Chronic anticoagulation ?Z79.01 - supervisor intermediates (current) use of anticoagulants (ICD-10) Presence of permanent cardiac pacemaker ?Z95.0 - Presence of cardiac pacemaker (ICD-10) Oxygen dependent ?Z99.81 - Dependence on supplemental oxygen (ICD-10) Chronic hypoxemic respiratory failure ?J96.11 - Chronic respiratory failure with hypoxia (ICD-10) Panlobular emphysema ?J43.1 - Panlobular emphysema (ICD-10) Chronic pain of both shoulders ?M25.511 - Pain in right shoulder (ICD-10) ?M25.512 - Pain in left shoulder (ICD-10) ?G89.29 - Other chronic pain (ICD-10) Anticoagulation goal of INR 2 to 3 ?Z51.81 - Encounter for therapeutic drug level monitoring (ICD-10) ?Z79.01 - supervisor intermediates (current) use of anticoagulants (ICD-10) Anticoagulated on warfarin ?Z79.01 - supervisor intermediates (current) use of anticoagulants (ICD-10) Paroxysmal atrial fibrillation ?I48.0 - Paroxysmal atrial fibrillation (ICD-10) Closed nondisplaced fracture of greater trochanter of right femur with routine healing ?S72.114D - Nondisplaced fracture of greater trochanter of right femur, subsequent encounter for closed fracture with routine healing (ICD-10) Chronic deep vein thrombosis of left lower extremity ?I82.502 - Chronic embolism and thrombosis of unspecified deep veins of left lower extremity (ICD-10) Intrinsic urethral sphincter deficiency ?N36.42 - Intrinsic sphincter deficiency (ISD) (ICD-10) Mixed stress and urge urinary incontinence ?N39.46 - Mixed incontinence (ICD-10) CKD stage 4 secondary to hypertension ?I12.9 - Hypertensive chronic kidney disease with stage 1 through stage 4 chronic kidney disease, or unspecified chronic kidney disease (ICD-10) ?N18.4 - Chronic kidney disease, stage 4 (severe) (ICD-10) Ischemic cardiomyopathy ?I25.5 - Ischemic cardiomyopathy (ICD-10) Recurrent major depression resistant to treatment ?F33.9 - Major depressive disorder, recurrent, unspecified (ICD-10) Hyperlipidemia ?E78.5 - Hyperlipidemia, unspecified (ICD-10) Hypertension ?I10 - Essential (primary) hypertension (ICD-10) MRSA (methicillin resistant Staphylococcus aureus) ?A49.02 - Methicillin resistant Staphylococcus aureus infection, unspecified site (ICD-10) Hypothyroidism ?E03.9 - Hypothyroidism, unspecified (ICD-10) COPD (chronic obstructive pulmonary disease) ?J44.9 - Chronic obstructive pulmonary disease, unspecified (ICD-10) CHF (congestive heart failure) ?I50.9 - Heart failure, unspecified (ICD-10) CAD (coronary artery disease) ?I25.10 - Atherosclerotic heart disease of [place] coronary artery without angina pectoris (ICD-10) Depression ?F32.A - Depression, unspecified (ICD-10) Atrial fibrillation ?I48.91 - Unspecified atrial fibrillation (ICD-10) Anxiety ?F41.9 - Anxiety disorder, unspecified (ICD-10) Acid reflux ?K21.9 - Gastro-esophageal reflux disease without esophagitis (ICD-10) Severe depression ?F32.2 - Major depressive disorder, single episode, severe without psychotic features (ICD-10) Surgical History History of hip replacement ?Z96.649 - Presence of unspecified artificial hip joint (ICD-10) History of cholecystectomy ?Z90.49 - Acquired absence of other specified parts of digestive tract (ICD-10) History of cataract surgery ?Z98.49 - Cataract extraction status, unspecified eye (ICD-10) Social History Highest level of school completed/degree received: high school graduate Smoking Status: Former smoker What tobacco products do you use: cigarettes Smoking quit date/years: >15 years ago Do you use any of these nicotine containing products: None Second hand tobacco smoke exposure: No How often do you have a drink containing alcohol: never How often do you have six or more drinks on one occasion: Never AUDIT-C Alcohol total score: 0 Non-prescribed substance use: denies use Caffeine: Yes (Daily) service: No Exam Narrative: Exam Narrative: Constitutional: Appears well-developed and well-nourished. Alert. Conversant. Non toxic. HENT: Head: Atraumatic. Nose: Nose normal. Mouth/Throat: Oral mucosa is clear and moist. no trismus. Pharynx normal. Tonsils symmetric. No tonsillar enlargement, erythema, or exudate. Eyes: Conjunctivae normal. EOM normal. Pupils equal, round, and reactive to light. No scleral icterus. Neck: Normal range of motion. Neck supple. No tracheal deviation present. No JVD Cardiovascular: Normal rate, regular rhythm. No gallop. No friction rub. No murmur heard. Symmetric radial and PT artery pulses . Both of her feet are slightly cool to the touch but she says she was hot so she is not wearing any blankets. She says she tends to get cold feet. No signs of any acute ischemia or cyanosis. Pulmonary/Chest: Effort normal. No stridor. No respiratory distress. No wheezes. No rales. No rhonchi . No tenderness. Abdominal: Soft. Bowel sounds normal. No distension. No mass. No tenderness. No rebound. No guarding. Musculoskeletal: Due to low back pain she is not able to sit up for a back exam. Palpation of her posterior/midline back does not reveal any definite step-off. RUE: Normal range of motion. No tenderness. No deformity LUE: Normal range of motion. No tenderness. No deformity RLE: Normal range of motion. No edema. No tenderness. No deformity LLE: Normal range of motion. No edema. No tenderness. No deformity Neurological: Alert and oriented to person, place, and time. Normal strength. CN II-VII intact. No sensory deficit. GCS eye subscore is 4. GCS verbal subscore is 5. GCS motor subscore is 6. Normal coordination Sensory: Normal light touch sensation bilaterally on the anteromedial thigh (L3), medial malleolus (L4), dorsal first web space (L5), lateral malleolus (S1). Strength: 5/5 strength hip flexors (L3) on the right and left 5/5 strength in the quadriceps (L4) on the right and left 5/5 strength in the tibialis anterior 5/5 strength in the EHL (L5) on the right and left 5/5 strength in the gastrocnemius (S1) on the right and left 5/5 strength in the hamstring on the right and left DTRs: symmetric in the patella (2/4) Negative straight leg raise bilaterally. Skin: Skin is warm and dry. No rash noted. No pallor. Normal capillary refill. Psychiatric: Normal mood. Normal affect. She is very pleasant. Const: Vital Signs, click to edit/add: Vital Signs - 24 hr 05/23/23 11:05 05/23/23 13:12 Temperature 97.5 F L Pulse Rate [Right Pulse Oximeter] 70 Respiratory Rate 16 Blood Pressure [Ri ght Upper Arm] 101/73 101/61 Pulse Oximetry 88 90 Oxygen Delivery Me thod Nasal Cannula Nasal Cannula Oxygen Flow Rate 3 Course Vital Signs Vital signs: Initial Vital Signs Temperature 97.5 F L 05/23/23 11:05 Temperature Source Temporal Artery Scan 05/23/23 11:05 Pulse Rate 70 05/23/23 11:05 Blood Pressure 101/73 05/23/23 11:05 Blood Pressure Mean 82 05/23/23 11:05 Blood Pressure Position Sitting 05/23/23 11:05 Pulse Oximetry 88 05/23/23 11:05 Oxygen Delivery Method Nasal Cannula 05/23/23 11:05 Vital Signs Temperature 97.5 F L 05/23/23 11:05 Pulse Rate 70 05/23/23 11:05 Blood Pressure 101/73 05/23/23 11:05 Pulse Oximetry 88 05/23/23 11:05 Oxygen Delivery Method Nasal Cannula 05/23/23 11:05 Temperature 97.5 F L 05/23/23 11:05 Pulse Rate 70 05/23/23 11:05 Respiratory Rate 16 05/23/23 13:12 Blood Pressure 101/61 05/23/23 13:12 Pulse Oximetry 90 05/23/23 13:12 Oxygen Delivery Method Nasal Cannula 05/23/23 13:12 Oxygen Flow Rate 3 05/23/23 13:12 Medical Decision Making [facility] Narrative Medical decision making narrative: Very pleasant 78-year-old female presenting to the ER today by EMS from her home. She was diagnosed yesterday with a L3 compression fracture based on CT imaging is after mechanical fall. She has already had previously normal head CT and C-spine CT yesterday. She is not having any new symptoms to suggest delayed intracranial hemorrhage or other acute injury from the fall. At this point and will do not think she needs repeat CT imaging. Her main complaint is that she is having severe low back pain uncontrolled with oral Dilaudid tablets at home. She is not able to ambulate properly, go to the bathroom, or care for herself. She is not able to meet her ADLs. Admission is required for pain control and nursing support. Discussed with the patient and she is in full hard and agreement. Discussed with our hospitalist, Dr. Villarreal, who agrees. Patient also notes that she has had some urinary frequency and dysuria for the past several days. She has a history of UTIs. Fortunately, Urinalysis actually shows scant hematuria but no pyuria or other signs of active UTI. Laboratory workup shows mildly elevated BUN, likely related to dehydration. IV fluids ordered here in the ER She was hypoxic when she presented by EMS, requiring nasal cannula. Lung sounds are clear. No evidence for any active COPD exacerbation, CHF, pneumonia. Doubt PE. No infectious symptoms to suggest COVID. Suspect hypoxia is likely related to the dose of opiates she received. Will monitor for signs of worsening hypoxia or respiratory distress. At this point I do not feel that CT tPA or other advanced imaging is indicated. Lab Data Labs: Lab Results 05/23/23 05/23/23 Range/Units 12:21 13:00 INR 1.93 H (0.91-1.10) Sodium 136 (135-149) mmol/L Potassium 4.2 (3.6-5.1) mmol/L Chloride 103 (96-114) mmol/L Carbon Dioxide 26 (20-32) mmol/L Anion Gap 7 (7-15) mEq/L BUN 32 H (7-30) mg/dL Creatinine 1.0 (0.5-1.5) mg/dL Estimated GFR 57 ml/min Glucose 107 (60-115) mg/dL Calcium 9.2 (8.4-10.6) mg/dL Urine Color Yellow (Yellow) Urine Appearance Clear (Clear) Urine pH 7.0 (5.0-8.5) Ur Specific [place] 1.020 (1.000-1.030) Urine Protein Negative (Negative) Urine Glucose (UA) Negative (Negative) Urine Ketones Negative (Negative) Urine Blood Trace-intact A (Negative) Urine Nitrite Negative (Negative) Urine Bilirubin Negative (Negative) Urine Urobilinogen 0.2 (0.2-1.0) Ur Leukocyte Esterase Negative (Negative) Urine RBC 2-5 A (0-2) Urine WBC 0-2 (0-5) Ur Squamous Epith Cells Few (None-Few) Urine Bacteria None (None) ECG Data Attestation: I personally reviewed and interpreted this ECG as follows: Interpretation: Normal sinus rhythm . Rate 71. Computer notes unusual P axis and short WI. I think this is probably sinus rhythm. WI 112 QRS: Left axis deviation. No pathologic Q-waves. ST segment/T wave: No ST segment elevation or depression. Nonspecific T-wave flattening V1-V6 QTc: For 65 Discharge Plan Discharge Clinical Impression: Closed compression fracture of L3 vertebra Patient Disposition: Admitted As Observation
[2023-05-23 12:43] LABS: Chloride* 103 mmol/L (96-114); Potassium* 4.2 mmol/L (3.6-5.1); Sodium* 136 mmol/L (135-149)
[2023-05-23 12:44] LABS: INR 1.93 (0.91-1.10); Prothrombin Time 23.1 Seconds
[2023-05-23 12:46] LABS: Anion Gap 7 mEq/L (7-15); Blood Urea Nitrogen* 32 mg/dL (7-30); Carbon Dioxide* 26 mmol/L (20-32); Estimated Glomerular Filt Rate 57 ml/min
[2023-05-23 12:47] LABS: Calcium* 9.2 mg/dL (8.4-10.6); Glucose* 107 mg/dL (60-115)
[2023-05-23 13:11] LABS: Appearance Urine Clear (Clear); Bilirubin Urine Negative (Negative); Blood Urine Trace-intact (Negative); Color Urine Yellow (Yellow); Glucose Urine Negative (Negative); Ketones Urine Negative (Negative); Leukocyte Esterase Urine Negative (Negative); Nitrite Urine Negative (Negative); Protein Urine Negative (Negative); Urobilinogen Urine 0.2 (0.2-1.0)
[2023-05-23 13:12] VITALS: BP 101/61; RESP 16; O2SAT 90
--- NOTE | 2023-05-23 13:12 | ED.NURSE ---
Received phone call for update from her home health agency, [facility]. Updated nurse. She is on for PT services. Direct: [phone]; fax: [phone]
[2023-05-23 13:35] LABS: Squamous Epithelial Cell Urine Few (None-Few); WBC Urine 0-2 (0-5)
[2023-05-23] MEDS: 0.9 % SODIUM CHLORIDE 1000 ml 1,000 ML IV (14:48)
--- NOTE | 2023-05-23 14:58 | PM.IMHP1 ---
Hospitalist- H&P: HPI History of Present Illness Date Seen: 05/23/23 Chief complaint: back pain Narrative: ADMISSION HISTORY AND PHYSICAL - HOSPITALIST Chief Complaint: fell on 05/22/23 - hitting head and back. Returned to ED after initial eval on 05/22 d/t pain HPI: Nery - 78-year-old white female - presented for the 2nd time in 2 days by EMS to our ER. She fell on the morning of 05/22/2023. She did not lose consciousness. She felt the uneven pavement tripped her up. She was witnessed falling by 2 family members. They stayed with her and called EMS. In the ER she was evaluated and noted to have some soft tissue bruising and a new compression fracture of L3. She was given IM morphine, p.o. Oxy and acetaminophen with codeine. She was sent home on p.o. Dilaudid. She had a tough night. She could not get comfortable. She felt dizzy as she might fall after her narcotics. She called EMS this morning to help her out of bed and bring her back in for evaluation. She has been clear and insightful since her fall. No evidence of a concussion. ER COURSE: Repeat labs. IV morphine for pain control. Hospital medicine team asked to evaluate for further cares. CODE STATUS: Full code EMERGENCY CONTACT PLAN: Primary Contact? Johnna,Mykel? Son?Rel to Pat? [phone]?Home Phone? [facility], medications and allergies in the Expanse tabs. INVESTIGATIONS: LABS/MICRO/ECG/IMAGING Afebrile Blood pressure lower than it was yesterday at the ED. 101/73. This is after several doses of morphine. Pulse rate 59-73 Respiratory rate 16, unlabored. Pulse ox 88-90% on her standard 2 L per nasal cannula oxygen CBC that was checked back on April 22, 1 month ago, was unremarkable Chronic anticoagulation noted. INR 1.93 today. Chemistries today reveal a mildly elevated BUN. Normal creatinine at 1.0. Otherwise normal BMP. UA looks pretty unimpressive. Negative leukocyte esterase, negative urine nitrate. 0-2 white blood cells. Imaging reviewed: CT cervical spine without contrast: No CT evidence of acute fracture or traumatic malalignment. Mature surgical spinal fusion changes noted from C4-C7. Compression deformity noted at T1. Head CT: No acute findings Lumbar CT: Acute L3 superior endplate compression fracture. Mild vertebral height loss. Spondylosis without evidence of foraminal or spinal canal stenosis. EKG: Junctional rhythm with some premature atrial complexes. Nonspecific intraventricular block. T-wave abnormality. Echo reviewed from 04/12: EF of only 28% noted. Abnormal inferior wall. Severely enlarged left atrium. Mild increase right-sided pressures. , moderate. REVIEW OF SYSTEMS: 12-point ROS completed with patient and negative unless otherwise stated in HPI or below. PHYSICAL EXAM: CONSTITUTIONAL: Conversive, good historian. A/O. Knows setting and context. VITAL SIGNS: see record. HEENT: Normocephalic, atraumatic. PERRL, EOMI, conjunctivae pink, no scleral icterus. Ears and nose externally normal. Pharynx normal. NECK: No JVD. No carotid bruit, no thyromegaly, no adenopathy. CHEST: Clear to auscultation bilaterally HEART: S1 and S2 normal. No harsh murmurs. Edema MUSCULOSKELETAL: No gross joint deformity or swelling. NEURO: Cranial nerves intact. Grossly intact. No asymmetric findings. SKIN: No rashes, petechiae, concerning changes PSYCHIATRIC: Euthymic. ADMIT TO MEDSURG: CCU FLOOR CARE DVT: Lovenox GI: PO intake Time spent: Today I spent 75 minutes seeing the patient, discussing the patient with ER staff, reviewing Expanse and EPIC notes/diagnostics, discussing the care plan with our care time that includes social work, PT/OT, pharmacy, RT, mcc and documenting my impressions and plan in the medical record. [facility] Medical History (Updated 05/23/23 @ 16:44 by Liliam Villarreal MD) Chronic anticoagulation ?Z79.01 - intermediate manager (current) use of anticoagulants (ICD-10) Presence of permanent cardiac pacemaker ?Z95.0 - Presence of cardiac pacemaker (ICD-10) Oxygen dependent ?Z99.81 - Dependence on supplemental oxygen (ICD-10) Chronic hypoxemic respiratory failure ?J96.11 - Chronic respiratory failure with hypoxia (ICD-10) Panlobular emphysema ?J43.1 - Panlobular emphysema (ICD-10) Chronic pain of both shoulders ?M25.511 - Pain in right shoulder (ICD-10) ?M25.512 - Pain in left shoulder (ICD-10) ?G89.29 - Other chronic pain (ICD-10) Anticoagulation goal of INR 2 to 3 ?Z51.81 - Encounter for therapeutic drug level monitoring (ICD-10) ?Z79.01 - [facility] (current) use of anticoagulants (ICD-10) Anticoagulated on warfarin ?Z79.01 - intermediate manager (current) use of anticoagulants (ICD-10) Paroxysmal atrial fibrillation ?I48.0 - Paroxysmal atrial fibrillation (ICD-10) Closed nondisplaced fracture of greater trochanter of right femur with routine healing ?S72.114D - Nondisplaced fracture of greater trochanter of right femur, subsequent encounter for closed fracture with routine healing (ICD-10) Chronic deep vein thrombosis of left lower extremity ?I82.502 - Chronic embolism and thrombosis of unspecified deep veins of left lower extremity (ICD-10) Intrinsic urethral sphincter deficiency ?N36.42 - Intrinsic sphincter deficiency (ISD) (ICD-10) Mixed stress and urge urinary incontinence ?N39.46 - Mixed incontinence (ICD-10) CKD stage 4 secondary to hypertension ?I12.9 - Hypertensive chronic kidney disease with stage 1 through stage 4 chronic kidney disease, or unspecified chronic kidney disease (ICD-10) ?N18.4 - Chronic kidney disease, stage 4 (severe) (ICD-10) Ischemic cardiomyopathy ?I25.5 - Ischemic cardiomyopathy (ICD-10) Recurrent major depression resistant to treatment ?F33.9 - Major depressive disorder, recurrent, unspecified (ICD-10) Hyperlipidemia ?E78.5 - Hyperlipidemia, unspecified (ICD-10) Hypertension ?I10 - Essential (primary) hypertension (ICD-10) MRSA (methicillin resistant Staphylococcus aureus) ?A49.02 - Methicillin resistant Staphylococcus aureus infection, unspecified site (ICD-10) Hypothyroidism ?E03.9 - Hypothyroidism, unspecified (ICD-10) COPD (chronic obstructive pulmonary disease) ?J44.9 - Chronic obstructive pulmonary disease, unspecified (ICD-10) CHF (congestive heart failure) ?I50.9 - Heart failure, unspecified (ICD-10) CAD (coronary artery disease) ?I25.10 - Atherosclerotic heart disease of [place] coronary artery without angina pectoris (ICD-10) Depression ?F32.A - Depression, unspecified (ICD-10) Atrial fibrillation ?I48.91 - Unspecified atrial fibrillation (ICD-10) Anxiety ?F41.9 - Anxiety disorder, unspecified (ICD-10) Acid reflux ?K21.9 - Gastro-esophageal reflux disease without esophagitis (ICD-10) Severe depression ?F32.2 - Major depressive disorder, single episode, severe without psychotic features (ICD-10) Surgical History History of hip replacement ?Z96.649 - Presence of unspecified artificial hip joint (ICD-10) History of cholecystectomy ?Z90.49 - Acquired absence of other specified parts of digestive tract (ICD-10) History of cataract surgery ?Z98.49 - Cataract extraction status, unspecified eye (ICD-10) Social History Highest level of school completed/degree received: high school graduate Smoking Status: Former smoker What tobacco products do you use: cigarettes Smoking quit date/years: >15 years ago Do you use any of these nicotine containing products: None Second hand tobacco smoke exposure: No How often do you have a drink containing alcohol: never How often do you have six or more drinks on one occasion: Never AUDIT-C Alcohol total score: 0 Non-prescribed substance use: denies use Caffeine: Yes (Daily) service: No Meds Home Medications and Allergies Home Medications Medication Instructions Recorded Confirmed Type albuterol sulfate 90 mcg/actuation 2 puff inhalation Q4H PRN 06/02/22 05/23/23 History aerosol inhaler atorvastatin 40 mg tablet 40 mg PO HS 06/02/22 05/23/23 History calcium carbonate 600 mg calcium 600 mg PO DAILY 06/02/22 05/23/23 History (1,500 mg) tablet (Calcium) carvedilol 3.125 mg tablet 3.125 mg PO BIDWMEAL 06/02/22 05/23/23 History cholecalciferol (vitamin D3) 50 50 mcg PO DAILY 06/02/22 05/23/23 History mcg (2,000 unit) capsule (Vitamin D3) famotidine 40 mg tablet 40 mg PO HS 06/02/22 05/23/23 History fluticasone fur. 200 mcg-umeclid 1 inh inhalation DAILY 06/02/22 05/23/23 History 62.5 mcg-vilant 25 mcg inhalat.powder (Trelegy Ellipta) levothyroxine 88 mcg tablet 88 mcg PO DAILY 06/02/22 05/23/23 History mirabegron 25 mg tablet,extended 25 mg PO DAILY 06/02/22 05/23/23 History release 24 hr (Myrbetriq) warfarin 2 mg tablet 4 - 6 mg PO DAILY 06/02/22 05/23/23 History loperamide-simethicone 2 mg-125 mg 1 tab PO BID PRN 06/03/22 05/23/23 History tablet (Imodium Multi-Symptom Relief) multivitamin (Multiple Vitamins 1 tab PO DAILY 06/03/22 05/23/23 History tablet) spironolactone 25 mg tablet 12.5 mg PO QDAY 12/23/22 05/23/23 History famotidine 20 mg tablet 20 mg PO DAILY 04/22/23 05/23/23 History Allergies Allergy/AdvReac Type Severity Reaction Status Date / Time bacitracin Allergy Mild Verified 05/22/23 11:52 [From Neosporin Plus] lidocaine Allergy Mild Verified 05/22/23 11:52 [From Neosporin Plus] morphine Allergy Mild Hives Verified 05/22/23 11:52 neomycin Allergy Mild Verified 05/22/23 11:52 [From Neosporin Plus] Penicillins Allergy Mild Rash Verified 05/22/23 11:52 polymyxin B Allergy Mild Verified 05/22/23 11:52 [From Neosporin Plus] pramoxine Allergy Mild Verified 05/22/23 11:52 [From Neosporin Plus] BRAD Inhibitors Allergy Unknown Verified 05/22/23 11:52 bupropion [From Wellbutrin] Allergy Unknown Verified 05/22/23 11:52 hydrocodone Allergy Unknown Verified 05/22/23 11:52 levofloxacin [From Levaquin] Allergy Unknown Verified 05/22/23 11:52 oxycodone Allergy Unknown Verified 05/22/23 11:52 sulfamethoxazole Allergy Unknown Verified 05/22/23 11:52 Exam Const: Vital Signs, click to edit/add: Vital Signs - 24 hr 05/23/23 11:05 05/23/23 13:12 Temperature 97.5 F L Pulse Rate [Right Pulse Oximeter] 70 Respiratory Rate 16 Blood Pressure [Ri ght Upper Arm] 101/73 101/61 Pulse Oximetry 88 90 Oxygen Delivery Me thod Nasal Cannula Nasal Cannula Oxygen Flow Rate 3 Hospitalist - H&P: Result Labs Labs: [facility] 05/23/23 12:21 Sodium 136 Potassium 4.2 Chloride 103 Carbon Dioxide 26 BUN 32 H Creatinine 1.0 Glucose 107 Calcium 9.2 Urine 05/23/23 Range/Units 13:00 Urine Color Yellow (Yellow) Urine Appearance Clear (Clear) Urine pH 7.0 (5.0-8.5) Ur Specific [place] 1.020 (1.000-1.030) Urine Protein Negative (Negative) Urine Glucose (UA) Negative (Negative) Assessment and Plan Assessment and plan (1) Closed compression fracture of L3 vertebra: Problem comment: -initiate calcitonin nasal spray for the next 4-6 weeks -scheduled Tylenol, 1st 4 doses of IV -scheduled Celebrex 200 mg daily -p.r.n. Dilaudid and/or tramadol -PT and OT to see -assess need for short-term rehab after the weekend Status: Acute (2) Paroxysmal atrial fibrillation: Problem comment: -rate controlled and anticoagulated Status: Acute (3) Chronic hypoxemic respiratory failure: Problem comment: -chronic COPD, on home O2. Status: Acute (4) Panlobular emphysema: Problem comment: Oxygen dependent. Continue home medications Status: Acute (5) Recurrent major depression resistant to treatment: Problem comment: Admitted at [place] in May of 2022 for passive suicidal ideation. BusPar was not tolerated. Prozac was increased to 60 mg daily. She did go to inpatient voluntarily in [place] for psych treatment. She was only able to stay for 2 days given the discomfort of the bed and furniture. She reports in May of 2023 her mood has stabilized. Status: Acute (6) CKD stage 4 secondary to hypertension: Problem comment: Stable Status: Acute (7) Oxygen dependent: Problem comment: Stable Status: Acute (8) Presence of permanent cardiac pacemaker: Problem comment: Noted. Status: Acute (9) Chronic anticoagulation: Problem comment: Will check INR in the morning. Continue warfarin. Status: Acute (10) Ischemic cardiomyopathy: Problem comment: Known. . Echo reviewed from 04/12: EF of only 28% noted. Abnormal inferior wall. Severely enlarged left atrium. Mild increase right-sided pressures. , moderate. Status: Acute
[2023-05-23] MEDS: ACETAMINOPHEN INJ 1,000 MG/100 ML VIAL 400 MG IVPB ×2 (16:00→21:34)
[2023-05-23] MEDS: CELECOXIB 200 MG CAPSULE PO (16:32)
[2023-05-23] MEDS: HYDROmorphone 0.5 mg/0.5 ml inj IVP (16:33)
[2023-05-23 17:59] VITALS: BP 138/76; PULSE 78; RESP 22; TEMP 36.7; O2SAT 91; BMI 24.5
[2023-05-23 19:00] VITALS: BP 120/83; PULSE 77; RESP 16; TEMP 36.8; O2SAT 92
[2023-05-23] MEDS: carvediloL 6.25 MG TABLET PO (19:26)
[2023-05-23] MEDS: CALCITONIN SALMON NASAL SPRAY 200 UNIT 1 SPRAY NOSTRIL-B (19:27)
[2023-05-23] MEDS: WARFARIN 3 MG TABLET PO (20:23)
[2023-05-23] MEDS: ATORVASTATIN CALCIUM 40 MG TABLET PO (20:23)
[2023-05-23] MEDS: SODIUM CHLORIDE 0.9 % (FLUSH) 10 ML SYRINGE 5 ML IVF (20:24)
[2023-05-23 22:54] VITALS: PULSE 77; PULSE 79; RESP 16; RESP 18; O2SAT 91
[2023-05-24 03:00] VITALS: BP 136/93; PULSE 76; RESP 20; TEMP 36.6; O2SAT 89
[2023-05-24] MEDS: ACETAMINOPHEN 500 MG TABLET 1000 MG PO ×4 (03:05→23:26)
--- NOTE | 2023-05-24 05:42 | PC.NURSE ---
[id number] Pt slept well during night, ambulating to br with walker, GB, SBA, and tolerating activity very well. describes pain as achy and also stated that this back ache is tolerable and she can handle it at home. IV infiltrated during the evening, pt did not want new iv started, updated and IV DC'd and transitioned to oral tylenol. pt pain well managed with this. 3LPM O2 required to maintain O2 sats during night. Pt up in chair at approx 0530.
[2023-05-24] MEDS: LEVOTHYROXINE 88 MCG TABLET PO (06:03)
[2023-05-24 07:00] VITALS: BP 136/88; PULSE 72; PULSE 76; RESP 18; RESP 20; TEMP 36.3; O2SAT 95
[2023-05-24] MEDS: carvediloL 6.25 MG TABLET PO ×2 (09:49→17:56)
[2023-05-24] MEDS: FAMOTIDINE 20 MG TABLET PO ×2 (09:51→21:34)
[2023-05-24] MEDS: FLUOXETINE HCL 20 MG CAPSULE 60 MG PO (09:51)
[2023-05-24] MEDS: MULTIVITAMIN/MINERALS 1 TABLET 1 TAB PO (09:52)
[2023-05-24] MEDS: SPIRONOLACTONE 25 MG TABLET 12.5 MG PO (09:52)
[2023-05-24] MEDS: SENNOSIDES/DOCUSATE TABLET 1 TAB PO ×2 (10:16→21:34)
[2023-05-24] MEDS: OMEPRAZOLE 20 MG CAPSULE DR PO (10:45)
[2023-05-24] MEDS: NAPROXEN 250 MG TABLET PO ×2 (10:45→17:56)
[2023-05-24 11:45] VITALS: BP 161/73; PULSE 73; RESP 18; TEMP 36.6; O2SAT 92
--- NOTE | 2023-05-24 12:49 | PM.IMPN1 ---
Progress Note: A&P Assessment and plan (1) Closed compression fracture of L3 vertebra: Problem details: -initiate calcitonin nasal spray for the next 4-6 weeks -scheduled Tylenol, 1st 4 doses of IV -scheduled naproxen 250 mg b.i.d. use with caution and close monitoring for heart failure exacerbation, acute kidney injury and GI bleeding -p.r.n. Dilaudid -PT and OT to see -assess need for short-term rehab after the weekend Status: Acute (2) Paroxysmal atrial fibrillation: Problem details: -rate controlled and anticoagulated Status: Acute (3) Chronic anticoagulation: Problem details: Will check INR in the morning. Continue warfarin. Status: Acute (4) Oxygen dependent: Problem details: Stable Status: Acute (5) Chronic hypoxemic respiratory failure: Problem details: -chronic COPD, on home O2. Status: Acute (6) CKD stage 4 secondary to hypertension: Problem details: Stable. Monitor closely with NSAID use Status: Acute (7) Ischemic cardiomyopathy: Problem details: Chronic Echo reviewed from 04/12: EF of only 28% noted. Abnormal inferior wall. Severely enlarged left atrium. Mild increase right-sided pressures. , moderate. Monitor closely with NSAID use. Restart Entresto if blood pressure allows Status: Acute Plan Continue in hospital for management of pain, physical therapy and developing plan for disposition. Time Spent With Patient Total time spent: Total time spent today is 55 minutes, 40 minutes in coordination of care discussing with patient and other providers ongoing management of pain and disability Subjective Date Seen: 05/24/23 Interval history: 78-year-old female admitted through the emergency department with uncontrolled low back pain following a fall. She had neck is and fall without loss of consciousness. She fell back, landed on her back and then did also hit her head. Evaluation was unremarkable except for low back pain and a compression fracture of L3 vertebral body. No cord compression. She was seen in the emergency department and sent home. She has been unable to manage at home secondary to pain. Pain management is been difficult. She has intolerance is to opioids though has received dilaudid and morphine without difficulties in the last 2 days. NSAIDs are relatively contraindicated due to heart failure, chronic kidney disease and hypertension. She was recently on Entresto but because her blood pressures were quite low this was discontinued. Other heart failure medicines have been continued, spironolactone and metoprolol. She reports being fairly comfortable in bed but still having quite a bit discomfort whenever she gets to sitting or standing. Exam Narrative: Exam Narrative: She is alert and oriented. She gives her own history. Respirations are clear to auscultation. She has decreased breath sounds in all lung lazo. No wheezing rales rhonchi. Cardiovascular: S1, S2, regular rate and rhythm. Abdomen is soft without tenderness or mass. Examination of her back is unremarkable she does have tenderness in her lower midline at the mid lumbar spine. She moves her lower extremities fairly well though has pain in her low back with hip flexion/lifting her legs up. Strength at the knees and ankles appears to be full bilaterally. She has intact pulses. No significant edema. Const: Vital Signs, click to edit/add: Vital Signs - 24 hr 05/23/23 13:12 05/23/23 17:59 05/23/23 17:59 Temperature 98.0 F Pulse Rate [Pulse Oximeter] 78 Respiratory Rate 16 22 22 Blood Pressure [Le ft Arm] 138/76 Blood Pressure [Ri ght Upper Arm] 101/61 Pulse Oximetry 90 91 91 Oxygen Delivery Me thod Nasal Cannula Nasal Cannula Nasal Cannula Oxygen Flow Rate 3 3 3 05/23/23 19:00 05/23/23 22:54 05/23/23 22:54 Temperature 98.3 F Pulse Rate [Pulse Oximeter] 77 77 Respiratory Rate 16 18 Blood Pressure [Le ft Arm] 120/83 Blood Pressure [Ri ght Upper Arm] Pulse Oximetry 92 91 Oxygen Delivery Me thod Nasal Cannula Oxygen Flow Rate 3 05/23/23 22:54 05/23/23 22:54 05/24/23 03:00 Temperature 97.9 F Pulse Rate [Pulse Oximeter] 79 76 Respiratory Rate 16 20 Blood Pressure [Le ft Arm] 136/93 H Blood Pressure [Ri ght Upper Arm] Pulse Oximetry 91 91 89 Oxygen Delivery Me thod Nasal Cannula Nasal Cannula Nasal Cannula Oxygen Flow Rate 3 3 3 05/24/23 07:00 05/24/23 07:00 05/24/23 07:00 Temperature Pulse Rate [Pulse Oximeter] 76 Respiratory Rate 20 18 Blood Pressure [Le ft Arm] Blood Pressure [Ri ght Upper Arm] Pulse Oximetry 95 95 Oxygen Delivery Me thod Nasal Cannula Oxygen Flow Rate 3 05/24/23 07:00 05/24/23 11:45 Temperature 97.4 F L 97.8 F Pulse Rate [Pulse Oximeter] 72 73 Respiratory Rate 18 18 Blood Pressure [Le ft Arm] 136/88 161/73 H Blood Pressure [Ri ght Upper Arm] Pulse Oximetry 95 92 Oxygen Delivery Me thod Nasal Cannula Nasal Cannula Oxygen Flow Rate 3 3 Documenting provider has reviewed patient's vital signs: yes Labs Labs: Laboratory Results - last 24 hr 05/23/23 05/23/23 12:21 13:00 INR 1.93 H Urine Color Yellow Urine Appearance Clear Urine pH 7.0 Ur Specific [place] 1.020 Urine Protein Negative Urine Glucose (UA) Negative Urine Ketones Negative Urine Blood Trace-intact A Urine Nitrite Negative Urine Bilirubin Negative Urine Urobilinogen 0.2 Ur Leukocyte Esterase Negative Urine RBC 2-5 A Urine WBC 0-2 Ur Squamous Epith Cells Few Urine Bacteria None
[2023-05-24 15:00] VITALS: BP 124/77; PULSE 80; RESP 18; TEMP 36.4; O2SAT 93
[2023-05-24] MEDS: CALCITONIN SALMON NASAL SPRAY 200 UNIT 1 SPRAY NOSTRIL-B (17:55)
--- NOTE | 2023-05-24 18:56 | PC.NURSE ---
Patient ambulates, toilets and transfers with walker, gait belt and stand by assist of one. Patient ambulated in hallway x1 and tolerated it well. Tolerating regular diet. Patient rated her pain between 2-3/10 today. Scheduled pain medications have been effective. 92-93% on 3LPM. No c/o SOB.
[2023-05-24 19:00] VITALS: BP 131/82; PULSE 71; RESP 18; TEMP 36.6; O2SAT 94
[2023-05-24] MEDS: WARFARIN 3 MG TABLET 6 MG PO (21:33)
[2023-05-24] MEDS: ATORVASTATIN CALCIUM 40 MG TABLET PO (21:34)
[2023-05-24] MEDS: SODIUM CHLORIDE 0.9 % (FLUSH) 10 ML SYRINGE 5 ML IVF (21:36)
[2023-05-24] MEDS: CALCIUM CARBONATE 500 MG TABLET PO (21:36)
[2023-05-24 23:00] VITALS: BP 141/84; PULSE 74; PULSE 79; RESP 18; TEMP 36.4; O2SAT 92
[2023-05-25 03:00] VITALS: BP 147/84; PULSE 80; RESP 18; TEMP 36.4; O2SAT 90
[2023-05-25] MEDS: ACETAMINOPHEN 500 MG TABLET 1000 MG PO ×3 (05:19→18:06)
[2023-05-25] MEDS: HYDROmorphone 2 MG TABLET PO (05:48)
--- NOTE | 2023-05-25 06:34 | PC.NURSE ---
Shift note: Pt has had 1 large loose stool tonight. Rated pain at 2 throughout the night until this morning where she said pain level has increased above 4. PRN Deluded given as prescribed. Pt refused ice pack to lower back. Vitally stable. Pt had adequate sleep. Hourly rounds completed.
[2023-05-25] MEDS: OMEPRAZOLE 20 MG CAPSULE DR PO (06:48)
[2023-05-25] MEDS: LEVOTHYROXINE 88 MCG TABLET PO (06:48)
[2023-05-25 07:00] VITALS: BP 146/90; PULSE 72; RESP 20; TEMP 36.3; O2SAT 96
[2023-05-25 07:02] LABS: Basophils Absolute Auto 0.03 K/uL (0.00-0.30); Basophils Percent Auto 0.4 % (0.0-3.0); Eosinophils Absolute Auto 0.26 K/uL (0.00-0.50); Eosinophils Percent Auto 3.4 % (0.0-7.0); Hematocrit 39.3 % (33.0-51.0); Hemoglobin* 12.6 gm/dL (12.0-16.0); Immature Granulocytes Abs Auto 0.03 K/uL (0.00-0.30); Immature Granulocytes Pct Auto 0.4 %; Lymphocytes Percent Auto 17.7 % (20-44); Mean Corpuscular HGB Conc 32 gm/dL (32-36); Mean Corpuscular Hemoglobin 30 pg (26-34); Mean Corpuscular Volume 92 fL (80-100); Monocytes Percent Auto 9.4 % (0.0-11.0); Neutrophils Absolute Auto 5.28 K/uL (1.7-7.0); Neutrophils Percent Auto 68.7 % (42.0-72.0); Platelet Count* 186 K/uL (140-440); RDW Coefficient of Variation % 14.1 % (11.5-15.5); Red Blood Count 4.26 m/uL (4.00-5.20); White Blood Count* 7.68 K/uL (4.50-11.00)
[2023-05-25 07:10] LABS: Slide Review Reflex No
[2023-05-25 07:12] LABS: Chloride* 105 mmol/L (96-114); Potassium* 5.1 mmol/L (3.6-5.1); Sodium* 135 mmol/L (135-149)
[2023-05-25 07:15] LABS: Anion Gap 4 mEq/L (7-15); Blood Urea Nitrogen* 36 mg/dL (7-30); Carbon Dioxide* 26 mmol/L (20-32); Creatinine* 1.1 mg/dL (0.5-1.5); Est. Creatinine Clearance* 39.67; Estimated Glomerular Filt Rate 51 ml/min; Glucose* 87 mg/dL (60-115)
[2023-05-25 07:16] LABS: Calcium* 8.9 mg/dL (8.4-10.6)
[2023-05-25 07:49] LABS: INR 2.34 (0.91-1.10); Prothrombin Time 26.8 Seconds
[2023-05-25] MEDS: carvediloL 6.25 MG TABLET PO ×2 (08:37→18:06)
[2023-05-25] MEDS: NAPROXEN 250 MG TABLET PO ×2 (08:37→18:07)
[2023-05-25] MEDS: FLUOXETINE HCL 20 MG CAPSULE 60 MG PO (09:45)
[2023-05-25] MEDS: MULTIVITAMIN/MINERALS 1 TABLET 1 TAB PO (09:46)
[2023-05-25] MEDS: SPIRONOLACTONE 25 MG TABLET 12.5 MG PO (09:46)
[2023-05-25 11:00] VITALS: BP 133/82; PULSE 74; RESP 18; TEMP 36.4; O2SAT 95
--- NOTE | 2023-05-25 13:06 | PM.IMPN1 ---
Progress Note: A&P Assessment and plan (1) Closed compression fracture of L3 vertebra: Problem details: -initiate calcitonin nasal spray for the next 4-6 weeks -scheduled Tylenol, 1st 4 doses of IV -scheduled naproxen 250 mg b.i.d. use with caution and close monitoring for heart failure exacerbation, acute kidney injury and GI bleeding -p.r.n. Dilaudid -PT and OT to see -assess need for short-term rehab Status: Acute (2) Paroxysmal atrial fibrillation: Problem details: -rate controlled and anticoagulated Status: Acute (3) Chronic anticoagulation: Problem details: Will check INR in the morning. Continue warfarin. Status: Acute (4) Oxygen dependent: Problem details: Stable Status: Acute (5) Chronic hypoxemic respiratory failure: Problem details: -chronic COPD, on home O2. Status: Acute (6) CKD stage 4 secondary to hypertension: Problem details: Stable. Monitor closely with NSAID use. Potassium is increasing so may need to stop Naprosyn. Status: Acute (7) Ischemic cardiomyopathy: Problem details: Chronic Echo reviewed from 04/12: EF of only 28% noted. Abnormal inferior wall. Severely enlarged left atrium. Mild increase right-sided pressures. , moderate. Monitor closely with NSAID use. Restart Entresto if blood pressure allows Status: Acute Plan Continue in-hospital for monitoring of pain, evaluation and treatment of disabilities related to recent injury and monitoring of heart failure and renal failure. Time Spent With Patient Total time spent: Total time spent today is 45 minutes, 30 minutes in coordination of care and discussion with patient other providers management pain, disability, hypertension, heart failure and renal failure and disposition Subjective Date Seen: 05/25/23 Interval history: 78-year-old female admitted through the emergency department with uncontrolled low back pain following a fall. She had neck is and fall without loss of consciousness. She fell back, landed on her back and then did also hit her head. Evaluation was unremarkable except for low back pain and a compression fracture of L3 vertebral body. No cord compression. She was seen in the emergency department and sent home. She has been unable to manage at home secondary to pain. Pain management has been difficult. She has intolerance is to opioids though has received dilaudid and morphine without difficulties in the last 2 days. NSAIDs are relatively contraindicated due to heart failure, chronic kidney disease and hypertension. She was recently on Entresto but because her blood pressures were quite low this was discontinued. Other heart failure medicines have been continued, spironolactone and metoprolol. She reports being fairly comfortable in bed but still having quite a bit discomfort whenever she gets to sitting or standing. Overnight she reports her pain management was a little bit better but still significant pain with any activity. Has been up to the bathroom with some discomfort. Exam Narrative: Exam Narrative: She is alert and appears in no distress. Breathing is unlabored on chronic oxygen by nasal cannula. Respirations are clear to auscultation with decreased breath sounds. Cardiovascular: S1, S2, regular rate and rhythm. Abdomen is soft without tenderness or mass. Palpation over her back shows tenderness at the lower end of the lumbar spine in the midline. No external signs of trauma. Const: Vital Signs, click to edit/add: Vital Signs - 24 hr 05/24/23 15:00 05/24/23 15:00 05/24/23 15:00 Temperature Pulse Rate [Pulse Oximeter] 80 Respiratory Rate 18 Blood Pressure [Le ft Arm] Pulse Oximetry 93 93 Oxygen Delivery Me thod Nasal Cannula Oxygen Flow Rate 3 05/24/23 15:00 05/24/23 19:00 05/24/23 23:00 Temperature 97.5 F L 97.9 F Pulse Rate [Pulse Oximeter] 80 71 Respiratory Rate 18 18 Blood Pressure [Le ft Arm] 124/77 131/82 Pulse Oximetry 93 94 92 Oxygen Delivery Me thod Nasal Cannula Nasal Cannula Oxygen Flow Rate 3 3 05/24/23 23:00 05/24/23 23:00 05/24/23 23:00 Temperature 97.5 F L Pulse Rate [Pulse Oximeter] 79 74 Respiratory Rate 18 18 18 Blood Pressure [Le ft Arm] 141/84 H Pulse Oximetry 92 92 Oxygen Delivery Me thod Nasal Cannula Nasal Cannula Oxygen Flow Rate 3 3 05/25/23 03:00 05/25/23 07:00 05/25/23 07:00 Temperature 97.5 F L Pulse Rate [Pulse Oximeter] 80 72 Respiratory Rate 18 20 Blood Pressure [Le ft Arm] 147/84 H Pulse Oximetry 90 96 Oxygen Delivery Me thod Nasal Cannula Oxygen Flow Rate 3 05/25/23 07:00 05/25/23 07:00 05/25/23 11:00 Temperature 97.4 F L 97.5 F L Pulse Rate [Pulse Oximeter] 72 74 Respiratory Rate 20 20 18 Blood Pressure [Le ft Arm] 146/90 H 133/82 Pulse Oximetry 96 96 95 Oxygen Delivery Me thod Nasal Cannula Nasal Cannula Nasal Cannula Oxygen Flow Rate 3 3 3 Documenting provider has reviewed patient's vital signs: yes Labs Labs: Laboratory Results - last 24 hr 05/25/23 06:27 WBC 7.68 RBC 4.26 Hgb 12.6 Hct 39.3 MCV 92 MCH 30 MCHC 32 RDW Coeff of Sudha 14.1 Plt Count 186 Neut % (Auto) 68.7 Lymph % (Auto) 17.7 L [place] % (Auto) 9.4 Eos % (Auto) 3.4 Baso % (Auto) 0.4 Neut # (Auto) 5.28 Lymph # (Auto) 1.40 [place] # (Auto) 0.70 Eos # (Auto) 0.26 Baso # (Auto) 0.03 Abs Immat Gran (auto) 0.03 Imm/Tot Granulo (auto) 0.4 INR 2.34 H Sodium 135 Potassium 5.1 Chloride 105 Carbon Dioxide 26 Anion Gap 4 L BUN 36 H Creatinine 1.1 Estimated Creat Clear 39.67 Estimated GFR 51 Glucose 87 Calcium 8.9
[2023-05-25 15:00] VITALS: BP 139/84; PULSE 74; RESP 18; TEMP 36.3; O2SAT 95; O2SAT 96
[2023-05-25] MEDS: CALCITONIN SALMON NASAL SPRAY 200 UNIT 1 SPRAY NOSTRIL-B (18:10)
--- NOTE | 2023-05-25 18:39 | PC.NURSE ---
Patient rated her pain 2/10 this morning and denied pain this afternoon, reporting she had just a dull ache. Scheduled Tylenol and Naproxen have been effective. Patient ambulated with wheeled walker, gait belt and stand by assist. Tolerated regular diet. O2 sats were 95-96% on 3 LPM.
[2023-05-25 19:00] VITALS: BP 133/89; PULSE 71; RESP 18; TEMP 36.4; O2SAT 95
[2023-05-25] MEDS: FAMOTIDINE 20 MG TABLET PO (21:32)
[2023-05-25] MEDS: ATORVASTATIN CALCIUM 40 MG TABLET PO (21:32)
[2023-05-25] MEDS: SODIUM CHLORIDE 0.9 % (FLUSH) 10 ML SYRINGE 5 ML IVF (21:34)
[2023-05-25] MEDS: WARFARIN 3 MG TABLET 6 MG PO (21:34)
[2023-05-25] MEDS: CALCIUM CARBONATE 500 MG TABLET PO (21:37)
--- NOTE | 2023-05-25 22:22 | PC.NURSE ---
Shift note: Pt is pleasant, cooperate with care and treatment. Minimal pain level of 2 to the back reported. No PRN med requested. Ambulated with A1, walker and GB within room. Pt has been on 2L of oxygen to maintain O2>90%. Vitally stable.
[2023-05-25 23:00] VITALS: BP 134/84; PULSE 75; RESP 18; TEMP 36.3; O2SAT 93
[2023-05-26] MEDS: ACETAMINOPHEN 500 MG TABLET 1000 MG PO ×2 (00:06→06:06)
[2023-05-26 03:00] VITALS: BP 126/76; PULSE 73; RESP 16; O2SAT 96
[2023-05-26] MEDS: LEVOTHYROXINE 88 MCG TABLET PO (06:06)
[2023-05-26] MEDS: OMEPRAZOLE 20 MG CAPSULE DR PO (06:06)
[2023-05-26] MEDS: HYDROmorphone 2 MG TABLET PO (06:08)
--- NOTE | 2023-05-26 06:29 | PC.NURSE ---
Pleasant and cooperative with cares. Pain reported to back, patient requested ice pack at 0330 for back with minimal relief, received PRN dilaudid at 0600 for pain 12/30. Multiple bruises to upper extremities in various stages of healing. Transfers with Ax1, ambulates with walker and gait belt.
[2023-05-26 06:30] LABS: Basophils Absolute Auto 0.02 K/uL (0.00-0.30); Basophils Percent Auto 0.3 % (0.0-3.0); Eosinophils Absolute Auto 0.15 K/uL (0.00-0.50); Eosinophils Percent Auto 2.4 % (0.0-7.0); Hematocrit 36.5 % (33.0-51.0); Hemoglobin* 11.7 gm/dL (12.0-16.0); Immature Granulocytes Abs Auto 0.02 K/uL (0.00-0.30); Immature Granulocytes Pct Auto 0.3 %; Lymphocytes Percent Auto 17.1 % (20-44); Mean Corpuscular HGB Conc 32 gm/dL (32-36); Mean Corpuscular Hemoglobin 30 pg (26-34); Mean Corpuscular Volume 92 fL (80-100); Monocytes Percent Auto 8.6 % (0.0-11.0); Neutrophils Absolute Auto 4.37 K/uL (1.7-7.0); Neutrophils Percent Auto 71.3 % (42.0-72.0); Platelet Count* 160 K/uL (140-440); RDW Coefficient of Variation % 14.3 % (11.5-15.5); Red Blood Count 3.97 m/uL (4.00-5.20); White Blood Count* 6.14 K/uL (4.50-11.00)
[2023-05-26 06:33] LABS: Slide Review Reflex No
[2023-05-26 06:47] LABS: Chloride* 107 mmol/L (96-114); Potassium* 4.7 mmol/L (3.6-5.1); Sodium* 138 mmol/L (135-149)
[2023-05-26 06:50] LABS: Anion Gap 3 mEq/L (7-15); Carbon Dioxide* 28 mmol/L (20-32); Est. Creatinine Clearance* 43.63; Estimated Glomerular Filt Rate 57 ml/min
[2023-05-26 06:51] LABS: Blood Urea Nitrogen* 29 mg/dL (7-30); Calcium* 8.6 mg/dL (8.4-10.6); Glucose* 95 mg/dL (60-115)
[2023-05-26 06:53] LABS: C Reactive Protein* 2.5 mg/dL (0.5-1.0)
[2023-05-26 07:00] VITALS: BP 147/106; PULSE 78; RESP 16; TEMP 36.4; O2SAT 95
[2023-05-26 07:18] LABS: INR 3.08 (0.91-1.10); Prothrombin Time 33.3 Seconds
[2023-05-26] MEDS: carvediloL 6.25 MG TABLET PO (07:38)
[2023-05-26] MEDS: NAPROXEN 250 MG TABLET PO (07:38)
[2023-05-26] MEDS: FLUOXETINE HCL 20 MG CAPSULE 60 MG PO (10:02)
[2023-05-26] MEDS: MULTIVITAMIN/MINERALS 1 TABLET 1 TAB PO (10:02)
[2023-05-26] MEDS: SPIRONOLACTONE 25 MG TABLET 12.5 MG PO (10:02)
[2023-05-26] MEDS: SODIUM CHLORIDE 0.9 % (FLUSH) 10 ML SYRINGE 5 ML IVF (10:03)
[2023-05-26 11:00] VITALS: BP 125/96; PULSE 66; RESP 16; TEMP 36.4; O2SAT 94
--- NOTE | 2023-05-26 12:39 | PM.DS1 ---
DS: Providers Provider Date Seen: 05/26/23 Date of admission: 05/23/23 15:14 Primary care physician: Karma Jang MD Attending Physician on discharge: Jaiden Nazario MD Date of Discharge: 05/26/23 DS: Diagnosis Discharge Diagnosis (1) Closed compression fracture of L3 vertebra: Status: Acute Problem details: -initiate calcitonin nasal spray for the next 4-6 weeks -scheduled Tylenol, 1st 4 doses of IV -scheduled naproxen 250 mg b.i.d. use with caution and close monitoring for heart failure exacerbation, acute kidney injury and GI bleeding -p.r.n. Dilaudid (2) Paroxysmal atrial fibrillation: Status: Acute Problem details: -rate controlled and anticoagulated (3) Chronic anticoagulation: Status: Acute Problem details: Will check INR in the morning. Continue warfarin. (4) Oxygen dependent: Status: Acute Problem details: Stable (5) Chronic hypoxemic respiratory failure: Status: Acute Problem details: -chronic COPD, on home O2. (6) CKD stage 4 secondary to hypertension: Status: Acute Problem details: Stable. Monitor closely with NSAID use. Potassium is increasing so may need to stop Naprosyn. (7) Ischemic cardiomyopathy: Status: Acute Problem details: Chronic Echo reviewed from 04/12: EF of only 28% noted. Abnormal inferior wall. Severely enlarged left atrium. Mild increase right-sided pressures. , moderate. Monitor closely with NSAID use. Restart Entresto if blood pressure allows DS: Summary Hospital Course Hospital Course: 78-year-old female fell on the morning of 05/22/2023. She did not lose consciousness. She felt the uneven pavement tripped her up. She was witnessed falling by 2 family members. They stayed with her and called EMS. In the ER she was evaluated and noted to have some soft tissue bruising and a new compression fracture of L3. She was given IM morphine, p.o. Oxy and acetaminophen with codeine. She was sent home on p.o. Dilaudid. She had a tough night. She could not get comfortable. She felt dizzy as she might fall after her narcotics. She called EMS this morning to help her out of bed and bring her back in for evaluation. She received dilaudid, acetaminophen and Naprosyn for pain and has had marked improvement in low back pain. No evidence of neurologic impairment of the spinal cord or radiculopathy. She has tolerated the pain medicines fairly well. Monitoring of her heart failure and renal failure has shown no exacerbation of her chronic disease with the use of Naprosyn. She advised that this is a high risk medicine for her and should be limited to a short course of treatment given comorbidities. Therapy has assessed that she is going to be able to function independently at home. Status at Discharge Cognitive/behavioral status at discharge: Baseline normal cognition Overall status at discharge: patient is progressing back to baseline Time Spent with Patient Time attestation: Total time spent providing and/or coordinating discharge services: Time spent: Greater than 30 minutes Exam Narrative: Exam Narrative: She is alert and appears in no distress. She is sitting on the edge of her bed playing on her computer. Respirations are clear to auscultation. Cardiovascular: S1, S2, irregular rate and rhythm. No murmur gallop or rub. Abdomen is soft without tenderness. No significant tenderness over her back. She moves her lower extremities well. Const: Vital Signs, click to edit/add: Vital Signs - 24 hr 05/25/23 15:00 05/25/23 15:00 05/25/23 15:00 Temperature Pulse Rate [Pulse Oximeter] 74 Respiratory Rate 18 18 Blood Pressure [Le ft Arm] Pulse Oximetry 95 96 Oxygen Delivery Me thod Nasal Cannula Oxygen Flow Rate 3 05/25/23 15:00 05/25/23 19:00 05/25/23 23:00 Temperature 97.4 F L 97.6 F Pulse Rate [Pulse Oximeter] 74 71 Respiratory Rate 18 18 Blood Pressure [Le ft Arm] 139/84 133/89 Pulse Oximetry 96 95 93 Oxygen Delivery Me thod Nasal Cannula Nasal Cannula Oxygen Flow Rate 3 3 05/25/23 23:00 05/25/23 23:00 05/26/23 03:00 Temperature 97.4 F L Pulse Rate [Pulse Oximeter] 75 73 Respiratory Rate 18 16 Blood Pressure [Le ft Arm] 134/84 126/76 Pulse Oximetry 93 93 96 Oxygen Delivery Me thod Nasal Cannula Nasal Cannula Room Air Oxygen Flow Rate 2 2 05/26/23 07:00 05/26/23 07:00 05/26/23 07:00 Temperature Pulse Rate [Pulse Oximeter] 78 Respiratory Rate 16 16 Blood Pressure [Le ft Arm] Pulse Oximetry 95 95 Oxygen Delivery Me thod Room Air Oxygen Flow Rate 2 05/26/23 07:00 Temperature 97.5 F L Pulse Rate [Pulse Oximeter] 78 Respiratory Rate 16 Blood Pressure [Le ft Arm] 147/106 H Pulse Oximetry 95 Oxygen Delivery Me thod Room Air Oxygen Flow Rate 2 Documenting provider has reviewed patient's vital signs: yes DS: Data Data Completed and Pending Labs on day of discharge: Labs from last 24 hours 05/26/23 05:56 WBC 6.14 RBC 3.97 L Hgb 11.7 L Hct 36.5 MCV 92 MCH 30 MCHC 32 RDW Coeff of [place] 14.3 Plt Count 160 Neut % (Auto) 71.3 Lymph % (Auto) 17.1 L [place] % (Auto) 8.6 Eos % (Auto) 2.4 Baso % (Auto) 0.3 Neut # (Auto) 4.37 Lymph # (Auto) 1.00 [place] # (Auto) 0.50 Eos # (Auto) 0.15 Baso # (Auto) 0.02 Abs Immat Gran (auto) 0.02 Imm/Tot Granulo (auto) 0.3 INR 3.08 H Sodium 138 Potassium 4.7 Chloride 107 Carbon Dioxide 28 Anion Gap 3 L BUN 29 Creatinine 1.0 Estimated Creat Clear 43.63 Estimated GFR 57 Glucose 95 Calcium 8.6 C-Reactive Protein 2.5 H Additional Comments Additional comments: Indication: Fall, hit head, low back and sacral pain Technique: Noncontrast axial CT of the lumbar spine with coronal and sagittal reformats. Comparison: No relevant comparison studies available at this institution. Findings: Preserved lumbar lordosis. No significant spondylolisthesis. Acute L3 superior endplate compression fracture, with mild vertebral height loss, but no cortical retropulsion. No other acute osseous abnormality identified. Remaining vertebral body heights are grossly maintained. Scattered spondylosis, including degenerative disc bulges and facet arthropathy. No evidence of significant neural foraminal or spinal canal stenosis. Aortoiliac atherosclerotic plaquing. Postsurgical changes of cholecystectomy and right hip arthroplasty. Asymmetric SI joint degeneration, right more than left. Impression: 1. Acute L3 superior endplate compression fracture, with mild vertebral height loss, but no cortical retropulsion. 2. Lumbar spondylosis, without evidence of significant neural foraminal or spinal canal stenosis. Discharge Plan Discharge Disposition: Home, Self-Care Date of Admission: 05/23/23 15:14 Attending Provider on Discharge: Justo Nazario Primary Care Provider: Karma Jang I Condition: Improved Anticipated Discharge Date/Time: 05/26/23 10:03 Discharge Medications: New calcitonin (salmon) 200 unit/actuation [place],Non-Aerosol 1 spray intranasal Q24H Qty: 3.7 0RF naproxen sodium [Aleve] 220 mg tablet 220 mg PO BID PRN (Reason: pain) Qty: 14 0RF hydromorphone 2 mg tablet 2 mg PO Q6H Qty: 20 0RF acetaminophen 500 mg Tablet 1,000 mg PO TID Qty: 100 0RF Continued spironolactone 25 mg tablet 12.5 mg PO DAILY atorvastatin 40 mg tablet 40 mg PO HS levothyroxine 88 mcg tablet 88 mcg PO DAILY warfarin 2 mg tablet 3 - 6 mg PO DAILY Hold Instructions: on hold Rx Instructions: Take 3mg every MWF Take 6mg all other days albuterol sulfate 90 mcg/actuation HFA aerosol inhaler 2 puff INHALATION Q4H PRN Patient Comments: INHALE 1 TO 2 PUFFS BY MOUTH EVERY 4 HOURS NEEDED FOR SHORTNESS OF BREATH Trelegy Ellipta 200-62.5-25 mcg blister with device 1 inh INHALATION DAILY Patient Comments: INHALE 1 PUFF BY MOUTH EVERY DAY cholecalciferol (vitamin D3) [Vitamin D3] 50 mcg (2,000 unit) capsule 50 mcg PO DAILY multivitamin [Multiple Vitamins] Tablet 1 tab PO DAILY famotidine 20 mg tablet 20 mg PO HS calcium carbonate-vitamin D3 [Calcium 600 + D(3)] 600 mg-5 mcg (200 unit) tablet 1 tab PO DAILY carvedilol 6.25 mg tablet 6.25 mg PO BID fluoxetine 20 mg capsule 20 mg PO DAILY Myrbetriq 50 mg tablet extended release 24 hr 50 mg PO DAILY torsemide 10 mg tablet 10 mg PO DAILY PRN Rx Instructions: FOR LOWER LEG SWELLING fluoxetine 40 mg capsule 40 mg PO DAILY Patient Comments: Rx Instructions: please substitute to tablets in order to do 60mg. Changed Senna Plus 8.6-50 mg capsule 1 tab-cap PO BID PRNQty: 30 0RF Discontinued hydromorphone [Dilaudid] 2 mg tablet 2 mg PO Q6H PRN (Reason: pain) Qty: 14 0RF Hold Instructions: now admitted Discharge Orders: Discharge Order (Routine); Ordered 05/26/23 Ordered By: Justo Nazario Patient Education: Acetaminophen (By mouth), Naproxen (By mouth), Hydromorphone (By mouth), Calcitonin (Into the nose), Back Pain (GEN) Additional Instructions: See your doctor in 1 week to re-evaluate your pain and your medications. You should have blood tests to check your INR, CBC and basic metabolic panel at that time as well. Take enough laxative, senna, to have a bowel movement about once a day without straining. Activity Level: Activity as Tolerated Discharge Diet: Heart Healthy (2 gm sodium, low fat) Follow Up Appointments: Karma Jang MD [Primary Care Provider] - 05/29/23 2:45 pm (Gracia Garza for postop follow-up. Lab appointment at 3:20 to check CBC, INR, basic metabolic panel. ) Forms: [employer] Info Instructions
== END 2023-05-26 12:04 | disposition home or self-care (01) ==
LOC: ED 14:45 → MEDSURG 15:14
PROVIDERS: Family Medicine; Admitting Provider Family Medicine; Emergency Provider Emergency Medicine; PCP Family Medicine; Visit Provider Family Medicine
DX: S32.030A Wedge compression fracture of third lumbar vertebra, initial encounter for closed fracture (principal); T14.8XXA Other injury of unspecified body region, initial encounter; I48.0 Paroxysmal atrial fibrillation; J96.11 Chronic respiratory failure with hypoxia; R79.89 Other specified abnormal findings of blood chemistry; J44.9 Chronic obstructive pulmonary disease, unspecified; J43.1 Panlobular emphysema; I12.9 Hypertensive chronic kidney disease with stage 1 through stage 4 chronic kidney disease, or unspecified chronic kidney disease; N18.4 Chronic kidney disease, stage 4 (severe); E78.5 Hyperlipidemia, unspecified; R31.9 Hematuria, unspecified; K21.9 Gastro-esophageal reflux disease without esophagitis; E86.0 Dehydration; F33.9 Major depressive disorder, recurrent, unspecified; I25.5 Ischemic cardiomyopathy; I50.9 Heart failure, unspecified; I51.7 Cardiomegaly; Z51.81 Encounter for therapeutic drug level monitoring; W19.XXXA Unspecified fall, initial encounter; Z96.649 Presence of unspecified artificial hip joint; Z79.01 Long term (current) use of anticoagulants; Z99.81 Dependence on supplemental oxygen; Z95.0 Presence of cardiac pacemaker; Z90.49 Acquired absence of other specified parts of digestive tract; Z98.49 Cataract extraction status, unspecified eye; Z87.891 Personal history of nicotine dependence; Z87.440 Personal history of urinary (tract) infections
CPT/HCPCS: 36415; 80048; 81001; 85025; 85610; 86140; 93005; 94761; 96365; 96366; 96375; 97116; 97161; 97165; 97535; 99283; 99285; A9153; A9270; G0378; J0131; J1170; J7030

== ENCOUNTER 2023-05-29 13:14 | Outpatient (CLI) | payer MEDICARE, MEDICAID, SELFPAY | END 2023-05-29 13:15 | disposition home or self-care (01) | LOC: AMB 05-31 20:04 | PROVIDERS: PCP Family Medicine; Visit Provider Emergency Medicine Emergency Medical Services | DX: I10 Essential (primary) hypertension (principal); R53.1 Weakness | CPT/HCPCS: A0425; A0427 ==

== ENCOUNTER 2023-05-29 13:50 | Inpatient (IN) | payer MEDICARE, MEDICAID, SELFPAY ==
[2023-05-29] VITALS (26 sets, daily range): BP systolic 88–125; BP diastolic 51–108; PULSE 57–96; RESP 18–32; TEMP 36–36.9; O2SAT 80–96; BMI 25.1; BMI 25.7
--- NOTE | 2023-05-29 14:10 | CRLHL7_ITS ---
For Patients: As a result of the Cures Act, medical imaging exams and procedure reports are released immediately into your electronic medical record. You may view this report before your referring provider. If you have questions, please contact your health care provider. Indication: Hypoxia, shortness of breath Comparison: Single view chest April 20, 2023 Technique: Single AP view chest Findings: There is hyperinflation and chronic interstitial change. There is dense airspace opacification of the right hemithorax consistent with infiltrates. The left hemithorax is relatively clear. The cardiac silhouette is mildly prominent with median sternotomy wires and surgical clips in the left hemithorax. The bony thorax is grossly intact. Impression: Dense airspace opacification in the right hemithorax consistent with infiltrates. Dictated by Jean Pierre Head MD @ 05/29/2023 3:46:38 PM (Electronically Signed)
--- NOTE | 2023-05-29 14:12 | ED.GENADULT ---
HPI - General Adult General Chief complaint: Hypotension Stated complaint: Sepsis Time Seen by Provider: 05/29/23 13:54 History of Present Illness HPI narrative: This 78-year-old female comes in reporting cough and shortness of breath. She normally uses 1.5 L of oxygen by nasal cannula at home at nighttime but states that she has been using 2 L through the day for the last couple days. She arrives here with oximetry at 85% on room air and require 6 L oxygen by nasal cannula to improved and 90%. She does have COPD and a remote history of smoking. She does have a cough. She was seen recently in the emergency department because of a fall where was determined that she had a compression fracture of L3. She has been taking some pain medicines for this. He does not report any fevers. Related Data Home Medications Medication Instructions Recorded Confirmed albuterol sulfate 90 mcg/actuation 2 puff inhalation Q4H PRN 06/02/22 05/23/23 aerosol inhaler atorvastatin 40 mg tablet 40 mg PO HS 06/02/22 05/23/23 cholecalciferol (vitamin D3) 50 50 mcg PO DAILY 06/02/22 05/23/23 mcg (2,000 unit) capsule (Vitamin D3) fluticasone fur. 200 mcg-umeclid 1 inh inhalation DAILY 06/02/22 05/23/23 62.5 mcg-vilant 25 mcg inhalat.powder (Trelegy Ellipta) levothyroxine 88 mcg tablet 88 mcg PO DAILY 06/02/22 05/23/23 warfarin 2 mg tablet 3 - 6 mg PO DAILY 06/02/22 05/23/23 multivitamin (Multiple Vitamins 1 tab PO DAILY 06/03/22 05/23/23 tablet) spironolactone 25 mg tablet 12.5 mg PO DAILY 12/23/22 05/23/23 famotidine 20 mg tablet 20 mg PO HS 04/22/23 05/23/23 calcium carbonate 600 mg-vitamin 1 tab PO DAILY 05/23/23 05/23/23 D3 5 mcg (200 unit) tablet (Calcium 600 + D(3)) carvedilol 6.25 mg tablet 6.25 mg PO BID 05/23/23 05/23/23 fluoxetine 20 mg capsule 20 mg PO DAILY 05/23/23 05/23/23 fluoxetine 40 mg capsule 40 mg PO DAILY 05/23/23 05/23/23 mirabegron 50 mg tablet,extended 50 mg PO DAILY 05/23/23 05/23/23 release 24 hr (Myrbetriq) torsemide 10 mg tablet 10 mg PO DAILY PRN 05/23/23 05/23/23 Previous Rx's Medication Instructions Recorded acetaminophen 500 mg tablet 1,000 mg (2 x 500 mg) PO TID #100 05/26/23 tabs calcitonin (salmon) 200 1 spray intranasal Q24H #3.7 mL 05/26/23 unit/actuation nasal spray hydromorphone 2 mg tablet 2 mg PO Q6H #20 tabs 05/26/23 naproxen sodium 220 mg tablet 220 mg PO BID PRN pain #14 tabs 05/26/23 (Aleve) sennosides 8.6 mg-docusate sodium 1 tab-cap PO BID PRN #30 caps 05/26/23 50 mg capsule (Senna Plus) Allergies Allergy/AdvReac Type Severity Reaction Status Date / Time bacitracin Allergy Mild Verified 05/22/23 11:52 [From Neosporin Plus] lidocaine Allergy Mild Verified 05/22/23 11:52 [From Neosporin Plus] morphine Allergy Mild Hives Verified 05/22/23 11:52 neomycin Allergy Mild Verified 05/22/23 11:52 [From Neosporin Plus] Penicillins Allergy Mild Rash Verified 05/22/23 11:52 polymyxin B Allergy Mild Verified 05/22/23 11:52 [From Neosporin Plus] pramoxine Allergy Mild Verified 05/22/23 11:52 [From Neosporin Plus] BRAD Inhibitors Allergy Unknown Verified 05/22/23 11:52 bupropion [From Wellbutrin] Allergy Unknown Verified 05/22/23 11:52 hydrocodone Allergy Unknown Verified 05/22/23 11:52 levofloxacin [From Levaquin] Allergy Unknown Verified 05/22/23 11:52 oxycodone Allergy Unknown Verified 05/22/23 11:52 sulfamethoxazole Allergy Unknown Verified 05/22/23 11:52 Review of Systems Status of ROS: Reports: 10 or more systems reviewed and unremarkable except as noted in History and below Narrative: Constitutional: No fevers, no weight gain or loss. Eyes: No discharge. No vision changes. HENT: No congestion, no sore throat, no ear pain. Cardiovascular: No chest pain, no palpitations. Respiratory: Shortness of breath. Cough. Gastrointestinal: No abdominal pain, no vomiting, no diarrhea. Genitourinary: No dysuria, no hematuria. Musculoskeletal: Normal range of motion. Skin: No rashes, no pruritis. Neurological: No dizziness, weakness, sensory change, speech change. Endo/Heme/Allergies: No bruising or bleeding. No polydipsia. Pysch: no suicidality, no anxiety, no insomnia. All other systems reviewed and are negative. [facility] Medical History (Updated 05/29/23 @ 16:01 by Milo Sampson MD) Chronic anticoagulation ?Z79.01 - senior living (current) use of anticoagulants (ICD-10) Presence of permanent cardiac pacemaker ?Z95.0 - Presence of cardiac pacemaker (ICD-10) Oxygen dependent ?Z99.81 - Dependence on supplemental oxygen (ICD-10) Chronic hypoxemic respiratory failure ?J96.11 - Chronic respiratory failure with hypoxia (ICD-10) Panlobular emphysema ?J43.1 - Panlobular emphysema (ICD-10) Chronic pain of both shoulders ?M25.511 - Pain in right shoulder (ICD-10) ?M25.512 - Pain in left shoulder (ICD-10) ?G89.29 - Other chronic pain (ICD-10) Anticoagulation goal of INR 2 to 3 ?Z51.81 - Encounter for therapeutic drug level monitoring (ICD-10) ?Z79.01 - senior living (current) use of anticoagulants (ICD-10) Anticoagulated on warfarin ?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 anticoagulants (ICD-10) Paroxysmal atrial fibrillation ?I48.0 - Paroxysmal atrial fibrillation (ICD-10) Closed nondisplaced fracture of greater trochanter of right femur with routine healing ?S72.114D - Nondisplaced fracture of greater trochanter of right femur, subsequent encounter for closed fracture with routine healing (ICD-10) Chronic deep vein thrombosis of left lower extremity ?I82.502 - Chronic embolism and thrombosis of unspecified deep veins of left lower extremity (ICD-10) Intrinsic urethral sphincter deficiency ?N36.42 - Intrinsic sphincter deficiency (ISD) (ICD-10) Mixed stress and urge urinary incontinence ?N39.46 - Mixed incontinence (ICD-10) CKD stage 4 secondary to hypertension ?I12.9 - Hypertensive chronic kidney disease with stage 1 through stage 4 chronic kidney disease, or unspecified chronic kidney disease (ICD-10) ?N18.4 - Chronic kidney disease, stage 4 (severe) (ICD-10) Ischemic cardiomyopathy ?I25.5 - Ischemic cardiomyopathy (ICD-10) Recurrent major depression resistant to treatment ?F33.9 - Major depressive disorder, recurrent, unspecified (ICD-10) Hyperlipidemia ?E78.5 - Hyperlipidemia, unspecified (ICD-10) Hypertension ?I10 - Essential (primary) hypertension (ICD-10) MRSA (methicillin resistant Staphylococcus aureus) ?A49.02 - Methicillin resistant Staphylococcus aureus infection, unspecified site (ICD-10) Hypothyroidism ?E03.9 - Hypothyroidism, unspecified (ICD-10) COPD (chronic obstructive pulmonary disease) ?J44.9 - Chronic obstructive pulmonary disease, unspecified (ICD-10) CHF (congestive heart failure) ?I50.9 - Heart failure, unspecified (ICD-10) CAD (coronary artery disease) ?I25.10 - Atherosclerotic heart disease of [place] coronary artery without angina pectoris (ICD-10) Depression ?F32.A - Depression, unspecified (ICD-10) Atrial fibrillation ?I48.91 - Unspecified atrial fibrillation (ICD-10) Anxiety ?F41.9 - Anxiety disorder, unspecified (ICD-10) Acid reflux ?K21.9 - Gastro-esophageal reflux disease without esophagitis (ICD-10) Severe depression ?F32.2 - Major depressive disorder, single episode, severe without psychotic features (ICD-10) Surgical History History of hip replacement ?Z96.649 - Presence of unspecified artificial hip joint (ICD-10) History of cholecystectomy ?Z90.49 - Acquired absence of other specified parts of digestive tract (ICD-10) History of cataract surgery ?Z98.49 - Cataract extraction status, unspecified eye (ICD-10) Social History What is your current living situation?: I presently have a place to live Problems where you live: no known problems Problems where you live details: N/A In the past 12 months, utilities in danger of being shut off: no In the past 12 mos, have been you worried that your food would run out before you had money to buy more?: never true In the past 12 mos, the food you bought just didn't last and you didn't have money to buy more?: never true Highest level of school completed/degree received: high school graduate Smoking Status: Former smoker What tobacco products do you use: cigarettes Smoking quit date/years: >15 years ago Do you use any of these nicotine containing products: None Second hand tobacco smoke exposure: No How often do you have a drink containing alcohol: never How often do you have six or more drinks on one occasion: Never AUDIT-C Alcohol total score: 0 Non-prescribed substance use: denies use Caffeine: Yes (Coffee) How often does anyone, including family, friends and others, physically hurt you: never How often does anyone, including family, friends and others, insult or talk down to you: never How often does anyone, including family, friends and others, threaten you with harm: never How often does anyone, including family, friends and others, scream or curse at you: never service: No Exam Narrative: Exam Narrative: Constitutional: Well-developed, well-nourished, no acute distress. HEENT: Normocephalic, atraumatic. Neck: Normal range of motion. Nontender. Supple. Heart: Regular. No murmurs. Normal rate. Intact distal pulses. Lungs: Decreased air movement. No use of accessory muscles for breathing when on 6 L oxygen by nasal cannula. Abdomen: Normal bowel sounds. Nontender. No rebound tenderness. Genitalia: Deferred. Back: No midline tenderness. Normal range of motion. Extremities: Normal range of motion. No injury. No pedal edema. Skin: Intact. No rash. Warm. No erythema or pallor. Neurologic: No altered sensation. No weakness. Alert and oriented. Psychiatric: No suicidality. No anxiety or depression. No insomnia. Nursing notes and vitals signs are reviewed. Const: Vital Signs, click to edit/add: Vital Signs - 24 hr 05/29/23 13:53 05/29/23 14:11 05/29/23 14:13 Temperature 96.8 F L Pulse Rate 72 Pulse Rate [Right Pulse Oximeter] 75 Respiratory Rate 18 Blood Pressure Blood Pressure [Ri ght Upper Arm] 100/62 Pulse Oximetry 85 L 90 92 Oxygen Delivery Me thod Room Air Nasal Cannula Oxygen Flow Rate 6 05/29/23 14:15 05/29/23 14:30 05/29/23 14:32 Temperature Pulse Rate 77 96 79 Pulse Rate [Right Pulse Oximeter] Respiratory Rate Blood Pressure 109/58 L Blood Pressure [Ri ght Upper Arm] Pulse Oximetry 89 80 L 92 Oxygen Delivery Me thod Oxygen Flow Rate 05/29/23 14:45 05/29/23 15:00 05/29/23 15:16 Temperature Pulse Rate 70 76 69 Pulse Rate [Right Pulse Oximeter] Respiratory Rate Blood Pressure Blood Pressure [Ri ght Upper Arm] Pulse Oximetry 91 88 96 Oxygen Delivery Me thod Oxygen Flow Rate Course Vital Signs Vital signs: Initial Vital Signs Temperature 96.8 F L 05/29/23 13:53 Temperature Source Temporal Artery Scan 05/29/23 13:53 Pulse Rate 75 05/29/23 13:53 Respiratory Rate 18 05/29/23 13:53 Blood Pressure 100/62 05/29/23 13:53 Blood Pressure Mean 74 05/29/23 13:53 Blood Pressure Position Sitting 05/29/23 13:53 Pulse Oximetry 85 L 05/29/23 13:53 Oxygen Delivery Method Room Air 05/29/23 13:53 Vital Signs Temperature 96.8 F L 05/29/23 13:53 Pulse Rate 75 05/29/23 13:53 Respiratory Rate 18 05/29/23 13:53 Blood Pressure 100/62 05/29/23 13:53 Pulse Oximetry 85 L 05/29/23 13:53 Oxygen Delivery Method Room Air 05/29/23 13:53 Temperature 96.8 F L 05/29/23 13:53 Pulse Rate 69 05/29/23 15:16 Respiratory Rate 18 05/29/23 13:53 Blood Pressure 109/58 L 05/29/23 14:32 Pulse Oximetry 96 05/29/23 15:16 Oxygen Delivery Method Nasal Cannula 05/29/23 14:13 Oxygen Flow Rate 6 05/29/23 14:13 Medical Decision Making MDM Narrative Medical decision making narrative: This patient comes in reporting shortness of breath and coughing. She arrives with oximetry at 85% on room air and need 6 L of oxygen to get up to 90%. She has a history of COPD and does use oxygen at night but has been using oxygen at 2 L during the day over the past couple days. Chest x-ray shows bilateral infiltrates. Lab results returned with reassuring findings. Her white count is in normal range. Her EKG does show atrial fibrillation but no sign of ST or T-wave abnormalities. After blood cultures are obtained the patient received doses of cefepime and vancomycin. I spoke with the hospitalist research nurse practitioner, Dr. Vanegas, who agrees to her admission. This patient is not tripping triggers for sepsis workup. She did have a recent hospitalization so this could be viewed as a hospital-acquired pneumonia and therefore more broad-spectrum antibiotics are indicated. The patient received a DuoNeb here and a 1 time dose of dexamethasone intravenously. Lab Data Labs: Lab Results 05/29/23 05/29/23 Range/Units 14:11 14:30 WBC 8.98 (4.50-11.00) K/uL RBC 3.74 L (4.00-5.20) m/uL Hgb 11.1 L (12.0-16.0) gm/dL Hct 34.8 (33.0-51.0) % MCV 93 (80-100) fL MCH 30 (26-34) pg MCHC 32 (32-36) gm/dL RDW Coeff of Sudha 15.0 (11.5-15.5) % Plt Count 197 (140-440) K/uL Neut % (Auto) 88.4 H (42.0-72.0) % Lymph % (Auto) 7.3 L (20-44) % [place] % (Auto) 3.8 (0.0-11.0) % Eos % (Auto) 0.1 (0.0-7.0) % Baso % (Auto) 0.1 (0.0-3.0) % Neut # (Auto) 7.90 H (1.7-7.0) K/uL Lymph # (Auto) 0.70 L (0.90-2.90) K/uL [place] # (Auto) 0.30 (0.00-0.90) K/UL Eos # (Auto) 0.01 (0.00-0.50) K/uL Baso # (Auto) 0.01 (0.00-0.30) K/uL Abs Immat Gran (auto) 0.03 (0.00-0.30) K/uL Imm/Tot Granulo (auto) 0.3 % Diff Slide Review Acceptable Review (Acceptable) VBG pH 7.367 (7.32-7.43) VBG pCO2 40 (40-50) mmHG VBG pO2 56.5 H (25-47) mmHG VBG HCO3 23 (21-28) mmol/L Sodium 134 L (135-149) mmol/L Potassium 5.5 H (3.6-5.1) mmol/L Chloride 103 (96-114) mmol/L Carbon Dioxide 22 (20-32) mmol/L Anion Gap 9 (7-15) mEq/L BUN 75 H (7-30) mg/dL Creatinine 2.0 H (0.5-1.5) mg/dL Estimated Creat Clear 21.82 Estimated GFR 25 ml/min Glucose 105 (60-115) mg/dL Calcium 9.4 (8.4-10.6) mg/dL SARS-CoV-2 (PCR) Negative SARS-CoV-2 (Negative) Influenza Type A (PCR) Negative PCR FLU A (Negative) Influenza Type B (PCR) Negative PCR FLU B (Negative) RSV (PCR) Negative PCR RSV (Negative) POC Troponin I 0.02 (0.01-0.04) ng/ml Discharge Plan Discharge Clinical Impression: Pneumonia Patient Disposition: Admitted As Inpatient Condition: Unchanged Prescriptions: No Action spironolactone 25 mg tablet 12.5 mg PO DAILY atorvastatin 40 mg tablet 40 mg PO HS levothyroxine 88 mcg tablet 88 mcg PO DAILY warfarin 2 mg tablet 3 - 6 mg PO DAILY Hold Instructions: on hold Rx Instructions: Take 3mg every MWF Take 6mg all other days albuterol sulfate 90 mcg/actuation HFA aerosol inhaler 2 puff INHALATION Q4H PRN Patient Comments: INHALE 1 TO 2 PUFFS BY MOUTH EVERY 4 HOURS NEEDED FOR SHORTNESS OF BREATH Trelegy Ellipta 200-62.5-25 mcg blister with device 1 inh INHALATION DAILY Patient Comments: INHALE 1 PUFF BY MOUTH EVERY DAY cholecalciferol (vitamin D3) [Vitamin D3] 50 mcg (2,000 unit) capsule 50 mcg PO DAILY multivitamin [Multiple Vitamins] Tablet 1 tab PO DAILY famotidine 20 mg tablet 20 mg PO HS calcium carbonate-vitamin D3 [Calcium 600 + D(3)] 600 mg-5 mcg (200 unit) tablet 1 tab PO DAILY carvedilol 6.25 mg tablet 6.25 mg PO BID fluoxetine 20 mg capsule 20 mg PO DAILY Myrbetriq 50 mg tablet extended release 24 hr 50 mg PO DAILY torsemide 10 mg tablet 10 mg PO DAILY PRN Rx Instructions: FOR LOWER LEG SWELLING fluoxetine 40 mg capsule 40 mg PO DAILY Patient Comments: Rx Instructions: please substitute to tablets in order to do 60mg. calcitonin (salmon) 200 unit/actuation [place],Non-Aerosol 1 spray intranasal Q24H Qty: 3.7 0RF naproxen sodium [Aleve] 220 mg tablet 220 mg PO BID PRN (Reason: pain) Qty: 14 0RF Senna Plus 8.6-50 mg capsule 1 tab-cap PO BID PRNQty: 30 0RF hydromorphone 2 mg tablet 2 mg PO Q6H Qty: 20 0RF acetaminophen 500 mg Tablet 1,000 mg PO TID Qty: 100 0RF Follow Up/Referrals: Karma Jang MD [Primary Care Provider] -
--- NOTE | 2023-05-29 14:13 | ED.NURSE ---
Patient reports using oxygen only at night at 1.5L via [place]. She arrivives via EMS with sats in mid 80's on 2L. Patient now receiving Oxygen at 6L with sats 89-90%.
[2023-05-29 14:48] LABS: HCO3 VBG 23 mmol/L (21-28); PCO2 VBG 40 mmHG (40-50); PO2 VBG 56.5 mmHG (25-47); pH VBG 7.367 (7.32-7.43)
[2023-05-29 14:53] LABS: Basophils Absolute Auto 0.01 K/uL (0.00-0.30); Basophils Percent Auto 0.1 % (0.0-3.0); Eosinophils Absolute Auto 0.01 K/uL (0.00-0.50); Eosinophils Percent Auto 0.1 % (0.0-7.0); Hematocrit 34.8 % (33.0-51.0); Hemoglobin* 11.1 gm/dL (12.0-16.0); Immature Granulocytes Abs Auto 0.03 K/uL (0.00-0.30); Immature Granulocytes Pct Auto 0.3 %; Lymphocytes Percent Auto 7.3 % (20-44); Mean Corpuscular HGB Conc 32 gm/dL (32-36); Mean Corpuscular Hemoglobin 30 pg (26-34); Mean Corpuscular Volume 93 fL (80-100); Monocytes Percent Auto 3.8 % (0.0-11.0); Neutrophils Percent Auto 88.4 % (42.0-72.0); Platelet Count* 197 K/uL (140-440); Red Blood Count 3.74 m/uL (4.00-5.20); White Blood Count* 8.98 K/uL (4.50-11.00)
[2023-05-29 14:57] LABS: Slide Review Reflex Yes
[2023-05-29 15:01] LABS: Troponin, Point-of-Care* 0.02 ng/ml (0.01-0.04)
[2023-05-29 15:05] LABS: Chloride* 103 mmol/L (96-114); Sodium* 134 mmol/L (135-149)
[2023-05-29 15:08] LABS: Anion Gap 9 mEq/L (7-15); Carbon Dioxide* 22 mmol/L (20-32); Est. Creatinine Clearance* 21.82; Estimated Glomerular Filt Rate 25 ml/min
[2023-05-29 15:09] LABS: Blood Urea Nitrogen* 75 mg/dL (7-30); Calcium* 9.4 mg/dL (8.4-10.6); Glucose* 105 mg/dL (60-115)
[2023-05-29] MEDS: IPRAT-ALBUT 0.5-2.5 MG/3 ML NEB 1 NEB IH (15:11)
[2023-05-29 15:16] LABS: Potassium* 5.5 mmol/L (3.6-5.1)
[2023-05-29 15:25] LABS: PCR FLU A Negative PCR FLU A (Negative); PCR FLU B Negative PCR FLU B (Negative); PCR RSV Negative PCR RSV (Negative)
[2023-05-29 15:34] LABS: SARS PCR* Negative SARS-CoV-2 (Negative)
[2023-05-29 15:42] LABS: Slide Review Acceptable Review (Acceptable)
[2023-05-29 15:46] LABS: Prothrombin Time 59.2 Seconds
[2023-05-29 16:03] LABS: INR 6.98 (0.91-1.10)
--- NOTE | 2023-05-29 16:18 | PM.IMHP1 ---
Hospitalist- H&P: HPI History of Present Illness Date Seen: 05/29/23 Chief complaint: fall Narrative: Nery Oropeza is a 78 year old female who presented to the ED this afternoon for weakness and dyspnea. She notes fairly abrupt onset of weakness and dyspnea today; BP was also noted to be low during her home health PT visit. She has had to increase her supplemental oxygen at home today for symptoms. No fever, intermittent cough. Nery was recently hospitalized after a fall at home that resulted in a compression fracture of L3, has been taking prn Dilaudid (+ APAP, Calcitonin and Naproxen) for pain, but happily reports that she has had very little back pain today. ER Course and findings: - patient required up to 6L per NC to maintain oxygen saturations - BP 100-109/58-62 - R sided infiltrated on CXR - INR 6.98 - Creatinine 2.0 (baseline creatinine 1.2-1.3), K 5.5, Na 132 - EKG exhibited rate controlled atrial fibrillation Histories updated below. PCP is Dr. Jang at [facility] in [place]. Review of Systems Narrative: - no melena or hematochezia - no bleeding gums - mood stable - no chest pain PFSH [facility] Medical History (Updated 05/29/23 @ 19:05 by Ninfa Vanegas MD) Subarachnoid hemorrhage ?I60.9 - Nontraumatic subarachnoid hemorrhage, unspecified (ICD-10) Chronic anticoagulation ?Z79.01 - nursing home (current) use of anticoagulants (ICD-10) Presence of permanent cardiac pacemaker ?Z95.0 - Presence of cardiac pacemaker (ICD-10) Chronic hypoxemic respiratory failure ?J96.11 - Chronic respiratory failure with hypoxia (ICD-10) Panlobular emphysema ?J43.1 - Panlobular emphysema (ICD-10) Chronic pain of both shoulders ?M25.511 - Pain in right shoulder (ICD-10) ?M25.512 - Pain in left shoulder (ICD-10) ?G89.29 - Other chronic pain (ICD-10) Anticoagulation goal of INR 2 to 3 ?Z51.81 - Encounter for therapeutic drug level monitoring (ICD-10) ?Z79.01 - nursing home (current) use of anticoagulants (ICD-10) Anticoagulated on warfarin ?Z79.01 - ad terminal makeup operator (current) use of anticoagulants (ICD-10) Paroxysmal atrial fibrillation ?I48.0 - Paroxysmal atrial fibrillation (ICD-10) Closed nondisplaced fracture of greater trochanter of right femur with routine healing ?S72.114D - Nondisplaced fracture of greater trochanter of right femur, subsequent encounter for closed fracture with routine healing (ICD-10) Chronic deep vein thrombosis of left lower extremity ?I82.502 - Chronic embolism and thrombosis of unspecified deep veins of left lower extremity (ICD-10) Intrinsic urethral sphincter deficiency ?N36.42 - Intrinsic sphincter deficiency (ISD) (ICD-10) Mixed stress and urge urinary incontinence ?N39.46 - Mixed incontinence (ICD-10) CKD stage 4 secondary to hypertension ?I12.9 - Hypertensive chronic kidney disease with stage 1 through stage 4 chronic kidney disease, or unspecified chronic kidney disease (ICD-10) ?N18.4 - Chronic kidney disease, stage 4 (severe) (ICD-10) Ischemic cardiomyopathy ?I25.5 - Ischemic cardiomyopathy (ICD-10) Recurrent major depression resistant to treatment ?F33.9 - Major depressive disorder, recurrent, unspecified (ICD-10) Hyperlipidemia ?E78.5 - Hyperlipidemia, unspecified (ICD-10) Hypertension ?I10 - Essential (primary) hypertension (ICD-10) MRSA (methicillin resistant Staphylococcus aureus) ?A49.02 - Methicillin resistant Staphylococcus aureus infection, unspecified site (ICD-10) Hypothyroidism ?E03.9 - Hypothyroidism, unspecified (ICD-10) COPD (chronic obstructive pulmonary disease) ?J44.9 - Chronic obstructive pulmonary disease, unspecified (ICD-10) CHF (congestive heart failure) ?I50.9 - Heart failure, unspecified (ICD-10) CAD (coronary artery disease) ?I25.10 - Atherosclerotic heart disease of [place] coronary artery without angina pectoris (ICD-10) Depression ?F32.A - Depression, unspecified (ICD-10) Atrial fibrillation ?I48.91 - Unspecified atrial fibrillation (ICD-10) Anxiety ?F41.9 - Anxiety disorder, unspecified (ICD-10) Acid reflux ?K21.9 - Gastro-esophageal reflux disease without esophagitis (ICD-10) Severe depression ?F32.2 - Major depressive disorder, single episode, severe without psychotic features (ICD-10) Surgical History History of hip replacement ?Z96.649 - Presence of unspecified artificial hip joint (ICD-10) History of cholecystectomy ?Z90.49 - Acquired absence of other specified parts of digestive tract (ICD-10) History of cataract surgery ?Z98.49 - Cataract extraction status, unspecified eye (ICD-10) Social History (Updated 05/29/23 @ 18:21 by Ninfa Vanegas MD) Narrative: Lives with a roommate in [place], adult children. Son Mykel and daughter Lakesha would share medical decision making duties. Requests Full Code status, understands that her progressive lung disease puts her at high risk if she were to ever need intubation. She would not want to be kept alive on a ventilator nursing home. What is your current living situation?: I presently have a place to live Problems where you live: no known problems Problems where you live details: none In the past 12 months, utilities in danger of being shut off: no In the past 12 mos, have been you worried that your food would run out before you had money to buy more?: never true In the past 12 mos, the food you bought just didn't last and you didn't have money to buy more?: never true Highest level of school completed/degree received: Associate degree: occupational, technical, vocational program Smoking Status: Former smoker What tobacco products do you use: cigarettes Smoking quit date/years: >15 years ago Do you use any of these nicotine containing products: None Second hand tobacco smoke exposure: No How often do you have a drink containing alcohol: never How often do you have six or more drinks on one occasion: Never AUDIT-C Alcohol total score: 0 Non-prescribed substance use: denies use Caffeine: Yes (cups coffee) How often does anyone, including family, friends and others, physically hurt you: never How often does anyone, including family, friends and others, insult or talk down to you: never How often does anyone, including family, friends and others, threaten you with harm: never How often does anyone, including family, friends and others, scream or curse at you: never service: No Meds Home Medications and Allergies Home Medications Medication Instructions Recorded Confirmed Type albuterol sulfate 90 mcg/actuation 2 puff inhalation Q4H PRN 06/02/22 05/29/23 History aerosol inhaler atorvastatin 40 mg tablet 40 mg PO HS 06/02/22 05/29/23 History cholecalciferol (vitamin D3) 50 50 mcg PO DAILY 06/02/22 05/29/23 History mcg (2,000 unit) capsule (Vitamin D3) fluticasone fur. 200 mcg-umeclid 1 inh inhalation DAILY 06/02/22 05/29/23 History 62.5 mcg-vilant 25 mcg inhalat.powder (Trelegy Ellipta) levothyroxine 88 mcg tablet 88 mcg PO DAILY 06/02/22 05/29/23 History warfarin 2 mg tablet 3 - 6 mg PO DAILY 06/02/22 05/29/23 History multivitamin (Multiple Vitamins 1 tab PO DAILY 06/03/22 05/29/23 History tablet) spironolactone 25 mg tablet 12.5 mg PO DAILY 12/23/22 05/29/23 History famotidine 20 mg tablet 20 mg PO HS 04/22/23 05/29/23 History calcium carbonate 600 mg-vitamin 1 tab PO DAILY 05/23/23 05/29/23 History D3 5 mcg (200 unit) tablet (Calcium 600 + D(3)) carvedilol 6.25 mg tablet 6.25 mg PO BID 05/23/23 05/29/23 History fluoxetine 20 mg capsule 20 mg PO DAILY 05/23/23 05/29/23 History fluoxetine 40 mg capsule 40 mg PO DAILY 05/23/23 05/29/23 History mirabegron 50 mg tablet,extended 50 mg PO DAILY 05/23/23 05/29/23 History release 24 hr (Myrbetriq) torsemide 10 mg tablet 10 mg PO DAILY PRN 05/23/23 05/29/23 History Allergies Allergy/AdvReac Type Severity Reaction Status Date / Time bacitracin Allergy Mild Verified 05/22/23 11:52 [From Neosporin Plus] lidocaine Allergy Mild Verified 05/22/23 11:52 [From Neosporin Plus] morphine Allergy Mild Hives Verified 05/22/23 11:52 neomycin Allergy Mild Verified 05/22/23 11:52 [From Neosporin Plus] Penicillins Allergy Mild Rash Verified 05/22/23 11:52 polymyxin B Allergy Mild Verified 05/22/23 11:52 [From Neosporin Plus] pramoxine Allergy Mild Verified 05/22/23 11:52 [From Neosporin Plus] BRAD Inhibitors Allergy Unknown Verified 05/22/23 11:52 bupropion [From Wellbutrin] Allergy Unknown Verified 05/22/23 11:52 hydrocodone Allergy Unknown Verified 05/22/23 11:52 levofloxacin [From Levaquin] Allergy Unknown Verified 05/22/23 11:52 oxycodone Allergy Unknown Verified 05/22/23 11:52 sulfamethoxazole Allergy Unknown Verified 05/22/23 11:52 Exam Narrative: Exam Narrative: GEN: Alert and answering questions appropriately, intermittent tachypnea HEENT: EOMIs bilaterally, no scleral icterus CV: Rate controlled atrial fibrillation, heart sounds distant with no concerning murmurs R: Decreased breath sounds throughout, R>L, expiratory wheezing bilateral apices Ab: Soft and nontender Ext: wwp, no concerning edema Skin: Scattered bruising throughout extremities Neuro: No focal deficits, no resting tremor, gait not observed Psych: Appropriate Const: Vital Signs, click to edit/add: Vital Signs - 24 hr 05/29/23 13:53 05/29/23 14:11 05/29/23 14:13 Temperature 96.8 F L Pulse Rate 72 Pulse Rate [Right Pulse Oximeter] 75 Respiratory Rate 18 Blood Pressure Blood Pressure [Ri ght Upper Arm] 100/62 Pulse Oximetry 85 L 90 92 Oxygen Delivery Me thod Room Air Nasal Cannula Oxygen Flow Rate 6 05/29/23 14:15 05/29/23 14:30 05/29/23 14:32 Temperature Pulse Rate 77 96 79 Pulse Rate [Right Pulse Oximeter] Respiratory Rate Blood Pressure 109/58 L Blood Pressure [Ri ght Upper Arm] Pulse Oximetry 89 80 L 92 Oxygen Delivery Me thod Oxygen Flow Rate 05/29/23 14:45 05/29/23 15:00 05/29/23 15:16 Temperature Pulse Rate 70 76 69 Pulse Rate [Right Pulse Oximeter] Respiratory Rate Blood Pressure Blood Pressure [Ri ght Upper Arm] Pulse Oximetry 91 88 96 Oxygen Delivery Me thod Oxygen Flow Rate Hospitalist - H&P: Result Labs Labs: Short CBC 05/29/23 Range/Units 14:30 WBC 8.98 (4.50-11.00) K/uL Hgb 11.1 L (12.0-16.0) gm/dL Hct 34.8 (33.0-51.0) % Plt Count 197 (140-440) K/uL [facility] 05/29/23 14:30 Sodium 134 L Potassium 5.5 H Chloride 103 Carbon Dioxide 22 BUN 75 H Creatinine 2.0 H Glucose 105 Calcium 9.4 Assessment and Plan Assessment and plan (1) Acute and chronic respiratory failure with hypoxia: Problem comment: - multifactorial: pneumonia, emphysema, ischemic heart disease - supplemental oxygen, antibiotics, home medications, nebs, RT referral - will obtain CT to evaluate for any pulmonary hemorrhage Status: Acute (2) Pneumonia: Problem comment: - given recent hospitalization and comorbidities, will treat as HAP with Vancomycin and Cefepime - CT pending to evaluate for hemorrhage given supratherapeutic INR Status: Acute (3) Acute kidney injury: Problem comment: - creatinine 2.0 on 05/29, outpatient baseline 1.2-1.3 - associated hyperkalemia - hold nephrotoxins Status: Acute (4) Closed compression fracture of L3 vertebra: Problem comment: - diagnosed 05/22 after a fall at home, hospitalized for pain management and sent home on calcitonin nasal spray, APAP, Naproxen, prn Dilaudid Status: Acute (5) Paroxysmal atrial fibrillation: Problem comment: - rate controlled on Coreg, anticoagulated on Coumadin Status: Acute (6) Supratherapeutic INR: Problem comment: - no evidence of acute bleeding but given fall risk, acute illness, and comorbidities, will give 5mg of oral Vitamin K and hold Coumadin - follow INR closely Status: Acute (7) Hyperkalemia: Problem comment: - no EKG changes - hold spironolactone - albuterol and Lasix x1, follow closely - telemetry Status: Acute Plan - per above - SCDs for ppx, pharmacologic prophylaxis contraindicated given supratherapeutic INR - Full Code status requested
[2023-05-29] MEDS: CEFEPIME HCL 1 GM in 0.9 % SODIUM CHLORIDE Mini-bag 100 ML IVPB (16:28)
--- NOTE | 2023-05-29 18:23 | CRLHL7_ITS ---
For Patients: As a result of the Century Cures Act, medical imaging exams and procedure reports are released immediately into your electronic medical record. You may view this report before your referring provider. If you have questions, please contact your health care provider. INDICATION: Acute hypoxic respiratory failure. TECHNIQUE: CT chest without contrast. COMPARISON: Radiograph, May 29, 2023. FINDINGS: Lungs and pleura: Multifocal ground-glass consolidation in the right upper, and bilateral lower lobes with dense consolidation in the right middle lobe. Moderate pulmonary emphysema. Trace right pleural effusion. Heart and vasculature: Cardiomegaly with coronary artery calcifications. Thoracic aorta and pulmonary artery are normal in caliber. Aortic arch calcifications. Left chest wall pacemaking device with leads in the right atrium and right ventricle Lymph nodes/mediastinum: Patulous fluid-filled esophagus. No mediastinal, hilar, or axillary adenopathy. Chest wall: No masses. Upper abdomen: No significant findings. Bones: Unremarkable for age. IMPRESSION: Multifocal pneumonia with ground-glass consolidation in the right upper, bilateral lower lobes and dense consolidation in the right middle lobe. Pulmonary emphysema. Trace right pleural effusion. Cardiomegaly with coronary artery calcifications. Patulous fluid-filled esophagus which could predispose to aspiration. Please note that all CT scans at this facility use dose modulation, iterative reconstruction, and/or weight-based dosing when appropriate to reduce radiation dose to as low as reasonably achievable. Dictated by Artemio Ivey MD @ 05/29/2023 7:44:03 PM (Electronically Signed)
--- NOTE | 2023-05-29 19:31 | RESP.RT ---
Patient requested to sit in chair and eat. Patient SATing 95% on 4L NC. She has a strong nonproductive cough. She states that she is breathing comfortably at this time.
[2023-05-29] MEDS: CALCITONIN SALMON NASAL SPRAY 200 UNIT 1 SPRAY NOSTRIL-B (19:58)
[2023-05-29] MEDS: FUROSEMIDE 10 MG/ML inj 20 MG IVP (19:59)
[2023-05-29] MEDS: ATORVASTATIN CALCIUM 40 MG TABLET PO (20:31)
[2023-05-29] MEDS: FAMOTIDINE 20 MG TABLET PO (20:31)
[2023-05-29] MEDS: SENNOSIDES/DOCUSATE TABLET 1 TAB PO (20:31)
[2023-05-29] MEDS: HYDROmorphone 2 MG TABLET PO (20:31)
[2023-05-29 21:17] LABS: Chloride* 101 mmol/L (96-114)
[2023-05-29 21:18] LABS: Potassium* 5.1 mmol/L (3.6-5.1); Sodium* 135 mmol/L (135-149)
[2023-05-29 21:20] LABS: Creatinine* 2.1 mg/dL (0.5-1.5); Est. Creatinine Clearance* 20.78; Estimated Glomerular Filt Rate 23 ml/min
[2023-05-29 21:21] LABS: Anion Gap 8 mEq/L (7-15); Blood Urea Nitrogen* 77 mg/dL (7-30); Calcium* 9.2 mg/dL (8.4-10.6); Carbon Dioxide* 26 mmol/L (20-32); Glucose* 125 mg/dL (60-115)
[2023-05-30] VITALS (11 sets, daily range): BP systolic 99–121; BP diastolic 53–85; PULSE 57–110; RESP 18–26; TEMP 36.7–37.1; O2SAT 86–92
[2023-05-30] MEDS: HYDROmorphone 2 MG TABLET PO ×4 (01:11→19:11)
[2023-05-30 06:16] LABS: Lactate* 0.8 mmol/L (0.5-1.9)
[2023-05-30 06:25] LABS: Eosinophils Absolute Auto 0.02 K/uL (0.00-0.50); Eosinophils Percent Auto 0.2 % (0.0-7.0); Hematocrit 32.2 % (33.0-51.0); Hemoglobin* 10.2 gm/dL (12.0-16.0); Immature Granulocytes Abs Auto 0.01 K/uL (0.00-0.30); Immature Granulocytes Pct Auto 0.1 %; Lymphocytes Percent Auto 7.6 % (20-44); Mean Corpuscular HGB Conc 32 gm/dL (32-36); Mean Corpuscular Hemoglobin 29 pg (26-34); Mean Corpuscular Volume 93 fL (80-100); Neutrophils Percent Auto 86.1 % (42.0-72.0); Platelet Count* 181 K/uL (140-440); RDW Coefficient of Variation % 14.9 % (11.5-15.5); Red Blood Count 3.47 m/uL (4.00-5.20); White Blood Count* 8.37 K/uL (4.50-11.00)
[2023-05-30 06:27] LABS: Slide Review Reflex No
[2023-05-30 06:45] LABS: Chloride* 101 mmol/L (96-114)
[2023-05-30 06:46] LABS: Sodium* 134 mmol/L (135-149)
[2023-05-30 06:48] LABS: Bilirubin Total* 1.1 mg/dL (0.1-1.5); Creatinine* 2.1 mg/dL (0.5-1.5); Est. Creatinine Clearance* 20.78; Estimated Glomerular Filt Rate 23 ml/min
[2023-05-30 06:49] LABS: Alanine Aminotransferase* 105 U/L (4-35); Alkaline Phosphatase* 281 U/L (40-150); Anion Gap 8 mEq/L (7-15); Aspartate Amino Transferase* 102 U/L (12-35); Blood Urea Nitrogen* 79 mg/dL (7-30); Calcium* 9.2 mg/dL (8.4-10.6); Carbon Dioxide* 25 mmol/L (20-32); Glucose* 102 mg/dL (60-115); Total Protein* 5.8 g/dL (6.0-8.3)
[2023-05-30 06:50] LABS: INR 2.92 (0.91-1.10); Prothrombin Time 31.9 Seconds
[2023-05-30] MEDS: LEVOTHYROXINE 88 MCG TABLET PO (06:50)
[2023-05-30 06:59] LABS: Troponin I* 0.05 ng/mL (0.01-0.04)
[2023-05-30 07:04] LABS: Procalcitonin* 2.28 ng/mL (<0.50)
--- NOTE | 2023-05-30 07:34 | PC.NURSE ---
Pt alert and oriented x3. Afebrile. Pt pulled of telemonitor and refused to have it on. Pt also refused having oxygen alarms on due to noise but agreed to have pulse oximeter on overnight. updated and ordered to?DC tele and approved having oxygen alarms off.?Associate Financial Analyst and charge nurse monitored pt?s oxygen closely overnight. Pt?s O2 stats ranged between 86-91% on 3-3.5L nasal cannula. Pt had episodes of O2 dipping down to 83%-84% and required temporary periods of?4L of oxygen. Pt reports 4/10 pain in right shoulder, pain managed with scheduled?medications. Pt denies chest pain, SOB and N/V. Pt is up A1 with walker gait belt, voiding. Pt slept intermittently throughout night. ?
[2023-05-30] MEDS: ACETAMINOPHEN 500 MG TABLET 1000 MG PO ×3 (08:51→21:38)
[2023-05-30] MEDS: carvediloL 6.25 MG TABLET PO ×2 (08:52→20:41)
[2023-05-30] MEDS: FLUOXETINE HCL 20 MG CAPSULE 60 MG PO (08:53)
[2023-05-30] MEDS: SENNOSIDES/DOCUSATE TABLET 1 TAB PO (08:54)
[2023-05-30] MEDS: SODIUM CHLORIDE 0.9 % (FLUSH) 10 ML SYRINGE 5 ML IVF ×2 (08:56→20:45)
[2023-05-30] MEDS: Fluticasone-Umeclidin-Vilanter [Trelegy Ellipta] 200-62.5-25 mcg 1 EACH IH (09:37)
[2023-05-30] MEDS: ALBUTEROL SULFATE 2.5 MG/3 ML VIAL.NEB NEB (09:41)
--- NOTE | 2023-05-30 12:05 | PM.IMPN1 ---
Progress Note: A&P Assessment and plan (1) Pneumonia: Problem details: - continue IV Vancomycin and Cefepime for suspected HAP - lactate 0.8. BC x2, strep pneumo, Legionella pending. Added sputum culture Gram stain - Mucinex b.i.d., saline nebs, Tessalon Perles p.r.n. Status: Acute (2) Acute and chronic respiratory failure with hypoxia: Problem details: - multifactorial: pneumonia, emphysema, ischemic heart disease. CT chest reviewed, no hemorrhage. - oxygen demand improving, currently 2.5 L, usual home uses 1.5 L - continue supplemental oxygen to maintain saturations 88-92%, continued to wean as able - RT for pulmonary support - will obtain CT to evaluate for any pulmonary hemorrhage Status: Acute (3) COPD (chronic obstructive pulmonary disease): Problem details: - as above - continue home Trelegy, scheduled DuoNebs, p.r.n. albuterol nebs Status: Acute (4) Acute kidney injury: Problem details: - history of CKD stage IV - creatinine 2.1, outpatient baseline 1.2-1.3 - associated hyperkalemia, resolved - hold nephrotoxins, renally dosed IV antibiotics - will give one more dose of lasix, monitoring for hypotension - continue to monitor with BMP Status: Acute (5) Hyperkalemia: Problem details: - resolved - hold spironolactone - telemetry, patient not tolerating Status: Acute (6) Closed compression fracture of L3 vertebra: Problem details: - diagnosed 05/22 after a fall at home, hospitalized for pain management and sent home on calcitonin nasal spray, APAP, Naproxen, prn Dilaudid - continue scheduled Tylenol, calcitonin nasal spray, p.r.n. Dilaudid. Noted allergy to lidocaine. Avoid NSAIDs given BRAYAN on CKD - PT Status: Acute (7) Paroxysmal atrial fibrillation: Problem details: - rate controlled on Coreg, anticoagulated on Coumadin, pharmacy to manage Status: Acute (8) Supratherapeutic INR: Problem details: - no evidence of acute bleeding but given fall risk, acute illness, and comorbidities - INR 2.92, down from 6.98, following vitamin K - will continue to drop - daily INRs, pharmacy to manage Coumadin Status: Acute (9) Anemia: Problem details: - hemoglobin 10.2, previously 11.7, baseline >12.5. No evidence acute bleed. Suspect dilutional, recheck in a.m. Status: Acute (10) CHF (congestive heart failure): Problem details: - torsemide has been held in setting of BRAYAN. Receiving 2nd single dose of Lasix. Monitor for fluid overload Status: Acute (11) Hypertension: Problem details: - hypotensive on admission, this has improved, will need to continue to monitor. Currently only receiving carvedilol - outpatient follow-up if sustained versus in setting of acute illness for further medication management Status: Acute (12) Hyperlipidemia: Problem details: - continue statin Status: Acute Time Spent With Patient Total time spent: Total time spent caring for the patient today was 45 minutes. This includes time spent for the visit reviewing the chart, time spent during the visit, time spent after the visit and documentation and planning in coordination of care. Subjective Date Seen: 05/30/23 Interval history: Patient is seen this morning with her daughter, Lakesha. She reports feeling a little better since admission. Continues to feel short of breath however is requiring less oxygen at this time. Normal home oxygen use is 1.5 L. This morning she is down to 2.5 L, previously 6-8 L in the ED. She complains of a dark brown productive cough. Denies chest pain. Denies nausea. Tolerating orals. Continues with decreased appetite. Daughter questions recent episodes of low blood pressure. She tells me that since her mother has been sick she has had notably lower blood pressures. From what they are telling me, it does not sound as though this has been addressed during post hospital visits with her PCP. Denies significant symptoms with this. Daughter also expresses concern for her mother when she returns to home, remains too weak to care for herself, and ends up back in the hospital. Exam Narrative: Exam Narrative: PHYSICAL EXAM General: Mildly frustrated this morning, otherwise conversant and NAD. HEENT: Normocephalic, atraumatic, sclera white, EOMI, oral mucosa moist Cardiovascular: RRR, S1S2. No pitting edema Pulmonary: Diffusely diminished with coarse breath sounds throughout. Mild dyspnea nasal cannula Neurological: Alert, answering questions appropriately, cranial nerves intact, no focal findings Extremities: No gross joint deformity or swelling. AROMI Skin: Warm, dry. No rash Const: Vital Signs, click to edit/add: Vital Signs - 24 hr 05/29/23 13:53 05/29/23 14:11 05/29/23 14:13 Temperature 96.8 F L Pulse Rate 72 Pulse Rate [Left B rachial] Pulse Rate [Left R adial] Pulse Rate [Pulse Oximeter] Pulse Rate [Right Pulse Oximeter] 75 Respiratory Rate 18 Blood Pressure Blood Pressure [Le ft Arm] Blood Pressure [Ri ght Upper Arm] 100/62 Pulse Oximetry 85 L 90 92 Oxygen Delivery Me thod Room Air Nasal Cannula Nasal Cannula Oxygen Flow Rate 6 6 05/29/23 14:15 05/29/23 14:30 05/29/23 14:32 Temperature Pulse Rate 77 96 79 Pulse Rate [Left B rachial] Pulse Rate [Left R adial] Pulse Rate [Pulse Oximeter] Pulse Rate [Right Pulse Oximeter] Respiratory Rate Blood Pressure 109/58 L Blood Pressure [Le ft Arm] Blood Pressure [Ri ght Upper Arm] Pulse Oximetry 89 80 L 92 Oxygen Delivery Me thod Nasal Cannula Nasal Cannula Nasal Cannula Oxygen Flow Rate 6 6 6 05/29/23 14:45 05/29/23 15:00 05/29/23 15:16 Temperature Pulse Rate 70 76 69 Pulse Rate [Left B rachial] Pulse Rate [Left R adial] Pulse Rate [Pulse Oximeter] Pulse Rate [Right Pulse Oximeter] Respiratory Rate Blood Pressure Blood Pressure [Le ft Arm] Blood Pressure [Ri ght Upper Arm] Pulse Oximetry 91 88 96 Oxygen Delivery Me thod Nasal Cannula Nasal Cannula Nasal Cannula Oxygen Flow Rate 6 6 6 05/29/23 15:26 05/29/23 15:28 05/29/23 15:30 Temperature Pulse Rate 71 77 73 Pulse Rate [Left B rachial] Pulse Rate [Left R adial] Pulse Rate [Pulse Oximeter] Pulse Rate [Right Pulse Oximeter] Respiratory Rate Blood Pressure 125/108 H 103/66 Blood Pressure [Le ft Arm] Blood Pressure [Ri ght Upper Arm] Pulse Oximetry 90 90 91 Oxygen Delivery Me thod Nasal Cannula Nasal Cannula Nasal Cannula Oxygen Flow Rate 6 6 6 05/29/23 15:32 05/29/23 15:45 05/29/23 15:59 Temperature Pulse Rate 71 75 80 Pulse Rate [Left B rachial] Pulse Rate [Left R adial] Pulse Rate [Pulse Oximeter] Pulse Rate [Right Pulse Oximeter] Respiratory Rate Blood Pressure 114/64 Blood Pressure [Le ft Arm] Blood Pressure [Ri ght Upper Arm] Pulse Oximetry 90 90 94 Oxygen Delivery Me thod Nasal Cannula Nasal Cannula Nasal Cannula Oxygen Flow Rate 6 6 6 05/29/23 16:00 05/29/23 16:02 05/29/23 16:15 Temperature Pulse Rate 76 79 82 Pulse Rate [Left B rachial] Pulse Rate [Left R adial] Pulse Rate [Pulse Oximeter] Pulse Rate [Right Pulse Oximeter] Respiratory Rate Blood Pressure Blood Pressure [Le ft Arm] Blood Pressure [Ri ght Upper Arm] Pulse Oximetry 94 94 94 Oxygen Delivery Me thod Nasal Cannula Nasal Cannula Nasal Cannula Oxygen Flow Rate 6 6 6 05/29/23 16:30 05/29/23 16:32 05/29/23 16:45 Temperature Pulse Rate 72 73 77 Pulse Rate [Left B rachial] Pulse Rate [Left R adial] Pulse Rate [Pulse Oximeter] Pulse Rate [Right Pulse Oximeter] Respiratory Rate Blood Pressure 113/51 L Blood Pressure [Le ft Arm] Blood Pressure [Ri ght Upper Arm] Pulse Oximetry 89 92 91 Oxygen Delivery Me thod Nasal Cannula Nasal Cannula Nasal Cannula Oxygen Flow Rate 6 6 6 05/29/23 16:53 05/29/23 17:33 05/29/23 18:26 Temperature 96.9 F L Pulse Rate Pulse Rate [Left B rachial] 57 L Pulse Rate [Left R adial] Pulse Rate [Pulse Oximeter] Pulse Rate [Right Pulse Oximeter] Respiratory Rate 20 32 H Blood Pressure Blood Pressure [Le ft Arm] 123/60 Blood Pressure [Ri ght Upper Arm] Pulse Oximetry 92 89 92 Oxygen Delivery Me thod Nasal Cannula Nasal Cannula Oxygen Flow Rate 6 4 05/29/23 19:45 05/29/23 20:10 05/30/23 00:30 Temperature 98.4 F Pulse Rate Pulse Rate [Left B rachial] Pulse Rate [Left R adial] 68 78 Pulse Rate [Pulse Oximeter] Pulse Rate [Right Pulse Oximeter] Respiratory Rate 24 24 24 Blood Pressure Blood Pressure [Le ft Arm] 88/52 L Blood Pressure [Ri ght Upper Arm] Pulse Oximetry 91 91 Oxygen Delivery Me thod Nasal Cannula Nasal Cannula Oxygen Flow Rate 3 2 05/30/23 00:30 05/30/23 00:30 05/30/23 02:45 Temperature 98.7 F 98.0 F Pulse Rate Pulse Rate [Left B rachial] Pulse Rate [Left R adial] 78 73 Pulse Rate [Pulse Oximeter] Pulse Rate [Right Pulse Oximeter] Respiratory Rate 24 24 26 H Blood Pressure Blood Pressure [Le ft Arm] 108/53 L 101/55 L Blood Pressure [Ri ght Upper Arm] Pulse Oximetry 86 L 86 L 89 Oxygen Delivery Me thod Nasal Cannula Nasal Cannula Nasal Cannula Oxygen Flow Rate 3 3 3.5 05/30/23 07:00 05/30/23 07:00 05/30/23 07:00 Temperature 98.1 F Pulse Rate Pulse Rate [Left B rachial] Pulse Rate [Left R adial] Pulse Rate [Pulse Oximeter] 73 73 Pulse Rate [Right Pulse Oximeter] Respiratory Rate 20 20 Blood Pressure Blood Pressure [Le ft Arm] 121/66 Blood Pressure [Ri ght Upper Arm] Pulse Oximetry 91 91 Oxygen Delivery Me thod Nasal Cannula Nasal Cannula Oxygen Flow Rate 2.5 2.5 Labs Labs: Laboratory Results - last 24 hr 05/29/23 05/29/23 05/29/23 14:11 14:30 20:51 WBC 8.98 RBC 3.74 L Hgb 11.1 L Hct 34.8 MCV 93 MCH 30 MCHC 32 RDW Coeff of Sudha 15.0 Plt Count 197 Neut % (Auto) 88.4 H Lymph % (Auto) 7.3 L [place] % (Auto) 3.8 Eos % (Auto) 0.1 Baso % (Auto) 0.1 Neut # (Auto) 7.90 H Lymph # (Auto) 0.70 L [place] # (Auto) 0.30 Eos # (Auto) 0.01 Baso # (Auto) 0.01 Abs Immat Gran (auto) 0.03 Imm/Tot Granulo (auto) 0.3 Diff Slide Review Acceptable Review INR 6.98 H* VBG pH 7.367 VBG pCO2 40 VBG pO2 56.5 H VBG HCO3 23 Sodium 134 L 135 Potassium 5.5 H 5.1 Chloride 103 101 Carbon Dioxide 22 26 Anion Gap 9 8 BUN 75 H 77 H Creatinine 2.0 H 2.1 H Estimated Creat Clear 21.82 20.78 Estimated GFR 25 23 Glucose 105 125 H Lactate Calcium 9.4 9.2 Total Bilirubin AST ALT Alkaline Phosphatase Troponin I Total Protein Albumin Procalcitonin SARS-CoV-2 (PCR) Negative SARS-CoV-2 Influenza Type A (PCR) Negative PCR FLU A Influenza Type B (PCR) Negative PCR FLU B RSV (PCR) Negative PCR RSV POC Troponin I 0.02 05/30/23 05:54 WBC 8.37 RBC 3.47 L Hgb 10.2 L Hct 32.2 L MCV 93 MCH 29 MCHC 32 RDW Coeff of Sudha 14.9 Plt Count 181 Neut % (Auto) 86.1 H Lymph % (Auto) 7.6 L [place] % (Auto) 6.0 Eos % (Auto) 0.2 Baso % (Auto) 0.0 Neut # (Auto) 7.20 H Lymph # (Auto) 0.60 L [place] # (Auto) 0.50 Eos # (Auto) 0.02 Baso # (Auto) 0.00 Abs Immat Gran (auto) 0.01 Imm/Tot Granulo (auto) 0.1 Diff Slide Review INR 2.92 H VBG pH VBG pCO2 VBG pO2 VBG HCO3 Sodium 134 L Potassium 5.0 Chloride 101 Carbon Dioxide 25 Anion Gap 8 BUN 79 H Creatinine 2.1 H Estimated Creat Clear 20.78 Estimated GFR 23 Glucose 102 Lactate 0.8 Calcium 9.2 Total Bilirubin 1.1 AST 102 H ALT 105 H Alkaline Phosphatase 281 H Troponin I 0.05 H Total Protein 5.8 L Albumin 3.0 L Procalcitonin 2.28 H SARS-CoV-2 (PCR) Influenza Type A (PCR) Influenza Type B (PCR) RSV (PCR) POC Troponin I Imaging CT scan - chest: Radiologist's impression: IMPRESSION: Multifocal pneumonia with ground-glass consolidation in the right upper, bilateral lower lobes and dense consolidation in the right middle lobe. Pulmonary emphysema. Trace right pleural effusion. Cardiomegaly with coronary artery calcifications. Patulous fluid-filled esophagus which could predispose to aspiration.
--- NOTE | 2023-05-30 13:10 | REH.PT ---
PT Eval & Treat Orders received, Chart reviewed. Nursing requested PT hold eval for today reporting that pt needed rest more than therapy at this time. Will attempt evaluation tomorrow.
[2023-05-30] MEDS: guaiFENesin 600 MG TAB.ER.12H PO ×2 (13:55→20:41)
[2023-05-30] MEDS: IPRAT-ALBUT 0.5-2.5 MG/3 ML NEB 1 NEB IH ×2 (13:57→19:13)
[2023-05-30] MEDS: FUROSEMIDE 10 MG/ML inj 20 MG IVP (13:58)
--- NOTE | 2023-05-30 15:21 | PC.NURSE ---
Patient pleasant and oriented x4. Patient demonstrates flat affect with periodic symptoms of anxiety. Shortness of breath with activity, remains on oxygen via nasal cannula. Patient verbalized pain, managed per MAR along with ice pack at patient request. Patient ambulates to bathroom with assist of one, walker, and gait belt. Patient verbalized understanding of education regarding new medications added to MAR.
--- NOTE | 2023-05-30 15:22 | REH.OT ---
OT evaluation on hold until 05/31/23 due to medical status.
[2023-05-30] MEDS: CEFEPIME HCL 1 GM in 0.9 % SODIUM CHLORIDE Mini-bag 100 ML IVPB (18:41)
[2023-05-30] MEDS: WARFARIN 3 MG TABLET PO (18:41)
[2023-05-30] MEDS: ATORVASTATIN CALCIUM 40 MG TABLET PO (20:41)
[2023-05-30] MEDS: FAMOTIDINE 20 MG TABLET PO (20:41)
[2023-05-30] MEDS: CALCITONIN SALMON NASAL SPRAY 200 UNIT 1 SPRAY NOSTRIL-B (21:39)
[2023-05-30] MEDS: MELATONIN 3 MG TABLET PO (21:40)
[2023-05-31] VITALS (10 sets, daily range): BP systolic 102–138; BP diastolic 75–102; PULSE 106–115; RESP 18–20; TEMP 36.4–36.8; O2SAT 91–92
[2023-05-31] MEDS: IPRAT-ALBUT 0.5-2.5 MG/3 ML NEB 1 NEB IH ×2 (01:08→15:08)
[2023-05-31] MEDS: HYDROmorphone 2 MG TABLET PO ×3 (01:08→15:11)
[2023-05-31] MEDS: ALBUTEROL SULFATE 2.5 MG/3 ML VIAL.NEB NEB (03:33)
--- NOTE | 2023-05-31 04:11 | PC.NURSE ---
Patient was very anxious overnight. SOB with exertion. Remained on 2L NC. Pt elected to up in chair instead of bed. Sats in low 90s. Pain controlled. Did walk halls this night. Sats drop to mid 70s with exertion.
[2023-05-31 06:38] LABS: Hematocrit 34.9 % (33.0-51.0); Hemoglobin* 11.2 gm/dL (12.0-16.0); Mean Corpuscular HGB Conc 32 gm/dL (32-36); Mean Corpuscular Hemoglobin 30 pg (26-34); Mean Corpuscular Volume 92 fL (80-100); Platelet Count* 210 K/uL (140-440); Red Blood Count 3.79 m/uL (4.00-5.20); White Blood Count* 7.16 K/uL (4.50-11.00)
[2023-05-31 06:47] LABS: Slide Review Reflex No
[2023-05-31 06:58] LABS: Chloride* 99 mmol/L (96-114); INR 1.69 (0.91-1.10); Potassium* 5.3 mmol/L (3.6-5.1); Prothrombin Time 20.8 Seconds; Sodium* 133 mmol/L (135-149)
[2023-05-31 07:01] LABS: Anion Gap 10 mEq/L (7-15); Blood Urea Nitrogen* 94 mg/dL (7-30); Carbon Dioxide* 24 mmol/L (20-32); Creatinine* 2.2 mg/dL (0.5-1.5); Est. Creatinine Clearance* 19.83; Estimated Glomerular Filt Rate 22 ml/min
[2023-05-31 07:02] LABS: Calcium* 9.7 mg/dL (8.4-10.6); Glucose* 102 mg/dL (60-115)
[2023-05-31] MEDS: LEVOTHYROXINE 88 MCG TABLET PO (07:42)
--- NOTE | 2023-05-31 07:53 | PM.IMPN1 ---
Progress Note: A&P Assessment and plan (1) Hospital-acquired bacterial pneumonia: Problem details: - continue IV Vancomycin and Cefepime for suspected HAP - lactate 0.8. BC x2, strep pneumo, Legionella pending. Added sputum culture Gram stain - Mucinex b.i.d., saline nebs, Tessalon Perles p.r.n. Status: Acute (2) Acute and chronic respiratory failure with hypoxia: Problem details: - multifactorial: pneumonia, emphysema, ischemic heart disease. CT chest reviewed - f/u CXR 05/31/23 was reassuring and showed improvement - oxygen demand improving, currently 2.5 L, usual home uses 1.5 L - starting oral prednisone - procal downtrending - continue supplemental oxygen to maintain saturations 88-92%, continued to wean as able Status: Acute (3) Acute kidney injury: Problem details: - history of CKD stage IV - creatinine 2.1, outpatient baseline 1.2-1.3 - associated hyperkalemia, mild ( - hold nephrotoxins, renally dosed IV antibiotics - 40mg of lasix IVP x 1 after 250cc of NS bolus, weight has been increasing - continue to monitor with BMP Status: Acute (4) Closed compression fracture of L3 vertebra: Problem details: - diagnosed 05/22 after a fall at home, hospitalized for pain management and sent home on calcitonin nasal spray, APAP, Naproxen, prn Dilaudid - continue scheduled Tylenol, calcitonin nasal spray, p.r.n. Dilaudid. Noted allergy to lidocaine. Avoid NSAIDs given BRAYAN on CKD - PT Status: Acute (5) Paroxysmal atrial fibrillation: Problem details: - rate controlled on Coreg, anticoagulated on Coumadin, pharmacy to manage Status: Acute (6) Chronic anticoagulation: Problem details: Will check INR in the morning. Continue warfarin. Status: Acute (7) Hyperkalemia: Problem details: - resolved - hold spironolactone - telemetry, patient not tolerating Status: Acute (8) COPD (chronic obstructive pulmonary disease): Problem details: - as above - continue home Trelegy, scheduled DuoNebs, p.r.n. albuterol nebs Status: Acute (9) CHF (congestive heart failure): Problem details: - torsemide has been held in setting of BRAYAN. Receiving 2nd single dose of Lasix. Monitor for fluid overload Status: Acute (10) Elevated LFTs: Problem details: unclear etiology; overall infection burden likely will check RUQ u/s and trend for now Status: Acute (11) Hypertension: Problem details: - hypotensive on admission, this has improved, will need to continue to monitor. Currently only receiving carvedilol (decreased 05/31 to 3.125 BID) - outpatient follow-up if sustained versus in setting of acute illness for further medication management Status: Acute Subjective Date Seen: 05/31/23 Interval history: Daily Progress Note - Hospital Medicine Day #: 3 CC: ACUTE HYPOXIC RESPIRATORY FAILURE HOSPITAL-ACQUIRED PNEUMONIA, BRAYAN, HISTORY OF L3 COMPRESSION FRACTURE OVERNIGHT UPDATES FROM STAFF & MED, LAB, IMAGING UPDATES Patient seems anxious and somewhat out of sorts this morning. She is sort of mumbling/rambling about her night in her relatives. She does clear with direction. RN note: Patient was very anxious overnight. SOB with exertion. Remained on 2L NC. Pt elected to up in chair instead of bed. Sats in low 90s. Pain controlled. Did walk halls this night. Sats drop to mid 70s with exertion. Continues to be afebrile Blood pressures are soft but stable. 113/82, 109/85, 99/70, 103/78 Pulse rate ranges from 57 to 112. AFib. Respiratory rate 18 Pulse ox 92% on 2 L Today's weight was 168.3 lb or 76.5 kilos which is up quite a bit from her 70-72 kilos she was at earlier this summer. CBC reflects a stable picture. INR now shows 1.69, yesterday 2.92, admission 6.98 Sodium is stable 133-135 Potassium is creeping back up at 5.3 Creatinine is still at 2.2 from her baseline of 1.0 LFTs continue to increase. Alk-phos is 429 up from 281 yesterday, ALT 134 up from 105, AST 132 up from 102. Total bilirubin is 1.2 trop was up minimally yesterday, not rechecked today CRP is 36.4 - not drawn yesterday Procalcitonin is down from 2.28 down to 1.91 1 V CXR this am in the room: Lungs and pleural space: Persistent but significantly improved pulmonary infiltrates, right lung greater than left. Small right basilar pleural effusion. No pneumothorax. CT chest without contrast completed 05/29 Multifocal pneumonia with ground-glass consolidation in the right upper, bilateral lower lobes and dense consolidation in the right middle lobe. Pulmonary emphysema. Trace right pleural effusion. Cardiomegaly with coronary artery calcifications. Patulous fluid-filled esophagus which could predispose to aspiration. No growth from blood cultures to date Optimal specimen obtained from sputum, less than 10 epithelial cells per low power field. Culture in progress. Objective: Vitals: see above Lungs: Clear. Cardiac: S1S2. Disposition/Potential discharge - Likely to return to previous living situation. Today I spent 50minutes seeing the patient, reviewing Expanse and EPIC notes/diagnostics, discussing the care plan with our care time that includes social work, PT/OT, pharmacy, RT, prison and documenting my impressions and plan in the medical record. Prolonged Physician Services [id number] ([facility]) in conjunction with: 22224 (subsequent visit; 50 mins + 15 mins prolonged services = 65 mins total) I then went back for 15 mins to discuss the findings of ..... Alcohol 10928 >30 mins. We went over all the stigmata of alcoholism I see in this patient. I discussed the effects of chronic alcohol on the brain, liver, and heart. I recommended complete abstinence from alcohol and instructed on programs available at discharge from acute care. Smoking/Tobacco 92649 >10 mins. I went over the clinical stigmata of chronic tobacco use on the body. I explained the effect on the vasculature, lungs, heart, skin. I recommended complete abstinence from tobacco products and instructed on programs available at discharge from acute care. ACP first 30 mins [id number] I went over options for care during this current hospitalization and explained the difference between palliative care and hospice care. I described the likelihood of returning to previous functioning and what the options are going forward for care. Exam Const: Vital Signs, click to edit/add: Vital Signs - 24 hr 05/30/23 11:00 05/30/23 15:00 05/30/23 15:00 Temperature Pulse Rate [Left B rachial] Pulse Rate [Pulse Oximeter] 85 85 Respiratory Rate 18 18 18 Blood Pressure [Le ft Arm] 101/60 Pulse Oximetry 92 91 Oxygen Delivery Me thod Nasal Cannula Nasal Cannula Oxygen Flow Rate 2.5 2.5 05/30/23 15:00 05/30/23 19:17 05/30/23 19:18 Temperature 98.2 F 98.2 F Pulse Rate [Left B rachial] Pulse Rate [Pulse Oximeter] 108 H 110 H Respiratory Rate 18 18 Blood Pressure [Le ft Arm] 103/78 99/70 Pulse Oximetry 91 90 90 Oxygen Delivery Me thod Nasal Cannula Nasal Cannula Oxygen Flow Rate 2.5 2.0 05/30/23 21:38 05/30/23 22:05 05/30/23 22:06 Temperature 98.2 F 98.3 F Pulse Rate [Left B rachial] 57 L Pulse Rate [Pulse Oximeter] 98 98 Respiratory Rate 18 18 Blood Pressure [Le ft Arm] 109/85 Pulse Oximetry 90 Oxygen Delivery Me thod Nasal Cannula Oxygen Flow Rate 2.0 05/30/23 22:07 05/31/23 01:23 Temperature 98.3 F Pulse Rate [Left B rachial] Pulse Rate [Pulse Oximeter] 112 H Respiratory Rate 18 20 Blood Pressure [Le ft Arm] 113/82 Pulse Oximetry 90 92 Oxygen Delivery Me thod Nasal Cannula Nasal Cannula Oxygen Flow Rate 2.0 2 Labs Labs: Laboratory Results - last 24 hr 05/31/23 05:34 WBC 7.16 RBC 3.79 L Hgb 11.2 L Hct 34.9 MCV 92 MCH 30 MCHC 32 Plt Count 210 INR 1.69 H Sodium 133 L Potassium 5.3 H Chloride 99 Carbon Dioxide 24 Anion Gap 10 BUN 94 H Creatinine 2.2 H Estimated Creat Clear 19.83 Estimated GFR 22 Glucose 102 Calcium 9.7
--- NOTE | 2023-05-31 08:09 | CRLHL7_ITS ---
For Patients: As a result of the Century Cures Act, medical imaging exams and procedure reports are released immediately into your electronic medical record. You may view this report before your referring provider. If you have questions, please contact your health care provider. Indication: Hypoxia. Technique: Chest 1 view. Comparison: 05/29/2023. Findings/Impression: Cardiovascular and mediastinum: Improved cardiomegaly. Unchanged pacemaker device. Lungs and pleural space: Persistent but significantly improved pulmonary infiltrates, right lung greater than left. Small right basilar pleural effusion. No pneumothorax. Bones and soft tissues: No acute findings. Dictated by Tristen Solis MD @ 05/31/2023 8:38:50 AM (Electronically Signed)
[2023-05-31 08:18] LABS: Albumin* 3.5 g/dL (3.3-5.0)
[2023-05-31 08:22] LABS: Alanine Aminotransferase* 134 U/L (4-35); Alkaline Phosphatase* 429 U/L (40-150); Aspartate Amino Transferase* 132 U/L (12-35); Bilirubin Direct* 0.7 mg/dL (0.0-0.5); Bilirubin Total* 1.2 mg/dL (0.1-1.5); Total Protein* 6.8 g/dL (6.0-8.3)
[2023-05-31] MEDS: predniSONE 10 MG TABLET 40 MG PO ×2 (08:31→17:49)
[2023-05-31] MEDS: FLUOXETINE HCL 20 MG CAPSULE 60 MG PO (08:32)
[2023-05-31] MEDS: guaiFENesin 600 MG TAB.ER.12H PO ×2 (08:32→20:43)
[2023-05-31] MEDS: ACETAMINOPHEN 500 MG TABLET 1000 MG PO ×2 (08:32→15:10)
[2023-05-31] MEDS: Fluticasone-Umeclidin-Vilanter [Trelegy Ellipta] 200-62.5-25 mcg 1 EACH IH (08:32)
[2023-05-31] MEDS: carvediloL 6.25 MG TABLET 3.125 MG PO ×2 (08:32→20:42)
[2023-05-31 08:39] LABS: Procalcitonin* 1.91 ng/mL (<0.50)
[2023-05-31 09:08] LABS: C Reactive Protein* 36.4 mg/dL (0.5-1.0)
[2023-05-31] MEDS: SODIUM CHLORIDE 0.9 % (FLUSH) 10 ML SYRINGE 5 ML IVF ×2 (11:28→20:45)
--- NOTE | 2023-05-31 13:19 | CRLHL7_ITS ---
For Patients: As a result of the Century Cures Act, medical imaging exams and procedure reports are released immediately into your electronic medical record. You may view this report before your referring provider. If you have questions, please contact your health care provider. INDICATION: Elevated liver function tests. TECHNIQUE: Ultrasound abdomen limited. Sonographic images of the right upper quadrant were obtained using lopez-scale and color Doppler images. COMPARISON: None. FINDINGS: Liver: Normal in caliber. Lobulated contour suggesting cirrhosis. No suspicious masses. No intrahepatic biliary dilatation. Portal vein is patent with blood flow toward the liver. Gallbladder: Cholecystectomy. Common bile duct: 12 mm. No ductal stone visualized. Pancreas: Not well visualized secondary to bowel gas. Right kidney: Normal in size. Normal echotexture and cortex. No suspicious masses, stones, or hydronephrosis. Vasculature: Proximal abdominal aorta and IVC are unremarkable. IMPRESSION: Cirrhotic morphology of the liver. Nonspecific distention of the common bile duct which may be secondary to reservoir effect postcholecystectomy. No other finding to explain abnormal liver function tests. Dictated by Tristen Solis MD @ 06/01/2023 7:17:47 AM (Electronically Signed)
[2023-05-31 13:56] LABS: Troponin I* 0.04 ng/mL (0.01-0.04)
[2023-05-31 13:56] LABS: NT Pro B Type NatriureticPept* 26400 pg/mL
[2023-05-31 14:23] LABS: NT Pro B Type NatriureticPept* 37300 pg/mL
[2023-05-31 14:35] LABS: C Reactive Protein* 40.8 mg/dL (0.5-1.0)
[2023-05-31] MEDS: 0.9 % SODIUM CHLORIDE 250 ml 250 ML IV (15:08)
[2023-05-31] MEDS: FUROSEMIDE 10 MG/ML inj 40 MG IVP (15:10)
[2023-05-31] MEDS: CEFEPIME HCL 1 GM in 0.9 % SODIUM CHLORIDE Mini-bag 100 ML IVPB (16:51)
[2023-05-31] MEDS: WARFARIN 2 MG TABLET 4 MG PO (16:52)
--- NOTE | 2023-05-31 19:04 | PC.NURSE ---
Pt alert and oriented. Pt assist of 1-SBA with walker and gait belt. Pt uses commode in room. Pt up to chair multiple times during shift. Pt had no complaints of pain. Pt?s IV infiltrated; new IV placed.?
[2023-05-31] MEDS: FAMOTIDINE 20 MG TABLET PO (20:42)
[2023-05-31] MEDS: ATORVASTATIN CALCIUM 40 MG TABLET PO (20:42)
[2023-05-31] MEDS: SENNOSIDES/DOCUSATE TABLET 1 TAB PO (20:42)
[2023-05-31] MEDS: CALCITONIN SALMON NASAL SPRAY 200 UNIT 1 SPRAY NOSTRIL-B (20:44)
[2023-06-01] VITALS (9 sets, daily range): BP systolic 118–134; BP diastolic 93–96; PULSE 103–122; RESP 16–26; TEMP 36.6–36.8; O2SAT 91–95
--- NOTE | 2023-06-01 06:03 | PC.NURSE ---
Pt much improved in comparison to last night. Pt states she feels stronger, breathing easier. RN notices big improvement. on 1L NC.
[2023-06-01 06:35] LABS: HCO3 VBG 24 mmol/L (21-28); Ionized Calcium* 1.14 mmol/L (1.11-1.30); PCO2 VBG 39 mmHG (40-50); PO2 VBG 45.8 mmHG (25-47); pH VBG 7.409 (7.32-7.43)
[2023-06-01 06:41] LABS: Hematocrit 33.6 % (33.0-51.0); Mean Corpuscular HGB Conc 33 gm/dL (32-36); Mean Corpuscular Hemoglobin 29 pg (26-34); Mean Corpuscular Volume 89 fL (80-100); Platelet Count* 220 K/uL (140-440); Red Blood Count 3.77 m/uL (4.00-5.20); White Blood Count* 4.51 K/uL (4.50-11.00)
[2023-06-01 06:55] LABS: Slide Review Reflex No
[2023-06-01 07:08] LABS: INR 2.07 (0.91-1.10); Prothrombin Time 24.4 Seconds
[2023-06-01 07:51] LABS: C Reactive Protein* 19.5 mg/dL (0.5-1.0)
[2023-06-01 07:52] LABS: Chloride* 101 mmol/L (96-114); Potassium* 4.9 mmol/L (3.6-5.1); Sodium* 135 mmol/L (135-149)
[2023-06-01 07:53] LABS: Alanine Aminotransferase* 133 U/L (4-35); Albumin* 3.2 g/dL (3.3-5.0); Alkaline Phosphatase* 439 U/L (40-150); Anion Gap 13 mEq/L (7-15); Aspartate Amino Transferase* 118 U/L (12-35); Bilirubin Total* 1.1 mg/dL (0.1-1.5); Blood Urea Nitrogen* 89 mg/dL (7-30); Calcium* 9.3 mg/dL (8.4-10.6); Carbon Dioxide* 21 mmol/L (20-32); Creatinine* 1.7 mg/dL (0.5-1.5); Est. Creatinine Clearance* 25.67; Estimated Glomerular Filt Rate 30 ml/min; Glucose* 164 mg/dL (60-115); Total Protein* 6.4 g/dL (6.0-8.3)
[2023-06-01 07:54] LABS: Magnesium* 2.2 mg/dL (1.5-2.6); Procalcitonin* 0.92 ng/mL (<0.50)
[2023-06-01 08:07] LABS: NT Pro B Type NatriureticPept* 42200 pg/mL
[2023-06-01] MEDS: LEVOTHYROXINE 88 MCG TABLET PO (08:19)
[2023-06-01] MEDS: predniSONE 10 MG TABLET 40 MG PO ×2 (08:20→17:36)
[2023-06-01 08:40] LABS: Gamma Glutamyl Transpeptidase* 230 U/L (8-55)
--- NOTE | 2023-06-01 09:36 | P.IMPN_ITS ---
Progress Note: A&P Assessment and plan (1) Hospital-acquired bacterial pneumonia: Problem details: - continue IV Vancomycin and Cefepime for suspected HAP - abx started afternoon of 05/29 - 7 days recommended of IV or Oral (consider 750mg of Levaquin [id number] after 4 days of IV abx if she continues to improve) - Mucinex b.i.d., saline nebs, Tessalon Perles p.r.n. - prednisone 40 BID Status: Acute (2) Acute and chronic respiratory failure with hypoxia: Problem details: - multifactorial: pneumonia, emphysema, ischemic heart disease. CT chest reviewed - f/u CXR 05/31/23 was reassuring and showed improvement - oxygen demand improving, currently 2.5 L, usual home uses 1.5 L - starting oral prednisone - procal downtrending - continue supplemental oxygen to maintain saturations 88-92%, continued to wean as able Status: Acute (3) Acute kidney injury: Problem details: - history of CKD stage IV - creatinine now 1.7, outpatient baseline 1.2-1.3 - hold nephrotoxins, renally dosed IV antibiotics - 40mg of lasix IVP x 1 after 250cc of NS bolus, weight has been increasing - continue to monitor with BMP Status: Acute (4) Closed compression fracture of L3 vertebra: Problem details: - diagnosed 05/22 after a fall at home, hospitalized for pain management and sent home on calcitonin nasal spray, APAP, Naproxen, prn Dilaudid - continue scheduled Tylenol, calcitonin nasal spray, p.r.n. Dilaudid. Noted allergy to lidocaine. Avoid NSAIDs given BRAYAN on CKD - PT Status: Acute (5) Paroxysmal atrial fibrillation: Problem details: - rate controlled on Coreg (I lowered dose due to relative hypotension), anticoagulated on Coumadin, pharmacy to manage Status: Acute (6) Chronic anticoagulation: Problem details: Will check INR in the morning. Continue warfarin. Status: Acute (7) Hyperkalemia: Problem details: - resolved - hold spironolactone - telemetry, patient not tolerating Status: Acute (8) COPD (chronic obstructive pulmonary disease): Problem details: - as above - continue home Trelegy, scheduled DuoNebs, p.r.n. albuterol nebs Status: Acute (9) CHF (congestive heart failure): Problem details: - torsemide has been held in setting of BRAYAN. Receiving 2nd single dose of Lasix. Monitor for fluid overload Status: Acute (10) Elevated LFTs: Problem details: cirrhosis? no clear etiology; unclear if part of the overall infection burden; will need GI f/u. Status: Acute (11) Hypertension: Problem details: - hypotensive on admission, this has improved, will need to continue to monitor. Currently only receiving carvedilol (decreased 05/31 to 3.125 BID) - outpatient follow-up if sustained versus in setting of acute illness for further medication management Status: Acute Subjective Date Seen: 06/01/23 Interval history: Daily Progress Note - Hospital Medicine Day #: 4 CC: ACUTE HYPOXIC RESPIRATORY FAILURE HOSPITAL-ACQUIRED PNEUMONIA, BRAYAN, HISTORY OF L3 COMPRESSION FRACTURE OVERNIGHT UPDATES FROM STAFF & MED, LAB, IMAGING UPDATES 134/95 122 for pulse Respiratory 18 Afebrile 92% on room air 73.9 kilos, down from 74.5 CBC stable INR 2.07 PH stable. No CO2 retention. 7.4 Electrolytes are much improved, creatinine is now 1.7, baseline 1.2-1.3 Potassium is normal LFTs are still elevated however they are about the same CRP is nicely down trending from an admission 40.8 down to 19.5, as is the procalcitonin BNP is quite elevated and up trending Strep pneumo and Legionella are still pending MRSA negative Normal raoul on sputum culture Blood cultures are still negative Liver ultrasound Cirrhotic morphology of the liver. Nonspecific distention of the common bile duct which may be secondary to reservoir effect postcholecystectomy. No other finding to explain abnormal liver function tests. Objective: much improved. she is talkative and clear minded today, so much better than yesterday. Vitals: see above Lungs: Ccrackles bilaterally Cardiac: S1S2. Disposition/Potential discharge - Likely to return to previous living situation. Today I spent 50minutes seeing the patient, reviewing Expanse and EPIC notes/diagnostics, discussing the care plan with our care time that includes social work, PT/OT, pharmacy, RT, senior living and documenting my impressions and plan in the medical record. Exam Const: Vital Signs, click to edit/add: Vital Signs - 24 hr 05/31/23 11:30 05/31/23 15:00 05/31/23 15:00 Temperature 97.8 F 98.0 F Pulse Rate [Pulse Oximeter] 109 H 109 H Respiratory Rate 20 20 18 Blood Pressure [Le ft Arm] 112/82 128/84 Pulse Oximetry 92 92 91 Oxygen Delivery Me thod Room Air Room Air Nasal Cannula Oxygen Flow Rate 1.5 1.5 1.5 05/31/23 15:00 05/31/23 19:01 05/31/23 19:02 Temperature 98 F Pulse Rate [Pulse Oximeter] 109 H 106 H Respiratory Rate 18 Blood Pressure [Le ft Arm] 138/102 H Pulse Oximetry 92 92 Oxygen Delivery Me thod Nasal Cannula Oxygen Flow Rate 1.5 05/31/23 20:57 05/31/23 22:49 05/31/23 22:51 Temperature 98 F 98 F Pulse Rate [Pulse Oximeter] 112 H 112 H Respiratory Rate 18 18 Blood Pressure [Le ft Arm] 128/84 Pulse Oximetry 92 Oxygen Delivery Me thod Nasal Cannula Oxygen Flow Rate 1.5 05/31/23 22:52 06/01/23 02:45 06/01/23 08:26 Temperature 98.2 F 98.2 F Pulse Rate [Pulse Oximeter] 103 H 122 H Respiratory Rate 18 18 18 Blood Pressure [Le ft Arm] 118/93 H 134/95 H Pulse Oximetry 92 93 92 Oxygen Delivery Me thod Nasal Cannula Nasal Cannula Room Air Oxygen Flow Rate 1.5 1.5 Labs Labs: Laboratory Results - last 24 hr 05/30/23 05/31/23 05/31/23 05:54 05:34 13:20 WBC RBC Hgb Hct MCV MCH MCHC Plt Count INR VBG pH VBG pCO2 VBG pO2 VBG HCO3 Sodium Potassium Chloride Carbon Dioxide Anion Gap BUN Creatinine Estimated Creat Clear Estimated GFR Glucose Calcium Ionized Calcium Lela Magnesium Total Bilirubin GGT AST ALT Alkaline Phosphatase Troponin I 0.04 C-Reactive Protein 40.8 H NT-Pro-B Natriuret Pep 63272 [id number] Total Protein Albumin Procalcitonin Lab Acknowledgement Test Added 05/31/23 06/01/23 13:37 05:38 WBC 4.51 RBC 3.77 L Hgb 11.0 L Hct 33.6 MCV 89 MCH 29 MCHC 33 Plt Count 220 INR 2.07 H VBG pH 7.409 VBG pCO2 39 L VBG pO2 45.8 VBG HCO3 24 Sodium 135 Potassium 4.9 Chloride 101 Carbon Dioxide 21 Anion Gap 13 BUN 89 H Creatinine 1.7 H Estimated Creat Clear 25.67 Estimated GFR 30 Glucose 164 H Calcium 9.3 Ionized Calcium Lela 1.14 Magnesium 2.2 Total Bilirubin 1.1 GGT 230 H AST 118 H ALT 133 H Alkaline Phosphatase 439 H Troponin I C-Reactive Protein 19.5 H NT-Pro-B Natriuret Pep 45342 Total Protein 6.4 Albumin 3.2 L Procalcitonin 0.92 H Lab Acknowledgement Test Added
[2023-06-01] MEDS: ACETAMINOPHEN 500 MG TABLET 1000 MG PO (10:04)
[2023-06-01] MEDS: guaiFENesin 600 MG TAB.ER.12H PO ×2 (10:05→20:33)
[2023-06-01] MEDS: FLUOXETINE HCL 20 MG CAPSULE 60 MG PO (10:05)
[2023-06-01] MEDS: carvediloL 6.25 MG TABLET 3.125 MG PO ×2 (10:05→20:35)
[2023-06-01] MEDS: Fluticasone-Umeclidin-Vilanter [Trelegy Ellipta] 200-62.5-25 mcg 1 EACH IH (10:07)
[2023-06-01] MEDS: SODIUM CHLORIDE 0.9 % (FLUSH) 10 ML SYRINGE 5 ML IVF ×2 (10:09→20:38)
[2023-06-01] MEDS: IPRAT-ALBUT 0.5-2.5 MG/3 ML NEB 1 NEB IH ×2 (12:34→18:38)
[2023-06-01] MEDS: CEFEPIME HCL 2 GM in 0.9 % SODIUM CHLORIDE Mini-bag 100 ML IVPB (12:38)
[2023-06-01] MEDS: HYDROmorphone 2 MG TABLET PO ×2 (12:52→19:03)
[2023-06-01 14:42] LABS: Strep pneumoniae Ag, Urine Negative (Negative)
[2023-06-01] MEDS: WARFARIN 2 MG TABLET 4 MG PO (17:12)
--- NOTE | 2023-06-01 18:03 | PC.NURSE ---
End of Shift: Patient pleasant and cooperative. Patient vitally stable, lungs clear, BS WNL, IV SL and intact. Patient 1 assist, walker, gb. Patient rates pain at most 3/10, scheduled tylenol and dilauded given, patient declined one dose of tylenol. Patient walked the halls today. Patient tolerating regular diet and urinating. Patient on RA, but when ambulating patient's oxygen sats do decline to the 80's, even when ambulating on 2 L. Patient has productive cough with sputum.
--- NOTE | 2023-06-01 18:43 | PC.NURSE ---
Patient refused to take all four tablets of prednisone because not all of the tablets looked the same, patient would only take two tablets.
[2023-06-01] MEDS: ATORVASTATIN CALCIUM 40 MG TABLET PO (20:33)
[2023-06-01] MEDS: MELATONIN 3 MG TABLET PO (20:34)
[2023-06-01] MEDS: FAMOTIDINE 20 MG TABLET PO (20:34)
[2023-06-01] MEDS: SENNOSIDES/DOCUSATE TABLET 1 TAB PO (20:35)
[2023-06-01] MEDS: CALCITONIN SALMON NASAL SPRAY 200 UNIT 1 SPRAY NOSTRIL-B (20:37)
[2023-06-02] VITALS (9 sets, daily range): BP systolic 112–135; BP diastolic 90–114; PULSE 108–131; RESP 16–28; TEMP 36.4–36.9; O2SAT 93–97
[2023-06-02 06:05] LABS: Hematocrit 32.3 % (33.0-51.0); Hemoglobin* 10.6 gm/dL (12.0-16.0); Mean Corpuscular HGB Conc 33 gm/dL (32-36); Mean Corpuscular Hemoglobin 30 pg (26-34); Mean Corpuscular Volume 90 fL (80-100); Platelet Count* 210 K/uL (140-440); Red Blood Count 3.58 m/uL (4.00-5.20); White Blood Count* 6.83 K/uL (4.50-11.00)
[2023-06-02 06:16] LABS: Slide Review Reflex No
[2023-06-02 06:20] LABS: HCO3 VBG 24 mmol/L (21-28); PCO2 VBG 41 mmHG (40-50); PO2 VBG 41.6 mmHG (25-47); pH VBG 7.375 (7.32-7.43)
[2023-06-02 06:30] LABS: INR 3.36 (0.91-1.10); Prothrombin Time 35.6 Seconds
[2023-06-02] MEDS: LEVOTHYROXINE 88 MCG TABLET PO (07:34)
[2023-06-02] MEDS: HYDROmorphone 2 MG TABLET PO ×3 (07:34→18:44)
[2023-06-02] MEDS: IPRAT-ALBUT 0.5-2.5 MG/3 ML NEB 1 NEB IH ×3 (07:35→18:42)
[2023-06-02 07:49] LABS: Albumin* 3.1 g/dL (3.3-5.0); Chloride* 106 mmol/L (96-114); Potassium* 4.7 mmol/L (3.6-5.1); Sodium* 137 mmol/L (135-149)
[2023-06-02 07:50] LABS: Chloride* 104 mmol/L (96-114); Potassium* 4.6 mmol/L (3.6-5.1); Sodium* 135 mmol/L (135-149)
[2023-06-02 07:51] LABS: Creatinine* 1.6 mg/dL (0.5-1.5); Est. Creatinine Clearance* 27.27; Estimated Glomerular Filt Rate 32 ml/min
[2023-06-02 07:52] LABS: Anion Gap 10 mEq/L (7-15); Blood Urea Nitrogen* 87 mg/dL (7-30); Calcium* 9.5 mg/dL (8.4-10.6); Carbon Dioxide* 21 mmol/L (20-32); Glucose* 164 mg/dL (60-115); Phosphorus* 4.4 mg/dL (2.5-4.5)
[2023-06-02 07:53] LABS: Anion Gap 9 mEq/L (7-15); Blood Urea Nitrogen* 87 mg/dL (7-30); Carbon Dioxide* 22 mmol/L (20-32); Creatinine* 1.6 mg/dL (0.5-1.5); Est. Creatinine Clearance* 27.27; Estimated Glomerular Filt Rate 32 ml/min; Glucose* 162 mg/dL (60-115)
[2023-06-02 07:54] LABS: Calcium* 9.3 mg/dL (8.4-10.6)
[2023-06-02] MEDS: dilTIAZem 30 MG TABLET PO ×3 (09:18→21:03)
[2023-06-02] MEDS: ACETAMINOPHEN 500 MG TABLET 1000 MG PO ×3 (09:19→21:04)
[2023-06-02] MEDS: carvediloL 6.25 MG TABLET 3.125 MG PO (09:21)
[2023-06-02] MEDS: FLUOXETINE HCL 20 MG CAPSULE 60 MG PO (09:22)
[2023-06-02] MEDS: predniSONE 10 MG TABLET 40 MG PO (09:22)
[2023-06-02] MEDS: guaiFENesin 600 MG TAB.ER.12H PO ×2 (09:24→21:05)
[2023-06-02] MEDS: Fluticasone-Umeclidin-Vilanter [Trelegy Ellipta] 200-62.5-25 mcg 1 EACH IH (09:25)
[2023-06-02] MEDS: SODIUM CHLORIDE 0.9 % (FLUSH) 10 ML SYRINGE 5 ML IVF ×3 (09:26→21:10)
--- NOTE | 2023-06-02 10:20 | NUTR.NU ---
RDN with nutrition screen for 2 gram sodium diet and CHF and HTN diagnosis. Patient declined verbal education for designated caregiver and will pass along the handout provided. Patient reports a fair appetite. Per clinical documentation nurse, patient has been eating 75-100% of most meals since admission. Occasionally 0-25%. Patient reports doing the cooking and grocery shopping at home. Patient notes being familiar with the heart healthy diet. Current weight 166lbs 06/02/23, 155lbs 04/24/23, 160lbs 04/02/23, 155lbs 01/02/23, and 158lbs 06/02/22 shows no significant weight change per weight records. Nutrition education provided on a low sodium diet related to congestive heart failure and HTN.?Verbal and written information provided. Recommend limiting sodium to 2,000 mg per day.? Discussed foods recommended and to avoid.? Handouts provided from [facility] on heart failure nutrition therapy, sodium content of foods, heart healthy label reading tips, sodium-free flavoring tips and heart healthy cooking and shopping tips.? Patient verbalized understanding.?? RDN's contact information was provided and patient was encouraged to call with questions.?RDN will follow PRN.
[2023-06-02] MEDS: dilTIAZem 5 MG/ML inj 10 MG IVP (10:32)
--- NOTE | 2023-06-02 11:39 | P.IMPN_ITS ---
Progress Note: A&P Assessment and plan (1) Hospital-acquired bacterial pneumonia: Problem details: - IV Vancomycin and Cefepime (05/29) for suspected HAP, negative strep pneumo and Legionella antigen - Mucinex b.i.d., saline nebs, Tessalon Perles p.r.n. - Prednisone 40 BID (05/31-06/02) Status: Acute (2) Acute and chronic respiratory failure with hypoxia: Problem details: - multifactorial: pneumonia, emphysema, ischemic heart disease, afib with RVR. CT chest reviewed - f/u CXR 05/31/23 was reassuring/improved - oxygen demand improving, usual home dose is 1.5 L - procal downtrending - continue supplemental oxygen to maintain saturations 88-92%, wean as able Status: Acute (3) Acute kidney injury: Problem details: - history of CKD stage IV - creatinine now 1.6, outpatient baseline 1.2-1.3 - hold nephrotoxins, renally dosed IV antibiotics - continue to monitor with BMP - diuresis as tolerated given weight gain and known heart disease Status: Acute (4) Closed compression fracture of L3 vertebra: Problem details: - diagnosed 05/22 after a fall at home, hospitalized for pain management and sent home on calcitonin nasal spray, APAP, Naproxen, prn Dilaudid - continue scheduled Tylenol, calcitonin nasal spray, p.r.n. Dilaudid. Noted allergy to lidocaine. Avoid NSAIDs given BRAYAN on CKD - PT Status: Acute (5) Paroxysmal atrial fibrillation: Problem details: - HR above >110, EKG obtained 06/02 am exhibits a fib with RVR. Patient asymptomatic - increase Carvedilol back to 6.25mg BID, add in scheduled Diltiazem - reviewed with Dr. Reina of Cardiology, he recommends 24 hours of medication management per above - telemetry restarted 06/02 Status: Acute (6) Chronic anticoagulation: Problem details: - Coumadin for a fib, pharmacy managing Status: Acute (7) Hyperkalemia: Problem details: - resolved - holding spironolactone Status: Acute (8) COPD (chronic obstructive pulmonary disease): Problem details: - continue home Trelegy, scheduled DuoNebs, p.r.n. albuterol nebs - no symptoms of acute exacerbation Status: Acute (9) CHF (congestive heart failure): Problem details: - torsemide has been held in setting of BRAYAN, has received 2 IV doses of Lasix - still clinically appears fluid overloaded with + fluid balance, continue cautious diuresis and follow renal function/lytes Status: Acute (10) Elevated LFTs: Problem details: - new diagnosis of cirrhosis per abdominal ultrasound 05/31 - no clear etiology; unclear if part of the overall infection burden; will need GI f/u as an outpatient Status: Acute (11) Hypertension: Problem details: - hypotensive on admission, this has improved (Coreg decreased 05/31 to 3.125 BID) - Given a fib with RVR, Coreg increased back to 6.25mg BID on 06/02, diltiazem added Status: Acute Plan - per above - patient agreeable with plan of care Subjective Date Seen: 06/02/23 Interval history: Nery was admitted to the hospital on 05/29 for acute on chronic hypoxic res piratory failure. She was found to have bilateral PNA and BRAYAN with hyperkalemia. She is improving both subjectively and objectively, requiring less supplemental oxygen. Creatinine now 1.6 (2.0 on admission, outpatient baseline 1.2-1.3), potassium wnl. Negative Strep pneumonia and Legionella antigens. Sputum cultures and blood cultures remain negative. New findings: Cirrhosis of liver on ultrasound (done for elevated LFTs), no known history of this. HR consistently >110, EKG this morning exhibits a fib with RVR (known history of atrial fibrillation, rate controlled on admission). Nery is asymptomatic from her afib. She has no concerns for the hospitalist team this morning. Exam Narrative: Exam Narrative: GEN: Alert and oriented, sitting comfortably in bedside chair and answering questions appropriately HEENT: EOMIs bilaterally, no scleral icterus CV: Irregular, tachycardic. R: Decreased bilateral breath sounds, no wheezing Neuro: Nonfocal Psych: Appropriate Const: Vital Signs, click to edit/add: Vital Signs - 24 hr 06/01/23 15:00 06/01/23 15:00 06/01/23 15:41 Temperature 98 F Pulse Rate [Pulse Oximeter] 120 H 120 H Respiratory Rate 22 22 22 Blood Pressure [Le ft Arm] 129/95 H Blood Pressure [Ri ght Arm] Pulse Oximetry 91 91 Oxygen Delivery Me thod Room Air Room Air Oxygen Flow Rate 06/01/23 19:09 06/01/23 19:10 06/01/23 23:16 Temperature 98.2 F 98.3 F Pulse Rate [Pulse Oximeter] 120 H 112 H Respiratory Rate 16 18 Blood Pressure [Le ft Arm] Blood Pressure [Ri ght Arm] 128/94 H 122/96 H Pulse Oximetry 92 92 95 Oxygen Delivery Me thod Room Air Nasal Cannula Oxygen Flow Rate 1.5 06/01/23 23:18 06/01/23 23:18 06/02/23 02:47 Temperature 98.3 F Pulse Rate [Pulse Oximeter] 112 H 120 H Respiratory Rate 18 18 18 Blood Pressure [Le ft Arm] Blood Pressure [Ri ght Arm] 133/99 H Pulse Oximetry 95 95 Oxygen Delivery Me thod Nasal Cannula Nasal Cannula Oxygen Flow Rate 1.5 1.5 06/02/23 07:00 06/02/23 07:00 06/02/23 07:00 Temperature 98.5 F Pulse Rate [Pulse Oximeter] 126 H 126 H Respiratory Rate 24 28 H 28 H Blood Pressure [Le ft Arm] 113/90 H Blood Pressure [Ri ght Arm] Pulse Oximetry 96 96 Oxygen Delivery Me thod Room Air Room Air Oxygen Flow Rate 06/02/23 11:00 Temperature 97.5 F L Pulse Rate [Pulse Oximeter] 108 H Respiratory Rate 20 Blood Pressure [Le ft Arm] Blood Pressure [Ri ght Arm] 116/101 H Pulse Oximetry 93 Oxygen Delivery Me thod Room Air Oxygen Flow Rate Labs Labs: Laboratory Results - last 24 hr 05/29/23 05/30/23 06/02/23 06:30 Unknown 05:38 WBC 6.83 RBC 3.58 L Hgb 10.6 L Hct 32.3 L MCV 90 MCH 30 MCHC 33 Plt Count 210 INR 3.36 H VBG pH 7.375 VBG pCO2 41 VBG pO2 41.6 VBG HCO3 24 Sodium 135 Potassium Chloride Carbon Dioxide Anion Gap BUN Creatinine Estimated Creat Clear Estimated GFR Glucose Calcium Phosphorus NT-Pro-B Natriuret Pep Albumin Ur L.pneumophila Ag Negative Ur Strep pneumoniae Ag Negative 06/02/23 06/02/23 06/02/23 05:38 05:38 05:38 WBC RBC Hgb Hct MCV MCH MCHC Plt Count INR VBG pH VBG pCO2 VBG pO2 VBG HCO3 Sodium 137 Potassium 4.6 4.7 Chloride 104 106 Carbon Dioxide 22 Anion Gap BUN Creatinine Estimated Creat Clear Estimated GFR Glucose Calcium Phosphorus NT-Pro-B Natriuret Pep Albumin Ur L.pneumophila Ag Ur Strep pneumoniae Ag 06/02/23 06/02/23 06/02/23 05:38 05:38 05:38 WBC RBC Hgb Hct MCV MCH MCHC Plt Count INR VBG pH VBG pCO2 VBG pO2 VBG HCO3 Sodium Potassium Chloride Carbon Dioxide 21 Anion Gap 9 10 BUN 87 H 87 H Creatinine 1.6 H Estimated Creat Clear Estimated GFR Glucose Calcium Phosphorus NT-Pro-B Natriuret Pep Albumin Ur L.pneumophila Ag Ur Strep pneumoniae Ag 06/02/23 06/02/23 06/02/23 05:38 05:38 05:38 WBC RBC Hgb Hct MCV MCH MCHC Plt Count INR VBG pH VBG pCO2 VBG pO2 VBG HCO3 Sodium Potassium Chloride Carbon Dioxide Anion Gap BUN Creatinine 1.6 H Estimated Creat Clear 27.27 27.27 Estimated GFR 32 32 Glucose 162 H Calcium Phosphorus NT-Pro-B Natriuret Pep Albumin Ur L.pneumophila Ag Ur Strep pneumoniae Ag 06/02/23 06/02/23 05:38 05:38 WBC RBC Hgb Hct MCV MCH MCHC Plt Count INR VBG pH VBG pCO2 VBG pO2 VBG HCO3 Sodium Potassium Chloride Carbon Dioxide Anion Gap BUN Creatinine Estimated Creat Clear Estimated GFR Glucose 164 H Calcium 9.3 9.5 Phosphorus 4.4 NT-Pro-B Natriuret Pep Albumin 3.1 L Ur L.pneumophila Ag Ur Strep pneumoniae Ag
[2023-06-02] MEDS: CEFEPIME HCL 2 GM in 0.9 % SODIUM CHLORIDE Mini-bag 100 ML IVPB (13:10)
[2023-06-02] MEDS: FUROSEMIDE 40 MG TABLET PO (13:12)
--- NOTE | 2023-06-02 13:34 | PC.SOCIAL ---
Addendum entered by CLARICE Lantigua 06/03/23 15:28: Provided update to [facility] that pt was transferred to [place] for a higher level of care. Original Note: Received a phone call from Marlyn at [facility] at [phone]. Marlyn informs that resident currently has Home care for PT. Informed Marlyn that it was recommended that pt have OT and Bath assistance. Marlyn informs that [facility] can accommodate this request. Marlyn asks for a face to face to be completed along with discharge orders being sent when pt is ready for discharge. Informed that pt is not ready for discharge yet, but this worker will keep [facility] informed. [facility]'s fax number to send documents is [phone]. Social work will follow up as needed.
[2023-06-02] MEDS: 0.9 % SODIUM CHLORIDE 250 ml IV (17:14)
[2023-06-02] MEDS: WARFARIN 2 MG TABLET PO (17:15)
--- NOTE | 2023-06-02 18:01 | PC.NURSE ---
Patient denies pain and SOB. Occasional productive cough with clear sputum. O2 sat 93% this morning on room air. Patient's sats decreased during therapy and O2 at 1.5 LPM was applied. O2 sats 96% on 1.5LPM. Heart rate has been elevated this shift. New medication orders given and Echo was performed. Patient confused at times this morning thinking that she was in the ER at one time and thinking that she was in [place] another time. No episodes of confusion this afternoon. Tolerating regular diet. Ambulates with walker, gait belt and one assist. IV in right wrist removed as was infiltrated. NAKUL Hunter inserted new IV in right forearm.
[2023-06-02] MEDS: ATORVASTATIN CALCIUM 40 MG TABLET PO (21:05)
[2023-06-02] MEDS: carvediloL 6.25 MG TABLET PO (21:06)
[2023-06-02] MEDS: FAMOTIDINE 20 MG TABLET PO (21:06)
[2023-06-02] MEDS: CALCITONIN SALMON NASAL SPRAY 200 UNIT 1 SPRAY NOSTRIL-B (21:07)
[2023-06-03] MEDS: dilTIAZem 30 MG TABLET PO ×2 (01:30→09:01)
[2023-06-03] MEDS: HYDROmorphone 2 MG TABLET PO (01:30)
[2023-06-03 03:33] VITALS: BP 128/105; PULSE 122; RESP 20; TEMP 36.7; O2SAT 92
--- NOTE | 2023-06-03 05:04 | PC.NURSE ---
End of Shift: VS on 1.5 L of NC. Pt wears it at home overnight. Did not wear O2 yesterday during the day. No reports of pain- scheduled Dilaudid given. On telemetry HR consistently between 115-130 despite q6 Diltiazem. BP's have been slightly elevated- see VS, but not symptomatic. Intermittent dry non productive cough. Up to BR or Commode W/ 4 wheel walker and gate belt per pt preference. Urge incontinence 2x this shift- pad is placed within her brief. BUE ecchymosis. She has not slept at all tonight, she reported feeling anxious at 0100 and could not sleep, refused melatonin 2x as well as something for her anxiety. I encouraged her to do deep breathing to help calm her nerves. Sitting at the edge of the bed doing a word find, with her call light in reach.
[2023-06-03] MEDS: IPRAT-ALBUT 0.5-2.5 MG/3 ML NEB 1 NEB IH (06:34)
[2023-06-03] MEDS: LEVOTHYROXINE 88 MCG TABLET PO (06:34)
[2023-06-03 06:44] LABS: Basophils Percent Auto 0.2 % (0.0-3.0); Hematocrit 37.1 % (33.0-51.0); Immature Granulocytes Pct Auto 6.6 %; Lymphocytes Percent Auto 11.1 % (20-44); Mean Corpuscular HGB Conc 32 gm/dL (32-36); Mean Corpuscular Hemoglobin 29 pg (26-34); Mean Corpuscular Volume 90 fL (80-100); Monocytes Percent Auto 9.1 % (0.0-11.0); Platelet Count* 297 K/uL (140-440); RDW Coefficient of Variation % 14.7 % (11.5-15.5); Red Blood Count 4.14 m/uL (4.00-5.20); White Blood Count* 11.76 K/uL (4.50-11.00)
[2023-06-03 06:45] LABS: Slide Review Reflex Yes
[2023-06-03 07:00] VITALS: BP 115/85; PULSE 120; PULSE 130; RESP 18; TEMP 36.4; O2SAT 93
[2023-06-03 07:06] LABS: INR 3.21 (0.91-1.10); Prothrombin Time 34.3 Seconds
[2023-06-03 07:15] LABS: Chloride* 101 mmol/L (96-114)
[2023-06-03 07:16] LABS: Albumin* 3.5 g/dL (3.3-5.0); Sodium* 135 mmol/L (135-149)
[2023-06-03 07:18] LABS: Creatinine* 1.6 mg/dL (0.5-1.5); Est. Creatinine Clearance* 27.27; Estimated Glomerular Filt Rate 32 ml/min
[2023-06-03 07:19] LABS: Alanine Aminotransferase* 121 U/L (4-35); Alkaline Phosphatase* 395 U/L (40-150); Anion Gap 11 mEq/L (7-15); Aspartate Amino Transferase* 78 U/L (12-35); Bilirubin Total* 0.7 mg/dL (0.1-1.5); Blood Urea Nitrogen* 81 mg/dL (7-30); Calcium* 9.6 mg/dL (8.4-10.6); Carbon Dioxide* 23 mmol/L (20-32); Gamma Glutamyl Transpeptidase* 322 U/L (8-55); Glucose* 124 mg/dL (60-115); Magnesium* 2.2 mg/dL (1.5-2.6); Total Protein* 6.7 g/dL (6.0-8.3)
[2023-06-03] MEDS: dilTIAZem 5 MG/ML inj 10 MG IVP (07:20)
[2023-06-03] MEDS: SODIUM CHLORIDE 0.9 % (FLUSH) 10 ML SYRINGE 5 ML IVF (07:24)
[2023-06-03 07:34] LABS: Slide Review Acceptable Review (Acceptable)
[2023-06-03 07:40] VITALS: PULSE 129
[2023-06-03 07:47] LABS: NT Pro B Type NatriureticPept* 41600 pg/mL
[2023-06-03] MEDS: ACETAMINOPHEN 500 MG TABLET 1000 MG PO (09:02)
[2023-06-03] MEDS: carvediloL 6.25 MG TABLET PO (09:03)
[2023-06-03] MEDS: FLUOXETINE HCL 20 MG CAPSULE 60 MG PO (09:03)
[2023-06-03] MEDS: Fluticasone-Umeclidin-Vilanter [Trelegy Ellipta] 200-62.5-25 mcg 1 EACH IH (09:04)
[2023-06-03] MEDS: guaiFENesin 600 MG TAB.ER.12H PO (09:05)
[2023-06-03 10:59] VITALS: BP 98/67; PULSE 124; TEMP 36.6; O2SAT 93
--- NOTE | 2023-06-03 11:33 | P.DS_ITS ---
Transfer Discharge Sum: Prov Provider Date Seen: 06/03/23 Date of admission: 05/29/23 18:37 Primary care physician: Karma Jang MD Attending physician on admission: Ninfa Vanegas Consults: RT, OT, PT Attending physician on discharge: Ninfa Vanegas Anticipated date of transfer: 06/03/23 Receiving physician/facility: [facility] DS: Diagnosis Discharge Diagnosis (1) Acute and chronic respiratory failure with hypoxia: Status: Acute Problem details: - multifactorial: pneumonia, emphysema, ischemic heart disease, afib with RVR. Multifocal PNA on 05/[address], f/u CXR 05/31/23 was reassuring/improved - oxygen demand improving, usual home dose is 1.5 L - procalcitonin and lactate downtrending - continue supplemental oxygen to maintain saturations 88-92%, wean as able (2) Hospital-acquired bacterial pneumonia: Status: Acute Problem details: - IV Vancomycin and Cefepime (05/29) for suspected HAP (pt hospitalized the week prior for L3 compression fx), negative strep pneumo and Legionella antigen - Mucinex b.i.d., saline nebs, Tessalon Perles prn, RT following - Prednisone 40 BID from 05/31-06/02 (3) Acute kidney injury: Status: Acute Problem details: - history of CKD - creatinine now 1.6, outpatient baseline 1.2-1.3 - diuresis as tolerated given weight gain and known heart disease (4) Closed compression fracture of L3 vertebra: Status: Acute Problem details: - diagnosed 05/22 after a fall at home, hospitalized for pain management and sent home on calcitonin nasal spray, APAP, Naproxen, prn Dilaudid - continue scheduled Tylenol, calcitonin nasal spray, prn Dilaudid. Noted allergy to lidocaine. Avoid NSAIDs given BRAYAN on CKD - PT (5) Paroxysmal atrial fibrillation: Status: Acute Problem details: - HR above >110, EKG obtained 06/02 am exhibits a fib with RVR. Patient asymptomatic - increase Carvedilol back to 6.25mg BID on 06/02, added in scheduled Diltiazem on 06/02 - reviewed with Dr. Reina of Cardiology on 06/02, he recommends 24 hours of medication management per above - persistent a fib with RVR on 06/03 with decreased EF (20%), severely decreased RV function - reviewed with Dr. Almeida of Cardiology, recommend transfer given patient's goals of care (6) Chronic anticoagulation: Status: Acute Problem details: - Coumadin for a fib, pharmacy managing - noted to have supratherapeutic INR on admission (6.98), received 1 dose of oral vitamin K (7) Hyperkalemia: Status: Acute Problem details: - resolved - holding spironolactone (8) COPD (chronic obstructive pulmonary disease): Status: Acute Problem details: - continue home Trelegy, scheduled DuoNebs, p.r.n. albuterol nebs - no symptoms of acute exacerbation (9) CHF (congestive heart failure): Status: Acute Problem details: - home Torsemide dosing held on admission given BRAYAN, received lower dose of Lasix during stay - still clinically appears fluid overloaded with + fluid balance, continue cautious diuresis and follow renal function/lytes (10) Elevated LFTs: Status: Acute Problem details: - new diagnosis of cirrhosis per abdominal ultrasound 05/31 - no clear etiology; unclear if part of the overall infection burden; will need GI f/u as an outpatient - unable to calculate a meaningful MELD score given anticoagulation with Coumadin (11) Hypertension: Status: Acute Problem details: - hypotensive on admission, this has improved (Coreg decreased 05/31 to 3.125 BID) - Given a fib with RVR, Coreg increased back to 6.25mg BID on 06/02, diltiazem added Transfer Discharge Sum: Med Medications Active and Home Medications: Home Medications albuterol sulfate 90 mcg/actuation aerosol inhaler 2 puff inhalation Q4H PRN 06/02/22 [History Confirmed 05/29/23] atorvastatin 40 mg tablet 40 mg PO HS 06/02/22 [History Confirmed 05/29/23] cholecalciferol (vitamin D3) 50 mcg (2,000 unit) capsule (Vitamin D3) 50 mcg PO DAILY 06/02/22 [History Confirmed 05/29/23] fluticasone fur. 200 mcg-umeclid 62.5 mcg-vilant 25 mcg inhalat.powder (Trelegy Ellipta) 1 inh inhalation DAILY 06/02/22 [History Confirmed 05/29/23] levothyroxine 88 mcg tablet 88 mcg PO DAILY 06/02/22 [History Confirmed 05/29/23] warfarin 2 mg tablet 3 - 6 mg PO DAILY 06/02/22 [History Confirmed 05/29/23] multivitamin (Multiple Vitamins tablet) 1 tab PO DAILY 06/03/22 [History Confirmed 05/29/23] spironolactone 25 mg tablet 12.5 mg PO DAILY 12/23/22 [History Confirmed 05/29/23] famotidine 20 mg tablet 20 mg PO HS 04/22/23 [History Confirmed 05/29/23] calcium carbonate 600 mg-vitamin D3 5 mcg (200 unit) tablet (Calcium 600 + D(3)) 1 tab PO DAILY 05/23/23 [History Confirmed 05/29/23] carvedilol 6.25 mg tablet 6.25 mg PO BID 05/23/23 [History Confirmed 05/29/23] fluoxetine 20 mg capsule 20 mg PO DAILY 05/23/23 [History Confirmed 05/29/23] fluoxetine 40 mg capsule 40 mg PO DAILY 05/23/23 [History Confirmed 05/30/23] mirabegron 50 mg tablet,extended release 24 hr (Myrbetriq) 50 mg PO DAILY 05/23/23 [History Confirmed 05/29/23] torsemide 10 mg tablet 10 mg PO DAILY PRN 05/23/23 [History Confirmed 05/29/23] acetaminophen 500 mg tablet 1,000 mg (2 x 500 mg) PO TID #100 tabs 05/26/23 [Rx Confirmed 05/29/23] calcitonin (salmon) 200 unit/actuation nasal spray 1 spray intranasal Q24H #3.7 mL 05/26/23 [Rx Confirmed 05/29/23] hydromorphone 2 mg tablet 2 mg PO Q6H #20 tabs 05/26/23 [Rx Confirmed 05/29/23] naproxen sodium 220 mg tablet (Aleve) 220 mg PO BID PRN pain #14 tabs 05/26/23 [Rx Confirmed 05/29/23] sennosides 8.6 mg-docusate sodium 50 mg capsule (Senna Plus) 1 tab-cap PO BID PRN #30 caps 05/26/23 [Rx Confirmed 05/29/23] Active Medications Acetaminophen (Acetaminophen 500 Mg Tablet) 1,000 mg PO TID RAMIREZ Last Admin: 06/03/23 09:02 Dose: 1,000 mg Albuterol (Albuterol Inhaler) 2 puff IH Q4H PRN Albuterol (Albuterol Sulfate 2.5 Mg/3 Ml Vial.Neb) 2.5 mg NEB Q4H PRN PRN Reason: Shortness Of Breath Or Wheezing Last Admin: 05/31/23 03:33 Dose: 2.5 mg Albuterol/Ipratropium (Iprat-Albut 0.5-2.5 Mg/3 Ml Neb) 1 neb IH Q6H [facility] Last Admin: 06/03/23 06:34 Dose: 1 neb Atorvastatin Calcium (Atorvastatin Calcium 40 Mg Tablet) 40 mg PO [facility] Last Admin: 06/02/23 21:05 Dose: 40 mg Benzonatate (Benzonatate 100 Mg Capsule) 100 mg PO TID PRN PRN Reason: cough Calcitonin [place] (Calcitonin [place] Nasal [place] 200 Unit) 1 spray NOSTRIL-B [facility] Last Admin: 06/02/23 21:07 Dose: 1 spray Carvedilol (Carvedilol 6.25 Mg Tablet) 6.25 mg PO BID [facility] Last Admin: 06/03/23 09:03 Dose: 6.25 mg Diltiazem HCl (Diltiazem 30 Mg Tablet) 30 mg PO Q6H [facility] Last Admin: 06/03/23 09:01 Dose: 30 mg Famotidine (Famotidine 20 Mg Tablet) 20 mg PO [facility] Last Admin: 06/02/23 21:06 Dose: 20 mg Fluoxetine HCl (Fluoxetine Hcl 20 Mg Capsule) 60 mg PO DAILY [facility] Last Admin: 06/03/23 09:03 Dose: 60 mg Guaifenesin (Guaifenesin 600 Mg Tab.Er.12h) 600 mg PO BID [facility] Last Admin: 06/03/23 09:05 Dose: 600 mg Hydromorphone HCl (Hydromorphone 2 Mg Tablet) 2 mg PO Q6H [facility] Last Admin: 06/03/23 06:38 Dose: Not Given Sodium Chloride (0.9 % Sodium Chloride 250 Ml) 250 mls @ 250 mls/hr IV .Q1H PRN Vancomycin HCl 1,000 mg/ (Sodium Chloride) 260 mls @ 260 mls/hr IVPB Q48H [facility] Last Infusion: 06/02/23 19:23 Dose: Infused Cefepime HCl 2 gm/ Sodium (Chloride) 100 mls @ 200 mls/hr IVPB Q24H [facility] Last Infusion: 06/02/23 18:14 Dose: Infused IV Miscellaneous Supplies (Pharmacist Consult) 1 each DAILY [facility]; Protocol Last Admin: 06/01/23 12:40 Dose: Not Given IV Miscellaneous Supplies (Pharmacist Consult) 1 each DAILY [facility]; Protocol Levothyroxine Sodium (Levothyroxine 88 Mcg Tablet) 88 mcg PO DAILY@0730 [facility] Last Admin: 06/03/23 06:34 Dose: 88 mcg Melatonin (Melatonin 3 Mg Tablet) 3 mg PO HS [facility] Last Admin: 06/02/23 21:07 Dose: Not Given Fluticasone- Umeclidin-Vilanter [ Trelegy Ellipta] 200 -62.5-25 Mcg 1 inhalation IH DAILY [facility] Last Admin: 06/03/23 09:04 Dose: 1 inhalation Mirabegron [ Myrbetriq] 50 Mg Tablet Extended Release 24 Hr 50 mg PO DAILY [facility] Last Admin: 06/03/23 09:05 Dose: 50 mg Senna/Docusate Sodium (Sennosides/Docusate Tablet) 1 tab PO BID PRN PRN Reason: Constipation Last Admin: 05/30/23 08:54 Dose: 1 tab Senna/Docusate Sodium (Sennosides/Docusate Tablet) 1 tab PO HS [facility] Last Admin: 06/02/23 21:07 Dose: Not Given Sodium Chloride (Sodium Chloride 0.9 % (Flush) 10 Ml Syringe) 5 ml IVF .FLUSH PRN Last Admin: 06/02/23 17:20 Dose: 5 ml Sodium Chloride (Sodium Chloride 0.9 % (Flush) 10 Ml Syringe) 5 ml IVF BID [facility] Last Admin: 06/03/23 07:24 Dose: 5 ml Sodium Chloride (Sodium Chloride 0.9% 3ml Neb) 3 ml NEB Q2H PRN PRN Reason: Cough Sodium Chloride (0.9 % Sodium Chloride 250 Ml) 250 ml IV Q24H [facility] Last Admin: 06/02/23 17:14 Dose: 250 ml Transfer Discharge Sum: Hosp Hospital Course Hospital course: Nery Oropeza is a 78 year old female who presented to the ED on 05/29 for weakness and acute on chronic hypoxic respiratory failure. She was found to have PNA on CXR and BRAYAN with hyperkalemia on admission. CT scan exhibited multifocal pneumonia, given recent hospitalization back pain in the setting of L3 compression fracture, she was treated as a hospital- acquired pneumonia and started on vancomycin and cefepime. She subjectively and objectively improved: Required less oxygen, chest x-ray improved, procalcitonin trended downward. She had rate controlled atrial fibrillation on admission. Admission blood pressure was on the lower side, and her home Coreg dose was decreased from 6.25 mg b.i.d. --> 3.125mg BID. On hospital day 4, she was noted to be tachycardic, EKG revealed a fib with RVR. Coreg dose was increased back to 6.25 mg b.i.d. and low-dose diltiazem ordered (30mg IR Q6H) after discussion with Cardiology. After 24 hours, RVR persisted and echocardiogram revealed worsening EF and severely decreased RV function. Reviewed case with Cardiology again, transfer recommended. Patient accepted by Dr. Byrd at [facility]. Multiple comorbidities (CKD, COPD, ischemic CM, new diagnosis of cirrhosis) with details above. Time Spent with Patient Time attestation: Total time spent providing and/or coordinating transfer services: Total time spent: Greater than 30 minutes Exam Narrative: Exam Narrative: GEN: Alert and oriented, wearing supplemental oxygen HEENT: EOMIs bilaterally, no scleral icterus CV: Atrial fibrillation, rate 120s R: No concerning wheezing, decreased breath sounds bilaterally Skin: Scattered bruising on extremities, no other concerning skin findings Neuro: Nonfocal Psych: Appropriate Const: Vital Signs, click to edit/add: Vital Signs - 24 hr 06/02/23 11:39 06/02/23 15:00 06/02/23 15:00 Temperature Pulse Rate 124 H Pulse Rate [Apical ] Pulse Rate [Left R adial] Pulse Rate [Pulse Oximeter] 119 H Respiratory Rate 16 Blood Pressure [Le ft Arm] Blood Pressure [Ri ght Arm] Pulse Oximetry 94 Oxygen Delivery Me thod Nasal Cannula Oxygen Flow Rate 1.5 06/02/23 15:00 06/02/23 15:40 06/02/23 20:21 Temperature 97.6 F Pulse Rate 131 H Pulse Rate [Apical ] Pulse Rate [Left R adial] Pulse Rate [Pulse Oximeter] 119 H Respiratory Rate 16 Blood Pressure [Le ft Arm] 118/95 H Blood Pressure [Ri ght Arm] Pulse Oximetry 94 97 Oxygen Delivery Me thod Nasal Cannula Oxygen Flow Rate 1.5 06/02/23 20:21 06/02/23 22:55 06/02/23 23:00 Temperature 97.8 F 97.9 F Pulse Rate Pulse Rate [Apical ] Pulse Rate [Left R adial] 122 H Pulse Rate [Pulse Oximeter] 130 H 130 H Respiratory Rate 20 18 Blood Pressure [Le ft Arm] Blood Pressure [Ri ght Arm] 112/95 H 135/114 H Pulse Oximetry 97 95 Oxygen Delivery Me thod Nasal Cannula Nasal Cannula Oxygen Flow Rate 1.5 1.5 06/02/23 23:00 06/03/23 03:33 06/03/23 07:00 Temperature 98.0 F Pulse Rate Pulse Rate [Apical ] 120 H Pulse Rate [Left R adial] Pulse Rate [Pulse Oximeter] 122 H 130 H Respiratory Rate 18 20 18 Blood Pressure [Le ft Arm] Blood Pressure [Ri ght Arm] 128/105 H Pulse Oximetry 95 92 Oxygen Delivery Me thod Nasal Cannula Nasal Cannula Oxygen Flow Rate 1.5 1.5 06/03/23 07:00 06/03/23 07:00 06/03/23 07:40 Temperature 97.5 F L Pulse Rate 129 H Pulse Rate [Apical ] 120 H Pulse Rate [Left R adial] Pulse Rate [Pulse Oximeter] 130 H Respiratory Rate 18 18 Blood Pressure [Le ft Arm] 115/85 Blood Pressure [Ri ght Arm] Pulse Oximetry 93 93 Oxygen Delivery Me thod Nasal Cannula Nasal Cannula Oxygen Flow Rate 1.5 1.5 06/03/23 10:59 Temperature 97.9 F Pulse Rate Pulse Rate [Apical ] Pulse Rate [Left R adial] Pulse Rate [Pulse Oximeter] 124 H Respiratory Rate Blood Pressure [Le ft Arm] 98/67 Blood Pressure [Ri ght Arm] Pulse Oximetry 93 Oxygen Delivery Me thod Nasal Cannula Oxygen Flow Rate 1.5 Discharge Plan Discharge Disposition: General Acute Hospital Date of Admission: 05/29/23 18:37 Attending Physician on Admission: Ninfa Vanegas Primary Care Provider: Karma Jang I Condition: Unchanged Discharge Medications: No Action spironolactone 25 mg tablet 12.5 mg PO DAILY atorvastatin 40 mg tablet 40 mg PO HS levothyroxine 88 mcg tablet 88 mcg PO DAILY warfarin 2 mg tablet 3 - 6 mg PO DAILY Hold Instructions: on hold Rx Instructions: Take 3mg every MWF Take 6mg all other days albuterol sulfate 90 mcg/actuation HFA aerosol inhaler 2 puff INHALATION Q4H PRN Patient Comments: INHALE 1 TO 2 PUFFS BY MOUTH EVERY 4 HOURS NEEDED FOR SHORTNESS OF BREATH Trelegy Ellipta 200-62.5-25 mcg blister with device 1 inh INHALATION DAILY Patient Comments: INHALE 1 PUFF BY MOUTH EVERY DAY cholecalciferol (vitamin D3) [Vitamin D3] 50 mcg (2,000 unit) capsule 50 mcg PO DAILY multivitamin [Multiple Vitamins] Tablet 1 tab PO DAILY famotidine 20 mg tablet 20 mg PO HS calcium carbonate-vitamin D3 [Calcium 600 + D(3)] 600 mg-5 mcg (200 unit) tabl et 1 tab PO DAILY carvedilol 6.25 mg tablet 6.25 mg PO BID fluoxetine 20 mg capsule 20 mg PO DAILY Patient Comments: total dose 60mg daily Myrbetriq 50 mg tablet extended release 24 hr 50 mg PO DAILY torsemide 10 mg tablet 10 mg PO DAILY PRN Rx Instructions: FOR LOWER LEG SWELLING fluoxetine 40 mg capsule 40 mg PO DAILY Patient Comments: Rx Instructions: total dose 60mg daily calcitonin (salmon) 200 unit/actuation [place],Non-Aerosol 1 spray intranasal Q24H Qty: 3.7 0RF naproxen sodium [Aleve] 220 mg tablet 220 mg PO BID PRN (Reason: pain) Qty: 14 0RF Senna Plus 8.6-50 mg capsule 1 tab-cap PO BID PRNQty: 30 0RF hydromorphone 2 mg tablet 2 mg PO Q6H Qty: 20 0RF acetaminophen 500 mg Tablet 1,000 mg PO TID Qty: 100 0RF Follow Up Appointments: Karma Jang MD [Primary Care Provider] - Oxygen: Yes Oxygen Delivery Method: Nasal Cannula Oxygen Flow Rate: 1.5-2 Urinary Catheter: No Services not available here: Cardiology
--- NOTE | 2023-06-03 12:12 | PC.NURSE ---
Shift Summary: Patient pleasant and cooperative. Up with one assist, walker and gait belt. Using o2 @ 1.5L, able to maintain o2 >88% on RA but is more comfortable with o2. Denied pain/ nausea. Denies SOB or chest pain, asymptomatic with increased HR. HR continues to be >120bpm even at rest, requiring higher level of care, transferred to [place] @ 1205. Nurse to nurse report given to NAKUL Meyer. Patient discharged to room H5054.
== END 2023-06-03 12:05 | disposition short-term general hospital (02) | DRG 189 ==
LOC: ED 16:01 → MEDSURG 16:57
PROVIDERS: Family Medicine; Physician Assistant; Admitting Provider Emergency Medicine Emergency Medical Services; Emergency Provider Emergency Medicine Emergency Medical Services; PCP Family Medicine; Visit Provider Family Medicine
DX: J96.21 Acute and chronic respiratory failure with hypoxia (principal); J18.9 Pneumonia, unspecified organism; I50.23 Acute on chronic systolic (congestive) heart failure; I13.0 Hypertensive heart and chronic kidney disease with heart failure and stage 1 through stage 4 chronic kidney disease, or unspecified chronic kidney disease; N18.4 Chronic kidney disease, stage 4 (severe); N17.9 Acute kidney failure, unspecified; I48.19 Other persistent atrial fibrillation; F33.9 Major depressive disorder, recurrent, unspecified; Y95 Nosocomial condition; S32.039D Unspecified fracture of third lumbar vertebra, subsequent encounter for fracture with routine healing; K74.60 Unspecified cirrhosis of liver; Z95.0 Presence of cardiac pacemaker; I25.10 Atherosclerotic heart disease of native coronary artery without angina pectoris; J43.9 Emphysema, unspecified; Z79.01 Long term (current) use of anticoagulants; I48.0 Paroxysmal atrial fibrillation; E87.5 Hyperkalemia; I25.9 Chronic ischemic heart disease, unspecified; E03.9 Hypothyroidism, unspecified; E78.5 Hyperlipidemia, unspecified; Z86.718 Personal history of other venous thrombosis and embolism; Z87.891 Personal history of nicotine dependence
CPT/HCPCS: 36415; 71045; 71250; 76705; 80048; 80053; 80069; 80076; 82330; 82803; 82977; 83605; 83735; 83880; 84145; 84443; 84484; 85025; 85027; 85610; 86140; 87040; 87070; 87081; 87449; 87631; 87899; 93005; 93306; 94640; 94761; 97110; 97116; 97162; 97165; 97530; 97535; 99285; A9153; A9270; G0378; J0692; J1940; J3370; J7050; J7120; J7512

== ENCOUNTER 2023-06-03 12:00 | Outpatient (CLI) | payer MEDICARE, MEDICAID, SELFPAY | END 2023-06-03 12:01 | disposition home or self-care (01) | LOC: AMB 06-07 14:03 | PROVIDERS: PCP Family Medicine; Visit Provider Emergency Medicine | DX: I49.9 Cardiac arrhythmia, unspecified (principal); J18.9 Pneumonia, unspecified organism | CPT/HCPCS: A0425; A0427 ==

== ENCOUNTER 2023-06-29 12:44 | Outpatient (CLI) | payer MEDICARE, MEDICAID, SELFPAY | END 2023-06-29 12:45 | disposition home or self-care (01) | LOC: AMB 07-02 15:25 | PROVIDERS: PCP Family Medicine; Visit Provider Emergency Medicine Emergency Medical Services | DX: M54.9 Dorsalgia, unspecified (principal) | CPT/HCPCS: A0425; A0427 ==

== ENCOUNTER 2023-06-29 13:20 | Observation (INO) | payer MEDICARE, MEDICAID, SELFPAY ==
[2023-06-29] VITALS (19 sets, daily range): BP systolic 84–106; BP diastolic 50–78; PULSE 89–105; RESP 14–22; TEMP 36.4–36.5; O2SAT 90–99; BMI 23.3; BMI 24.0
--- NOTE | 2023-06-29 13:45 | CRLHL7_ITS ---
For Patients: As a result of the Cures Act, medical imaging exams and procedure reports are released immediately into your electronic medical record. You may view this report before your referring provider. If you have questions, please contact your health care provider. Indication: Low back pain, history of fractures Technique: Volumetric multidetector CT images of the lumbar spine were obtained without the administration of IV contrast. Comparison: CT lumbar spine May 22, 2023 Findings: There is demonstration of an evolving compression fracture of the L3 vertebral body with moderate retropulsion 8.1 millimeters. The remaining vertebral body heights are grossly preserved. There is persistent mild straightening of the normal lumbar lordosis with minimal retrolisthesis of L2 on L3. There is mild to moderate multilevel degenerative disc disease with disc height loss and marginal osteophyte formation. There is moderate spinal canal narrowing at the L3 level. There is no displaced fracture or dislocation. The paraspinous soft tissues are grossly within normal limits. Impression: Evolution of previously seen compression fracture of the L3 level with evolving sclerotic changes and retropulsion somewhat increased from comparison. No new acute osseous abnormality or additional compression fracture is identified. Please note that all CT scans at this facility use dose modulation, iterative reconstruction, and/or weight-based dosing when appropriate to reduce radiation dose to as low as reasonably achievable. Dictated by Jean Pierre Head MD @ 06/29/2023 2:47:42 PM (Electronically Signed)
--- NOTE | 2023-06-29 13:48 | ED_ITS ---
HPI - General Adult General Chief complaint: Back Injury/Pain Stated complaint: Back pain Time Seen by Provider: 06/29/23 13:35 Source: patient Mode of arrival: EMS Limitations: no limitations History of Present Illness HPI narrative: 78-year-old female coming in today complaining of intractable back pain.. Patient is a 78-year-old female who suffered a L3 compression fracture on May 20. States that her pain has been bolus and well controlled at home with Tylenol. Today she states that she woke up in the pain was very intense. She took her usual Tylenol any did not help. She tried to find multiple different positions that would bring her comfort however the pain simply intensified as the morning went on until she finally called EMS. While in the ambulance patient received fentanyl and morphine which did help her pain quite a bit. She is feeling significantly better now. 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 Patient gets around by holding onto the parikh and also by using her walker. However, upon further discussion, patient tells me that she remains spends her days lying in bed. She does have Dilaudid at home but she was told not to take it anymore so she did not take any today. She states that otherwise she has been feeling fine. Patient does have history of oxygen-dependent COPD, he was her oxygen only at night. States that she maintains an oxygen saturation above 90% during the day without oxygen. She denies any recent illness, chills, fevers, or changes in her appetite. States that she eats and drinks well during the day. Again, since her compression fracture, She does state that she spends most of her day lying in bed. Upon presentation today patient is hypoxic with an oxygen saturation of 87% on room air, and her blood pressure is quite low at 91 systolic. Related Data Home Medications Medication Instructions Recorded Confirmed albuterol sulfate 90 mcg/actuation 2 puff inhalation Q4H PRN 06/02/22 05/29/23 aerosol inhaler atorvastatin 40 mg tablet 40 mg PO HS 06/02/22 05/29/23 cholecalciferol (vitamin D3) 50 50 mcg PO DAILY 06/02/22 05/29/23 mcg (2,000 unit) capsule (Vitamin D3) fluticasone fur. 200 mcg-umeclid 1 inh inhalation DAILY 06/02/22 05/29/23 62.5 mcg-vilant 25 mcg inhalat.powder (Trelegy Ellipta) levothyroxine 88 mcg tablet 88 mcg PO DAILY 06/02/22 05/29/23 warfarin 2 mg tablet 3 - 6 mg PO DAILY 06/02/22 05/29/23 multivitamin (Multiple Vitamins 1 tab PO DAILY 06/03/22 05/29/23 tablet) spironolactone 25 mg tablet 12.5 mg PO DAILY 12/23/22 05/29/23 famotidine 20 mg tablet 20 mg PO HS 04/22/23 05/29/23 calcium carbonate 600 mg-vitamin 1 tab PO DAILY 05/23/23 05/29/23 D3 5 mcg (200 unit) tablet (Calcium 600 + D(3)) carvedilol 6.25 mg tablet 6.25 mg PO BID 05/23/23 05/29/23 fluoxetine 20 mg capsule 20 mg PO DAILY 05/23/23 05/29/23 fluoxetine 40 mg capsule 40 mg PO DAILY 05/23/23 05/30/23 mirabegron 50 mg tablet,extended 50 mg PO DAILY 05/23/23 05/29/23 release 24 hr (Myrbetriq) torsemide 10 mg tablet 10 mg PO DAILY PRN 05/23/23 05/29/23 Previous Rx's Medication Instructions Recorded acetaminophen 500 mg tablet 1,000 mg (2 x 500 mg) PO TID #100 05/26/23 tabs calcitonin (salmon) 200 1 spray intranasal Q24H #3.7 mL 05/26/23 unit/actuation nasal spray hydromorphone 2 mg tablet 2 mg PO Q6H #20 tabs 05/26/23 naproxen sodium 220 mg tablet 220 mg PO BID PRN pain #14 tabs 05/26/23 (Aleve) sennosides 8.6 mg-docusate sodium 1 tab-cap PO BID PRN #30 caps 05/26/23 50 mg capsule (Senna Plus) Allergies Allergy/AdvReac Type Severity Reaction Status Date / Time bacitracin Allergy Mild Verified 06/29/23 13:30 [From Neosporin Plus] lidocaine Allergy Mild Verified 06/29/23 13:30 [From Neosporin Plus] morphine Allergy Mild Hives Verified 06/29/23 13:30 neomycin Allergy Mild Verified 06/29/23 13:30 [From Neosporin Plus] Penicillins Allergy Mild Rash Verified 06/29/23 13:30 polymyxin B Allergy Mild Verified 06/29/23 13:30 [From Neosporin Plus] pramoxine Allergy Mild Verified 06/29/23 13:30 [From Neosporin Plus] BRAD Inhibitors Allergy Unknown Verified 06/29/23 13:30 bupropion [From Wellbutrin] Allergy Unknown Verified 06/29/23 13:30 hydrocodone Allergy Unknown Verified 06/29/23 13:30 levofloxacin [From Levaquin] Allergy Unknown Verified 06/29/23 13:30 oxycodone Allergy Unknown Verified 06/29/23 13:30 sulfamethoxazole Allergy Unknown Verified 06/29/23 13:30 Review of Systems Status of ROS: Reports: 10 or more systems reviewed and unremarkable except as noted in History and below [facility] Medical History Anemia ?D64.9 - Anemia, unspecified (ICD-10) Hyperkalemia ?E87.5 - Hyperkalemia (ICD-10) Supratherapeutic INR ?R79.1 - Abnormal coagulation profile (ICD-10) Closed compression fracture of L3 vertebra ?S32.030A - Wedge compression fracture of third lumbar vertebra, initial encounter for closed fracture (ICD-10) Subarachnoid hemorrhage ?I60.9 - Nontraumatic subarachnoid hemorrhage, unspecified (ICD-10) Chronic anticoagulation ?Z79.01 - senior care (current) use of anticoagulants (ICD-10) Presence of permanent cardiac pacemaker ?Z95.0 - Presence of cardiac pacemaker (ICD-10) Chronic hypoxemic respiratory failure ?J96.11 - Chronic respiratory failure with hypoxia (ICD-10) Panlobular emphysema ?J43.1 - Panlobular emphysema (ICD-10) Chronic pain of both shoulders ?M25.511 - Pain in right shoulder (ICD-10) ?M25.512 - Pain in left shoulder (ICD-10) ?G89.29 - Other chronic pain (ICD-10) Anticoagulation goal of INR 2 to 3 ?Z51.81 - Encounter for therapeutic drug level monitoring (ICD-10) ?Z79.01 - senior care (current) use of anticoagulants (ICD-10) Anticoagulated on warfarin ?Z79.01 - senior care (current) use of anticoagulants (ICD-10) Paroxysmal atrial fibrillation ?I48.0 - Paroxysmal atrial fibrillation (ICD-10) Closed nondisplaced fracture of greater trochanter of right femur with routine healing ?S72.114D - Nondisplaced fracture of greater trochanter of right femur, subsequent encounter for closed fracture with routine healing (ICD-10) Chronic deep vein thrombosis of left lower extremity ?I82.502 - Chronic embolism and thrombosis of unspecified deep veins of left lower extremity (ICD-10) Intrinsic urethral sphincter deficiency ?N36.42 - Intrinsic sphincter deficiency (ISD) (ICD-10) Mixed stress and urge urinary incontinence ?N39.46 - Mixed incontinence (ICD-10) CKD stage 4 secondary to hypertension ?I12.9 - Hypertensive chronic kidney disease with stage 1 through stage 4 chronic kidney disease, or unspecified chronic kidney disease (ICD-10) ?N18.4 - Chronic kidney disease, stage 4 (severe) (ICD-10) Ischemic cardiomyopathy ?I25.5 - Ischemic cardiomyopathy (ICD-10) Recurrent major depression resistant to treatment ?F33.9 - Major depressive disorder, recurrent, unspecified (ICD-10) Hyperlipidemia ?E78.5 - Hyperlipidemia, unspecified (ICD-10) Hypertension ?I10 - Essential (primary) hypertension (ICD-10) MRSA (methicillin resistant Staphylococcus aureus) ?A49.02 - Methicillin resistant Staphylococcus aureus infection, unspecified site (ICD-10) Hypothyroidism ?E03.9 - Hypothyroidism, unspecified (ICD-10) COPD (chronic obstructive pulmonary disease) ?J44.9 - Chronic obstructive pulmonary disease, unspecified (ICD-10) CHF (congestive heart failure) ?I50.9 - Heart failure, unspecified (ICD-10) CAD (coronary artery disease) ?I25.10 - Atherosclerotic heart disease of [place] coronary artery without angina pectoris (ICD-10) Depression ?F32.A - Depression, unspecified (ICD-10) Atrial fibrillation ?I48.91 - Unspecified atrial fibrillation (ICD-10) Anxiety ?F41.9 - Anxiety disorder, unspecified (ICD-10) Acid reflux ?K21.9 - Gastro-esophageal reflux disease without esophagitis (ICD-10) Severe depression ?F32.2 - Major depressive disorder, single episode, severe without psychotic features (ICD-10) Surgical History History of hip replacement ?Z96.649 - Presence of unspecified artificial hip joint (ICD-10) History of cholecystectomy ?Z90.49 - Acquired absence of other specified parts of digestive tract (ICD- 10) History of cataract surgery ?Z98.49 - Cataract extraction status, unspecified eye (ICD-10) Social History Narrative: Lives with a roommate in [place], adult children. Son Mykel and daughter Lakesha would share medical decision making duties. Requests Full Code status, understands that her progressive lung disease puts her at high risk if she were to ever need intubation. She would not want to be kept alive on a ventilator fpc. What is your current living situation?: I presently have a place to live Problems where you live: no known problems Problems where you live details: none In the past 12 months, utilities in danger of being shut off: no In past 12 months, lack of transportation kept you from medical appts, meetings, work, or getting things needed for daily living: no In the past 12 mos, have been you worried that your food would run out before you had money to buy more?: never true In the past 12 mos, the food you bought just didn't last and you didn't have money to buy more?: never true Highest level of school completed/degree received: Associate degree: occupational, technical, vocational program Smoking Status: Former smoker What tobacco products do you use: cigarettes Smoking quit date/years: >15 years ago Do you use any of these nicotine containing products: None Second hand tobacco smoke exposure: No How often do you have a drink containing alcohol: never How often do you have six or more drinks on one occasion: Never AUDIT-C Alcohol total score: 0 Non-prescribed substance use: denies use Caffeine: Yes (cups coffee) How often does anyone, including family, friends and others, physically hurt you : never How often does anyone, including family, friends and others, insult or talk down to you: never How often does anyone, including family, friends and others, threaten you with harm: never How often does anyone, including family, friends and others, scream or curse at you: never service: No Exam Narrative: Exam Narrative: Well-nourished well-developed patient in no acute distress. Alert and oriented. Answers questions appropriately. Mood and affect are appropriate. Thoughts are goal oriented and rational. No tangential or magical thinking noted. Patient speaks in full sentences without needing to catch their breath. HEENT: Normocephalic atraumatic. Pupils are equally round reactive to light. Extraocular muscles are intact. Conjunctivae are moist without any icterus noted. Moist mucous membranes. Posterior pharynx is normal. Neck is soft without any lymphadenopathy or thyromegaly. No masses are appreciated. Cardiovascular: Heart is regular rate and rhythm S1 and S2 are present with a soft 1/6 systolic murmur. Lungs: Clear to auscultation bilaterally no wheezes rhonchi or rales are appreciated. Patient takes deep breaths without any discomfort. Abdomen: Soft and nontender nondistended with normal bowel sounds. No guarding or rebound. No masses or organomegaly appreciated. Extremities: Bilateral lower extremities are without edema. Normal DP and PT pulses. Skin: Well perfused without any obvious rashes. Back: Has normal appearance. She has mild tenderness to palpation over the central lumbar spine. Const: Vital Signs, click to edit/add: Vital Signs - 24 hr 06/29/23 13:21 06/29/23 14:13 06/29/23 14:15 Temperature 97.7 F Pulse Rate 89 90 Pulse Rate [Right Pulse Oximeter] 93 Respiratory Rate 14 Blood Pressure Blood Pressure [Ri ght Upper Arm] 94/78 Pulse Oximetry 92 93 95 Oxygen Delivery Me thod Room Air 06/29/23 14:16 06/29/23 14:30 Temperature Pulse Rate 90 90 Pulse Rate [Right Pulse Oximeter] Respiratory Rate Blood Pressure 103/64 Blood Pressure [Ri ght Upper Arm] Pulse Oximetry 93 94 Oxygen Delivery Me thod Course Course ED Course: Lab work was unremarkable. I did put her on 1 L of oxygen while she was here in her oxygen saturation improved to 95%, which I imagine is significantly above her baseline. She received 500 mL normal saline her blood pressure did go up into the low 100 systolic. Did review her vital signs during previous hospital in ER visits- blood pressure was in the 90s systolic at her last visit. Given her increase in pain we did repeat her lumbar CT scan which did show an evolution of her compression fracture, but no acute findings aside from the that. Patient had a very difficult time with ambulation while she was here. Vital Signs Vital signs: Initial Vital Signs Temperature 97.7 F 06/29/23 13:21 Temperature Source Temporal Artery Scan 06/29/23 13:21 Pulse Rate 93 06/29/23 13:21 Pulse Rhythm Regular, Irregularly Irregular 06/29/23 13:21 Pulse Strength 3+ Normal 06/29/23 13:21 Respiratory Rate 14 06/29/23 13:21 Blood Pressure 94/78 06/29/23 13:21 Blood Pressure Mean 83 06/29/23 13:21 Blood Pressure Position Supine 06/29/23 13:21 Pulse Oximetry 92 06/29/23 13:21 Oxygen Delivery Method Room Air 06/29/23 13:21 Vital Signs Temperature 97.7 F 06/29/23 13:21 Pulse Rate 93 06/29/23 13:21 Respiratory Rate 14 06/29/23 13:21 Blood Pressure 94/78 06/29/23 13:21 Pulse Oximetry 92 06/29/23 13:21 Oxygen Delivery Method Room Air 06/29/23 13:21 Temperature 97.7 F 06/29/23 13:21 Pulse Rate 90 06/29/23 14:30 Respiratory Rate 14 06/29/23 13:21 Blood Pressure 103/64 06/29/23 14:16 Pulse Oximetry 94 06/29/23 14:30 Oxygen Delivery Method Room Air 06/29/23 13:21 Medical Decision Making MDM Narrative Medical decision making narrative: 78-year-old female status post compression fracture 1 month ago with deteriorations since then and continued pain. I do not feel that patient is safe to go home at this time given the fact that she does centrally live without any help and she has a very difficult time with ambulation in getting her ADLs done. Did discuss with the patient and her son that she will likely require different living situation in her son is on board with this. At this time, patient will be admitted for further management and pain control. Medical Records Medical records reviewed: Yes I reviewed the patient's medical records Lab Data Lab results reviewed: Yes I reviewed the patient's lab results Labs: Lab Results 10/08/23 10/08/23 Range/Units 13:56 15:03 WBC 7.13 (4.50-11.00) K/uL RBC 3.87 L (4.00-5.20) m/uL Hgb 11.4 L (12.0-16.0) gm/dL Hct 36.6 (33.0-51.0) % MCV 95 (80-100) fL MCH 30 (26-34) pg MCHC 31 L (32-36) gm/dL RDW Coeff of Sudha 15.8 H (11.5-15.5) % Plt Count 230 (140-440) K/uL Neut % (Auto) 73.0 H (42.0-72.0) % Lymph % (Auto) 18.2 L (20-44) % Winkler % (Auto) 7.7 (0.0-11.0) % Eos % (Auto) 0.4 (0.0-7.0) % Baso % (Auto) 0.1 (0.0-3.0) % Neut # (Auto) 5.20 (1.7-7.0) K/uL Lymph # (Auto) 1.30 (0.90-2.90) K/uL Winkler # (Auto) 0.50 (0.00-0.90) K/UL Eos # (Auto) 0.03 (0.00-0.50) K/uL Baso # (Auto) 0.01 (0.00-0.30) K/uL Abs Immat Gran (auto) 0.04 (0.00-0.30) K/uL Imm/Tot Granulo (auto) 0.6 % VBG pH 7.398 (7.32-7.43) VBG pCO2 43 (40-50) mmHG VBG pO2 28.3 (25-47) mmHG VBG HCO3 27 (21-28) mmol/L Sodium 136 (135-149) mmol/L Potassium 4.5 (3.6-5.1) mmol/L Chloride 104 (96-114) mmol/L Carbon Dioxide 25 (20-32) mmol/L Anion Gap 7 (7-15) mEq/L BUN 47 H (7-30) mg/dL Creatinine 1.1 (0.5-1.5) mg/dL Estimated Creat Clear 39.67 Estimated GFR 51 ml/min Glucose 95 (60-115) mg/dL Lactate 0.7 (0.5-1.9) mmol/L Calcium 8.5 (8.4-10.6) mg/dL C-Reactive Protein 1.0 (0.5-1.0) mg/dL Urine Color Yellow (Yellow) Urine Appearance Clear (Clear) Urine pH 5.5 (5.0-8.5) Ur Specific Gardner 1.015 (1.000-1.030) Urine Protein Negative (Negative) Urine Glucose (UA) Negative (Negative) Urine Ketones Negative (Negative) Urine Blood Negative (Negative) Urine Nitrite Negative (Negative) Urine Bilirubin Negative (Negative) Urine Urobilinogen 0.2 (0.2-1.0) Ur Leukocyte Esterase Trace A (Negative) Urine RBC 0-2 (0-2) Urine WBC 0-2 (0-5) Ur Squamous Epith Cells None (None-Few) Urine Bacteria None (None) Imaging Data CT- Other: Attestation: I have reviewed the pertinent imaging results. Radiologist's impression: Volumetric multidetector CT images of the lumbar spine were obtained without the administration of IV contrast. Comparison: CT lumbar spine May 22, 2023 Findings: There is demonstration of an evolving compression fracture of the L3 vertebral body with moderate retropulsion 8.1 millimeters. The remaining vertebral body heights are grossly preserved. There is persistent mild straightening of the normal lumbar lordosis with minimal retrolisthesis of L2 on L3. There is mild to moderate multilevel degenerative disc disease with disc height loss and marginal osteophyte formation. There is moderate spinal canal narrowing at the L3 level. There is no displaced fracture or dislocation. The paraspinous soft tissues are grossly within normal limits. Impression: Evolution of previously seen compression fracture of the L3 level with evolving sclerotic changes and retropulsion somewhat increased from comparison. No new acute osseous abnormality or additional compression fracture is identified. ECG Data Attestation: I personally reviewed and interpreted this ECG as follows: Discharge Plan Discharge Clinical Impression: Intractable back pain, Adult failure to thrive Patient Disposition: Admitted As Observation Prescriptions: No Action spironolactone 25 mg tablet 12.5 mg PO DAILY atorvastatin 40 mg tablet 40 mg PO HS levothyroxine 88 mcg tablet 88 mcg PO DAILY warfarin 2 mg tablet 3 - 6 mg PO DAILY Hold Instructions: on hold Rx Instructions: Take 3mg every MWF Take 6mg all other days albuterol sulfate 90 mcg/actuation HFA aerosol inhaler 2 puff INHALATION Q4H PRN Patient Comments: INHALE 1 TO 2 PUFFS BY MOUTH EVERY 4 HOURS NEEDED FOR SHORTNESS OF BREATH Trelegy Ellipta 200-62.5-25 mcg blister with device 1 inh INHALATION DAILY Patient Comments: INHALE 1 PUFF BY MOUTH EVERY DAY cholecalciferol (vitamin D3) [Vitamin D3] 50 mcg (2,000 unit) capsule 50 mcg PO DAILY multivitamin [Multiple Vitamins] Tablet 1 tab PO DAILY famotidine 20 mg tablet 20 mg PO HS calcium carbonate-vitamin D3 [Calcium 600 + D(3)] 600 mg-5 mcg (200 unit) tablet 1 tab PO DAILY carvedilol 6.25 mg tablet 6.25 mg PO BID fluoxetine 20 mg capsule 20 mg PO DAILY Patient Comments: total dose 60mg daily Myrbetriq 50 mg tablet extended release 24 hr 50 mg PO DAILY torsemide 10 mg tablet 10 mg PO DAILY PRN Rx Instructions: FOR LOWER LEG SWELLING fluoxetine 40 mg capsule 40 mg PO DAILY Patient Comments: Rx Instructions: total dose 60mg daily calcitonin (salmon) 200 unit/actuation Gilchrist,Non-Aerosol 1 spray intranasal Q24H Qty: 3.7 0RF naproxen sodium [Aleve] 220 mg tablet 220 mg PO BID PRN (Reason: pain) Qty: 14 0RF Senna Plus 8.6-50 mg capsule 1 tab-cap PO BID PRNQty: 30 0RF hydromorphone 2 mg tablet 2 mg PO Q6H Qty: 20 0RF acetaminophen 500 mg Tablet 1,000 mg PO TID Qty: 100 0RF Follow Up/Referrals: Karma Jang MD [Primary Care Provider] -
[2023-06-29 14:02] LABS: HCO3 VBG 27 mmol/L (21-28); Lactate* 0.7 mmol/L (0.5-1.9); PCO2 VBG 43 mmHG (40-50); PO2 VBG 28.3 mmHG (25-47); pH VBG 7.398 (7.32-7.43)
[2023-06-29 14:05] LABS: Basophils Absolute Auto 0.01 K/uL (0.00-0.30); Basophils Percent Auto 0.1 % (0.0-3.0); Eosinophils Absolute Auto 0.03 K/uL (0.00-0.50); Eosinophils Percent Auto 0.4 % (0.0-7.0); Hematocrit 36.6 % (33.0-51.0); Hemoglobin* 11.4 gm/dL (12.0-16.0); Immature Granulocytes Abs Auto 0.04 K/uL (0.00-0.30); Immature Granulocytes Pct Auto 0.6 %; Lymphocytes Percent Auto 18.2 % (20-44); Mean Corpuscular HGB Conc 31 gm/dL (32-36); Mean Corpuscular Hemoglobin 30 pg (26-34); Mean Corpuscular Volume 95 fL (80-100); Monocytes Percent Auto 7.7 % (0.0-11.0); Platelet Count* 230 K/uL (140-440); RDW Coefficient of Variation % 15.8 % (11.5-15.5); Red Blood Count 3.87 m/uL (4.00-5.20); Slide Review Reflex No; White Blood Count* 7.13 K/uL (4.50-11.00)
[2023-06-29 14:25] LABS: Chloride* 104 mmol/L (96-114); Sodium* 136 mmol/L (135-149)
[2023-06-29 14:26] LABS: Potassium* 4.5 mmol/L (3.6-5.1)
[2023-06-29 14:28] LABS: Creatinine* 1.1 mg/dL (0.5-1.5); Est. Creatinine Clearance* 39.67; Estimated Glomerular Filt Rate 51 ml/min
[2023-06-29 14:29] LABS: Anion Gap 7 mEq/L (7-15); Blood Urea Nitrogen* 47 mg/dL (7-30); Calcium* 8.5 mg/dL (8.4-10.6); Carbon Dioxide* 25 mmol/L (20-32); Glucose* 95 mg/dL (60-115)
[2023-06-29 15:07] LABS: Appearance Urine Clear (Clear); Bilirubin Urine Negative (Negative); Blood Urine Negative (Negative); Color Urine Yellow (Yellow); Glucose Urine Negative (Negative); Ketones Urine Negative (Negative); Leukocyte Esterase Urine Trace (Negative); Nitrite Urine Negative (Negative); Protein Urine Negative (Negative); Specific Gravity Urine 1.015 (1.000-1.030); Urobilinogen Urine 0.2 (0.2-1.0); pH Urine 5.5 (5.0-8.5)
[2023-06-29 15:29] LABS: RBC Urine 0-2 (0-2); WBC Urine 0-2 (0-5)
[2023-06-29 16:59] LABS: INR 3.32 (0.91-1.10); Prothrombin Time 35.3 Seconds
[2023-06-29] MEDS: HYDROmorphone 2 MG TABLET PO (17:09)
[2023-06-29] MEDS: KETOROLAC 15 MG/ML inj IVP (17:10)
[2023-06-29] MEDS: ACETAMINOPHEN 325 MG TABLET 650 MG PO ×2 (17:10→23:13)
[2023-06-29] MEDS: SODIUM CHLORIDE 0.9 % (FLUSH) 10 ML SYRINGE 5 ML IVF (17:13)
--- NOTE | 2023-06-29 18:13 | PM.IMHP1 ---
Hospitalist- H&P: HPI History of Present Illness Time Seen by Provider: 16:30 Date Seen: 06/29/23 Chief complaint: Worsening back pain, evolving L3 compression fx Narrative: Nery Oropeza is a 78 year old woman presents to our emergency department today via EMS for worsening back pain. On 05/20/2023 patient tripped and had a slight fall and developed back pain subsequently. CT scan obtained at that time demonstrated the followin. Acute L3 superior endplate compression fracture, with mild vertebral height loss, but no cortical retropulsion. 2. Lumbar spondylosis, without evidence of significant neural foraminal or spinal canal stenosis. She was offered admission to the hospital for pain control at that time but she declined. She was initiated on several modalities for pain control, including scheduled acetaminophen, as needed hydromorphone, lidocaine patch. This seemed to help initially. More recently she was doing relatively well until this morning when she woke up in the pain was so intense she could hardly sleep, unable to get comfortable, took her usual acetaminophen without relief, and finally decided to summon EMS to bring her in for further evaluation. Acknowledges ongoing difficulty with pain management such that for the last 1-2 weeks she she has been mostly laying in bed to achieve a modicum of relief of her pain. Has been unable to carry out her usual activities of daily living without having to take breaks and breaking up the activity so that she is not sitting or standing too long. Acknowledges she has been unable to cook per usual or clean up the kitchen afterward per usual and as such she has been eating less. When she lays still she is relatively comfortable. Movement, sitting up, standing, walking seem to aggravate her discomfort. Denies lower extremity weakness, bowel or bladder incontinence, or loss of sensation. Has not had any additional trauma or injury. Denies fevers, rigors, diaphoresis. Review of Systems Status of ROS: Reports: 10 or more systems reviewed and unremarkable except as noted in History and below Narrative: Hospitalized at [facility] from 29 May through 03 June 2023 with acute on chronic hypoxemic respiratory failure, acute on chronic systolic heart failure, hospital-acquired pneumonia, acute kidney injury, paroxysmal and persistent atrial fibrillation, chronic anticoagulation, hyperkalemia, chronic obstructive pulmonary disease, abnormally elevated liver function studies. Patient was transferred to the cardiology service at [facility] on 06/03/2023 due to unrelenting, persistent atrial fibrillation none amenable to medication management here in our hospital. Patient was then hospitalized at [facility] from 03 June through 06/10/2023 during which time her atrial fibrillation rates remain 120 to 130s. She was restarted on her carvedilol and digoxin. Transthoracic echocardiogram demonstrated severe aortic stenosis, low-flow, low grade. CT TAVR on 06/04/2023 suggested severe aortic stenosis with calcium score of 1458. 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 Completed a 10 day course of cefepime for hospital-acquired pneumonia on 05 June and a prednisone burst on 06 June. Coronary angiogram on 09 June demonstrated nonobstructive coronary artery disease. Right heart catheterization on 06/09/2023 demonstrated right atrial wedge of 16, PA of 40/23, mPA of 29, CI of 2.49, aortic valve gradient consistent with moderate . Denies chest heaviness, pressure, tightness, or pain. Denies syncope or near-syncope. Denies palpitations or chest fluttering. Since her AV mandi ablation on 06/05/2023 she states her heart rates have been well controlled. Continues to be anticoagulated on warfarin. Denies cough, dyspnea at rest, paroxysmal nocturnal dyspnea, orthopnea. Weights have been relatively stable. No change in lower extremity edema. She is monitored closely by the heart failure clinic through [facility]. Difficult for her to navigate around her home. She does live with the roommate who is also physically ill. Does not have a director of cardiac rehabilitation per se although does have someone come and help her bathe once a week. Has difficulties being up enough to make her food in her kitchen and clean up after herself. Has taken to using disposable dinner mauricio so she has less cleaning up to do. Acknowledges decreased oral intake because of the difficulties and the pain associated with being up trying to make food, cleaned up, and eat. Bowel and bladder function have been satisfactory. Denies myalgias or arthralgias aside from the low back pain. Denies focal motor neurologic deficits. No recent injury or additional trauma. [facility] Medical History Anemia ?D64.9 - Anemia, unspecified (ICD-10) Hyperkalemia ?E87.5 - Hyperkalemia (ICD-10) Supratherapeutic INR ?R79.1 - Abnormal coagulation profile (ICD-10) Closed compression fracture of L3 vertebra ?S32.030A - Wedge compression fracture of third lumbar vertebra, initial encounter for closed fracture (ICD-10) Subarachnoid hemorrhage ?I60.9 - Nontraumatic subarachnoid hemorrhage, unspecified (ICD-10) Chronic anticoagulation ?Z79.01 - jail (current) use of anticoagulants (ICD-10) Presence of permanent cardiac pacemaker ?Z95.0 - Presence of cardiac pacemaker (ICD-10) Chronic hypoxemic respiratory failure ?J96.11 - Chronic respiratory failure with hypoxia (ICD-10) Panlobular emphysema ?J43.1 - Panlobular emphysema (ICD-10) Chronic pain of both shoulders ?M25.511 - Pain in right shoulder (ICD-10) ?M25.512 - Pain in left shoulder (ICD-10) ?G89.29 - Other chronic pain (ICD-10) Anticoagulation goal of INR 2 to 3 ?Z51.81 - Encounter for therapeutic drug level monitoring (ICD-10) ?Z79.01 - intermodal truck driver (current) use of anticoagulants (ICD-10) Anticoagulated on warfarin ?Z79.01 - intermodal truck driver (current) use of anticoagulants (ICD-10) Paroxysmal atrial fibrillation ?I48.0 - Paroxysmal atrial fibrillation (ICD-10) Closed nondisplaced fracture of greater trochanter of right femur with routine healing ?S72.114D - Nondisplaced fracture of greater trochanter of right femur, subsequent encounter for closed fracture with routine healing (ICD-10) Chronic deep vein thrombosis of left lower extremity ?I82.502 - Chronic embolism and thrombosis of unspecified deep veins of left lower extremity (ICD-10) Intrinsic urethral sphincter deficiency ?N36.42 - Intrinsic sphincter deficiency (ISD) (ICD-10) Mixed stress and urge urinary incontinence ?N39.46 - Mixed incontinence (ICD-10) CKD stage 4 secondary to hypertension ?I12.9 - Hypertensive chronic kidney disease with stage 1 through stage 4 chronic kidney disease, or unspecified chronic kidney disease (ICD-10) ?N18.4 - Chronic kidney disease, stage 4 (severe) (ICD-10) Ischemic cardiomyopathy ?I25.5 - Ischemic cardiomyopathy (ICD-10) Recurrent major depression resistant to treatment ?F33.9 - Major depressive disorder, recurrent, unspecified (ICD-10) Hyperlipidemia ?E78.5 - Hyperlipidemia, unspecified (ICD-10) Hypertension ?I10 - Essential (primary) hypertension (ICD-10) MRSA (methicillin resistant Staphylococcus aureus) ?A49.02 - Methicillin resistant Staphylococcus aureus infection, unspecified site (ICD-10) Hypothyroidism ?E03.9 - Hypothyroidism, unspecified (ICD-10) COPD (chronic obstructive pulmonary disease) ?J44.9 - Chronic obstructive pulmonary disease, unspecified (ICD-10) CHF (congestive heart failure) ?I50.9 - Heart failure, unspecified (ICD-10) CAD (coronary artery disease) ?I25.10 - Atherosclerotic heart disease of [place] coronary artery without angina pectoris (ICD-10) Depression ?F32.A - Depression, unspecified (ICD-10) Atrial fibrillation ?I48.91 - Unspecified atrial fibrillation (ICD-10) Anxiety ?F41.9 - Anxiety disorder, unspecified (ICD-10) Acid reflux ?K21.9 - Gastro-esophageal reflux disease without esophagitis (ICD-10) Severe depression ?F32.2 - Major depressive disorder, single episode, severe without psychotic features (ICD-10) Surgical History History of hip replacement ?Z96.649 - Presence of unspecified artificial hip joint (ICD-10) History of cholecystectomy ?Z90.49 - Acquired absence of other specified parts of digestive tract (ICD-10) History of cataract surgery ?Z98.49 - Cataract extraction status, unspecified eye (ICD-10) Social History Narrative: Lives with a roommate in [place], adult children. Son Mykel and daughter Lakesha would share medical decision making duties. Requests Full Code status, understands that her progressive lung disease puts her at high risk if she were to ever need intubation. She would not want to be kept alive on a ventilator intermediate. What is your current living situation?: I presently have a place to live Problems where you live: no known problems Problems where you live details: No assistance at home. pt is unable to do ADLs and move due to increased back pain In the past 12 months, utilities in danger of being shut off: no In past 12 months, lack of transportation kept you from medical appts, meetings, work, or getting things needed for daily living: no In the past 12 mos, have been you worried that your food would run out before you had money to buy more?: never true In the past 12 mos, the food you bought just didn't last and you didn't have money to buy more?: never true Highest level of school completed/degree received: Associate degree: occupational, technical, vocational program Smoking Status: Former smoker What tobacco products do you use: cigarettes Smoking quit date/years: >15 years ago Do you use any of these nicotine containing products: None Second hand tobacco smoke exposure: No How often do you have a drink containing alcohol: never How often do you have six or more drinks on one occasion: Never AUDIT-C Alcohol total score: 0 Non-prescribed substance use: denies use Caffeine: Yes (coffee) How often does anyone, including family, friends and others, physically hurt you: never How often does anyone, including family, friends and others, insult or talk down to you: never How often does anyone, including family, friends and others, threaten you with harm: never How often does anyone, including family, friends and others, scream or curse at you: never service: No Meds Home Medications and Allergies Home Medications Medication Instructions Recorded Confirmed Type albuterol sulfate 90 mcg/actuation 2 puff inhalation Q4H PRN 06/02/22 05/29/23 History aerosol inhaler atorvastatin 40 mg tablet 40 mg PO HS 06/02/22 05/29/23 History cholecalciferol (vitamin D3) 50 50 mcg PO DAILY 06/02/22 05/29/23 History mcg (2,000 unit) capsule (Vitamin D3) fluticasone fur. 200 mcg-umeclid 1 inh inhalation DAILY 06/02/22 05/29/23 History 62.5 mcg-vilant 25 mcg inhalat.powder (Trelegy Ellipta) levothyroxine 88 mcg tablet 88 mcg PO DAILY 06/02/22 05/29/23 History warfarin 2 mg tablet 3 - 6 mg PO DAILY 06/02/22 05/29/23 History multivitamin (Multiple Vitamins 1 tab PO DAILY 06/03/22 05/29/23 History tablet) spironolactone 25 mg tablet 12.5 mg PO DAILY 12/23/22 05/29/23 History famotidine 20 mg tablet 20 mg PO HS 04/22/23 05/29/23 History calcium carbonate 600 mg-vitamin 1 tab PO DAILY 05/23/23 05/29/23 History D3 5 mcg (200 unit) tablet (Calcium 600 + D(3)) carvedilol 6.25 mg tablet 6.25 mg PO BID 05/23/23 05/29/23 History fluoxetine 20 mg capsule 20 mg PO DAILY 05/23/23 05/29/23 History fluoxetine 40 mg capsule 40 mg PO DAILY 05/23/23 05/30/23 History mirabegron 50 mg tablet,extended 50 mg PO DAILY 05/23/23 05/29/23 History release 24 hr (Myrbetriq) torsemide 10 mg tablet 10 mg PO DAILY PRN 05/23/23 05/29/23 History Allergies Allergy/AdvReac Type Severity Reaction Status Date / Time bacitracin Allergy Mild Verified 06/29/23 13:30 [From Neosporin Plus] lidocaine Allergy Mild Verified 06/29/23 13:30 [From Neosporin Plus] morphine Allergy Mild Hives Verified 06/29/23 13:30 neomycin Allergy Mild Verified 06/29/23 13:30 [From Neosporin Plus] Penicillins Allergy Mild Rash Verified 06/29/23 13:30 polymyxin B Allergy Mild Verified 06/29/23 13:30 [From Neosporin Plus] pramoxine Allergy Mild Verified 06/29/23 13:30 [From Neosporin Plus] BRAD Inhibitors Allergy Unknown Verified 06/29/23 13:30 bupropion [From Wellbutrin] Allergy Unknown Verified 06/29/23 13:30 hydrocodone Allergy Unknown Verified 06/29/23 13:30 levofloxacin [From Levaquin] Allergy Unknown Verified 06/29/23 13:30 oxycodone Allergy Unknown Verified 06/29/23 13:30 sulfamethoxazole Allergy Unknown Verified 06/29/23 13:30 Exam Narrative: Exam Narrative: I examine her in her hospital room. She is laying on her right side and appears comfortable albeit she states that she has uncomfortable with pain. Vision and hearing are adequate. Alert, oriented to self, place, time, situation. Articulate, cooperative, friendly. Able to carry on meaningful conversation. Insightful. No icterus or conjunctival injection. Conjugate gaze. Does utilize glasses. Midline nasal septum. Dentition in fair repair. Moist buccal mucosa. Neck is supple. Midline trachea. Lungs are clear to auscultation without wheezing, rhonchi, or rales. No CVA tenderness. Does have discomfort to palpation in the lower back, does lateralize to the left slightly. Abdomen with active bowel sounds, soft, nontender. Extremities without edema. No focal motor neurologic deficits. Able to moves all 4 extremities at will. Strength preserved lower extremities. Skin is warm, dry, intact. No cyanosis, petechiae, jaundice. Const: Vital Signs, click to edit/add: Vital Signs - 24 hr 06/29/23 13:21 06/29/23 14:13 06/29/23 14:15 Temperature 97.7 F Pulse Rate 89 90 Pulse Rate [Left B rachial] Pulse Rate [Right Pulse Oximeter] 93 Respiratory Rate 14 Blood Pressure Blood Pressure [Le ft Arm] Blood Pressure [Ri ght Upper Arm] 94/78 Pulse Oximetry 92 93 95 Oxygen Delivery Me thod Room Air Oxygen Flow Rate 06/29/23 14:16 06/29/23 14:30 06/29/23 14:32 Temperature Pulse Rate 90 90 89 Pulse Rate [Left B rachial] Pulse Rate [Right Pulse Oximeter] Respiratory Rate Blood Pressure 103/64 106/75 Blood Pressure [Le ft Arm] Blood Pressure [Ri ght Upper Arm] Pulse Oximetry 93 94 94 Oxygen Delivery Me thod Oxygen Flow Rate 06/29/23 14:45 06/29/23 15:02 06/29/23 15:03 Temperature Pulse Rate 90 92 93 Pulse Rate [Left B rachial] Pulse Rate [Right Pulse Oximeter] Respiratory Rate Blood Pressure 99/67 Blood Pressure [Le ft Arm] Blood Pressure [Ri ght Upper Arm] Pulse Oximetry 94 93 90 Oxygen Delivery Me thod Oxygen Flow Rate 06/29/23 15:15 06/29/23 15:35 06/29/23 15:45 Temperature Pulse Rate 89 90 105 H Pulse Rate [Left B rachial] Pulse Rate [Right Pulse Oximeter] Respiratory Rate Blood Pressure Blood Pressure [Le ft Arm] Blood Pressure [Ri ght Upper Arm] Pulse Oximetry 92 93 94 Oxygen Delivery Me thod Oxygen Flow Rate 06/29/23 16:00 06/29/23 16:01 06/29/23 16:54 Temperature 97.7 F Pulse Rate 90 90 Pulse Rate [Left B rachial] 92 Pulse Rate [Right Pulse Oximeter] Respiratory Rate 20 Blood Pressure 103/76 Blood Pressure [Le ft Arm] 99/68 Blood Pressure [Ri ght Upper Arm] Pulse Oximetry 92 93 93 Oxygen Delivery Me thod Nasal Cannula Oxygen Flow Rate 1 06/29/23 16:54 Temperature Pulse Rate Pulse Rate [Left B rachial] Pulse Rate [Right Pulse Oximeter] Respiratory Rate 20 Blood Pressure Blood Pressure [Le ft Arm] Blood Pressure [Ri ght Upper Arm] Pulse Oximetry 92 Oxygen Delivery Me thod Nasal Cannula Oxygen Flow Rate 1 Documenting provider has reviewed patient's vital signs: yes Hospitalist - H&P: Result Labs Labs: Short CBC 06/29/23 Range/Units 13:56 WBC 7.13 (4.50-11.00) K/uL Hgb 11.4 L (12.0-16.0) gm/dL Hct 36.6 (33.0-51.0) % Plt Count 230 (140-440) K/uL BMP 06/29/23 13:56 Sodium 136 Potassium 4.5 Chloride 104 Carbon Dioxide 25 BUN 47 H Creatinine 1.1 Glucose 95 Calcium 8.5 Urine 06/29/23 Range/Units 15:03 Urine Color Yellow (Yellow) Urine Appearance Clear (Clear) Urine pH 5.5 (5.0-8.5) Ur Specific [place] 1.015 (1.000-1.030) Urine Protein Negative (Negative) Urine Glucose (UA) Negative (Negative) Imaging CT scan - lumbosacral spine: Attestation: I have reviewed the pertinent imaging results. Radiologist's impression: Impression: Evolution of previously seen compression fracture of the L3 level with evolving sclerotic changes and retropulsion somewhat increased from comparison. No new acute osseous abnormality or additional compression fracture is identified. Assessment and Plan Assessment and plan (1) Intractable back pain: Problem comment: - Due to evolving L3 vertebral body compression fracture - admit for observation for increased pain management, PT and OT evaluate and treat, consider alternative living situation such as transitional care services. Status: Acute (2) Compression fracture of L3 vertebra: Problem comment: - CT scan lumbosacral spine 06/29/2023 demonstrated the following: Impression: Evolution of previously seen compression fracture of the L3 level (05/22/2023) with evolving sclerotic changes and retropulsion somewhat increased from comparison. No new acute osseous abnormality or additional compression fracture is identified. Status: Acute (3) Adult failure to thrive: Problem comment: -due to intractable back pain in association with evolving L3 vertebral body compression fracture with increasing physical limitations associated with the pain Status: Acute Plan 1. Reviewed my impression with the patient. Answered her questions. 2. Continue close monitoring and support of her multiple other underlying medical conditions. 3. Admit for observation with possibility of trying to increased services in her home verses an alternate living setting for short period of time with increase services. 4. Patient agreeable to above stated plans and recommendations.
--- NOTE | 2023-06-29 19:37 | PC.NURSE ---
shift note: pt admit to rm 259 via WC from ED. Pt rating mid back pain 6/10. Pt medicated with toradol, tylenol, po dilaudid. Aqua K applied to pt's back. pt pain rechecked @ 1830 with pt rating pain 2/10. Pt comfortably sitting up in recliner eating. Pt stated she had difficulty swallowing while eating chicken tenders this kin. pt states she tried to drink some water that came right back up. Pt states this has happened in the past and she has had a swallowing study. pt on cont sats on 1L pnc O2. sats 96-99%. LS with LLL faint crkls while laying on rt side in bed. tele monitor reading paced rhythm. ap pulse is irreg. Dr. Miller updated on pt's condition.
--- NOTE | 2023-06-29 19:44 | PM.EN ---
Chart Event Note Time Seen by Provider: 19:40 Date Seen: 06/29/23 Chart Event Note: 1. Nurse reports an episode of food getting stuck in her esophagus momentarily this evening, later resolved. No aspiration. I changed the diet to soft,bite size. Also, she is to eat and drink only when sitting up. I will request a bedside swallow evaluation and recommendations. 2. SBPs are running low. I will hold evening valsartan today, and decrease dosing from 40 mg BID to 20 mg BID.
[2023-06-29] MEDS: guaiFENesin 600 MG TAB.ER.12H PO ×2 (23:11→23:12)
[2023-06-29] MEDS: FAMOTIDINE 20 MG TABLET PO ×2 (23:11→23:13)
[2023-06-29] MEDS: FLUOXETINE HCL 20 MG CAPSULE 40 MG PO (23:12)
[2023-06-29] MEDS: carvediloL 6.25 MG TABLET PO (23:12)
[2023-06-29] MEDS: ATORVASTATIN CALCIUM 40 MG TABLET PO (23:13)
[2023-06-30] VITALS (11 sets, daily range): BP systolic 92–112; BP diastolic 61–79; PULSE 75–103; RESP 16–18; TEMP 36.4–36.8; O2SAT 91–95
[2023-06-30] MEDS: HYDROmorphone 2 MG TABLET PO ×3 (03:41→20:33)
[2023-06-30] MEDS: LEVOTHYROXINE 88 MCG TABLET PO (05:42)
--- NOTE | 2023-06-30 06:34 | PC.NURSE ---
Pt pleasant and cooperative. Up several times to the bathroom. SBA with walker. VSS BP soft. Asymptomatic.Minimal complaints of pain.
[2023-06-30 07:26] LABS: INR 3.45 (0.91-1.10); Prothrombin Time 36.3 Seconds
[2023-06-30] MEDS: SENNOSIDES/DOCUSATE TABLET 1 TAB PO (09:17)
[2023-06-30] MEDS: ACETAMINOPHEN 325 MG TABLET 650 MG PO ×3 (09:17→20:33)
[2023-06-30] MEDS: carvediloL 6.25 MG TABLET PO ×2 (09:17→20:32)
[2023-06-30] MEDS: LIDOCAINE 5% PATCH 1 PATCH TRANSDERMA (09:18)
[2023-06-30] MEDS: FLUOXETINE HCL 20 MG CAPSULE PO (09:18)
[2023-06-30] MEDS: SPIRONOLACTONE 25 MG TABLET 12.5 MG PO (09:18)
[2023-06-30] MEDS: SODIUM CHLORIDE 0.9 % (FLUSH) 10 ML SYRINGE 5 ML IVF (09:19)
--- NOTE | 2023-06-30 13:18 | PC.SOCIAL ---
Discharge planning- Per therapy, pt would benefit from Short-term rehab stay. Met with pt in room. Pt has been to [facility] and [facility] in the past for rehab. Pt would like to go to [facility] if possible. Phone call to Shellie in admissions at [facility] at [phone]. There are openings and Shellie will assess. Secure e-mailed referral to Shellie at [facility]. Social work will follow up as needed.
--- NOTE | 2023-06-30 13:38 | PM.IMPN1 ---
Progress Note: A&P Assessment and plan (1) Intractable back pain: Problem details: - Due to evolving L3 vertebral body compression fracture as demonstrated on recent CT - admitted for observation for increased pain management including scheduled Tylenol, lidocaine patch, calcitonin spray, p.r.n. Dilaudid, p.r.n. hydroxyzine - PT and OT - consider alternative living situation such as transitional care services Status: Acute (2) Compression fracture of L3 vertebra: Problem details: - CT scan lumbosacral spine 06/29/2023 demonstrated the following: Impression: Evolution of previously seen compression fracture of the L3 level (05/22/2023) with evolving sclerotic changes and retropulsion somewhat increased from comparison. No new acute osseous abnormality or additional compression fracture is identified. - management as above Status: Acute (3) Adult failure to thrive: Problem details: - due to intractable back pain in association with evolving L3 vertebral body compression fracture with increasing physical limitations associated with the pain - PT/OT/health care social worker for discharge planning/placement need Status: Acute (4) Hypertension: Problem details: - soft blood pressures noted, history of same in previous hospitalizations. - valsartan dosing cut in half, now held. Continuing carvedilol for AFib and spironolactone for heart failure, adjusting as necessary. - monitor while receiving narcotics Status: Acute (5) CHF (congestive heart failure): Problem details: - continue spironolactone given history of previous hospitalizations with heart failure - monitor blood pressures Status: Acute (6) Paroxysmal atrial fibrillation: Problem details: - rate controlled - continue carvedilol, monitor blood pressure - supratherapeutic INR, >3. Continue to hold Coumadin. Pharmacy to manage Status: Chronic Plan CODE: Full VTE PPX: Coumadin - on hold for supratherapeutic INR, pharmacy to manage Disposition: Observation Time Spent With Patient Total time spent: Total time spent caring for the patient today was 45 minutes. This includes time spent for the visit reviewing the chart, time spent during the visit, time spent after the visit and documentation and planning in coordination of care. Subjective Date Seen: 06/30/23 Interval history: Patient reports feeling better this morning. Pain currently adequately controlled. She tells me she has only been using Tylenol as she was no longer supposed to be taking Dilaudid. She has not purchased any lidocaine patches as she believes the cost is $90. Denies headache or dizziness. Denies chest pain or shortness of breath. Tolerating orals without nausea vomiting. Nursing staff reports blood pressures have been soft, SBP mid 80s- [id number]. Otherwise asymptomatic. Exam Narrative: Exam Narrative: PHYSICAL EXAM General: Pleasant, conversant, NAD HEENT: Normocephalic, atraumatic, sclera white, EOMI, oral mucosa moist Cardiovascular: RRR, S1S2. No pitting edema Pulmonary: CTA bilaterally without rhonchi, rales, expiratory wheezes. No dyspnea Abdominal: Soft, nondistended, NTTP Neurological: Alert, answering questions appropriately, cranial nerves intact, no focal findings Extremities: No gross joint deformity or swelling. AROMI. Neurovascularly intact Skin: Warm, dry. Const: Vital Signs, click to edit/add: Vital Signs - 24 hr 06/29/23 14:13 06/29/23 14:15 06/29/23 14:16 Temperature Pulse Rate 89 90 90 Pulse Rate [Left B rachial] Respiratory Rate Blood Pressure 103/64 Blood Pressure [Le ft Arm] Pulse Oximetry 93 95 93 Oxygen Delivery Me thod Oxygen Flow Rate 06/29/23 14:30 06/29/23 14:32 06/29/23 14:45 Temperature Pulse Rate 90 89 90 Pulse Rate [Left B rachial] Respiratory Rate Blood Pressure 106/75 Blood Pressure [Le ft Arm] Pulse Oximetry 94 94 94 Oxygen Delivery Me thod Oxygen Flow Rate 06/29/23 15:02 06/29/23 15:03 06/29/23 15:15 Temperature Pulse Rate 92 93 89 Pulse Rate [Left B rachial] Respiratory Rate Blood Pressure 99/67 Blood Pressure [Le ft Arm] Pulse Oximetry 93 90 92 Oxygen Delivery Me thod Oxygen Flow Rate 06/29/23 15:35 06/29/23 15:45 06/29/23 16:00 Temperature Pulse Rate 90 105 H 90 Pulse Rate [Left B rachial] Respiratory Rate Blood Pressure Blood Pressure [Le ft Arm] Pulse Oximetry 93 94 92 Oxygen Delivery Me thod Oxygen Flow Rate 06/29/23 16:01 06/29/23 16:54 06/29/23 16:54 Temperature 97.7 F Pulse Rate 90 Pulse Rate [Left B rachial] 92 Respiratory Rate 20 20 Blood Pressure 103/76 Blood Pressure [Le ft Arm] 99/68 Pulse Oximetry 93 93 92 Oxygen Delivery Me thod Nasal Cannula Nasal Cannula Oxygen Flow Rate 1 1 06/29/23 17:09 06/29/23 19:00 06/29/23 21:00 Temperature 97.7 F Pulse Rate 89 Pulse Rate [Left B rachial] 95 Respiratory Rate 22 Blood Pressure Blood Pressure [Le ft Arm] 84/50 L Pulse Oximetry 99 93 Oxygen Delivery Me thod Nasal Cannula Oxygen Flow Rate 1 06/29/23 23:00 06/29/23 23:00 06/29/23 23:00 Temperature 97.5 F L Pulse Rate Pulse Rate [Left B rachial] 95 92 Respiratory Rate 18 Blood Pressure Blood Pressure [Le ft Arm] 87/61 L Pulse Oximetry 93 93 Oxygen Delivery Me thod Room Air Oxygen Flow Rate 06/30/23 03:00 06/30/23 03:00 06/30/23 07:49 Temperature 98 F 97.8 F Pulse Rate 89 Pulse Rate [Left B rachial] 75 102 H Respiratory Rate 16 18 Blood Pressure Blood Pressure [Le ft Arm] 96/65 111/69 Pulse Oximetry 95 91 Oxygen Delivery Me thod Room Air Nasal Cannula Oxygen Flow Rate 1.5 06/30/23 09:00 06/30/23 11:15 Temperature 97.5 F L Pulse Rate Pulse Rate [Left B rachial] 103 H Respiratory Rate 18 Blood Pressure Blood Pressure [Le ft Arm] 96/61 Pulse Oximetry 91 93 Oxygen Delivery Me thod Nasal Cannula Room Air Oxygen Flow Rate 1.5 Labs Labs: Laboratory Results - last 24 hr 06/29/23 06/29/23 06/30/23 13:56 15:03 06:08 WBC 7.13 RBC 3.87 L Hgb 11.4 L Hct 36.6 MCV 95 MCH 30 MCHC 31 L RDW Coeff of Sudha 15.8 H Plt Count 230 Neut % (Auto) 73.0 H Lymph % (Auto) 18.2 L [place] % (Auto) 7.7 Eos % (Auto) 0.4 Baso % (Auto) 0.1 Neut # (Auto) 5.20 Lymph # (Auto) 1.30 [place] # (Auto) 0.50 Eos # (Auto) 0.03 Baso # (Auto) 0.01 Abs Immat Gran (auto) 0.04 Imm/Tot Granulo (auto) 0.6 INR 3.32 H 3.45 H VBG pH 7.398 VBG pCO2 43 VBG pO2 28.3 VBG HCO3 27 Sodium 136 Potassium 4.5 Chloride 104 Carbon Dioxide 25 Anion Gap 7 BUN 47 H Creatinine 1.1 Estimated Creat Clear 39.67 Estimated GFR 51 Glucose 95 Lactate 0.7 Calcium 8.5 C-Reactive Protein 1.0 Urine Color Yellow Urine Appearance Clear Urine pH 5.5 Ur Specific [place] 1.015 Urine Protein Negative Urine Glucose (UA) Negative Urine Ketones Negative Urine Blood Negative Urine Nitrite Negative Urine Bilirubin Negative Urine Urobilinogen 0.2 Ur Leukocyte Esterase Trace A Urine RBC 0-2 Urine WBC 0-2 Ur Squamous Epith Cells None Urine Bacteria None
[2023-06-30] MEDS: CALCITONIN SALMON NASAL SPRAY 200 UNIT 1 SPRAY NOSTRIL-B (16:43)
--- NOTE | 2023-06-30 17:11 | PC.NURSE ---
End of shift: Patient is alert and orientated.... pleasant and cooperative. VS on RA when at rest and wears 1.5L NC chronically when completing activities. Orders for O2 stats to be greater than 88%. She rates constant pressure/ pain at 4/10 throughout the day in her low back. Despite scheduled Tylenol and PRN Dilaudid 1x. She reports that it is a manageable pain level for her. Up as tolerated independently in her room per PT's assessment today. She did not have lunch today.... ordering dinner soon. I offered her an ensure shake and she states that she likes the chocolate shake. Aqua K pad to low back PRN for pain relief. Lidocaine patch applied this AM to low back. She told me she took out her IV in her L AC because it was too painful, and stated she would rather be poked again. Consistently low BP's throughout the shift... Valsartan on hold per DR Troncoso. Tele- A- paced... intermittently tachycardic when up. Awaiting placement to TCU... see social work note. Calls appropriately.
[2023-06-30] MEDS: guaiFENesin 600 MG TAB.ER.12H PO (20:31)
[2023-06-30] MEDS: FAMOTIDINE 20 MG TABLET PO (20:31)
[2023-06-30] MEDS: ONDANSETRON ODT 4 MG TAB PO (20:32)
[2023-06-30] MEDS: FLUOXETINE HCL 20 MG CAPSULE 40 MG PO (20:32)
[2023-06-30] MEDS: ATORVASTATIN CALCIUM 40 MG TABLET PO (20:33)
[2023-07-01] VITALS (7 sets, daily range): BP systolic 88–116; BP diastolic 61–77; PULSE 89–94; RESP 16–20; TEMP 36.6–37.1; O2SAT 89–94
[2023-07-01] MEDS: LEVOTHYROXINE 88 MCG TABLET PO (06:25)
--- NOTE | 2023-07-01 06:43 | PC.NURSE ---
End of Shift: Pt pleasant and cooperative throughout shift, remained AO. Independent in room with walker. Continent of bowel and bladder. Denied pain throughout shift with the exception of intermittent twinges in right shoulder. Pt slept well, VSS. Pt reportedly removed IV herself stating it was causing her pain. Weight today is up 0.96kg from yesterday. No bm during shift.
[2023-07-01 07:28] LABS: INR 2.78 (0.91-1.10); Prothrombin Time 30.7 Seconds
[2023-07-01] MEDS: FLUOXETINE HCL 20 MG CAPSULE PO ×2 (08:36→20:30)
[2023-07-01] MEDS: SPIRONOLACTONE 25 MG TABLET 12.5 MG PO (08:36)
[2023-07-01] MEDS: carvediloL 6.25 MG TABLET PO ×2 (08:36→20:30)
[2023-07-01] MEDS: ACETAMINOPHEN 325 MG TABLET 650 MG PO ×4 (08:37→20:31)
[2023-07-01] MEDS: SENNOSIDES/DOCUSATE TABLET 1 TAB PO (08:37)
[2023-07-01] MEDS: LIDOCAINE 5% PATCH 1 PATCH TRANSDERMA (08:38)
[2023-07-01] MEDS: guaiFENesin 600 MG TAB.ER.12H PO ×2 (12:47→20:32)
--- NOTE | 2023-07-01 14:11 | PC.SOCIAL ---
Discharge planning- Received a phone call from Shellie in admissions at [facility] at [phone]. Pt has been accepted for admission to [facility] for tomorrow (07/02/23). Met with pt to provide update. Pt's son will transport to [facility] at 8:00 am. Provided update to charge nurse and Shellie at [facility]. Completed Preadmission screening. Confirmation #[id number]. Social work will follow up as needed.
--- NOTE | 2023-07-01 15:44 | P.IMPN_ITS ---
Progress Note: A&P Assessment and plan (1) Intractable back pain: Problem details: - Due to evolving L3 vertebral body compression fracture as demonstrated on recent CT - admitted for observation for increased pain management including scheduled Tylenol, lidocaine patch, calcitonin spray, p.r.n. Dilaudid, p.r.n. hydroxyzine - PT and OT - consider alternative living situation such as transitional care services - health care social worker working with [facility] Status: Acute (2) Compression fracture of L3 vertebra: Problem details: - CT scan lumbosacral spine 06/29/2023 demonstrated the following: Impression: Evolution of previously seen compression fracture of the L3 level (05/22/2023) with evolving sclerotic changes and retropulsion somewhat increased from comparison. No new acute osseous abnormality or additional compression fracture is identified. - management as above Status: Acute (3) Adult failure to thrive: Problem details: - due to intractable back pain in association with evolving L3 vertebral body compression fracture with increasing physical limitations associated with the pain - PT/OT/health care social worker for discharge planning/placement need Status: Acute (4) Hypertension: Problem details: - soft blood pressures noted, history of same in previous hospitalizations. Remains asymptomatic - valsartan dosing cut in half, now held. Continuing carvedilol for AFib and spironolactone for heart failure, adjusting as necessary. - monitor while receiving narcotics Status: Acute (5) CHF (congestive heart failure): Problem details: - continue spironolactone given history of previous hospitalizations with heart failure - monitor blood pressures Status: Acute (6) Paroxysmal atrial fibrillation: Problem details: - rate controlled - continue carvedilol, monitor blood pressure - supratherapeutic INR, >3. Continue to hold Coumadin. Pharmacy to manage Status: Chronic Plan Awaiting placement, possibly [facility] Time Spent With Patient Total time spent: Total time spent caring for the patient today was 45 minutes. This includes time spent for the visit reviewing the chart, time spent during the visit, time spent after the visit and documentation and planning in coordination of care. Subjective Date Seen: 07/01/23 Interval history: Patient reports feeling a little better than yesterday. Using Tylenol, lidocaine patch, and p.r.n. Dilaudid. Tells me if she moves wrong however she does have significant pain. Denies headache or dizziness. Denies chest pain or shortness of breath. Tolerating orals without nausea or vomiting. No events reported overnight. Continues to work with therapy, awaiting placement. Exam Narrative: Exam Narrative: PHYSICAL EXAM General: Sitting up in chair, pleasant, conversant, NAD HEENT: Normocephalic, atraumatic, sclera white, EOMI, oral mucosa moist Cardiovascular: RRR, S1S2. No pitting edema Pulmonary: CTA bilaterally without rhonchi, rales, expiratory wheezes. No dyspnea Abdominal: Soft, nondistended, NTTP Neurological: Alert, answering questions appropriately, cranial nerves intact, no focal findings Extremities: No gross joint deformity or swelling. AROMI. Neurovascularly intact Skin: Warm, dry. Const: Vital Signs, click to edit/add: Vital Signs - 24 hr 06/30/23 19:26 06/30/23 20:23 06/30/23 20:33 Temperature 98.2 F 98.2 F 98.2 F Pulse Rate Pulse Rate [Left P ulse Oximeter] 90 Respiratory Rate 18 Blood Pressure [Le ft Arm] 112/72 Pulse Oximetry 92 Oxygen Delivery Me thod Nasal Cannula Oxygen Flow Rate 1.5 06/30/23 23:00 06/30/23 23:00 06/30/23 23:00 Temperature Pulse Rate Pulse Rate [Left P ulse Oximeter] 97 Respiratory Rate 16 16 Blood Pressure [Le ft Arm] Pulse Oximetry 91 91 Oxygen Delivery Me thod Nasal Cannula Oxygen Flow Rate 06/30/23 23:00 06/30/23 23:36 07/01/23 03:00 Temperature 98.2 F 98.2 F Pulse Rate 89 Pulse Rate [Left P ulse Oximeter] 97 Respiratory Rate 16 Blood Pressure [Le ft Arm] 92/69 Pulse Oximetry 91 Oxygen Delivery Me thod Nasal Cannula Oxygen Flow Rate 07/01/23 03:00 07/01/23 07:27 07/01/23 08:35 Temperature 98 F Pulse Rate 89 Pulse Rate [Left P ulse Oximeter] 94 Respiratory Rate 16 Blood Pressure [Le ft Arm] Pulse Oximetry 91 91 Oxygen Delivery Me thod Room Air Oxygen Flow Rate 07/01/23 08:35 07/01/23 08:35 07/01/23 12:44 Temperature 98.0 F 98.0 F Pulse Rate Pulse Rate [Left P ulse Oximeter] 92 91 Respiratory Rate 20 18 Blood Pressure [Le ft Arm] 107/74 88/62 L Pulse Oximetry 91 91 89 Oxygen Delivery Me thod Room Air Room Air Room Air Oxygen Flow Rate Labs Labs: Laboratory Results - last 24 hr 07/01/23 06:30 INR 2.78 H
[2023-07-01] MEDS: WARFARIN 2 MG TABLET 4 MG PO (17:15)
[2023-07-01] MEDS: CALCITONIN SALMON NASAL SPRAY 200 UNIT 1 SPRAY NOSTRIL-B (17:16)
[2023-07-01] MEDS: FLUOXETINE HCL 20 MG CAPSULE 40 MG PO (20:32)
[2023-07-01] MEDS: ATORVASTATIN CALCIUM 40 MG TABLET PO (20:32)
[2023-07-01] MEDS: HYDROmorphone 2 MG TABLET PO (20:38)
--- NOTE | 2023-07-01 23:48 | PC.NURSE ---
Shift [id number]- Patient denies pain at rest or with movement. She does request dilaudid prior to going to sleep- see eMAR for administration. She is up independently in room.
[2023-07-02 01:05] VITALS: BP 106/61; PULSE 89; RESP 18; TEMP 37.1; O2SAT 92
[2023-07-02 04:30] VITALS: BP 90/61; PULSE 93; RESP 20; TEMP 36.6; O2SAT 92
[2023-07-02] MEDS: LEVOTHYROXINE 88 MCG TABLET PO (05:50)
[2023-07-02 07:35] VITALS: BP 92/68; PULSE 88; RESP 18; TEMP 35.7; O2SAT 93
[2023-07-02 07:47] LABS: INR 2.59 (0.91-1.10)
--- NOTE | 2023-07-02 07:49 | PC.NURSE ---
Shift note [id number]: Pt is alert and oriented x3. Afebrile. Pt denies chest pain, pain, SOB and N/V. Is up ad linda in room. Pt is on 1.5L of oxygen via nasal cannula to maintain O2 stats of 90-92%.?Pt slept intermittently throughout night.??
[2023-07-02] MEDS: ACETAMINOPHEN 325 MG TABLET 650 MG PO (08:08)
[2023-07-02] MEDS: carvediloL 6.25 MG TABLET PO (08:09)
[2023-07-02] MEDS: SENNOSIDES/DOCUSATE TABLET 1 TAB PO (08:09)
[2023-07-02] MEDS: FLUOXETINE HCL 20 MG CAPSULE PO (08:10)
[2023-07-02] MEDS: guaiFENesin 600 MG TAB.ER.12H PO (08:11)
[2023-07-02] MEDS: SPIRONOLACTONE 25 MG TABLET 12.5 MG PO (08:11)
[2023-07-02] MEDS: CALCITONIN SALMON NASAL SPRAY 200 UNIT 1 SPRAY NOSTRIL-B (08:13)
[2023-07-02] MEDS: LIDOCAINE 5% PATCH 1 PATCH TRANSDERMA (08:17)
--- NOTE | 2023-07-02 13:01 | P.DS_ITS ---
DS: Providers Provider Date Seen: 07/02/23 Date of admission: 06/29/23 15:57 Primary care physician: Karma Jang MD Admitting Clinician: Liliam Vilalrreal MD Consults: 06/29/23 17:07 Consult to Physical Therapy [CONS] Routine Comment: Reason(s) for PT Consult:: Evaluate and Treat Any Restrictions?:: No Restrictions Consult to Coordinator Cardiopulmonary Services [CONS] Routine Comment: Reason for Consult:: Discharge Planning Needs 06/29/23 17:10 Consult to Occupational Therapy [CONS] Routine Comment: Reason(s) for OT Consult:: Evaluate and Treat Any Restrictions?:: No Restrictions 06/29/23 18:12 Consult to Occupational Therapy [CONS] Routine Comment: Reason(s) for OT Consult:: Difficulty Managing ADLs Any Restrictions?:: See Comment Comment: rt shoulder limited ROM Consult to Physical Therapy [CONS] Routine Comment: Reason(s) for PT Consult:: Pain Any Restrictions?:: No Restrictions Attending Physician on discharge: MARIEL Nettles, AJ[facility]C [facility] Date [facility] Discharge: 07/02/23 DS: Diagnosis Discharge Diagnosis (1) Intractable back pain: Status: Acute Problem details: - Due to evolving L3 vertebral body compression fracture as demonstrated on repeat CT - admitted for observation for increased pain management including scheduled Tylenol, lidocaine patch, calcitonin spray, p.r.n. Dilaudid, p.r.n. hydroxyzine. It is recommended the patient continue with scheduled Tylenol, [id number] lidocaine patch, calcitonin spray at time of discharge, utilizing minimal dilaudid. - PT and OT were consulted - social work nurse consulted and assisted with short-term placement at retirement facility (2) Compression fracture of L3 vertebra: Status: Acute Problem details: - CT scan lumbosacral spine 06/29/2023 demonstrated the following: Impression: Evolution of previously seen compression fracture of the L3 level (05/22/2023) with evolving sclerotic changes and retropulsion somewhat increased from comparison. No new acute osseous abnormality or additional compression fracture is identified. - management as above (3) Hypertension: Status: Acute Problem details: - soft blood pressures noted during hospitalization, history of same in previous hospitalizations. Remained asymptomatic at rest and with activity. - valsartan dosing cut in half, to be continued at discharge. Continued carvedilol for AFib and spironolactone for heart failure, without further adjustment, continue to discharge. - continue to monitor monitor while receiving narcotics for back pain - outpatient follow-up with PCP for further medication management (4) Paroxysmal atrial fibrillation: Status: Chronic Problem details: - rate controlled - continue carvedilol, monitor blood pressure - supratherapeutic INR, >3, on admission. On day of discharge INR is 2.59. Recommend resuming Coumadin at 2 mg and night. Recheck INR on 07/04/2023. Goal INR 2-3. DS: Summary Hospital Course Hospital Course: [age] year old female past medical history significant for paroxysmal atrial fibrillation on chronic anticoagulation, CHF, hypertension, CKD, chronic hypoxemic respiratory failure, ischemic cardiomyopathy, known L3 fracture was admitted to the medical floor for further management intractable pain secondary to evolving L3 fracture. Course of care and details as noted above. Remainder of chronic medical comorbidities were monitored and managed with home medications. Status at Discharge Functional status at discharge: independent ambulation Overall status at discharge: patient is back to baseline Time Spent with Patient Time attestation: Total time spent providing and/or coordinating discharge services: Time spent: Greater than 30 minutes Exam Narrative: Exam Narrative: PHYSICAL EXAM General: Pleasant, conversant, NAD HEENT: Normocephalic, atraumatic, sclera white, EOMI, oral mucosa moist Cardiovascular: RRR, S1S2. No pitting edema Pulmonary: CTA bilaterally without rhonchi, rales, expiratory wheezes. No dyspnea Abdominal: Soft, nondistended, NTTP Neurological: Alert, answering questions appropriately, cranial nerves intact, no focal findings Extremities: No gross joint deformity or swelling. AROMI. Neurovascularly intact Skin: Warm, dry. Const: Vital Signs, click to edit/add: Vital Signs - 24 hr 07/01/23 16:25 07/01/23 16:25 07/01/23 16:25 Temperature 98.3 F Pulse Rate [Left P ulse Oximeter] 90 Respiratory Rate 18 Blood Pressure [Le ft Arm] 92/68 Pulse Oximetry 94 94 94 Oxygen Delivery Me thod Room Air Room Air Oxygen Flow Rate 07/01/23 19:00 07/02/23 01:05 07/02/23 04:30 Temperature 98.1 F 98.7 F 97.9 F Pulse Rate [Left P ulse Oximeter] 90 89 93 Respiratory Rate 18 18 20 Blood Pressure [Le ft Arm] 116/77 106/61 90/61 Pulse Oximetry 93 92 92 Oxygen Delivery Me thod Room Air Nasal Cannula Nasal Cannula Oxygen Flow Rate 1.5 1.5 DS: Data Data Completed and Pending Completed studies during hospitalization: Procedures Introduction of Other Gas into Respiratory Tract, Via Natural or Artificial Opening (05/29/23) Labs on day of discharge: Labs from last 24 hours 07/02/23 05:43 INR 2.59 H Discharge Plan Discharge Disposition: Xfer [facility] Date of Admission: 06/29/23 15:57 Attending Provider on Discharge: Rosalind Troncoso Primary Care Provider: Karma Jang I Discharge Medications: New hydromorphone 2 mg Tablet 2 mg PO Q6H PRNQty: 12 0RF Continued spironolactone 25 mg tablet 12.5 mg PO DAILY atorvastatin 40 mg tablet 40 mg PO HS levothyroxine 88 mcg tablet 88 mcg PO DAILY albuterol sulfate 90 mcg/actuation HFA aerosol inhaler 2 puff INHALATION Q4H PRN Patient Comments: INHALE 1 TO 2 PUFFS BY MOUTH EVERY 4 HOURS NEEDED FOR SHORTNESS OF BREATH Trelegy Ellipta 200-62.5-25 mcg blister with device 1 inh INHALATION DAILY Patient Comments: INHALE 1 PUFF BY MOUTH EVERY DAY cholecalciferol (vitamin D3) [Vitamin D3] 50 mcg (2,000 unit) capsule 50 mcg PO DAILY multivitamin [Multiple Vitamins] Tablet 1 tab PO DAILY famotidine 20 mg tablet 20 mg PO HS calcium carbonate-vitamin D3 [Calcium 600 + D(3)] 600 mg-5 mcg (200 unit) tablet 1 tab PO DAILY carvedilol 6.25 mg tablet 6.25 mg PO BID fluoxetine 20 mg capsule 20 mg PO DAILY Patient Comments: total dose 60mg daily Myrbetriq 50 mg tablet extended release 24 hr 50 mg PO DAILY torsemide 10 mg tablet 10 mg PO DAILY PRN Rx Instructions: FOR LOWER LEG SWELLING fluoxetine 40 mg capsule 40 mg PO DAILY Patient Comments: Rx Instructions: total dose 60mg daily calcitonin (salmon) 200 unit/actuation [place],Non-Aerosol 1 spray intranasal Q24H Qty: 3.7 0RF Senna Plus 8.6-50 mg capsule 1 tab-cap PO BID PRNQty: 30 0RF hydromorphone 2 mg tablet 2 mg PO Q6H Qty: 20 0RF furosemide 20 mg tablet 20 mg PO DAILY valsartan 40 mg tablet 20 mg PO BID ipratropium-albuterol 0.5 mg-3 mg(2.5 mg base)/3 mL solution for nebulization 3 ml inhalation QID PRN acetaminophen 500 mg Tablet 1,000 mg PO TID PRN Changed warfarin 2 mg tablet 2 mg PO DAILY Qty: 7 0RF Rx Instructions: Take 3mg every MWF Take 6mg all other days Discontinued naproxen sodium [Aleve] 220 mg tablet 220 mg PO BID PRN (Reason: pain) Qty: 14 0RF Discharge Orders: Discharge Order (Routine); Ordered 07/02/23 Ordered By: Rosalind Troncoso Additional Instructions: For your back pain it is recommended you use Tylenol on a scheduled basis, 650 mg 4 times daily. In addition you may use [id number] lidocaine patches to the area once daily. Continue to use ice and/or heat to the area. Continue to work with physical therapy. Do not use any ibuprofen or naproxen products as you are on Coumadin. Your INR on 07/02/2023 is 2.59. Resume taking your Coumadin at 2 mg nightly. You will need an INR check on 07/04/2023. Activity Level: Activity as Tolerated Discharge Diet: Regular Follow Up Appointments: Karma Jang MD [Primary Care Provider] - 07/09/23 (Follow up hospital stay, back pain with L3 fracture. INR check 07/04/2023) Admit to: SNF Discharge Potential: Good Length of Stay: <30 days Can use facility standing orders?: Yes Code Status: Full Code Rehab Potential: Good Therapy: Physical Therapy and Occupational Therapy Therapy Orders: Evaluate and Treat Oxygen: No Next INR: 07/04/2023 INR Goal: 2-3 Orders are good >30 days: Yes Signature: MARIEL Nettles, PA-C [facility]
--- NOTE | 2023-07-02 13:18 | PC.NURSE ---
Pt removed her own telemetry, hx of paced rhythm in preparation for d/c to [facility] with son as transportation. Morning meds provided w/o pt having difficulty swallowing. Lidoderm patch applied to right lower back. Report called to [facility]. Belonging list and d/c information signed by pt with son Mykel present. D/C'ed via w/c w/son to home for packing up belongings and then delivery to [facility] this morning @ 0855.
== END 2023-07-02 08:55 ==
LOC: ED 15:40 → MEDSURG 15:58
PROVIDERS: Internal Medicine; Admitting Provider Family Medicine; Emergency Provider Family Medicine; PCP Family Medicine; Visit Provider Family Medicine
DX: M54.9 Dorsalgia, unspecified (principal); S32.030A Wedge compression fracture of third lumbar vertebra, initial encounter for closed fracture; R62.7 Adult failure to thrive; I10 Essential (primary) hypertension; I50.9 Heart failure, unspecified; I48.0 Paroxysmal atrial fibrillation
CPT/HCPCS: 36415; 72131; 80048; 81001; 82803; 83605; 85025; 85610; 86140; 87081; 87086; 92610; 93005; 94761; 96374; 97110; 97116; 97161; 97165; 97535; 99284; 99285; G0378; A9270; J1885

== ENCOUNTER 2023-08-26 15:29 | Outpatient (CLI) | payer MEDICARE, MEDICAID, SELFPAY | END 2023-08-26 15:30 | disposition home or self-care (01) | LOC: AMB 08-28 03:08 | PROVIDERS: PCP Family Medicine; Visit Provider Family Medicine | DX: R06.09 Other forms of dyspnea (principal) | CPT/HCPCS: A0425; A0427 ==

== ENCOUNTER 2023-08-26 15:51 | Emergency (ER) | payer MEDICARE, MEDICAID, SELFPAY ==
[2023-08-26 15:54] VITALS: BP 119/82; PULSE 89; RESP 20; TEMP 36.6; O2SAT 98; BMI 22.9
--- NOTE | 2023-08-26 16:19 | CRLHL7_ITS ---
For Patients: As a result of the Century Cures Act, medical imaging exams and procedure reports are released immediately into your electronic medical record. You may view this report before your referring provider. If you have questions, please contact your health care provider. INDICATION: Shortness of breath. Dysphagia. Vomiting. TECHNIQUE: CT chest PE was acquired with 95 cc Isovue 370 IV contrast. COMPARISON: May 29, 2023. FINDINGS: Heart and vasculature: Contrast opacification of the pulmonary arterial tree is adequate. No sign of pulmonary embolism. Marked cardiomegaly. Thoracic aorta normal in caliber. Lungs and pleura: No suspicious nodules or infiltrates. Small airspace consolidation in the right middle lobe. Moderate interstitial edema. Small right-sided pleural effusion. No pneumothorax. Lymph nodes/mediastinum: No mediastinal, hilar, or axillary adenopathy. Chest wall: No masses. Upper abdomen: No acute or significant findings. Bones: Unremarkable for age. IMPRESSION: 1. No pulmonary embolism. 2. Small right middle lobe pneumonia suspected. 3. Mild interstitial edema and small right-sided pleural effusion. 4. No other finding to explain shortness of breath. Please note that all CT scans at this facility use dose modulation, iterative reconstruction, and/or weight-based dosing when appropriate to reduce radiation dose to as low as reasonably achievable. Dictated by Tristen Solis MD @ 08/26/2023 8:33:53 PM (Electronically Signed)
[2023-08-26 16:58] VITALS: O2SAT 98
[2023-08-26 17:12] LABS: Basophils Absolute Auto 0.03 K/uL (0.00-0.30); Basophils Percent Auto 0.4 % (0.0-3.0); Eosinophils Absolute Auto 0.01 K/uL (0.00-0.50); Eosinophils Percent Auto 0.1 % (0.0-7.0); Hematocrit 38.7 % (33.0-51.0); Hemoglobin* 12.1 gm/dL (12.0-16.0); Immature Granulocytes Abs Auto 0.01 K/uL (0.00-0.30); Immature Granulocytes Pct Auto 0.1 %; Lymphocytes Percent Auto 24.9 % (20-44); Mean Corpuscular HGB Conc 31 gm/dL (32-36); Mean Corpuscular Hemoglobin 28 pg (26-34); Mean Corpuscular Volume 88 fL (80-100); Monocytes Percent Auto 9.6 % (0.0-11.0); Neutrophils Absolute Auto 4.68 K/uL (1.7-7.0); Neutrophils Percent Auto 64.9 % (42.0-72.0); Platelet Count* 210 K/uL (140-440); RDW Coefficient of Variation % 16.2 % (11.5-15.5); White Blood Count* 7.22 K/uL (4.50-11.00)
[2023-08-26 17:16] LABS: Slide Review Reflex No
[2023-08-26 17:27] LABS: Albumin* 3.8 g/dL (3.3-5.0); Chloride* 99 mmol/L (96-114)
[2023-08-26 17:28] LABS: INR 4.03 (0.91-1.10); Potassium* 4.8 mmol/L (3.6-5.1); Prothrombin Time 42.4 Seconds; Sodium* 131 mmol/L (135-149)
[2023-08-26 17:30] LABS: Creatinine* 1.2 mg/dL (0.5-1.5); Est. Creatinine Clearance* 36.36; Estimated Glomerular Filt Rate 46 ml/min
[2023-08-26 17:31] LABS: Alanine Aminotransferase* 38 U/L (4-35); Alkaline Phosphatase* 142 U/L (40-150); Anion Gap 7 mEq/L (7-15); Aspartate Amino Transferase* 39 U/L (12-35); Bilirubin Total* 1.1 mg/dL (0.1-1.5); Blood Urea Nitrogen* 34 mg/dL (7-30); Carbon Dioxide* 25 mmol/L (20-32); Glucose* 102 mg/dL (60-115); Total Protein* 6.5 g/dL (6.0-8.3)
[2023-08-26 17:41] LABS: NT Pro B Type NatriureticPept* 15200 pg/mL
--- NOTE | 2023-08-26 17:44 | ED_ITS ---
HPI - General Adult General Date Seen: 08/26/23 Chief complaint: Shortness of Breath/Dyspnea Stated complaint: Short of breath Time Seen by Provider: 08/26/23 16:11 Source: patient and EMS Mode of arrival: EMS Limitations: no limitations History of Present Illness HPI narrative: Patient is an 78-year-old woman who lives at home with a roommate. She was admitted to the hospital in June with failure to thrive and was discharged to intermediate at that time but is back home now. She has a history of COPD, she is on nighttime oxygen, it looks like she had had some issues wit low ox ygenation and needing oxygen during the day as well a couple of months ago, but she tells me that until the past week she had been just on nighttime oxygen. In the past week she says she has been short of breath with exertion and has been needing to use her oxygen more frequently. She has not had cough, she has not had fevers. Denies chest pain. She notes that she has a history of problems with swallowing and sometimes vomiting after eating but says for the past week this has been a daily occurrence. In her chart she is listed as having and history of gastroesophageal reflux as a cause for this. She is not aware of having previously had any kind of endoscopy or dilation. She is anticoagulated on Coumadin secondary to atrial fibrillation. She has a history of tobacco use but no longer smokes. Related Data Home Medications Medication Instructions Recorded Confirmed albuterol sulfate 90 mcg/actuation 2 puff inhalation Q4H PRN 06/02/22 08/29/23 aerosol inhaler atorvastatin 40 mg tablet 40 mg PO HS 06/02/22 08/29/23 cholecalciferol (vitamin D3) 50 50 mcg PO DAILY 06/02/22 08/29/23 mcg (2,000 unit) capsule (Vitamin D3) fluticasone fur. 200 mcg-umeclid 1 inh inhalation DAILY 06/02/22 08/29/23 62.5 mcg-vilant 25 mcg inhalat.powder (Trelegy Ellipta) levothyroxine 88 mcg tablet 88 mcg PO DAILY 06/02/22 08/29/23 multivitamin (Multiple Vitamins 1 tab PO DAILY 06/03/22 08/29/23 tablet) spironolactone 25 mg tablet 25 mg PO DAILY 12/23/22 08/29/23 famotidine 20 mg tablet 10 mg PO Q12H 04/22/23 08/29/23 calcium carbonate 600 mg-vitamin 1 tab PO DAILY 05/23/23 08/29/23 D3 5 mcg (200 unit) tablet (Calcium 600 + D(3)) carvedilol 6.25 mg tablet 3.125 mg PO BID 05/23/23 08/29/23 fluoxetine 20 mg capsule 20 mg PO DAILY 05/23/23 08/29/23 fluoxetine 40 mg capsule 40 mg PO DAILY 05/23/23 08/29/23 acetaminophen 500 mg tablet 1,000 mg PO TID PRN 06/30/23 08/29/23 ipratropium 0.5 mg-albuterol 3 mg 3 ml inhalation QID PRN 06/30/23 08/29/23 (2.5 mg base)/3 mL nebulization soln valsartan 40 mg tablet 20 mg PO BID 06/30/23 08/29/23 warfarin 2 mg tablet 2 mg PO DAILY 08/29/23 08/29/23 Previous Rx's Medication Instructions Recorded sennosides 8.6 mg-docusate sodium 1 tab-cap PO BID PRN #30 caps 05/26/23 50 mg capsule (Senna Plus) Allergies Allergy/AdvReac Type Severity Reaction Status Date / Time bacitracin Allergy Mild Verified 07/07/23 13:18 [From Neosporin Plus] lidocaine Allergy Mild Verified 07/07/23 13:18 [From Neosporin Plus] morphine Allergy Mild Hives Verified 07/07/23 13:18 neomycin Allergy Mild Verified 07/07/23 13:18 [From Neosporin Plus] Penicillins Allergy Mild Rash Verified 07/07/23 13:18 polymyxin B Allergy Mild Verified 07/07/23 13:18 [From Neosporin Plus] pramoxine Allergy Mild Verified 07/07/23 13:18 [From Neosporin Plus] BRAD Inhibitors Allergy Unknown Verified 07/07/23 13:18 bupropion [From Wellbutrin] Allergy Unknown Verified 07/07/23 13:18 hydrocodone Allergy Unknown Verified 07/07/23 13:18 levofloxacin [From Levaquin] Allergy Unknown Verified 07/07/23 13:18 oxycodone Allergy Unknown Verified 07/07/23 13:18 sulfamethoxazole Allergy Unknown Verified 07/07/23 13:18 Review of Systems Status of ROS: Reports: 10 or more systems reviewed and unremarkable except as noted in History and below [facility] Medical History (Updated 08/29/23 @ 15:05 by Liliam Villarreal MD) Anemia ?D64.9 - Anemia, unspecified (ICD-10) Hyperkalemia ?E87.5 - Hyperkalemia (ICD-10) Supratherapeutic INR ?R79.1 - Abnormal coagulation profile (ICD-10) Closed compression fracture of L3 vertebra ?S32.030A - Wedge compression fracture of third lumbar vertebra, initial encounter for closed fracture (ICD-10) Subarachnoid hemorrhage ?I60.9 - Nontraumatic subarachnoid hemorrhage, unspecified (ICD-10) Chronic anticoagulation ?Z79.01 - joint terminal attack controller (current) use of anticoagulants (ICD-10) Presence of permanent cardiac pacemaker ?Z95.0 - Presence of cardiac pacemaker (ICD-10) Chronic hypoxemic respiratory failure ?J96.11 - Chronic respiratory failure with hypoxia (ICD-10) Panlobular emphysema ?J43.1 - Panlobular emphysema (ICD-10) Chronic pain of both shoulders ?M25.511 - Pain in right shoulder (ICD-10) ?M25.512 - Pain in left shoulder (ICD-10) ?G89.29 - Other chronic pain (ICD-10) Anticoagulation goal of INR 2 to 3 ?Z51.81 - Encounter for therapeutic drug level monitoring (ICD-10) ?Z79.01 - joint terminal attack controller (current) use of anticoagulants (ICD-10) Anticoagulated on warfarin ?Z79.01 - joint terminal attack controller (current) use of anticoagulants (ICD-10) Paroxysmal atrial fibrillation ?I48.0 - Paroxysmal atrial fibrillation (ICD-10) Closed nondisplaced fracture of greater trochanter of right femur with routine healing ?S72.114D - Nondisplaced fracture of greater trochanter of right femur, subsequent encounter for closed fracture with routine healing (ICD-10) Chronic deep vein thrombosis of left lower extremity ?I82.502 - Chronic embolism and thrombosis of unspecified deep veins of left lower extremity (ICD-10) Intrinsic urethral sphincter deficiency ?N36.42 - Intrinsic sphincter deficiency (ISD) (ICD-10) Mixed stress and urge urinary incontinence ?N39.46 - Mixed incontinence (ICD-10) CKD stage 4 secondary to hypertension ?I12.9 - Hypertensive chronic kidney disease with stage 1 through stage 4 chronic kidney disease, or unspecified chronic kidney disease (ICD-10) ?N18.4 - Chronic kidney disease, stage 4 (severe) (ICD-10) Ischemic cardiomyopathy ?I25.5 - Ischemic cardiomyopathy (ICD-10) Recurrent major depression resistant to treatment ?F33.9 - Major depressive disorder, recurrent, unspecified (ICD-10) Hyperlipidemia ?E78.5 - Hyperlipidemia, unspecified (ICD-10) Hypertension ?I10 - Essential (primary) hypertension (ICD-10) MRSA (methicillin resistant Staphylococcus aureus) ?A49.02 - Methicillin resistant Staphylococcus aureus infection, unspecified site (ICD-10) Hypothyroidism ?E03.9 - Hypothyroidism, unspecified (ICD-10) COPD (chronic obstructive pulmonary disease) ?J44.9 - Chronic obstructive pulmonary disease, unspecified (ICD-10) CHF (congestive heart failure) ?I50.9 - Heart failure, unspecified (ICD-10) CAD (coronary artery disease) ?I25.10 - Atherosclerotic heart disease of [place] coronary artery without angina pectoris (ICD-10) Depression ?F32.A - Depression, unspecified (ICD-10) Atrial fibrillation ?I48.91 - Unspecified atrial fibrillation (ICD-10) Anxiety ?F41.9 - Anxiety disorder, unspecified (ICD-10) Acid reflux ?K21.9 - Gastro-esophageal reflux disease without esophagitis (ICD-10) Severe depression ?F32.2 - Major depressive disorder, single episode, severe without psychotic features (ICD-10) Surgical History (Updated 07/07/23 @ 13:23 by Lurdes Sage ~ [facility], [facility]) History of bilateral hip replacements (2006) ?Z96.643 - Presence of artificial hip joint, bilateral (ICD-10) History of cholecystectomy ?Z90.49 - Acquired absence of other specified parts of digestive tract (ICD- 10) History of cataract surgery ?Z98.49 - Cataract extraction status, unspecified eye (ICD-10) Social History (Updated 07/07/23 @ 13:23 by Lurdes Sage ~ [facility], [facility]) Narrative: Lives with a roommate in [place], adult children. Son Mykel and daughter Lakesha would share medical decision making duties. Requests Full Code status, understands that her progressive lung disease puts her at high risk if she were to ever need intubation. 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 What is your current living situation?: I presently have a place to live Problems where you live: no known problems Problems where you live details: chronic shoulder pain In the past 12 months, utilities in danger of being shut off: no In past 12 months, lack of transportation kept you from medical appts, meetings, work, or getting things needed for daily living: no In the past 12 mos, have been you worried that your food would run out before you had money to buy more?: never true In the past 12 mos, the food you bought just didn't last and you didn't have money to buy more?: never true Highest level of school completed/degree received: Associate degree: occupational, technical, vocational program Smoking Status: Former smoker What tobacco products do you use: cigarettes Smoking quit date/years: >15 years ago Do you use any of these nicotine containing products: None Second hand tobacco smoke exposure: No How often do you have a drink containing alcohol: never How often do you have six or more drinks on one occasion: Never AUDIT-C Alcohol total score: 0 Non-prescribed substance use: denies use Caffeine: Yes (coffee) How often does anyone, including family, friends and others, physically hurt you : never How often does anyone, including family, friends and others, insult or talk down to you: never How often does anyone, including family, friends and others, threaten you with harm: never How often does anyone, including family, friends and others, scream or curse at you: never service: No Exam Narrative: Exam Narrative: Vital signs as noted above. In general, an alert, well-appearing patient. Breathing easily on oxygen. Head: Normocephalic, atraumatic. Eyes: Pupils are equal reactive. Extraocular movements are full. Conjunctivae are normal. ENT: Mucous membranes are moist. Throat is normal. Neck: Supple without lymphadenopathy. Heart: Regular rate and rhythm. No murmur or rub. Lungs: Clear bilaterally. No increased work of breathing, crackles or wheezes. Abdomen: Soft and nontender. No organomegaly. Extremities: Well perfused. No edema. No calf tenderness. Pulses intact. Neurologic: Patient is alert and oriented to person and place. Speech is fluent. Face is symmetric. Moves all extremities equally. Affect: Normal. Skin: Warm and dry. Well perfused. Const: Vital Signs, click to edit/add: Vital Signs - 24 hr 08/26/23 15:54 08/26/23 16:58 08/26/23 16:58 Temperature 97.8 F Pulse Rate [Pulse Oximeter] 89 Respiratory Rate 20 Blood Pressure [Ri ght Upper Arm] 119/82 Pulse Oximetry 98 98 98 Oxygen Delivery Me thod Nasal Cannula Nasal Cannula Oxygen Flow Rate 2 Course Course ED Course: Patient presents with a couple of concerns, her primary concern is apparently that the intermittent vomiting after eating that she has had for quite some time has been daily for the past week. She does not have any abdominal or chest pain. She has not had this previously worked up according to her report. She also notes when I specifically ask that she has had some shortness of breath, particularly with exertion over the past week. Has not had exertional chest pain. Has not had leg swelling, does not feel her COPD is been worse. She does use oxygen historically mostly at night but has been using it during the day. Evaluation here for her respiratory symptoms included a negative COVID, RSV and influenza swab, a CBC which showed a normal white blood cell count and hemoglobin of 12, INR is slightly high at 4. Her electrolytes were unremarkable, LFTs notable for very minimal elevations in transaminases otherwise normal. CRP was 1[place] [address] but looking through her records this is actually significantly better than her normal BNP. She did have a CT of the chest which did not show evidence of pulmonary embolism, read as follows by Radiology:FINDINGS: Heart and vasculature: Contrast opacification of the pulmonary arterial tree is adequate. No sign of pulmonary embolism. Marked cardiomegaly. Thoracic aorta normal in caliber. Lungs and pleura: No suspicious nodules or infiltrates. Small airspace consolidation in the right middle lobe. Moderate interstitial edema. Small right-sided pleural effusion. No pneumothorax. Lymph nodes/mediastinum: No mediastinal, hilar, or axillary adenopathy. Chest wall: No masses. Upper abdomen: No acute or significant findings. Bones: Unremarkable for age. IMPRESSION: 1. No pulmonary embolism. 2. Small right middle lobe pneumonia suspected. 3. Mild interstitial edema and small right-sided pleural effusion. 4. No other finding to explain shortness of breath. I do think it is reasonable to treat her for a pneumonia. She has Lasix, spironolactone and torsemide all listed in her medication list. Her TSH was elevated but her free T4 was 1.97 which is just off reference range and certainly does not suggest hypothyroidism. Point of care troponin was 0.03. She feels comfortable going home which I think is reasonable, she has oxygen which for now she can use during the day. She does not show any evidence of respiratory distress here. Reviewed with her she is worsening at any point, not tolerating or oxygen at home, worsening shortness of breath etcetera she should come back to the ER. She should be seen in follow-up in clinic in the next few days to week for recheck, and she will need to have her INR rechecked particularly given that she is on antibiotics. Vital Signs Vital signs: Initial Vital Signs Temperature 97.8 F 08/26/23 15:54 Temperature Source Temporal Artery Scan 08/26/23 15:54 Pulse Rate 89 08/26/23 15:54 Respiratory Rate 20 08/26/23 15:54 Blood Pressure 119/82 08/26/23 15:54 Blood Pressure Mean 94 08/26/23 15:54 Blood Pressure Position Supine 08/26/23 15:54 Pulse Oximetry 98 08/26/23 15:54 Oxygen Delivery Method Nasal Cannula 08/26/23 15:54 Vital Signs Temperature 97.8 F 08/26/23 15:54 Pulse Rate 89 08/26/23 15:54 Respiratory Rate 20 08/26/23 15:54 Blood Pressure 119/82 08/26/23 15:54 Pulse Oximetry 98 08/26/23 15:54 Oxygen Delivery Method Nasal Cannula 08/26/23 15:54 Temperature 97.8 F 08/26/23 15:54 Pulse Rate 89 08/26/23 15:54 Respiratory Rate 20 08/26/23 15:54 Blood Pressure 119/82 08/26/23 15:54 Pulse Oximetry 98 08/26/23 16:58 Oxygen Delivery Method Nasal Cannula 08/26/23 16:58 Oxygen Flow Rate 2 08/26/23 16:58 Medical Decision Making Lab Data Labs: Lab Results 08/26/23 08/26/23 08/26/23 Range/Units 16:58 16:58 16:58 WBC 7.22 (4.50-11.00) K/uL RBC 4.40 (4.00-5.20) m/uL Hgb 12.1 (12.0-16.0) gm/dL Hct 38.7 (33.0-51.0) % MCV 88 (80-100) fL MCH 28 (26-34) pg MCHC 31 L (32-36) gm/dL RDW Coeff of Sudha 16.2 H (11.5-15.5) % Plt Count 210 (140-440) K/uL Neut % (Auto) 64.9 (42.0-72.0) % Lymph % (Auto) 24.9 (20-44) % [place] % (Auto) 9.6 (0.0-11.0) % Eos % (Auto) 0.1 (0.0-7.0) % Baso % (Auto) 0.4 (0.0-3.0) % Neut # (Auto) 4.68 (1.7-7.0) K/uL Lymph # (Auto) 1.80 (0.90-2.90) K/uL [place] # (Auto) 0.70 (0.00-0.90) K/UL Eos # (Auto) 0.01 (0.00-0.50) K/uL Baso # (Auto) 0.03 (0.00-0.30) K/uL Abs Immat Gran (auto) 0.01 (0.00-0.30) K/uL Imm/Tot Granulo (auto) 0.1 % INR 4.03 H (0.91-1.10) Sodium Cancelled 131 L Potassium Cancelled 4.8 Chloride Cancelled Carbon Dioxide Anion Gap BUN Creatinine Estimated Creat Clear Estimated GFR Glucose Calcium Total Bilirubin (0.1-1.5) mg/dL Direct Bilirubin (0.0-0.5) mg/dL AST (12-35) U/L ALT (4-35) U/L Alkaline Phosphatase (40-150) U/L C-Reactive Protein NT-Pro-B Natriuret Pep pg/mL Total Protein (6.0-8.3) g/dL Albumin (3.3-5.0) g/dL TSH (0.270-4.200) uIU/mL Free T4 (0.70-1.85) ng/dL Urine Color (Yellow) Urine Appearance (Clear) Urine pH (5.0-8.5) Ur Specific [place] (1.000-1.030) Urine Protein (Negative) Urine Glucose (UA) (Negative) Urine Ketones (Negative) Urine Blood (Negative) Urine Nitrite (Negative) Urine Bilirubin (Negative) Urine Urobilinogen (0.2-1.0) Ur Leukocyte Esterase (Negative) Urine RBC (0-2) Urine WBC (0-5) Ur Squamous Epith Cells (None-Few) Urine Bacteria (None) Fine Granular Casts (None) SARS-CoV-2 (PCR) (Negative) Influenza Type A (PCR) (Negative) Influenza Type B (PCR) (Negative) RSV (PCR) (Negative) 08/26/23 08/26/23 08/26/23 Range/Units 16:58 16:58 16:58 WBC (4.50-11.00) K/uL RBC (4.00-5.20) m/uL Hgb (12.0-16.0) gm/dL Hct (33.0-51.0) % MCV (80-100) fL MCH (26-34) pg MCHC (32-36) gm/dL RDW Coeff of Sudha (11.5-15.5) % Plt Count (140-440) K/uL Neut % (Auto) (42.0-72.0) % Lymph % (Auto) (20-44) % [place] % (Auto) (0.0-11.0) % Eos % (Auto) (0.0-7.0) % Baso % (Auto) (0.0-3.0) % Neut # (Auto) (1.7-7.0) K/uL Lymph # (Auto) (0.90-2.90) K/uL [place] # (Auto) (0.00-0.90) K/UL Eos # (Auto) (0.00-0.50) K/uL Baso # (Auto) (0.00-0.30) K/uL Abs Immat Gran (auto) (0.00-0.30) K/uL Imm/Tot Granulo (auto) % INR (0.91-1.10) Sodium Potassium Chloride 99 Carbon Dioxide Cancelled 25 Anion Gap Cancelled 7 BUN Cancelled Creatinine Estimated Creat Clear Estimated GFR Glucose Calcium Total Bilirubin (0.1-1.5) mg/dL Direct Bilirubin (0.0-0.5) mg/dL AST (12-35) U/L ALT (4-35) U/L Alkaline Phosphatase (40-150) U/L C-Reactive Protein NT-Pro-B Natriuret Pep pg/mL Total Protein (6.0-8.3) g/dL Albumin (3.3-5.0) g/dL TSH (0.270-4.200) uIU/mL Free T4 (0.70-1.85) ng/dL Urine Color (Yellow) Urine Appearance (Clear) Urine pH (5.0-8.5) Ur Specific [place] (1.000-1.030) Urine Protein (Negative) Urine Glucose (UA) (Negative) Urine Ketones (Negative) Urine Blood (Negative) Urine Nitrite (Negative) Urine Bilirubin (Negative) Urine Urobilinogen (0.2-1.0) Ur Leukocyte Esterase (Negative) Urine RBC (0-2) Urine WBC (0-5) Ur Squamous Epith Cells (None-Few) Urine Bacteria (None) Fine Granular Casts (None) SARS-CoV-2 (PCR) (Negative) Influenza Type A (PCR) (Negative) Influenza Type B (PCR) (Negative) RSV (PCR) (Negative) 08/26/23 08/26/23 08/26/23 Range/Units 16:58 16:58 16:58 WBC (4.50-11.00) K/uL RBC (4.00-5.20) m/uL Hgb (12.0-16.0) gm/dL Hct (33.0-51.0) % MCV (80-100) fL MCH (26-34) pg MCHC (32-36) gm/dL RDW Coeff of Sudha (11.5-15.5) % Plt Count (140-440) K/uL Neut % (Auto) (42.0-72.0) % Lymph % (Auto) (20-44) % [place] % (Auto) (0.0-11.0) % Eos % (Auto) (0.0-7.0) % Baso % (Auto) (0.0-3.0) % Neut # (Auto) (1.7-7.0) K/uL Lymph # (Auto) (0.90-2.90) K/uL [place] # (Auto) (0.00-0.90) K/UL Eos # (Auto) (0.00-0.50) K/uL Baso # (Auto) (0.00-0.30) K/uL Abs Immat Gran (auto) (0.00-0.30) K/uL Imm/Tot Granulo (auto) % INR (0.91-1.10) Sodium Potassium Chloride Carbon Dioxide Anion Gap BUN 34 H Creatinine Cancelled 1.2 Estimated Creat Clear Cancelled 36.36 Estimated GFR Cancelled Glucose Calcium Total Bilirubin (0.1-1.5) mg/dL Direct Bilirubin (0.0-0.5) mg/dL AST (12-35) U/L ALT (4-35) U/L Alkaline Phosphatase (40-150) U/L C-Reactive Protein NT-Pro-B Natriuret Pep pg/mL Total Protein (6.0-8.3) g/dL Albumin (3.3-5.0) g/dL TSH (0.270-4.200) uIU/mL Free T4 (0.70-1.85) ng/dL Urine Color (Yellow) Urine Appearance (Clear) Urine pH (5.0-8.5) Ur Specific [place] (1.000-1.030) Urine Protein (Negative) Urine Glucose (UA) (Negative) Urine Ketones (Negative) Urine Blood (Negative) Urine Nitrite (Negative) Urine Bilirubin (Negative) Urine Urobilinogen (0.2-1.0) Ur Leukocyte Esterase (Negative) Urine RBC (0-2) Urine WBC (0-5) Ur Squamous Epith Cells (None-Few) Urine Bacteria (None) Fine Granular Casts (None) SARS-CoV-2 (PCR) (Negative) Influenza Type A (PCR) (Negative) Influenza Type B (PCR) (Negative) RSV (PCR) (Negative) 08/26/23 08/26/23 08/26/23 Range/Units 16:58 16:58 16:58 WBC (4.50-11.00) K/uL RBC (4.00-5.20) m/uL Hgb (12.0-16.0) gm/dL Hct (33.0-51.0) % MCV (80-100) fL MCH (26-34) pg MCHC (32-36) gm/dL RDW Coeff of Sudha (11.5-15.5) % Plt Count (140-440) K/uL Neut % (Auto) (42.0-72.0) % Lymph % (Auto) (20-44) % [place] % (Auto) (0.0-11.0) % Eos % (Auto) (0.0-7.0) % Baso % (Auto) (0.0-3.0) % Neut # (Auto) (1.7-7.0) K/uL Lymph # (Auto) (0.90-2.90) K/uL [place] # (Auto) (0.00-0.90) K/UL Eos # (Auto) (0.00-0.50) K/uL Baso # (Auto) (0.00-0.30) K/uL Abs Immat Gran (auto) (0.00-0.30) K/uL Imm/Tot Granulo (auto) % INR (0.91-1.10) Sodium Potassium Chloride Carbon Dioxide Anion Gap BUN Creatinine Estimated Creat Clear Estimated GFR 46 Glucose Cancelled 102 Calcium Cancelled 9.0 Total Bilirubin 1.1 (0.1-1.5) mg/dL Direct Bilirubin 0.0 (0.0-0.5) mg/dL AST 39 H (12-35) U/L ALT 38 H (4-35) U/L Alkaline Phosphatase 142 (40-150) U/L C-Reactive Protein Cancelled NT-Pro-B Natriuret Pep pg/mL Total Protein (6.0-8.3) g/dL Albumin (3.3-5.0) g/dL TSH (0.270-4.200) uIU/mL Free T4 (0.70-1.85) ng/dL Urine Color (Yellow) Urine Appearance (Clear) Urine pH (5.0-8.5) Ur Specific [place] (1.000-1.030) Urine Protein (Negative) Urine Glucose (UA) (Negative) Urine Ketones (Negative) Urine Blood (Negative) Urine Nitrite (Negative) Urine Bilirubin (Negative) Urine Urobilinogen (0.2-1.0) Ur Leukocyte Esterase (Negative) Urine RBC (0-2) Urine WBC (0-5) Ur Squamous Epith Cells (None-Few) Urine Bacteria (None) Fine Granular Casts (None) SARS-CoV-2 (PCR) (Negative) Influenza Type A (PCR) (Negative) Influenza Type B (PCR) (Negative) RSV (PCR) (Negative) 08/26/23 08/26/23 Range/Units 16:58 18:20 WBC (4.50-11.00) K/uL RBC (4.00-5.20) m/uL Hgb (12.0-16.0) gm/dL Hct (33.0-51.0) % MCV (80-100) fL MCH (26-34) pg MCHC (32-36) gm/dL RDW Coeff of Sudha (11.5-15.5) % Plt Count (140-440) K/uL Neut % (Auto) (42.0-72.0) % Lymph % (Auto) (20-44) % [place] % (Auto) (0.0-11.0) % Eos % (Auto) (0.0-7.0) % Baso % (Auto) (0.0-3.0) % Neut # (Auto) (1.7-7.0) K/uL Lymph # (Auto) (0.90-2.90) K/uL [place] # (Auto) (0.00-0.90) K/UL Eos # (Auto) (0.00-0.50) K/uL Baso # (Auto) (0.00-0.30) K/uL Abs Immat Gran (auto) (0.00-0.30) K/uL Imm/Tot Granulo (auto) % INR (0.91-1.10) Sodium Potassium Chloride Carbon Dioxide Anion Gap BUN Creatinine Estimated Creat Clear Estimated GFR Glucose Calcium Total Bilirubin (0.1-1.5) mg/dL Direct Bilirubin (0.0-0.5) mg/dL AST (12-35) U/L ALT (4-35) U/L Alkaline Phosphatase (40-150) U/L C-Reactive Protein 1.0 NT-Pro-B Natriuret Pep 98455 pg/mL Total Protein 6.5 (6.0-8.3) g/dL Albumin 3.8 (3.3-5.0) g/dL TSH 8.180 H (0.270-4.200) uIU/mL Free T4 1.97 H (0.70-1.85) ng/dL Urine Color Yellow (Yellow) Urine Appearance Clear (Clear) Urine pH 5.5 (5.0-8.5) Ur Specific [place] 1.015 (1.000-1.030) Urine Protein Trace A (Negative) Urine Glucose (UA) Negative (Negative) Urine Ketones Negative (Negative) Urine Blood Negative (Negative) Urine Nitrite Negative (Negative) Urine Bilirubin Negative (Negative) Urine Urobilinogen 0.2 (0.2-1.0) Ur Leukocyte Esterase 1+ A (Negative) Urine RBC 0-2 (0-2) Urine WBC 2-5 (0-5) Ur Squamous Epith Cells Few (None-Few) Urine Bacteria None (None) Fine Granular Casts Few A (None) SARS-CoV-2 (PCR) Negative SARS-CoV-2 (Negative) Influenza Type A (PCR) Negative PCR FLU A (Negative) Influenza Type B (PCR) Negative PCR FLU B (Negative) RSV (PCR) Negative PCR RSV (Negative) Discharge Plan Discharge Clinical Impression: Dysphagia, Pneumonia Patient Disposition: Home, Self-Care Condition: Improved Instructions: Community Acquired Pneumonia (ED), Dysphagia (ED) Additional Instructions: Take antibiotic as prescribed for pneumonia. Use your oxygen as needed. If your respiratory symptoms are worsening, or you are not able to maintain your oxygen levels with your oxygen at home, return to the emergency department at any time. With regard to your difficulty with solid foods, I would recommend that you have an upper endoscopy, where someone looks down your esophagus with a camera, to see if there is inflammation or narrowing that is giving you difficulty with swallowing solid foods. If you find yourself unable to swallow liquids or saliva, return to the emergency department. Prescriptions: No Action spironolactone 25 mg tablet 25 mg PO DAILY atorvastatin 40 mg tablet 40 mg PO HS levothyroxine 88 mcg tablet 88 mcg PO DAILY albuterol sulfate 90 mcg/actuation HFA aerosol inhaler 2 puff INHALATION Q4H PRN Patient Comments: INHALE 1 TO 2 PUFFS BY MOUTH EVERY 4 HOURS NEEDED FOR SHORTNESS OF BREATH Trelegy Ellipta 200-62.5-25 mcg blister with device 1 inh INHALATION DAILY Patient Comments: INHALE 1 PUFF BY MOUTH EVERY DAY cholecalciferol (vitamin D3) [Vitamin D3] 50 mcg (2,000 unit) capsule 50 mcg PO DAILY multivitamin [Multiple Vitamins] Tablet 1 tab PO DAILY famotidine 20 mg tablet 10 mg PO Q12H calcium carbonate-vitamin D3 [Calcium 600 + D(3)] 600 mg-5 mcg (200 unit) tablet 1 tab PO DAILY carvedilol 6.25 mg tablet 3.125 mg PO BID fluoxetine 20 mg capsule 20 mg PO DAILY Patient Comments: total dose 60mg daily fluoxetine 40 mg capsule 40 mg PO DAILY Patient Comments: Rx Instructions: total dose 60mg daily Senna Plus 8.6-50 mg capsule 1 tab-cap PO BID PRNQty: 30 0RF valsartan 40 mg tablet 20 mg PO BID ipratropium-albuterol 0.5 mg-3 mg(2.5 mg base)/3 mL solution for nebulization 3 ml inhalation QID PRN acetaminophen 500 mg Tablet 1,000 mg PO TID PRN warfarin 2 mg tablet 2 mg PO DAILY Rx Instructions: hold on 08/28,08/29, restart 2mg on 08/30 Follow Up/Referrals: Karma Jang MD [Primary Care Provider] - Stand Alone Forms: [facility] Info Instructions
[2023-08-26 17:54] LABS: PCR FLU A Negative PCR FLU A (Negative); PCR FLU B Negative PCR FLU B (Negative); PCR RSV Negative PCR RSV (Negative)
[2023-08-26 17:59] LABS: SARS PCR* Negative SARS-CoV-2 (Negative)
[2023-08-26 18:39] LABS: Free T4 Free Thyroxine* 1.97 ng/dL (0.70-1.85)
[2023-08-26 18:49] LABS: Appearance Urine Clear (Clear); Bilirubin Urine Negative (Negative); Blood Urine Negative (Negative); Color Urine Yellow (Yellow); Glucose Urine Negative (Negative); Ketones Urine Negative (Negative); Leukocyte Esterase Urine 1+ (Negative); Nitrite Urine Negative (Negative); Protein Urine Trace (Negative); Specific Gravity Urine 1.015 (1.000-1.030); Urobilinogen Urine 0.2 (0.2-1.0); pH Urine 5.5 (5.0-8.5)
[2023-08-26 18:50] LABS: RBC Urine 0-2 (0-2); Squamous Epithelial Cell Urine Few (None-Few)
[2023-08-26 18:51] LABS: Fine Granular Casts Urine Few
== END 2023-08-26 21:30 | disposition home or self-care (01) ==
PROVIDERS: Emergency Provider Emergency Medicine; PCP Family Medicine
DX: R13.10 Dysphagia, unspecified (principal); J18.9 Pneumonia, unspecified organism
CPT/HCPCS: 36415; 71275; 80048; 80076; 81001; 83880; 84439; 84443; 84484; 85025; 85610; 86140; 87631; 94761; 99284; Q9965; Q9967

== ENCOUNTER 2023-08-29 11:36 | Inpatient (IN) | payer MEDICARE, SELFPAY ==
[2023-08-29] VITALS (8 sets, daily range): BP systolic 119–123; BP diastolic 75–90; PULSE 88–91; RESP 16–22; TEMP 36.9; O2SAT 92–98; BMI 24.1
--- NOTE | 2023-08-29 12:22 | PM.IMHP1 ---
Hospitalist- H&P: HPI History of Present Illness Date Seen: 08/29/23 Chief complaint: Direct admit Narrative: ADMISSION HISTORY AND PHYSICAL - HOSPITALIST Chief Complaint: Vomiting, SOB. started Doxy for PNA on 08/26/23. Weak HPI: BELGICA is well known to our service. She has had 2 previous admissions since May. She presented to our ER 3 days ago and was diagnosed with the right middle lobe pneumonia and started on doxycycline. Today she was at her PCP follow-up and was reporting more dependent on oxygen, still feeling short of breath. Poor appetite, poor sleep and vomiting any time she tried to eat. Her vitals were stable at the clinic and she was sent here for From her PCP this morning: Anita Oropeza is a 78 y.o. female with history of ischemic cardiomyopathy with EF 20% (05/2023) s/p dual chamber pacemaker, severe aortic stenosis s/p TAVR 05/2023, chronic atrial fibrillation on warfarin, COPD with chronic hypoxia 2L at night. ? Presents to clinic following recent ED visit on 08/26. Seen in ED, discharged with doxycycline for probably community acquired pneumonia. WBC normal. CT with right pleural effusion and small consolidation in right midldle lobe. States she continues to feel worse. Extremely fatigued. Worsening hypoxia with increased O2 demands, needing to use oxygen throughout day, cough, orthopnea, PND, shortness of breath, mid-breast chest pain. Unable to sleep. Unable to keep any food down. Has lots of burping, diarrhea. Weight up 6lbs in last 3 days. She was directed to take diuretic as needed for peripheral edema. She has not had edema and thus has not taken. CODE STATUS: FULL CODE EMERGENCY CONTACT PLAN: Primary Contact? Mykel Oropeza? Son?Rel to Pat? [phone]?Cell Phone? I've updated the PFSH, medications and allergies in the Expanse tabs. INVESTIGATIONS: LABS/MICRO/ECG/IMAGING 120/89. PULSE 91. RESPIRATIONS 22. O2 SAT 98% on 2 L nasal cannula oxygen. Weight is up 66.2 - 69.9 kilos CBC reassuring - normal as it was 3 days ago Sodium is up to 133. Creatinine is stable, at 1.1. GFR 51. INR 3.4 Venous blood gas normal [place]actate [place] [id number]. Her procalcitonin and CRP are quite reassuring. Troponin negative. 2 blood cultures are now pending Chest x-ray: EKG shows a ventricularly paced rhythm with a heart rate of 89. 3 days prior to admission Normal CBC. No white count, hemoglobin 12.1, platelets 210. 5.4 for INR that was actually on 08/28 at the [facility] Her sodium was low at 131 Creatinine was 1.2 with a mildly elevated BUN AST and ALT were mildly elevated C reactive protein was 1.0 [place] [address] TSH 8.1 Free T4 1.97 Quad respiratory screen negative Chest CT (08/26/23) 1. No pulmonary embolism. 2. Small right middle lobe pneumonia suspected. 3. Mild interstitial edema and small right-sided pleural effusion. 4. No other finding to explain shortness of breath. 06/02/23 ECHO Final Impressions: 1. Mild to moderately increased left ventricular size, normal wall thickness, severely reduced global systolic function, calculated EF of 20 %. 2. Right ventricular cavity size is mildly enlarged, global systolic RV function is severely reduced. 3. Severe biatrial enlargement. 4. The aortic valve is trileaflet, sclerotic and calcified, with likley severe low-flow/low-gradient stenosis (mean gradient 10 mmHg, ZHEN 0.87 cm^2, DI 0.20, SVI 16 ml/m^2) and trivial regurgitation. 5. The mitral valve is sclerotic, mild mitral regurgitation. 6. Likely at least moderate-severe tricuspid regurgitation noted with systolic flow reversal in hepatic veins (unclear to what extent mechanistically associated with RV pacing lead). Estimated RVSP of 37 mmHg. 7. IVC geometry compatible wtih an elevated estimated RA pressure (15 mmHg). ? Comparison Compared to prior exam of 03/2023: - The left ventricular function has decreased. - Aortic stenosis hemodynamics have worsened and are now compatible with severe low-flow/low-gradient . AV pseudostenosis in face of severe LV systolic dysfunction is a diagnostic possibility. Clinical correlation advised. Given severe cardiomyopathy and progression in consultation [facility] advanced heart failure and multidisciplinary valve team recommended. REVIEW OF SYSTEMS: 12-point ROS completed with patient and negative unless otherwise stated in HPI or below. PHYSICAL EXAM: CONSTITUTIONAL: I know Elsa Gray from previous hospitalizations and she looks about her baseline, a little washed out and more tired. No respiratory distress. VITAL SIGNS: see record. HEENT: Normocephalic, atraumatic. PERRL, EOMI, conjunctivae pink, no scleral icterus. Ears and nose externally normal. Pharynx normal. NECK: No JVD. No carotid bruit, no thyromegaly, no adenopathy. CHEST: Clear to auscultation bilaterally without wheeze. HEART: S1 and S2 normal. No harsh murmurs. Edema actually none. MUSCULOSKELETAL: No gross joint deformity or swelling. NEURO: Cranial nerves intact. Grossly intact. No asymmetric findings. SKIN: No rashes, petechiae, concerning changes PSYCHIATRIC: Euthymic. ADMIT TO MEDSURG: FLOOR CARE DVT: Lovenox GI: PO intake Time spent: Today I spent 75 minutes seeing the patient, discussing the patient with ER staff, reviewing Expanse and EPIC notes/diagnostics, discussing the care plan with our care time that includes social work, PT/OT, pharmacy, RT, chcf and documenting my impressions and plan in the medical record. [facility] Medical History (Updated 08/29/23 @ 15:05 by Liliam Villarreal MD) Anemia ?D64.9 - Anemia, unspecified (ICD-10) Hyperkalemia ?E87.5 - Hyperkalemia (ICD-10) Supratherapeutic INR ?R79.1 - Abnormal coagulation profile (ICD-10) Closed compression fracture of L3 vertebra ?S32.030A - Wedge compression fracture of third lumbar vertebra, initial encounter for closed fracture (ICD-10) Subarachnoid hemorrhage ?I60.9 - Nontraumatic subarachnoid hemorrhage, unspecified (ICD-10) Chronic anticoagulation ?Z79.01 - buttermilk drier operator (current) use of anticoagulants (ICD-10) Presence of permanent cardiac pacemaker ?Z95.0 - Presence of cardiac pacemaker (ICD-10) Chronic hypoxemic respiratory failure ?J96.11 - Chronic respiratory failure with hypoxia (ICD-10) Panlobular emphysema ?J43.1 - Panlobular emphysema (ICD-10) Chronic pain of both shoulders ?M25.511 - Pain in right shoulder (ICD-10) ?M25.512 - Pain in left shoulder (ICD-10) ?G89.29 - Other chronic pain (ICD-10) Anticoagulation goal of INR 2 to 3 ?Z51.81 - Encounter for therapeutic drug level monitoring (ICD-10) ?Z79.01 - detention (current) use of anticoagulants (ICD-10) Anticoagulated on warfarin ?Z79.01 - buttermilk drier operator (current) use of anticoagulants (ICD-10) Paroxysmal atrial fibrillation ?I48.0 - Paroxysmal atrial fibrillation (ICD-10) Closed nondisplaced fracture of greater trochanter of right femur with routine healing ?S72.114D - Nondisplaced fracture of greater trochanter of right femur, subsequent encounter for closed fracture with routine healing (ICD-10) Chronic deep vein thrombosis of left lower extremity ?I82.502 - Chronic embolism and thrombosis of unspecified deep veins of left lower extremity (ICD-10) Intrinsic urethral sphincter deficiency ?N36.42 - Intrinsic sphincter deficiency (ISD) (ICD-10) Mixed stress and urge urinary incontinence ?N39.46 - Mixed incontinence (ICD-10) CKD stage 4 secondary to hypertension ?I12.9 - Hypertensive chronic kidney disease with stage 1 through stage 4 chronic kidney disease, or unspecified chronic kidney disease (ICD-10) ?N18.4 - Chronic kidney disease, stage 4 (severe) (ICD-10) Ischemic cardiomyopathy ?I25.5 - Ischemic cardiomyopathy (ICD-10) Recurrent major depression resistant to treatment ?F33.9 - Major depressive disorder, recurrent, unspecified (ICD-10) Hyperlipidemia ?E78.5 - Hyperlipidemia, unspecified (ICD-10) Hypertension ?I10 - Essential (primary) hypertension (ICD-10) MRSA (methicillin resistant Staphylococcus aureus) ?A49.02 - Methicillin resistant Staphylococcus aureus infection, unspecified site (ICD-10) Hypothyroidism ?E03.9 - Hypothyroidism, unspecified (ICD-10) COPD (chronic obstructive pulmonary disease) ?J44.9 - Chronic obstructive pulmonary disease, unspecified (ICD-10) CHF (congestive heart failure) ?I50.9 - Heart failure, unspecified (ICD-10) CAD (coronary artery disease) ?I25.10 - Atherosclerotic heart disease of [place] coronary artery without angina pectoris (ICD-10) Depression ?F32.A - Depression, unspecified (ICD-10) Atrial fibrillation ?I48.91 - Unspecified atrial fibrillation (ICD-10) Anxiety ?F41.9 - Anxiety disorder, unspecified (ICD-10) Acid reflux ?K21.9 - Gastro-esophageal reflux disease without esophagitis (ICD-10) Severe depression ?F32.2 - Major depressive disorder, single episode, severe without psychotic features (ICD-10) Surgical History (Updated 07/07/23 @ 13:23 by Lurdes Sage ~ [facility]) History of bilateral hip replacements (2006) ?Z96.643 - Presence of artificial hip joint, bilateral (ICD-10) History of cholecystectomy ?Z90.49 - Acquired absence of other specified parts of digestive tract (ICD-10) History of cataract surgery ?Z98.49 - Cataract extraction status, unspecified eye (ICD-10) Social History (Updated 07/07/23 @ 13:23 by Lurdes Sage ~ [facility], [facility]) Narrative: Lives with a roommate in [place], adult children. Son Mykel and daughter Lakesha would share medical decision making duties. Requests Full Code status, understands that her progressive lung disease puts her at high risk if she were to ever need intubation. 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 What is your current living situation?: I presently have a place to live Problems where you live: no known problems Problems where you live details: chronic shoulder pain In the past 12 months, utilities in danger of being shut off: no In past 12 months, lack of transportation kept you from medical appts, meetings, work, or getting things needed for daily living: no In the past 12 mos, have been you worried that your food would run out before you had money to buy more?: never true In the past 12 mos, the food you bought just didn't last and you didn't have money to buy more?: never true Highest level of school completed/degree received: Associate degree: occupational, technical, vocational program Smoking Status: Former smoker What tobacco products do you use: cigarettes Smoking quit date/years: >15 years ago Do you use any of these nicotine containing products: None Second hand tobacco smoke exposure: No How often do you have a drink containing alcohol: never How often do you have six or more drinks on one occasion: Never AUDIT-C Alcohol total score: 0 Non-prescribed substance use: denies use Caffeine: Yes (coffee) How often does anyone, including family, friends and others, physically hurt you: never How often does anyone, including family, friends and others, insult or talk down to you: never How often does anyone, including family, friends and others, threaten you with harm: never How often does anyone, including family, friends and others, scream or curse at you: never service: No Meds Home Medications and Allergies Home Medications Medication Instructions Recorded Confirmed Type albuterol sulfate 90 mcg/actuation 2 puff inhalation Q4H PRN 06/02/22 08/29/23 History aerosol inhaler atorvastatin 40 mg tablet 40 mg PO HS 06/02/22 08/29/23 History cholecalciferol (vitamin D3) 50 50 mcg PO DAILY 06/02/22 08/29/23 History mcg (2,000 unit) capsule (Vitamin D3) fluticasone fur. 200 mcg-umeclid 1 inh inhalation DAILY 06/02/22 08/29/23 History 62.5 mcg-vilant 25 mcg inhalat.powder (Trelegy Ellipta) levothyroxine 88 mcg tablet 88 mcg PO DAILY 06/02/22 08/29/23 History multivitamin (Multiple Vitamins 1 tab PO DAILY 06/03/22 08/29/23 History tablet) spironolactone 25 mg tablet 25 mg PO DAILY 12/23/22 08/29/23 History famotidine 20 mg tablet 10 mg PO Q12H 04/22/23 08/29/23 History calcium carbonate 600 mg-vitamin 1 tab PO DAILY 05/23/23 08/29/23 History D3 5 mcg (200 unit) tablet (Calcium 600 + D(3)) carvedilol 6.25 mg tablet 3.125 mg PO BID 05/23/23 08/29/23 History fluoxetine 20 mg capsule 20 mg PO DAILY 05/23/23 08/29/23 History fluoxetine 40 mg capsule 40 mg PO DAILY 05/23/23 08/29/23 History acetaminophen 500 mg tablet 1,000 mg PO TID PRN 06/30/23 08/29/23 History ipratropium 0.5 mg-albuterol 3 mg 3 ml inhalation QID PRN 06/30/23 08/29/23 History (2.5 mg base)/3 mL nebulization soln valsartan 40 mg tablet 20 mg PO BID 06/30/23 08/29/23 History warfarin 2 mg tablet 2 mg PO DAILY 08/29/23 08/29/23 History Allergies Allergy/AdvReac Type Severity Reaction Status Date / Time bacitracin Allergy Mild Verified 07/07/23 13:18 [From Neosporin Plus] lidocaine Allergy Mild Verified 07/07/23 13:18 [From Neosporin Plus] morphine Allergy Mild Hives Verified 07/07/23 13:18 neomycin Allergy Mild Verified 07/07/23 13:18 [From Neosporin Plus] Penicillins Allergy Mild Rash Verified 07/07/23 13:18 polymyxin B Allergy Mild Verified 07/07/23 13:18 [From Neosporin Plus] pramoxine Allergy Mild Verified 07/07/23 13:18 [From Neosporin Plus] BRAD Inhibitors Allergy Unknown Verified 07/07/23 13:18 bupropion [From Wellbutrin] Allergy Unknown Verified 07/07/23 13:18 hydrocodone Allergy Unknown Verified 07/07/23 13:18 levofloxacin [From Levaquin] Allergy Unknown Verified 07/07/23 13:18 oxycodone Allergy Unknown Verified 07/07/23 13:18 sulfamethoxazole Allergy Unknown Verified 07/07/23 13:18 Assessment and Plan Assessment and plan (1) Acute and chronic respiratory failure with hypoxia: Problem comment: - multifactorial: Partially treated pneumonia, COPD exacerbation and likely heart failure. With inflammatory markers and CBC normal pneumonia is less likely - or at least partially treated. With her weight gain, I suspect this is more heart failure. Does have underlying COPD. - we will have RT evaluate, especially since she has had home O2 for over 10 years but uses it she only occasionally - I will continue the oral doxycycline she started in the ED. - I am adding p.o. Lasix and prednisone as she is typically not on either 1 of those. - I waiting for the final read on her chest x-ray, we can consider further imaging and/or echo as the day team this weekend feels as necessary - I did review her echo from May Status: Acute (2) Pneumonia: Problem comment: -continue oral doxycycline Status: Acute (3) Chronic hypoxemic respiratory failure: Problem comment: -chronic COPD, on home O2. -chronic systolic congestive Heart failure with decreased EF Echo 06/14 Final Impressions: 1. Mild to moderately increased left ventricular size, normal wall thickness, severely reduced global systolic function, calculated EF of 20 %. 2. Right ventricular cavity size is mildly enlarged, global systolic RV function is severely reduced. 3. Severe biatrial enlargement. 4. The aortic valve is trileaflet, sclerotic and calcified, with likley severe low-flow/low-gradient stenosis (mean gradient 10 mmHg, ZHEN 0.87 cm^2, DI 0.20, SVI 16 ml/m^2) and trivial regurgitation. 5. The mitral valve is sclerotic, mild mitral regurgitation. 6. Likely at least moderate-severe tricuspid regurgitation noted with systolic flow reversal in hepatic veins (unclear to what extent mechanistically associated with RV pacing lead). Estimated RVSP of 37 mmHg. 7. IVC geometry compatible wtih an elevated estimated RA pressure (15 mmHg). ? Comparison Compared to prior exam of 03/2023: - The left ventricular function has decreased. - Aortic stenosis hemodynamics have worsened and are now compatible with severe low-flow/low-gradient . AV pseudostenosis in face of severe LV systolic dysfunction is a diagnostic possibility. Clinical correlation advised. Given severe cardiomyopathy and progression in consultation [facility] advanced heart failure and multidisciplinary valve team recommended. Status: Acute (4) Ischemic cardiomyopathy: Problem comment: Chronic Echo reviewed from 06/14 Status: Acute (5) Compression fracture of L3 vertebra: Problem comment: -much improved pain Status: Acute (6) CKD (chronic kidney disease): Problem comment: stable Status: Acute
--- NOTE | 2023-08-29 12:39 | CRLHL7_ITS ---
For Patients: As a result of the Century Cures Act, medical imaging exams and procedure reports are released immediately into your electronic medical record. You may view this report before your referring provider. If you have questions, please contact your health care provider. INDICATION: COPD TECHNIQUE: Single view chest. FINDINGS: Enlarged cardiac silhouette median sternotomy. Left cardiac pacer. There is atelectasis mild elevation the right hemidiaphragm no pneumothorax. No effusion is seen. Minimal prominence interstitial markings could represent mild pulmonary edema. Dictated by Odette Alarcon MD @ 08/29/2023 9:05:58 PM (Electronically Signed)
[2023-08-29 13:16] LABS: HCO3 VBG 26 mmol/L (21-28); Lactate* 1.3 mmol/L (0.5-1.9); PCO2 VBG 42 mmHG (40-50); PO2 VBG 28.4 mmHG (25-47); pH VBG 7.394 (7.32-7.43)
[2023-08-29 13:22] LABS: Basophils Absolute Auto 0.02 K/uL (0.00-0.30); Basophils Percent Auto 0.3 % (0.0-3.0); Hematocrit 41.7 % (33.0-51.0); Immature Granulocytes Abs Auto 0.02 K/uL (0.00-0.30); Immature Granulocytes Pct Auto 0.3 %; Lymphocytes Absolute Auto 1.53 K/uL (0.90-2.90); Lymphocytes Percent Auto 20.8 % (20-44); Mean Corpuscular HGB Conc 31 gm/dL (32-36); Mean Corpuscular Hemoglobin 27 pg (26-34); Mean Corpuscular Volume 86 fL (80-100); Monocytes Percent Auto 7.5 % (0.0-11.0); Neutrophils Absolute Auto 5.23 K/uL (1.7-7.0); Neutrophils Percent Auto 71.1 % (42.0-72.0); Platelet Count* 220 K/uL (140-440); RDW Coefficient of Variation % 16.5 % (11.5-15.5); Red Blood Count 4.85 m/uL (4.00-5.20); White Blood Count* 7.35 K/uL (4.50-11.00)
[2023-08-29 13:23] LABS: Slide Review Reflex No
[2023-08-29 13:38] LABS: Albumin* 3.8 g/dL (3.3-5.0); Chloride* 100 mmol/L (96-114); Sodium* 133 mmol/L (135-149)
[2023-08-29 13:39] LABS: Potassium* 4.7 mmol/L (3.6-5.1)
[2023-08-29 13:40] LABS: Creatinine* 1.1 mg/dL (0.5-1.5); Estimated Glomerular Filt Rate 51 ml/min
[2023-08-29 13:41] LABS: Alkaline Phosphatase* 137 U/L (40-150); Anion Gap 11 mEq/L (7-15); Aspartate Amino Transferase* 37 U/L (12-35); Bilirubin Direct* 0.3 mg/dL (0.0-0.5); Bilirubin Total* 1.4 mg/dL (0.1-1.5); Blood Urea Nitrogen* 31 mg/dL (7-30); Carbon Dioxide* 22 mmol/L (20-32); Glucose* 125 mg/dL (60-115); Lipase* 103 U/L (23-300); Total Protein* 6.6 g/dL (6.0-8.3)
[2023-08-29 13:42] LABS: Alanine Aminotransferase* 37 U/L (4-35); Calcium* 9.5 mg/dL (8.4-10.6); Magnesium* 1.9 mg/dL (1.5-2.6); Phosphorus* 3.6 mg/dL (2.5-4.5)
[2023-08-29 13:44] LABS: C Reactive Protein* 0.9 mg/dL (0.5-1.0)
[2023-08-29 13:53] LABS: Troponin I* 0.03 ng/mL (0.01-0.04)
[2023-08-29 13:58] LABS: Procalcitonin* 0.07 ng/mL (<0.50)
[2023-08-29 13:59] LABS: NT Pro B Type NatriureticPept* 19700 pg/mL
[2023-08-29 14:16] LABS: INR 3.41 (0.91-1.10); Prothrombin Time 37.1 Seconds
[2023-08-29] MEDS: FUROSEMIDE 40 MG TABLET PO (14:52)
[2023-08-29] MEDS: FAMOTIDINE 20 MG TABLET 10 MG PO (14:53)
[2023-08-29] MEDS: predniSONE 20 MG TABLET 40 MG PO (14:53)
--- NOTE | 2023-08-29 16:35 | RESP.RT ---
Patient states that she uses home O2 at 1.5L NC, but is not really sure what her prescription really is. We may need to reassess her home O2 needs prior to discharge.
[2023-08-29 16:39] LABS: PCR FLU A Negative PCR FLU A (Negative); PCR FLU B Negative PCR FLU B (Negative); PCR RSV Negative PCR RSV (Negative)
[2023-08-29 17:16] LABS: SARS PCR* Negative SARS-CoV-2 (Negative)
[2023-08-29] MEDS: ATORVASTATIN CALCIUM 40 MG TABLET PO (21:23)
[2023-08-29] MEDS: MELATONIN 3 MG TABLET PO (21:24)
[2023-08-29] MEDS: carvediloL 6.25 MG TABLET 3.125 MG PO (21:24)
[2023-08-29] MEDS: DOXYCYCLINE HYCLATE 100 MG PO (21:32)
[2023-08-30] VITALS (10 sets, daily range): BP systolic 109–125; BP diastolic 71–97; PULSE 82–94; RESP 16–22; TEMP 36.4–37; O2SAT 88–96
[2023-08-30] MEDS: FAMOTIDINE 20 MG TABLET 10 MG PO ×2 (05:59→17:59)
[2023-08-30 06:35] LABS: Chloride* 99 mmol/L (96-114); Potassium* 4.1 mmol/L (3.6-5.1); Sodium* 134 mmol/L (135-149)
--- NOTE | 2023-08-30 06:36 | PC.NURSE ---
End of shift [id number]: A&O. Pleasant and cooperative. VSS. Titrated pt down to 0.5L of O2. Sats remain >90%. Denies pain. Denies nausea. Ate 100% of dinner and tolerated well. Denies SOB. Up at linda in room.
[2023-08-30 06:38] LABS: Anion Gap 8 mEq/L (7-15); Blood Urea Nitrogen* 34 mg/dL (7-30); Carbon Dioxide* 27 mmol/L (20-32); Creatinine* 1.1 mg/dL (0.5-1.5); Est. Creatinine Clearance* 39.67; Estimated Glomerular Filt Rate 51 ml/min; Glucose* 134 mg/dL (60-115)
[2023-08-30] MEDS: DOXYCYCLINE HYCLATE 100 MG PO ×2 (09:35→21:20)
[2023-08-30] MEDS: NON-FORMULARY MEDICATION (Fluticasone-Umeclidin-Vilanter [Trelegy Ellipta] 200-62.5-25 mcg 1 EACH IH (09:36)
[2023-08-30] MEDS: predniSONE 20 MG TABLET 40 MG PO (09:37)
[2023-08-30] MEDS: LEVOTHYROXINE 88 MCG TABLET PO (09:37)
[2023-08-30] MEDS: carvediloL 6.25 MG TABLET 3.125 MG PO ×2 (09:37→21:20)
[2023-08-30] MEDS: SPIRONOLACTONE 25 MG TABLET PO (09:38)
[2023-08-30] MEDS: FLUOXETINE HCL 20 MG CAPSULE PO (09:39)
[2023-08-30] MEDS: VALSARTAN 80 MG TABLET 20 MG PO (10:11)
[2023-08-30] MEDS: FLUOXETINE HCL 20 MG CAPSULE 60 MG PO (10:14)
--- NOTE | 2023-08-30 13:26 | RESP.RT ---
Patient information on use of Aerobika, patient return good expiratory effort with good chest shake, had patient feel chest to understand use of Aerobika, patient verbalizes so. IS done with good effort. BBS with LLL end expiratory wheeze noted, diminished with scattered fine crackles otherwise. Patient states that she uses home O2 at 1.5L NC, but is not really sure what her prescription really is. Patient SOB of breath with exertion, with fair recover time.
[2023-08-30] MEDS: NYSTATIN CREAM 30 GM 1 APPLIC TOPICAL ×2 (13:39→21:21)
[2023-08-30] MEDS: IPRAT-ALBUT 0.5-2.5 MG/3 ML NEB 1 NEB IH (17:05)
--- NOTE | 2023-08-30 17:56 | P.IMPN_ITS ---
Progress Note: A&P Assessment and plan (1) Acute and chronic respiratory failure with hypoxia: Problem details: - multifactorial: Partially treated pneumonia, COPD exacerbation and likely heart failure. With inflammatory markers and CBC normal pneumonia is less likely - or at least partially treated. With her weight gain, I suspect this is more heart failure. Does have underlying COPD. - she has had home O2 for over 10 years but uses it she only occasionally - RT evaluated - Continue the oral doxycycline - p.o. Lasix and prednisone added. - CXR from yesterday as above - Echo from May reviewed Status: Acute (2) Chronic hypoxemic respiratory failure: Problem details: -chronic COPD, on home O2. -chronic systolic congestive Heart failure with decreased EF Echo 06/14 Final Impressions: 1. Mild to moderately increased left ventricular size, normal wall thickness, severely reduced global systolic function, calculated EF of 20 %. 2. Right ventricular cavity size is mildly enlarged, global systolic RV function is severely reduced. 3. Severe biatrial enlargement. 4. The aortic valve is trileaflet, sclerotic and calcified, with likley severe low-flow/low-gradient stenosis (mean gradient 10 mmHg, ZHEN 0.87 cm^2, DI 0.20, SVI 16 ml/m^2) and trivial regurgitation. 5. The mitral valve is sclerotic, mild mitral regurgitation. 6. Likely at least moderate-severe tricuspid regurgitation noted with systolic flow reversal in hepatic veins (unclear to what extent mechanistically associated with RV pacing lead). Estimated RVSP of 37 mmHg. 7. IVC geometry compatible wtih an elevated estimated RA pressure (15 mmHg). ? Comparison Compared to prior exam of 03/2023: - The left ventricular function has decreased. - Aortic stenosis hemodynamics have worsened and are now compatible with severe low-flow/low-gradient . AV pseudostenosis in face of severe LV systolic dysfunction is a diagnostic possibility. Clinical correlation advised. Given severe cardiomyopathy and progression in consultation [facility] advanced heart failure and multidisciplinary valve team recommended. Status: Acute (3) Pneumonia: Problem details: -continue oral doxycycline Status: Acute (4) CHF (congestive heart failure): Problem details: - appears stable. Continue home meds. Status: Chronic (5) Compression fracture of L3 vertebra: Problem details: -much improved pain Status: Acute (6) Paroxysmal atrial fibrillation: Problem details: - rate controlled - continue carvedilol, monitor blood pressure - supratherapeutic INR, 4 on admission. Goal INR 2-3. Today INR is 3.4. Hold coumadin again today. Discussed with pharmacy Status: Inactive (7) Ischemic cardiomyopathy: Problem details: Echo reviewed from 06/14 Status: Chronic (8) CKD (chronic kidney disease): Problem details: Stage 3, stable Status: Chronic (9) Elevated TSH: Problem details: Unclear significance in the setting of acute illness. Recheck as an outpatient. Status: Acute (10) Candidiasis of breast: Problem details: Start nystatin cream t.i.d.. Status: Acute Plan VTE prophylaxis with Coumadin, INR currently supratherapeutic. Subjective Time Seen by Provider: 11:05 Date Seen: 08/30/23 Interval history: Nery feels better everyday. She has a rash under her breasts and wants a cream as opposed to powder because she can't use her right arm well enough to apply the powder. Exam Narrative: Exam Narrative: General: No acute distress. Awake, alert, oriented x3. No pallor. No jaundice. Oropharynx: Clear. Mucous membranes moist. Cardiovascular: Regular rate and rhythm. Grade 3/6 systolic murmur loudest at the right upper sternal border and a grade 1/6 diastolic murmur also at the right upper sternal border. Respiratory: Clear to auscultation bilaterally, no crackles or wheezes. Chest: Bright candidal rash under each breast, left worse than right. Abdomen: Bowel sounds present. Soft, nondistended, nontender. Extremities: No pedal edema. Const: Vital Signs, click to edit/add: Vital Signs - 24 hr 08/29/23 19:49 08/29/23 22:52 08/29/23 23:00 Temperature 98.5 F Pulse Rate 91 Pulse Rate [Left P ulse Oximeter] 90 89 Respiratory Rate 18 16 Blood Pressure [Le ft Arm] 123/90 H 119/75 Pulse Oximetry 96 92 Oxygen Delivery Me thod Nasal Cannula Nasal Cannula Oxygen Flow Rate 1.5 0.5 08/29/23 23:00 08/29/23 23:00 08/30/23 03:11 Temperature 97.9 F Pulse Rate Pulse Rate [Left P ulse Oximeter] 93 Respiratory Rate 16 16 Blood Pressure [Le ft Arm] 125/85 Pulse Oximetry 92 92 94 Oxygen Delivery Me thod Nasal Cannula Room Air Oxygen Flow Rate 0.5 08/30/23 07:56 08/30/23 08:00 08/30/23 08:00 Temperature 97.6 F Pulse Rate Pulse Rate [Left P ulse Oximeter] 91 Respiratory Rate 22 20 Blood Pressure [Le ft Arm] 124/97 H Pulse Oximetry 96 96 96 Oxygen Delivery Me thod Nasal Cannula Nasal Cannula Oxygen Flow Rate 1 0.5 08/30/23 13:23 08/30/23 13:40 08/30/23 15:00 Temperature 97.9 F Pulse Rate Pulse Rate [Left P ulse Oximeter] 82 94 Respiratory Rate 20 20 20 Blood Pressure [Le ft Arm] 110/71 Pulse Oximetry 88 93 Oxygen Delivery Me thod Nasal Cannula Nasal Cannula Oxygen Flow Rate 1 0.5 08/30/23 15:00 08/30/23 15:19 08/30/23 15:19 Temperature 97.7 F Pulse Rate Pulse Rate [Left P ulse Oximeter] 94 Respiratory Rate 20 18 Blood Pressure [Le ft Arm] 113/73 Pulse Oximetry 94 95 95 Oxygen Delivery Me thod Nasal Cannula Nasal Cannula Oxygen Flow Rate 0.5 Labs Labs: Laboratory Results - last 24 hr 08/30/23 05:35 INR 3.40 H Sodium 134 L Potassium 4.1 Chloride 99 Carbon Dioxide 27 Anion Gap 8 BUN 34 H Creatinine 1.1 Estimated Creat Clear 39.67 Estimated GFR 51 Glucose 134 H Calcium 9.0 Ordering Physician: Liliam Villarreal M.D. Date of Service: 08/29/23 Procedure(s): XR chest 1V portable Accession Number(s): [id number] cc: Liliam Villarreal M.D.; Karma Jang M.D.~ For Patients: As a result of the Century Cures Act, medical imaging exams and procedure reports are released immediately into your electronic medical record. You may view this report before your referring provider. If you have questions, please contact your health care provider. INDICATION: COPD TECHNIQUE: Single view chest. FINDINGS: Enlarged cardiac silhouette median sternotomy. Left cardiac pacer. There is atelectasis mild elevation the right hemidiaphragm no pneumothorax. No effusion is seen. Minimal prominence interstitial markings could represent mild pulmonary edema. Dictated by Odette Alarcon MD @ 08/29/2023 9:05:58 PM (Electronically Signed)
--- NOTE | 2023-08-30 18:47 | PC.NURSE ---
shift note: pt maintained sats >89% with 0.5L pnc O2. pt denies pain. pt producing clr phlegm occasionally with cough. LS with fine crkls bibasilar this a.m but clr this afternoon. tele paced.
[2023-08-30] MEDS: MELATONIN 3 MG TABLET PO (21:20)
[2023-08-30] MEDS: ATORVASTATIN CALCIUM 40 MG TABLET PO (21:20)
[2023-08-30] MEDS: ACETAMINOPHEN 325 MG TABLET PO (21:26)
[2023-08-31] VITALS (10 sets, daily range): BP systolic 108–123; BP diastolic 66–84; PULSE 75–95; RESP 16–20; TEMP 36.4–36.7; O2SAT 79–96
[2023-08-31] MEDS: FAMOTIDINE 20 MG TABLET 10 MG PO ×2 (05:11→18:01)
--- NOTE | 2023-08-31 06:34 | PC.NURSE ---
End of shift [id number]: A&O. Pleasant and cooperative. VSS. Sats remain >90% on 0.5L of O2. Reported right shoulder pain, PRN Tylenol given with stated relief. ?tolerating diet and denies nausea. Denies SOB. Up at linda in room.
[2023-08-31 07:02] LABS: Chloride* 101 mmol/L (96-114); Potassium* 4.3 mmol/L (3.6-5.1); Sodium* 133 mmol/L (135-149)
[2023-08-31 07:04] LABS: Est. Creatinine Clearance* 43.63
[2023-08-31 07:05] LABS: Anion Gap 8 mEq/L (7-15); Blood Urea Nitrogen* 39 mg/dL (7-30); Calcium* 9.2 mg/dL (8.4-10.6); Carbon Dioxide* 24 mmol/L (20-32); Estimated Glomerular Filt Rate 57 ml/min; Glucose* 112 mg/dL (60-115)
[2023-08-31 07:32] LABS: INR 3.53 (0.91-1.10); Prothrombin Time 38.1 Seconds
--- NOTE | 2023-08-31 08:52 | PM.EN ---
Chart Event Note Chart Event Note: ENTERED IN ERROR
[2023-08-31] MEDS: NON-FORMULARY MEDICATION (Fluticasone-Umeclidin-Vilanter [Trelegy Ellipta] 200-62.5-25 mcg 1 EACH IH (09:00)
[2023-08-31] MEDS: NYSTATIN CREAM 30 GM 1 APPLIC TOPICAL ×3 (09:01→20:56)
[2023-08-31] MEDS: LEVOTHYROXINE 88 MCG TABLET PO (09:01)
[2023-08-31] MEDS: carvediloL 6.25 MG TABLET 3.125 MG PO ×2 (09:01→20:57)
[2023-08-31] MEDS: predniSONE 20 MG TABLET 40 MG PO (09:02)
[2023-08-31] MEDS: SPIRONOLACTONE 25 MG TABLET PO (09:02)
[2023-08-31] MEDS: DOXYCYCLINE HYCLATE 100 MG PO ×2 (09:03→20:57)
[2023-08-31] MEDS: VALSARTAN 80 MG TABLET 20 MG PO (09:03)
[2023-08-31] MEDS: FLUOXETINE HCL 20 MG CAPSULE 60 MG PO (09:03)
--- NOTE | 2023-08-31 14:52 | RESP.RT ---
Patient on Home Oxygen 1.[address] [facility], with activity, and when ever she thinks she needs it.
[2023-08-31] MEDS: ONDANSETRON ODT 4 MG TAB PO (18:02)
--- NOTE | 2023-08-31 18:33 | PC.NURSE ---
shift note; vss stable. pt RA 91-96%. Pt denies sob. pt has clr/dim LS. pt medicated for nausea this kin with relief.
--- NOTE | 2023-08-31 18:54 | PM.IMPN1 ---
Progress Note: A&P Assessment and plan (1) Acute and chronic respiratory failure with hypoxia: Problem details: - multifactorial: Partially treated pneumonia, COPD exacerbation and likely heart failure. With inflammatory markers and CBC normal pneumonia is less likely - or at least partially treated. With her weight gain, I suspect this is more heart failure. Does have underlying COPD. - she has had home O2 for over 10 years but uses it she only occasionally - RT evaluated - Continue the oral doxycycline - p.o. Lasix and prednisone added. - CXR from yesterday as above - Echo from May reviewed Status: Acute (2) Chronic hypoxemic respiratory failure: Problem details: -chronic COPD, on home O2. -chronic systolic congestive Heart failure with decreased EF Echo 06/14 Final Impressions: 1. Mild to moderately increased left ventricular size, normal wall thickness, severely reduced global systolic function, calculated EF of 20 %. 2. Right ventricular cavity size is mildly enlarged, global systolic RV function is severely reduced. 3. Severe biatrial enlargement. 4. The aortic valve is trileaflet, sclerotic and calcified, with likley severe low-flow/low-gradient stenosis (mean gradient 10 mmHg, ZHEN 0.87 cm^2, DI 0.20, SVI 16 ml/m^2) and trivial regurgitation. 5. The mitral valve is sclerotic, mild mitral regurgitation. 6. Likely at least moderate-severe tricuspid regurgitation noted with systolic flow reversal in hepatic veins (unclear to what extent mechanistically associated with RV pacing lead). Estimated RVSP of 37 mmHg. 7. IVC geometry compatible wtih an elevated estimated RA pressure (15 mmHg). ? Comparison Compared to prior exam of 03/2023: - The left ventricular function has decreased. - Aortic stenosis hemodynamics have worsened and are now compatible with severe low-flow/low-gradient . AV pseudostenosis in face of severe LV systolic dysfunction is a diagnostic possibility. Clinical correlation advised. Given severe cardiomyopathy and progression in consultation [facility] advanced heart failure and multidisciplinary valve team recommended. Status: Acute (3) Pneumonia: Problem details: -continue oral doxycycline for 5 days total Status: Acute (4) CHF (congestive heart failure): Problem details: - appears stable. Continue home meds. Status: Chronic (5) Compression fracture of L3 vertebra: Problem details: -much improved pain Status: Acute (6) Paroxysmal atrial fibrillation: Problem details: - rate controlled - continue carvedilol, monitor blood pressure - supratherapeutic INR, 4 on admission. Goal INR 2-3. Today INR is 3.4. Hold coumadin again today. Discussed with pharmacy Status: Inactive (7) Ischemic cardiomyopathy: Problem details: Echo reviewed from 06/14 Status: Chronic (8) CKD (chronic kidney disease): Problem details: Stage 3, stable Status: Chronic (9) Elevated TSH: Problem details: Unclear significance in the setting of acute illness. Recheck as an outpatient. Status: Acute (10) Candidiasis of breast: Problem details: Started nystatin cream t.i.d.. 08/31 Status: Acute Plan VTE prophylaxis with Coumadin, INR currently supratherapeutic. Subjective Time Seen by Provider: : Date Seen: 08/31/23 Interval history: Aniat is doing well on less oxygen today. Initially we were thinking she could go home today, but she was feeling very nauseous later in the day and wanted to wait until tomorrow as she did think she would be able to make it at home. Exam Narrative: Exam Narrative: General: No acute distress. Awake, alert, oriented. No pallor. No jaundice. Oropharynx: Clear. Mucous membranes moist. Cardiovascular: Regular rate and rhythm. Grade 3/6 systolic murmur loudest at the right upper sternal border and a grade 1/6 diastolic murmur also at the right upper sternal border. Respiratory: Clear to auscultation bilaterally, no crackles or wheezes. Abdomen: Bowel sounds present. Soft, nondistended, nontender. Extremities: No pedal edema. Const: Vital Signs, click to edit/add: Vital Signs - 24 hr 08/30/23 19:20 08/30/23 23:00 08/30/23 23:00 Temperature 97.9 F 98.6 F Pulse Rate Pulse Rate [Left P ulse Oximeter] 90 93 Respiratory Rate 16 16 16 Blood Pressure [Le ft Arm] 114/77 109/74 Pulse Oximetry 94 96 96 Oxygen Delivery Me thod Nasal Cannula Nasal Cannula Nasal Cannula Oxygen Flow Rate 0.5 0.5 Fraction of Inspir ed Oxygen 0.5 08/30/23 23:00 08/30/23 23:22 08/31/23 03:00 Temperature 98.0 F Pulse Rate 89 Pulse Rate [Left P ulse Oximeter] 89 Respiratory Rate 16 Blood Pressure [Le ft Arm] 110/84 Pulse Oximetry 96 95 Oxygen Delivery Me thod Nasal Cannula Oxygen Flow Rate 0.5 Fraction of Inspir ed Oxygen 08/31/23 07:00 08/31/23 08:18 08/31/23 08:18 Temperature Pulse Rate 75 Pulse Rate [Left P ulse Oximeter] Respiratory Rate 18 Blood Pressure [Le ft Arm] Pulse Oximetry 96 96 Oxygen Delivery Me thod Nasal Cannula Oxygen Flow Rate 0.5 Fraction of Inspir ed Oxygen 08/31/23 08:18 08/31/23 11:00 08/31/23 14:50 Temperature 97.8 F 97.7 F Pulse Rate Pulse Rate [Left P ulse Oximeter] 89 89 Respiratory Rate 18 20 20 Blood Pressure [Le ft Arm] 113/66 123/76 Pulse Oximetry 96 94 92 Oxygen Delivery Me thod Nasal Cannula Room Air Room Air Oxygen Flow Rate 0.5 Fraction of Inspir ed Oxygen 08/31/23 15:00 08/31/23 15:00 08/31/23 15:00 Temperature 97.7 F Pulse Rate Pulse Rate [Left P ulse Oximeter] 92 Respiratory Rate 18 Blood Pressure [Le ft Arm] 114/78 Pulse Oximetry 92 92 91 Oxygen Delivery Me thod Room Air Room Air Oxygen Flow Rate Fraction of Inspir ed Oxygen Labs Labs: Laboratory Results - last 24 hr 08/31/23 06:00 INR 3.53 H Sodium 133 L Potassium 4.3 Chloride 101 Carbon Dioxide 24 Anion Gap 8 BUN 39 H Creatinine 1.0 Estimated Creat Clear 43.63 Estimated GFR 57 Glucose 112 Calcium 9.2
[2023-08-31] MEDS: MELATONIN 3 MG TABLET PO (20:56)
[2023-08-31] MEDS: ATORVASTATIN CALCIUM 40 MG TABLET PO (20:57)
[2023-09-01 02:52] VITALS: BP 113/78; PULSE 90; RESP 18; O2SAT 94
[2023-09-01] MEDS: FAMOTIDINE 20 MG TABLET 10 MG PO (05:39)
--- NOTE | 2023-09-01 06:23 | PC.NURSE ---
End of shift [id number]: A&O. Pleasant and cooperative. VSS. Sats?>90% on room air while awake. Placed on 0.5L of oxygen overnight due to O2 saturations dipping to high 70s. Denies pain. Up at linda in room.?
[2023-09-01 06:57] LABS: Chloride* 100 mmol/L (96-114); Potassium* 4.6 mmol/L (3.6-5.1); Sodium* 133 mmol/L (135-149)
[2023-09-01 07:00] LABS: Anion Gap 9 mEq/L (7-15); Blood Urea Nitrogen* 44 mg/dL (7-30); Carbon Dioxide* 24 mmol/L (20-32); Creatinine* 1.1 mg/dL (0.5-1.5); Est. Creatinine Clearance* 39.67; Estimated Glomerular Filt Rate 51 ml/min; Glucose* 102 mg/dL (60-115)
[2023-09-01 07:01] LABS: Calcium* 9.6 mg/dL (8.4-10.6)
[2023-09-01 07:09] LABS: INR 2.52 (0.91-1.10); Prothrombin Time 29.1 Seconds
--- NOTE | 2023-09-01 07:46 | PM.DS1 ---
DS: Providers Provider Time Seen by Provider: 07:20 Date Seen: 09/01/23 Date of admission: 08/29/23 12:20 Primary care physician: Karma Jang MD Admitting Clinician: Liliam Villarreal MD Consults: 08/29/23 12:23 Consult to Occupational Therapy [CONS] Routine Comment: Reason(s) for OT Consult:: Evaluate and Treat Any Restrictions?:: No Restrictions Consult to Physical Therapy [CONS] Routine Comment: Reason(s) for PT Consult:: Evaluate and Treat Any Restrictions?:: No Restrictions Consult to Respiratory Therapy [CONS] Routine Comment: Reason(s) for RT Consult:: Consult Consult to Behavioral Modification Assistant [CONS] Routine Comment: Reason for Consult:: Social Service Consult 08/29/23 13:51 Consult to Physical Therapy [CONS] Routine Comment: Reason(s) for PT Consult:: Evaluate and Treat Any Restrictions?:: No Restrictions Attending Physician on discharge: Radha Bruce MD Date of Discharge: 09/01/23 DS: Summary Hospital Course Hospital Course: NOTE TO PCP: Please recheck patient's TSH in one month as it was elevated (9.7) upon admission here. Time Spent with Patient Time attestation: Total time spent providing and/or coordinating discharge services: Exam Const: Vital Signs, click to edit/add: Vital Signs - 24 hr 08/31/23 08:18 08/31/23 08:18 08/31/23 08:18 Temperature 97.8 F Pulse Rate [Left P ulse Oximeter] 89 Respiratory Rate 18 18 Blood Pressure [Le ft Arm] 113/66 Pulse Oximetry 96 96 96 Oxygen Delivery Me thod Nasal Cannula Nasal Cannula Oxygen Flow Rate 0.5 0.5 08/31/23 11:00 08/31/23 14:50 08/31/23 15:00 Temperature 97.7 F Pulse Rate [Left P ulse Oximeter] 89 Respiratory Rate 20 20 Blood Pressure [Le ft Arm] 123/76 Pulse Oximetry 94 92 92 Oxygen Delivery Me thod Room Air Room Air Oxygen Flow Rate 08/31/23 15:00 08/31/23 15:00 08/31/23 19:48 Temperature 97.7 F 98.0 F Pulse Rate [Left P ulse Oximeter] 92 95 Respiratory Rate 18 16 Blood Pressure [Le ft Arm] 114/78 109/76 Pulse Oximetry 92 91 95 Oxygen Delivery Me thod Room Air Room Air Room Air Oxygen Flow Rate 08/31/23 22:05 08/31/23 22:06 08/31/23 23:00 Temperature 97.5 F L Pulse Rate [Left P ulse Oximeter] 95 Respiratory Rate 16 Blood Pressure [Le ft Arm] 108/79 Pulse Oximetry 79 L 94 96 Oxygen Delivery Me thod Room Air Nasal Cannula Nasal Cannula Oxygen Flow Rate 0.5 0.5 08/31/23 23:00 08/31/23 23:00 09/01/23 02:52 Temperature Pulse Rate [Left P ulse Oximeter] 90 Respiratory Rate 16 18 Blood Pressure [Le ft Arm] 113/78 Pulse Oximetry 96 96 94 Oxygen Delivery Me thod Nasal Cannula Nasal Cannula Oxygen Flow Rate 0.5 0.5 DS: Data Data Completed and Pending Completed studies during hospitalization: 08/29/2023 EKG: Ventricular paced rhythm, 91 beats per minute. Ordering Physician: Margoth Alfaro M.D. Date of Service: 08/26/23 Procedure(s): CT angio chest PE protocol Accession Number(s): [id number] cc: Margoth Alfaro M.D.; Karma Jang M.D.~ For Patients: As a result of the Century Cures Act, medical imaging exams and procedure reports are released immediately into your electronic medical record. You may view this report before your referring provider. If you have questions, please contact your health care provider. INDICATION: Shortness of breath. Dysphagia. Vomiting. TECHNIQUE: CT chest PE was acquired with 95 cc Isovue 370 IV contrast. COMPARISON: May 29, 2023. FINDINGS: Heart and vasculature: Contrast opacification of the pulmonary arterial tree is adequate. No sign of pulmonary embolism. Marked cardiomegaly. Thoracic aorta normal in caliber. Lungs and pleura: No suspicious nodules or infiltrates. Small airspace consolidation in the right middle lobe. Moderate interstitial edema. Small right-sided pleural effusion. No pneumothorax. Lymph nodes/mediastinum: No mediastinal, hilar, or axillary adenopathy. Chest wall: No masses. Upper abdomen: No acute or significant findings. Bones: Unremarkable for age. IMPRESSION: 1. No pulmonary embolism. 2. Small right middle lobe pneumonia suspected. 3. Mild interstitial edema and small right-sided pleural effusion. 4. No other finding to explain shortness of breath. Please note that all CT scans at this facility use dose modulation, iterative reconstruction, and/or weight-based dosing when appropriate to reduce radiation dose to as low as reasonably achievable. Dictated by Tristen Solis MD @ 08/26/2023 8:33:53 PM (Electronically Signed) Labs on day of discharge: Labs from last 24 hours 09/01/23 06:19 INR 2.52 H Sodium 133 L Potassium 4.6 Chloride 100 Carbon Dioxide 24 Anion Gap 9 BUN 44 H Creatinine 1.1 Estimated Creat Clear 39.67 Estimated GFR 51 Glucose 102 Calcium 9.6 Preliminary micro results at discharge 08/29/23 13:10 Blood Culture - Preliminary Blood NO GROWTH AFTER 48 HOURS 08/29/23 13:05 Blood Culture - Preliminary Blood NO GROWTH AFTER 48 HOURS Discharge Plan Discharge Disposition: Home, Self-Care Date of Admission: 08/29/23 12:20 Attending Provider on Discharge: Radha Bruce Primary Care Provider: Karma Jang I Condition: Improved Anticipated Discharge Date/Time: 09/01/23 07:50 Discharge Medications: New prednisone 20 mg Tablet 20 mg PO DAILYWM Qty: 2 0RF nystatin 100,000 unit/gram Cream 1 applic topical TID Qty: 15 0RF doxycycline hyclate 100 mg Tablet 100 mg PO BID 3 Days Qty: 6 0RF Continued spironolactone 25 mg tablet 25 mg PO DAILY atorvastatin 40 mg tablet 40 mg PO HS levothyroxine 88 mcg tablet 88 mcg PO DAILY albuterol sulfate 90 mcg/actuation HFA aerosol inhaler 2 puff INHALATION Q4H PRN Patient Comments: INHALE 1 TO 2 PUFFS BY MOUTH EVERY 4 HOURS NEEDED FOR SHORTNESS OF BREATH Trelegy Ellipta 200-62.5-25 mcg blister with device 1 inh INHALATION DAILY Patient Comments: INHALE 1 PUFF BY MOUTH EVERY DAY cholecalciferol (vitamin D3) [Vitamin D3] 50 mcg (2,000 unit) capsule 50 mcg PO DAILY multivitamin [Multiple Vitamins] Tablet 1 tab PO DAILY famotidine 20 mg tablet 10 mg PO Q12H calcium carbonate-vitamin D3 [Calcium 600 + D(3)] 600 mg-5 mcg (200 unit) tablet 1 tab PO DAILY carvedilol 6.25 mg tablet 3.125 mg PO BID fluoxetine 20 mg capsule 20 mg PO DAILY Patient Comments: total dose 60mg daily fluoxetine 40 mg capsule 40 mg PO DAILY Patient Comments: Rx Instructions: total dose 60mg daily Senna Plus 8.6-50 mg capsule 1 tab-cap PO BID PRNQty: 30 0RF ipratropium-albuterol 0.5 mg-3 mg(2.5 mg base)/3 mL solution for nebulization 3 ml inhalation QID PRN acetaminophen 500 mg Tablet 1,000 mg PO TID PRN warfarin 2 mg tablet 2 mg PO DAILY Rx Instructions: hold on 08/28,08/29, restart 2mg on 08/30 Changed valsartan 40 mg tablet 20 mg PO DAILY Qty: 15 0RF Discharge Orders: Discharge Order (Routine); Ordered 09/01/23 Ordered By: Radha Bruce Patient Education: Doxycycline (By mouth), Prednisone (By mouth), Nystatin (On the skin), Heart Failure (DC), COPD (Chronic Obstructive Pulmonary Disease) (DC), Bacterial Pneumonia (DC) Additional Instructions: INR Monday 09/03, results to [facility] coumadin clinic. Resume home O2: 1.5LPM via [place] continuous. Activity Level: No Restrictions Discharge Diet: Regular Follow Up Appointments: Karma Jang MD [Primary Care Provider] - (3-5 days) Forms: [facility] Info Instructions
[2023-09-01] MEDS: predniSONE 20 MG TABLET PO (07:59)
[2023-09-01] MEDS: SPIRONOLACTONE 25 MG TABLET PO (07:59)
[2023-09-01] MEDS: FLUOXETINE HCL 20 MG CAPSULE 60 MG PO (08:00)
[2023-09-01] MEDS: LEVOTHYROXINE 88 MCG TABLET PO (08:00)
[2023-09-01] MEDS: carvediloL 6.25 MG TABLET 3.125 MG PO (08:02)
[2023-09-01] MEDS: DOXYCYCLINE HYCLATE 100 MG PO (08:03)
[2023-09-01] MEDS: NON-FORMULARY MEDICATION (Fluticasone-Umeclidin-Vilanter [Trelegy Ellipta] 200-62.5-25 mcg 1 EACH IH (08:03)
[2023-09-01] MEDS: VALSARTAN 80 MG TABLET 20 MG PO (08:05)
[2023-09-01 08:15] VITALS: O2SAT 93
[2023-09-01 08:16] VITALS: BP 129/87; PULSE 91; RESP 18; TEMP 36.9; O2SAT 93
--- NOTE | 2023-09-01 09:09 | P.DS_ITS ---
DS: Providers Provider Date Seen: 09/01/23 Date of admission: 08/29/23 12:20 Primary care physician: Karma Jang MD Admitting Clinician: Liliam Villarreal MD Consults: 08/29/23 12:23 Consult to Occupational Therapy [CONS] Routine Comment: Reason(s) for OT Consult:: Evaluate and Treat Any Restrictions?:: No Restrictions Consult to Physical Therapy [CONS] Routine Comment: Reason(s) for PT Consult:: Evaluate and Treat Any Restrictions?:: No Restrictions Consult to Respiratory Therapy [CONS] Routine Comment: Reason(s) for RT Consult:: Consult Consult to Manager Of Construction [CONS] Routine Comment: Reason for Consult:: Social Service Consult 08/29/23 13:51 Consult to Physical Therapy [CONS] Routine Comment: Reason(s) for PT Consult:: Evaluate and Treat Any Restrictions?:: No Restrictions Attending Physician on discharge: Liliam Villarreal MD DS: Diagnosis Discharge Diagnosis (1) Acute and chronic respiratory failure with hypoxia: Status: Acute Problem details: - multifactorial: Partially treated pneumonia, COPD exacerbation and likely heart failure. With inflammatory markers and CBC normal pneumonia is less likely - or at least partially treated. With her weight gain, I suspect this is more heart failure. Does have underlying COPD. - she has had home O2 for over 10 years but uses it she only occasionally - RT evaluated - Continue the oral doxycycline - p.o. Lasix and prednisone added. - CXR from yesterday as above - Echo from May reviewed (2) Chronic hypoxemic respiratory failure: Status: Acute Problem details: -chronic COPD, on home O2. -chronic systolic congestive Heart failure with decreased EF Echo 06/14 Final Impressions: 1. Mild to moderately increased left ventricular size, normal wall thickness, severely reduced global systolic function, calculated EF of 20 %. 2. Right ventricular cavity size is mildly enlarged, global systolic RV function is severely reduced. 3. Severe biatrial enlargement. 4. The aortic valve is trileaflet, sclerotic and calcified, with likley severe low-flow/low-gradient stenosis (mean gradient 10 mmHg, ZHEN 0.87 cm^2, DI 0.20, SVI 16 ml/m^2) and trivial regurgitation. 5. The mitral valve is sclerotic, mild mitral regurgitation. 6. Likely at least moderate-severe tricuspid regurgitation noted with systolic flow reversal in hepatic veins (unclear to what extent mechanistically associated with RV pacing lead). Estimated RVSP of 37 mmHg. 7. IVC geometry compatible wtih an elevated estimated RA pressure (15 mmHg). ? Comparison Compared to prior exam of 03/2023: - The left ventricular function has decreased. - Aortic stenosis hemodynamics have worsened and are now compatible with severe low-flow/low-gradient . AV pseudostenosis in face of severe LV systolic dysfunction is a diagnostic possibility. Clinical correlation advised. Given severe cardiomyopathy and progression in consultation [facility] advanced heart failure and multidisciplinary valve team recommended. (3) Pneumonia: Status: Acute Problem details: -continue oral doxycycline for 5 days total (4) CHF (congestive heart failure): Status: Chronic Problem details: - appears stable. Continue home meds. (5) Elevated TSH: Status: Acute Problem details: Unclear significance in the setting of acute illness. Recheck as an outpatient. (6) CKD (chronic kidney disease): Status: Chronic Problem details: Stage 3, stable (7) Ischemic cardiomyopathy: Status: Chronic Problem details: Echo reviewed from 06/14 (8) Candidiasis of breast: Status: Acute Problem details: Started nystatin cream t.i.d.. 08/31 DS: Summary Hospital Course Hospital Course: NOTE TO PCP: Please recheck patient's TSH in one month as it was elevated (9.7) upon admission here. This is an 78-year-old female with history of pacemaker, ischemic cardiomyopathy, chronic atrial fibrillation on anticoagulation, and valvular disease who had been recently diagnosed with a right middle lobe pneumonia and was started on doxycycline as an outpatient. She return to her primary care doctor feeling more dependent on oxygen, more short of breath, having poor sleep, poor appetite, and vomiting any time she tried to eat. She was noted to have acute on chronic respiratory failure with hypoxia on admission for which she was treated with supplemental oxygen, given a dose of oral Lasix and started on prednisone. Doxycycline was also continued for treatment of pneumonia. Previous echocardiogram was reviewed. She has been improving over the weekend and is back to her baseline oxygen needs. She is discharged home this morning in stable condition. She does continue to have some mild nausea which I think is due to doxycycline. Of note she has had elevated TSH. This should be rechecked in a month as it may just be a reaction to acute illness. Time Spent with Patient Time attestation: Total time spent providing and/or coordinating discharge services: Exam Narrative: Exam Narrative: General: No acute distress. Awake, alert, oriented. No pallor. No jaundice. Oropharynx: Clear. Mucous membranes moist. Cardiovascular: Regular rate and rhythm. Grade 3/6 systolic murmur loudest at the right upper sternal border and a grade 1/6 diastolic murmur also at the right upper sternal border. Respiratory: Clear to auscultation bilaterally, no crackles or wheezes. Const: Vital Signs, click to edit/add: Vital Signs - 24 hr 08/31/23 11:00 08/31/23 14:50 08/31/23 15:00 Temperature 97.7 F Pulse Rate [Left P ulse Oximeter] 89 Respiratory Rate 20 20 Blood Pressure [Le ft Arm] 123/76 Pulse Oximetry 94 92 92 Oxygen Delivery Me thod Room Air Room Air Oxygen Flow Rate 08/31/23 15:00 08/31/23 15:00 08/31/23 19:48 Temperature 97.7 F 98.0 F Pulse Rate [Left P ulse Oximeter] 92 95 Respiratory Rate 18 16 Blood Pressure [Le ft Arm] 114/78 109/76 Pulse Oximetry 92 91 95 Oxygen Delivery Me thod Room Air Room Air Room Air Oxygen Flow Rate 08/31/23 22:05 08/31/23 22:06 08/31/23 23:00 Temperature 97.5 F L Pulse Rate [Left P ulse Oximeter] 95 Respiratory Rate 16 Blood Pressure [Le ft Arm] 108/79 Pulse Oximetry 79 L 94 96 Oxygen Delivery Me thod Room Air Nasal Cannula Nasal Cannula Oxygen Flow Rate 0.5 0.5 08/31/23 23:00 08/31/23 23:00 09/01/23 02:52 Temperature Pulse Rate [Left P ulse Oximeter] 90 Respiratory Rate 16 18 Blood Pressure [Le ft Arm] 113/78 Pulse Oximetry 96 96 94 Oxygen Delivery Me thod Nasal Cannula Nasal Cannula Oxygen Flow Rate 0.5 0.5 09/01/23 08:15 09/01/23 08:15 09/01/23 08:16 Temperature 98.4 F Pulse Rate [Left P ulse Oximeter] 91 Respiratory Rate 18 Blood Pressure [Le ft Arm] 129/87 Pulse Oximetry 93 93 Oxygen Delivery Me thod Room Air Room Air Oxygen Flow Rate DS: Data Data Completed and Pending Completed studies during hospitalization: 08/29/2023 EKG: Ventricular paced rhythm, 91 beats per minute. Ordering Physician: Margoth Alfaro M.D. Date of Service: 08/26/23 Procedure(s): CT angio chest PE protocol Accession Number(s): [id number] cc: Margoth Alfaro M.D.; Karma Jang M.D.~ For Patients: As a result of the Cures Act, medical imaging exams and procedure reports are released immediately into your electronic medical record. You may view this report before your referring provider. If you have questions, please contact your health care provider. INDICATION: Shortness of breath. Dysphagia. Vomiting. TECHNIQUE: CT chest PE was acquired with 95 cc Isovue 370 IV contrast. COMPARISON: May 29, 2023. FINDINGS: Heart and vasculature: Contrast opacification of the pulmonary arterial tree is adequate. No sign of pulmonary embolism. Marked cardiomegaly. Thoracic aorta normal in caliber. Lungs and pleura: No suspicious nodules or infiltrates. Small airspace consolidation in the right middle lobe. Moderate interstitial edema. Small right-sided pleural effusion. No pneumothorax. Lymph nodes/mediastinum: No mediastinal, hilar, or axillary adenopathy. Chest wall: No masses. Upper abdomen: No acute or significant findings. Bones: Unremarkable for age. IMPRESSION: 1. No pulmonary embolism. 2. Small right middle lobe pneumonia suspected. 3. Mild interstitial edema and small right-sided pleural effusion. 4. No other finding to explain shortness of breath. Please note that all CT scans at this facility use dose modulation, iterative reconstruction, and/or weight-based dosing when appropriate to reduce radiation dose to as low as reasonably achievable. Dictated by Tristen Solis MD @ 08/26/2023 8:33:53 PM (Electronically Signed) Labs on day of discharge: Labs from last 24 hours 09/01/23 06:19 INR 2.52 H Sodium 133 L Potassium 4.6 Chloride 100 Carbon Dioxide 24 Anion Gap 9 BUN 44 H Creatinine 1.1 Estimated Creat Clear 39.67 Estimated GFR 51 Glucose 102 Calcium 9.6 Preliminary micro results at discharge 08/29/23 13:10 Blood Culture - Preliminary Blood NO GROWTH AFTER 48 HOURS 08/29/23 13:05 Blood Culture - Preliminary Blood NO GROWTH AFTER 48 HOURS Discharge Plan Discharge Disposition: Home, Self-Care Date of Admission: 08/29/23 12:20 Attending Provider on Discharge: Radha Bruce Primary Care Provider: Karma Jang I Condition: Improved Anticipated Discharge Date/Time: 09/01/23 07:50 Discharge Medications: New prednisone 20 mg Tablet 20 mg PO DAILYWM Qty: 2 0RF nystatin 100,000 unit/gram Cream 1 applic topical TID Qty: 15 0RF doxycycline hyclate 100 mg Tablet 100 mg PO BID 3 Days Qty: 6 0RF Continued spironolactone 25 mg tablet 25 mg PO DAILY atorvastatin 40 mg tablet 40 mg PO HS levothyroxine 88 mcg tablet 88 mcg PO DAILY albuterol sulfate 90 mcg/actuation HFA aerosol inhaler 2 puff INHALATION Q4H PRN Patient Comments: INHALE 1 TO 2 PUFFS BY MOUTH EVERY 4 HOURS NEEDED FOR SHORTNESS OF BREATH Trelegy Ellipta 200-62.5-25 mcg blister with device 1 inh INHALATION DAILY Patient Comments: INHALE 1 PUFF BY MOUTH EVERY DAY cholecalciferol (vitamin D3) [Vitamin D3] 50 mcg (2,000 unit) capsule 50 mcg PO DAILY multivitamin [Multiple Vitamins] Tablet 1 tab PO DAILY famotidine 20 mg tablet 10 mg PO Q12H calcium carbonate-vitamin D3 [Calcium 600 + D(3)] 600 mg-5 mcg (200 unit) tablet 1 tab PO DAILY carvedilol 6.25 mg tablet 3.125 mg PO BID fluoxetine 20 mg capsule 20 mg PO DAILY Patient Comments: total dose 60mg daily fluoxetine 40 mg capsule 40 mg PO DAILY Patient Comments: Rx Instructions: total dose 60mg daily Senna Plus 8.6-50 mg capsule 1 tab-cap PO BID PRNQty: 30 0RF ipratropium-albuterol 0.5 mg-3 mg(2.5 mg base)/3 mL solution for nebulization 3 ml inhalation QID PRN acetaminophen 500 mg Tablet 1,000 mg PO TID PRN warfarin 2 mg tablet 2 mg PO DAILY Rx Instructions: hold on 08/28,08/29, restart 2mg on 08/30 Changed valsartan 40 mg tablet 20 mg PO DAILY Qty: 15 0RF Discharge Orders: Discharge Order (Routine); Ordered 09/01/23 Ordered By: Radha Bruce Patient Education: Doxycycline (By mouth), Prednisone (By mouth), Nystatin (On the skin), Heart Failure (DC), COPD (Chronic Obstructive Pulmonary Disease) (DC), Bacterial Pneumonia (DC) Additional Instructions: INR Monday 09/03, results to [facility] coumadin [facility]. Resume home O2: 1.5LPM via [place] continuous. Resume home care. Activity Level: No Restrictions Discharge Diet: Regular Follow Up Appointments: Rosio Gusman DO [Referring] - 09/12/23 4:20 pm ([facility] for follow-up for COPD & CHF.) Karma Jang MD [Primary Care Provider] - (3-5 days) Forms: [employer] Info Instructions
== END 2023-09-01 08:45 | disposition home or self-care (01) | DRG 189 ==
PROVIDERS: Family Medicine; Admitting Provider Family Medicine; PCP Family Medicine; Visit Provider Family Medicine
DX: J96.21 Acute and chronic respiratory failure with hypoxia (principal); J18.9 Pneumonia, unspecified organism; J44.0 Chronic obstructive pulmonary disease with (acute) lower respiratory infection; J44.1 Chronic obstructive pulmonary disease with (acute) exacerbation; I13.0 Hypertensive heart and chronic kidney disease with heart failure and stage 1 through stage 4 chronic kidney disease, or unspecified chronic kidney disease; I50.22 Chronic systolic (congestive) heart failure; N18.30 Chronic kidney disease, stage 3 unspecified; I48.0 Paroxysmal atrial fibrillation; I08.3 Combined rheumatic disorders of mitral, aortic and tricuspid valves; I25.5 Ischemic cardiomyopathy; Z79.01 Long term (current) use of anticoagulants; Z95.0 Presence of cardiac pacemaker; B37.2 Candidiasis of skin and nail; S32.039D Unspecified fracture of third lumbar vertebra, subsequent encounter for fracture with routine healing
CPT/HCPCS: 36415; 71045; 71275; 80048; 80069; 80076; 81001; 82803; 83605; 83690; 83735; 83880; 84145; 84439; 84443; 84484; 85025; 85610; 86140; 87040; 87631; 93005; 94640; 94664; 94761; 97110; 97116; 97161; 97165; 99284; A9270; J7512; Q9965; Q9967

== ENCOUNTER 2023-09-22 14:18 | Outpatient (CLI) | payer MEDICARE, SELFPAY | END 2023-09-22 14:19 | disposition home or self-care (01) | LOC: AMB 09-28 05:48 | PROVIDERS: PCP Family Medicine; Visit Provider Internal Medicine | DX: R07.89 Other chest pain (principal) | CPT/HCPCS: A0425; A0427 ==

== ENCOUNTER 2023-09-22 14:49 | Inpatient (IN) | payer MEDICARE, SELFPAY ==
[2023-09-22] VITALS (29 sets, daily range): BP systolic 97–115; BP diastolic 71–83; PULSE 88–98; RESP 20–26; TEMP 36.7–37.4; O2SAT 82–98; BMI 23.6; BMI 23.3
--- NOTE | 2023-09-22 14:53 | CRLHL7_ITS ---
For Patients: As a result of the Century Cures Act, medical imaging exams and procedure reports are released immediately into your electronic medical record. You may view this report before your referring provider. If you have questions, please contact your health care provider. INDICATION: Shortness of breath TECHNIQUE: Single view chest. Comparison 08/29/2023 FINDINGS: Enlarged cardiac silhouette median sternotomy left cardiac pacer. Moderate right effusion underlying atelectasis and/or infiltrate. No pneumothorax. Dictated by Odette Alarcon MD @ 09/22/2023 3:30:57 PM (Electronically Signed)
--- NOTE | 2023-09-22 14:55 | ED_ITS ---
HPI - SOB/Dyspnea General Chief Complaint: Shortness of Breath/Dyspnea <Rell Alva MD - Last Filed: 09/23/23 07:44> Stated Complaint: Chest pressure <Rell Alva MD - Last Filed: 09/23/23 07:44> Time Seen by Provider: 09/22/23 14:53 <Rell Alva MD - Last Filed: 09/23/23 07:44> History of Present Illness HPI Narrative: Patient is an 78 year old woman with history of both CHF and COPD who presents with progressive shortness of breath over the last several days. She has had some intermittent chest pressure over the same time. She also is up 2.2 lb today. Patient has complex medical history in is on oxygen at home but primarily at night. Review records shows in addition to CHF and COPD she has chronic renal insufficiency and ischemic cardiomyopathy. She has no signs of fevers chills night sweats cough but states she feels full and has very limited mobility. She has been diagnosed with adult failure to thrive in the past. <Rell Alva MD - Last Filed: 09/23/23 07:44> Related Data Home Medications: Home Medications Medication Instructions Recorded Confirmed albuterol sulfate 90 mcg/actuation 2 puff inhalation Q4H PRN 06/02/22 08/29/23 aerosol inhaler atorvastatin 40 mg tablet 40 mg PO HS 06/02/22 08/29/23 cholecalciferol (vitamin D3) 50 50 mcg PO DAILY 06/02/22 08/29/23 mcg (2,000 unit) capsule (Vitamin D3) fluticasone fur. 200 mcg-umeclid 1 inh inhalation DAILY 06/02/22 08/29/23 62.5 mcg-vilant 25 mcg inhalat.powder (Trelegy Ellipta) levothyroxine 88 mcg tablet 88 mcg PO DAILY 06/02/22 08/29/23 multivitamin (Multiple Vitamins 1 tab PO DAILY 06/03/22 08/29/23 tablet) spironolactone 25 mg tablet 25 mg PO DAILY 12/23/22 08/29/23 famotidine 20 mg tablet 10 mg PO Q12H 04/22/23 08/29/23 calcium carbonate 600 mg-vitamin 1 tab PO DAILY 05/23/23 08/29/23 D3 5 mcg (200 unit) tablet (Calcium 600 + D(3)) carvedilol 6.25 mg tablet 3.125 mg PO BID 05/23/23 08/29/23 fluoxetine 20 mg capsule 20 mg PO DAILY 05/23/23 08/29/23 fluoxetine 40 mg capsule 40 mg PO DAILY 05/23/23 08/29/23 acetaminophen 500 mg tablet 1,000 mg PO TID PRN 06/30/23 08/29/23 ipratropium 0.5 mg-albuterol 3 mg 3 ml inhalation QID PRN 06/30/23 08/29/23 (2.5 mg base)/3 mL nebulization soln warfarin 2 mg tablet 2 mg PO DAILY 08/29/23 08/29/23 Previous Rx's Medication Instructions Recorded sennosides 8.6 mg-docusate sodium 1 tab-cap PO BID PRN #30 caps 05/26/23 50 mg capsule (Senna Plus) doxycycline hyclate 100 mg tablet 100 mg PO BID 3 days #6 tabs 09/01/23 nystatin 100,000 unit/gram topical 1 applic topical TID #15 grams 09/01/23 cream prednisone 20 mg tablet 20 mg PO DAILYWM #2 tabs 09/01/23 valsartan 40 mg tablet 20 mg (1/2 x 40 mg) PO DAILY #15 09/01/23 tabs <Rell Alva MD - Last Filed: 09/23/23 07:44> Allergies/Adverse Reactions: Allergies Allergy/AdvReac Type Severity Reaction Status Date / Time bacitracin Allergy Mild Verified 07/07/23 13:18 [From Neosporin Plus] lidocaine Allergy Mild Verified 07/07/23 13:18 [From Neosporin Plus] morphine Allergy Mild Hives Verified 07/07/23 13:18 neomycin Allergy Mild Verified 07/07/23 13:18 [From Neosporin Plus] Penicillins Allergy Mild Rash Verified 07/07/23 13:18 polymyxin B Allergy Mild Verified 07/07/23 13:18 [From Neosporin Plus] pramoxine Allergy Mild Verified 07/07/23 13:18 [From Neosporin Plus] BRAD Inhibitors Allergy Unknown Verified 07/07/23 13:18 bupropion [From Wellbutrin] Allergy Unknown Verified 07/07/23 13:18 hydrocodone Allergy Unknown Verified 07/07/23 13:18 levofloxacin [From Levaquin] Allergy Unknown Verified 07/07/23 13:18 oxycodone Allergy Unknown Verified 07/07/23 13:18 sulfamethoxazole Allergy Unknown Verified 07/07/23 13:18 <Rell Alva MD - Last Filed: 09/23/23 07:44> Review of Systems Status of ROS: Reports: 10 or more systems reviewed and unremarkable except as noted in History and below <Rell Alva MD - Last Filed: 09/23/23 07:44> [facility] Medical History: Medical History (Updated 09/22/23 @ 22:37 by Catrachito Sigala MD) Aortic stenosis, moderate ?I35.0 - Nonrheumatic aortic (valve) stenosis (ICD-10) Pulmonary hypertension ?I27.20 - Pulmonary hypertension, unspecified (ICD-10) Panlobular emphysema ?J43.1 - Panlobular emphysema (ICD-10) COPD (chronic obstructive pulmonary disease) ?J44.9 - Chronic obstructive pulmonary disease, unspecified (ICD-10) Anemia ?D64.9 - Anemia, unspecified (ICD-10) Hyperkalemia ?E87.5 - Hyperkalemia (ICD-10) Supratherapeutic INR ?R79.1 - Abnormal coagulation profile (ICD-10) Closed compression fracture of L3 vertebra ?S32.030A - Wedge compression fracture of third lumbar vertebra, initial encounter for closed fracture (ICD-10) Subarachnoid hemorrhage ?I60.9 - Nontraumatic subarachnoid hemorrhage, unspecified (ICD-10) Chronic anticoagulation ?Z79.01 - FDC (current) use of anticoagulants (ICD-10) Presence of permanent cardiac pacemaker ?Z95.0 - Presence of cardiac pacemaker (ICD-10) Chronic hypoxemic respiratory failure ?J96.11 - Chronic respiratory failure with hypoxia (ICD-10) Chronic pain of both shoulders ?M25.511 - Pain in right shoulder (ICD-10) ?M25.512 - Pain in left shoulder (ICD-10) ?G89.29 - Other chronic pain (ICD-10) Anticoagulation goal of INR 2 to 3 ?Z51.81 - Encounter for therapeutic drug level monitoring (ICD-10) ?Z79.01 - FDC (current) use of anticoagulants (ICD-10) Anticoagulated on warfarin ?Z79.01 - FDC (current) use of anticoagulants (ICD-10) Paroxysmal atrial fibrillation ?I48.0 - Paroxysmal atrial fibrillation (ICD-10) Closed nondisplaced fracture of greater trochanter of right femur with routine healing ?S72.114D - Nondisplaced fracture of greater trochanter of right femur, subsequent encounter for closed fracture with routine healing (ICD-10) Chronic deep vein thrombosis of left lower extremity ?I82.502 - Chronic embolism and thrombosis of unspecified deep veins of left lower extremity (ICD-10) Intrinsic urethral sphincter deficiency ?N36.42 - Intrinsic sphincter deficiency (ISD) (ICD-10) Mixed stress and urge urinary incontinence ?N39.46 - Mixed incontinence (ICD-10) CKD stage 4 secondary to hypertension ?I12.9 - Hypertensive chronic kidney disease with stage 1 through stage 4 chronic kidney disease, or unspecified chronic kidney disease (ICD-10) ?N18.4 - Chronic kidney disease, stage 4 (severe) (ICD-10) Ischemic cardiomyopathy ?I25.5 - Ischemic cardiomyopathy (ICD-10) Recurrent major depression resistant to treatment ?F33.9 - Major depressive disorder, recurrent, unspecified (ICD-10) Hyperlipidemia ?E78.5 - Hyperlipidemia, unspecified (ICD-10) Hypertension ?I10 - Essential (primary) hypertension (ICD-10) MRSA (methicillin resistant Staphylococcus aureus) ?A49.02 - Methicillin resistant Staphylococcus aureus infection, unspecified site (ICD-10) Hypothyroidism ?E03.9 - Hypothyroidism, unspecified (ICD-10) CHF (congestive heart failure) ?I50.9 - Heart failure, unspecified (ICD-10) CAD (coronary artery disease) ?I25.10 - Atherosclerotic heart disease of [place] coronary artery without angina pectoris (ICD-10) Depression ?F32.A - Depression, unspecified (ICD-10) Atrial fibrillation ?I48.91 - Unspecified atrial fibrillation (ICD-10) Anxiety ?F41.9 - Anxiety disorder, unspecified (ICD-10) Acid reflux ?K21.9 - Gastro-esophageal reflux disease without esophagitis (ICD-10) Severe depression ?F32.2 - Major depressive disorder, single episode, severe without psychotic features (ICD-10) <Rell Alva MD - Last Filed: 09/23/23 07:44> Surgical History: Surgical History History of bilateral hip replacements (2006) ?Z96.643 - Presence of artificial hip joint, bilateral (ICD-10) History of cholecystectomy ?Z90.49 - Acquired absence of other specified parts of digestive tract (ICD- 10) History of cataract surgery ?Z98.49 - Cataract extraction status, unspecified eye (ICD-10) <Rell Alva MD - Last Filed: 09/23/23 07:44> Social History: Social History Narrative: Lives with a roommate in [place], adult children. Son Mykel and daughter Lakesha would share medical decision making duties. Requests Full Code status, understands that her progressive lung disease puts her at high risk if she were to ever need intubation. 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 What is your current living situation?: I presently have a place to live Problems where you live: no known problems Problems where you live details: N/A In the past 12 months, utilities in danger of being shut off: no In past 12 months, lack of transportation kept you from medical appts, meetings, work, or getting things needed for daily living: no In the past 12 mos, have been you worried that your food would run out before you had money to buy more?: never true In the past 12 mos, the food you bought just didn't last and you didn't have money to buy more?: never true Highest level of school completed/degree received: some college, no degree Smoking Status: Former smoker What tobacco products do you use: cigarettes Smoking quit date/years: >15 years ago Do you use any of these nicotine containing products: None Second hand tobacco smoke exposure: No How often do you have a drink containing alcohol: never How often do you have six or more drinks on one occasion: Never AUDIT-C Alcohol total score: 0 Non-prescribed substance use: denies use Caffeine: Yes How often does anyone, including family, friends and others, physically hurt you : never How often does anyone, including family, friends and others, insult or talk down to you: never How often does anyone, including family, friends and others, threaten you with harm: never How often does anyone, including family, friends and others, scream or curse at you: never service: No <Rell Alva MD - Last Filed: 09/23/23 07:44> Exam Narrative: Exam Narrative: EXAM GENERAL: Patient appears frail and cachectic. EYES: No scleral icterus. LYMPH: No supraclavicular or cervical lymphadenopathy. SKIN: Visible skin seen during exam normal or with benign process only. EXT: No dependent lower extremity pedal edema. HEART: Regular rate and rhythm with no murmurs, rubs, or gallops. LUNGS: Markedly decreased breath sounds. ABD: Soft, non tender, non distended. PSYCH: Good eye contact, speech is not pressured. <Rell Alva MD - Last Filed: 09/23/23 07:44> Const: Vital Signs, click to edit/add: Vital Signs - 24 hr 09/22/23 15:03 09/22/23 15:06 09/22/23 15:15 Temperature 99.4 F Pulse Rate 89 93 Pulse Rate [Left P ulse Oximeter] Pulse Rate [Pulse Oximeter] 91 Respiratory Rate 26 H Blood Pressure Blood Pressure [Le ft Arm] Blood Pressure [Le ft Upper Arm] 106/75 Pulse Oximetry 92 94 94 Oxygen Delivery Me thod Room Air Oxygen Flow Rate 09/22/23 15:26 09/22/23 15:30 09/22/23 15:31 Temperature Pulse Rate 90 90 92 Pulse Rate [Left P ulse Oximeter] Pulse Rate [Pulse Oximeter] Respiratory Rate Blood Pressure 115/81 97/71 Blood Pressure [Le ft Arm] Blood Pressure [Le ft Upper Arm] Pulse Oximetry 97 90 86 L Oxygen Delivery Me thod Nasal Cannula Room Air Oxygen Flow Rate 09/22/23 15:45 09/22/23 16:00 09/22/23 16:01 Temperature Pulse Rate 91 91 91 Pulse Rate [Left P ulse Oximeter] Pulse Rate [Pulse Oximeter] Respiratory Rate Blood Pressure 101/77 Blood Pressure [Le ft Arm] Blood Pressure [Le ft Upper Arm] Pulse Oximetry 83 L 92 92 Oxygen Delivery Me thod Oxygen Flow Rate 09/22/23 16:25 09/22/23 16:30 09/22/23 16:31 Temperature Pulse Rate 91 88 89 Pulse Rate [Left P ulse Oximeter] Pulse Rate [Pulse Oximeter] Respiratory Rate Blood Pressure 110/83 Blood Pressure [Le ft Arm] Blood Pressure [Le ft Upper Arm] Pulse Oximetry 94 82 L 83 L Oxygen Delivery Me thod Room Air Oxygen Flow Rate 09/22/23 16:45 09/22/23 17:00 09/22/23 17:06 Temperature Pulse Rate 90 92 Pulse Rate [Left P ulse Oximeter] Pulse Rate [Pulse Oximeter] Respiratory Rate Blood Pressure Blood Pressure [Le ft Arm] Blood Pressure [Le ft Upper Arm] Pulse Oximetry 88 93 Oxygen Delivery Me thod Room Air Nasal Cannula Nasal Cannula Oxygen Flow Rate 2 09/22/23 17:15 09/22/23 17:30 09/22/23 17:31 Temperature Pulse Rate 90 92 91 Pulse Rate [Left P ulse Oximeter] Pulse Rate [Pulse Oximeter] Respiratory Rate Blood Pressure 100/81 Blood Pressure [Le ft Arm] Blood Pressure [Le ft Upper Arm] Pulse Oximetry 96 94 95 Oxygen Delivery Me thod Oxygen Flow Rate 09/22/23 17:32 09/22/23 17:45 09/22/23 18:00 Temperature Pulse Rate 91 89 92 Pulse Rate [Left P ulse Oximeter] Pulse Rate [Pulse Oximeter] Respiratory Rate Blood Pressure Blood Pressure [Le ft Arm] Blood Pressure [Le ft Upper Arm] Pulse Oximetry 96 97 97 Oxygen Delivery Me thod Nasal Cannula Oxygen Flow Rate 09/22/23 18:03 09/22/23 18:15 09/22/23 18:30 Temperature Pulse Rate 90 93 88 Pulse Rate [Left P ulse Oximeter] Pulse Rate [Pulse Oximeter] Respiratory Rate Blood Pressure 102/71 Blood Pressure [Le ft Arm] Blood Pressure [Le ft Upper Arm] Pulse Oximetry 96 92 92 Oxygen Delivery Me thod Nasal Cannula Oxygen Flow Rate 09/22/23 18:32 09/22/23 18:45 09/22/23 19:21 Temperature 98.0 F Pulse Rate 98 92 Pulse Rate [Left P ulse Oximeter] 93 Pulse Rate [Pulse Oximeter] Respiratory Rate 22 Blood Pressure 112/77 Blood Pressure [Le ft Arm] 111/75 Blood Pressure [Le ft Upper Arm] Pulse Oximetry 97 97 98 Oxygen Delivery Me thod Nasal Cannula Oxygen Flow Rate 2 09/22/23 19:21 Temperature Pulse Rate Pulse Rate [Left P ulse Oximeter] Pulse Rate [Pulse Oximeter] Respiratory Rate 22 Blood Pressure Blood Pressure [Le ft Arm] Blood Pressure [Le ft Upper Arm] Pulse Oximetry 96 Oxygen Delivery Me thod Nasal Cannula Oxygen Flow Rate 2 <Rell Alva MD - Last Filed: 09/23/23 07:44> Vital Signs, click to edit/add: Vital Signs - 24 hr 09/22/23 15:03 09/22/23 15:06 09/22/23 15:15 Temperature 99.4 F Pulse Rate 89 93 Pulse Rate [Left P ulse Oximeter] Pulse Rate [Pulse Oximeter] 91 Respiratory Rate 26 H Blood Pressure Blood Pressure [Le ft Arm] Blood Pressure [Le ft Upper Arm] 106/75 Pulse Oximetry 92 94 94 Oxygen Delivery Me thod Room Air Oxygen Flow Rate 09/22/23 15:26 09/22/23 15:30 09/22/23 15:31 Temperature Pulse Rate 90 90 92 Pulse Rate [Left P ulse Oximeter] Pulse Rate [Pulse Oximeter] Respiratory Rate Blood Pressure 115/81 97/71 Blood Pressure [Le ft Arm] Blood Pressure [Le ft Upper Arm] Pulse Oximetry 97 90 86 L Oxygen Delivery Me thod Nasal Cannula Room Air Oxygen Flow Rate 09/22/23 15:45 09/22/23 16:00 09/22/23 16:01 Temperature Pulse Rate 91 91 91 Pulse Rate [Left P ulse Oximeter] Pulse Rate [Pulse Oximeter] Respiratory Rate Blood Pressure 101/77 Blood Pressure [Le ft Arm] Blood Pressure [Le ft Upper Arm] Pulse Oximetry 83 L 92 92 Oxygen Delivery Me thod Oxygen Flow Rate 09/22/23 16:25 09/22/23 16:30 09/22/23 16:31 Temperature Pulse Rate 91 88 89 Pulse Rate [Left P ulse Oximeter] Pulse Rate [Pulse Oximeter] Respiratory Rate Blood Pressure 110/83 Blood Pressure [Le ft Arm] Blood Pressure [Le ft Upper Arm] Pulse Oximetry 94 82 L 83 L Oxygen Delivery Me thod Room Air Oxygen Flow Rate 09/22/23 16:45 09/22/23 17:00 09/22/23 17:06 Temperature Pulse Rate 90 92 Pulse Rate [Left P ulse Oximeter] Pulse Rate [Pulse Oximeter] Respiratory Rate Blood Pressure Blood Pressure [Le ft Arm] Blood Pressure [Le ft Upper Arm] Pulse Oximetry 88 93 Oxygen Delivery Me thod Room Air Nasal Cannula Nasal Cannula Oxygen Flow Rate 2 09/22/23 17:15 09/22/23 17:30 09/22/23 17:31 Temperature Pulse Rate 90 92 91 Pulse Rate [Left P ulse Oximeter] Pulse Rate [Pulse Oximeter] Respiratory Rate Blood Pressure 100/81 Blood Pressure [Le ft Arm] Blood Pressure [Le ft Upper Arm] Pulse Oximetry 96 94 95 Oxygen Delivery Me thod Oxygen Flow Rate 09/22/23 17:32 09/22/23 17:45 09/22/23 18:00 Temperature Pulse Rate 91 89 92 Pulse Rate [Left P ulse Oximeter] Pulse Rate [Pulse Oximeter] Respiratory Rate Blood Pressure Blood Pressure [Le ft Arm] Blood Pressure [Le ft Upper Arm] Pulse Oximetry 96 97 97 Oxygen Delivery Me thod Nasal Cannula Oxygen Flow Rate 09/22/23 18:03 09/22/23 18:15 09/22/23 18:30 Temperature Pulse Rate 90 93 88 Pulse Rate [Left P ulse Oximeter] Pulse Rate [Pulse Oximeter] Respiratory Rate Blood Pressure 102/71 Blood Pressure [Le ft Arm] Blood Pressure [Le ft Upper Arm] Pulse Oximetry 96 92 92 Oxygen Delivery Me thod Nasal Cannula Oxygen Flow Rate 09/22/23 18:32 09/22/23 18:45 09/22/23 19:21 Temperature 98.0 F Pulse Rate 98 92 Pulse Rate [Left P ulse Oximeter] 93 Pulse Rate [Pulse Oximeter] Respiratory Rate 22 Blood Pressure 112/77 Blood Pressure [Le ft Arm] 111/75 Blood Pressure [Le ft Upper Arm] Pulse Oximetry 97 97 98 Oxygen Delivery Me thod Nasal Cannula Oxygen Flow Rate 2 09/22/23 19:21 Temperature Pulse Rate Pulse Rate [Left P ulse Oximeter] Pulse Rate [Pulse Oximeter] Respiratory Rate 22 Blood Pressure Blood Pressure [Le ft Arm] Blood Pressure [Le ft Upper Arm] Pulse Oximetry 96 Oxygen Delivery Me thod Nasal Cannula Oxygen Flow Rate 2 <Margoth Alfaro MD - Last Filed: 09/22/23 19:19> Course Course ED Course: Chest x-ray CBC BMP BNP viral swabs troponin D-dimer EKG collected. <Rell Alva MD - Last Filed: 09/23/23 07:44> Chest x-ray CBC BMP BNP viral swabs troponin D-dimer EKG collected. Patient signed out to me by Dr. Alva, please see his note for full details. I followed up on the chest CT scan, which shows a moderate to large pleural e ffusion on the right. The radiologist also said he thought there may be tiny subsegmental PE in the right middle and lower lobe as well. Patient notes that her INR was 4.5 on Friday, it is 2.5 today and was elevated at the beginning of August as well. Seems somewhat unlikely that she has PE, but certainly is adequately anticoagulated and I do not think this is the largest contributing factor to her shortness of breath. I think the effusion is a larger problem. I have reviewed her records including her hospitalization early August as well as an echo done in May which showed an EF of 20% and moderate to severe aortic stenosis. I talked with the welfare centre manager on-call at [facility], they know this patient fairly well as she was seen most recently at the end of July by virtual visit. According to the welfare centre manager, her Lasix had been changed from scheduled to p.r.n. at her last visit because they thought she was over diuresed. The patient tells me that she had been switched to 20 a day and then a few days ago they had increased to 40 a day. Despite this she has continued to feel more short of breath and has significant swelling in her feet and lower legs. The welfare centre manager recommended admission for IV diuresis with Lasix. Her blood pressure tends to run on the low side and therefore she recommended holding the spironolactone in the valsartan to give us a little more room for diuresis. Dry weight recorded in the [facility] system was 147 lb. Patient is comfortable with admission here. Consideration could be given to lower extremity Dopplers to evaluate for DVT. <Margoth Alfaro MD - Last Filed: 09/22/23 19:19> Reevaluation(s) Reevaluation #1: Preliminary review of labs shows an elevation in the D-dimer. She also has a worsening pleural effusion on the right. This point we will proceed with CT of the chest PE protocol and I will turn her case over to my colleague. <Rell Alva MD - Last Filed: 09/23/23 07:44> Vital Signs Vital signs: Initial Vital Signs Temperature 99.4 F 09/22/23 15:03 Temperature Source Temporal Artery Scan 09/22/23 15:03 Pulse Rate 91 09/22/23 15:03 Respiratory Rate 26 H 09/22/23 15:03 Blood Pressure 106/75 09/22/23 15:03 Blood Pressure Mean 85 09/22/23 15:03 Pulse Oximetry 92 09/22/23 15:03 Oxygen Delivery Method Room Air 09/22/23 15:03 Vital Signs Temperature 99.4 F 09/22/23 15:03 Pulse Rate 91 09/22/23 15:03 Respiratory Rate 26 H 09/22/23 15:03 Blood Pressure 106/75 09/22/23 15:03 Pulse Oximetry 92 09/22/23 15:03 Oxygen Delivery Method Room Air 09/22/23 15:03 Temperature 98.7 F 09/22/23 23:36 Pulse Rate 94 09/23/23 03:00 Respiratory Rate 18 09/23/23 03:00 Blood Pressure 116/87 09/23/23 03:00 Pulse Oximetry 95 09/23/23 03:00 Oxygen Delivery Method Nasal Cannula 09/23/23 03:00 Oxygen Flow Rate 2 09/23/23 03:00 <Rell Alva MD - Last Filed: 09/23/23 07:44> Initial Vital Signs Temperature 99.4 F 09/22/23 15:03 Temperature Source Temporal Artery Scan 09/22/23 15:03 Pulse Rate 91 09/22/23 15:03 Respiratory Rate 26 H 09/22/23 15:03 Blood Pressure 106/75 09/22/23 15:03 Blood Pressure Mean 85 09/22/23 15:03 Pulse Oximetry 92 09/22/23 15:03 Oxygen Delivery Method Room Air 09/22/23 15:03 Vital Signs Temperature 99.4 F 09/22/23 15:03 Pulse Rate 91 09/22/23 15:03 Respiratory Rate 26 H 09/22/23 15:03 Blood Pressure 106/75 09/22/23 15:03 Pulse Oximetry 92 09/22/23 15:03 Oxygen Delivery Method Room Air 09/22/23 15:03 Temperature 98.7 F 09/22/23 23:36 Pulse Rate 94 09/23/23 03:00 Respiratory Rate 18 09/23/23 03:00 Blood Pressure 116/87 09/23/23 03:00 Pulse Oximetry 95 09/23/23 03:00 Oxygen Delivery Method Nasal Cannula 09/23/23 03:00 Oxygen Flow Rate 2 09/23/23 03:00 <Margoth Alfaro MD - Last Filed: 09/22/23 19:19> Medications Administered Medications: Generic Name Dose Route Start Last Admin Trade Name Freq PRN Reason Stop Dose Admin Albuterol/Ipratropium 1 neb 09/22/23 20:09 09/22/23 22:33 Iprat-Albut 0.5-2.5 Mg/3 Ml Neb IH 1 neb QID PRN Administration Atorvastatin Calcium 40 mg 09/22/23 21:00 09/22/23 21:07 Atorvastatin Calcium 40 Mg Tablet PO 40 mg HS RAMIREZ Administration Famotidine 10 mg 09/22/23 20:15 09/22/23 21:10 Famotidine 20 Mg Tablet PO 10 mg Q12H RAMIREZ Administration Melatonin 3 mg 09/23/23 00:39 09/23/23 00:53 Melatonin 3 Mg Tablet PO 3 mg HS PRN Administration Insomnia Sodium Chloride 5 ml 09/22/23 21:00 09/22/23 21:11 Sodium Chloride 0.9 % (Flush) 10 Ml Syringe IVF 5 ml BID RAMIREZ Administration Discontinued Medications Generic Name Dose Route Start Last Admin Trade Name Freq PRN Reason Stop Dose Admin Furosemide 20 mg 09/22/23 18:28 09/22/23 19:05 Furosemide 10 Mg/Ml Inj IVP 09/22/23 18:29 20 mg ONCE ONE Administration <Rell Alva MD - Last Filed: 09/23/23 07:44> Generic Name Dose Route Start Last Admin Trade Name Freq PRN Reason Stop Dose Admin Albuterol/Ipratropium 1 neb 09/22/23 20:09 09/22/23 22:33 Iprat-Albut 0.5-2.5 Mg/3 Ml Neb IH 1 neb QID PRN Administration Atorvastatin Calcium 40 mg 09/22/23 21:00 09/22/23 21:07 Atorvastatin Calcium 40 Mg Tablet PO 40 mg HS RAMIREZ Administration Famotidine 10 mg 09/22/23 20:15 09/22/23 21:10 Famotidine 20 Mg Tablet PO 10 mg Q12H RAMIREZ Administration Melatonin 3 mg 09/23/23 00:39 09/23/23 00:53 Melatonin 3 Mg Tablet PO 3 mg HS PRN Administration Insomnia Sodium Chloride 5 ml 09/22/23 21:00 09/22/23 21:11 Sodium Chloride 0.9 % (Flush) 10 Ml Syringe IVF 5 ml BID RAMIREZ Administration Discontinued Medications Generic Name Dose Route Start Last Admin Trade Name Kimberly PRN Reason Stop Dose Admin Furosemide 20 mg 09/22/23 18:28 09/22/23 19:05 Furosemide 10 Mg/Ml Inj IVP 09/22/23 18:29 20 mg ONCE ONE Administration <Margoth Alfaro MD - Last Filed: 09/22/23 19:19> MDM - SOB/Dyspnea Lab Data Labs: Lab Results 09/22/23 09/22/23 09/22/23 Range/Units 15:15 15:22 17:05 WBC 6.16 (4.50-11.00) K/uL RBC 4.92 (4.00-5.20) m/uL Hgb 12.9 (12.0-16.0) gm/dL Hct 42.1 (33.0-51.0) % MCV 86 (80-100) fL MCH 26 (26-34) pg MCHC 31 L (32-36) gm/dL RDW Coeff of Sudha 17.0 H (11.5-15.5) % Plt Count 285 (140-440) K/uL Neut % (Auto) 61.7 (42.0-72.0) % Lymph % (Auto) 27.1 (20-44) % [place] % (Auto) 10.1 (0.0-11.0) % Eos % (Auto) 0.6 (0.0-7.0) % Baso % (Auto) 0.2 (0.0-3.0) % Neut # (Auto) 3.80 (1.7-7.0) K/uL Lymph # (Auto) 1.67 (0.90-2.90) K/uL [place] # (Auto) 0.60 (0.00-0.90) K/UL Eos # (Auto) 0.04 (0.00-0.50) K/uL Baso # (Auto) 0.01 (0.00-0.30) K/uL Abs Immat Gran (auto) 0.02 (0.00-0.30) K/uL Imm/Tot Granulo (auto) 0.3 % INR 2.54 H (0.91-1.10) D-Dimer Quant (PE/DVT) 2.18 H (0.00-0.50) ug/ml Sodium 136 (135-149) mmol/L Potassium 3.7 (3.6-5.1) mmol/L Chloride 97 (96-114) mmol/L Carbon Dioxide 29 (20-32) mmol/L Anion Gap 10 (7-15) mEq/L BUN 36 H (7-30) mg/dL Creatinine 1.1 (0.5-1.5) mg/dL Estimated Creat Clear 38.19 Estimated GFR 51 ml/min Glucose 98 (60-115) mg/dL Calcium 8.8 (8.4-10.6) mg/dL Troponin I 0.03 (0.01-0.04) ng/mL NT-Pro-B Natriuret Pep 50879 pg/mL Urine Color Yellow (Yellow) Urine Appearance Clear (Clear) Urine pH 7.0 (5.0-8.5) Ur Specific [place] 1.015 (1.000-1.030) Urine Protein Negative (Negative) Urine Glucose (UA) Negative (Negative) Urine Ketones Negative (Negative) Urine Blood Negative (Negative) Urine Nitrite Negative (Negative) Urine Bilirubin Negative (Negative) Urine Urobilinogen 0.2 (0.2-1.0) Ur Leukocyte Esterase Negative (Negative) Urine RBC 0-2 (0-2) Urine WBC 0-2 (0-5) Ur Squamous Epith Cells Few (None-Few) Urine Bacteria None (None) SARS-CoV-2 (PCR) Negative SARS-CoV-2 (Negative) Influenza Type A (PCR) Negative PCR FLU A (Negative) Influenza Type B (PCR) Negative PCR FLU B (Negative) RSV (PCR) Negative PCR RSV (Negative) <Rell Alva MD - Last Filed: 09/23/23 07:44> Lab Results 09/22/23 09/22/23 09/22/23 Range/Units 15:15 15:22 17:05 WBC 6.16 (4.50-11.00) K/uL RBC 4.92 (4.00-5.20) m/uL Hgb 12.9 (12.0-16.0) gm/dL Hct 42.1 (33.0-51.0) % MCV 86 (80-100) fL MCH 26 (26-34) pg MCHC 31 L (32-36) gm/dL RDW Coeff of Sudha 17.0 H (11.5-15.5) % Plt Count 285 (140-440) K/uL Neut % (Auto) 61.7 (42.0-72.0) % Lymph % (Auto) 27.1 (20-44) % [place] % (Auto) 10.1 (0.0-11.0) % Eos % (Auto) 0.6 (0.0-7.0) % Baso % (Auto) 0.2 (0.0-3.0) % Neut # (Auto) 3.80 (1.7-7.0) K/uL Lymph # (Auto) 1.67 (0.90-2.90) K/uL [place] # (Auto) 0.60 (0.00-0.90) K/UL Eos # (Auto) 0.04 (0.00-0.50) K/uL Baso # (Auto) 0.01 (0.00-0.30) K/uL Abs Immat Gran (auto) 0.02 (0.00-0.30) K/uL Imm/Tot Granulo (auto) 0.3 % INR 2.54 H (0.91-1.10) D-Dimer Quant (PE/DVT) 2.18 H (0.00-0.50) ug/ml Sodium 136 (135-149) mmol/L Potassium 3.7 (3.6-5.1) mmol/L Chloride 97 (96-114) mmol/L Carbon Dioxide 29 (20-32) mmol/L Anion Gap 10 (7-15) mEq/L BUN 36 H (7-30) mg/dL Creatinine 1.1 (0.5-1.5) mg/dL Estimated Creat Clear 38.19 Estimated GFR 51 ml/min Glucose 98 (60-115) mg/dL Calcium 8.8 (8.4-10.6) mg/dL Troponin I 0.03 (0.01-0.04) ng/mL NT-Pro-B Natriuret Pep 31635 pg/mL Urine Color Yellow (Yellow) Urine Appearance Clear (Clear) Urine pH 7.0 (5.0-8.5) Ur Specific [place] 1.015 (1.000-1.030) Urine Protein Negative (Negative) Urine Glucose (UA) Negative (Negative) Urine Ketones Negative (Negative) Urine Blood Negative (Negative) Urine Nitrite Negative (Negative) Urine Bilirubin Negative (Negative) Urine Urobilinogen 0.2 (0.2-1.0) Ur Leukocyte Esterase Negative (Negative) Urine RBC 0-2 (0-2) Urine WBC 0-2 (0-5) Ur Squamous Epith Cells Few (None-Few) Urine Bacteria None (None) SARS-CoV-2 (PCR) Negative SARS-CoV-2 (Negative) Influenza Type A (PCR) Negative PCR FLU A (Negative) Influenza Type B (PCR) Negative PCR FLU B (Negative) RSV (PCR) Negative PCR RSV (Negative) <Margoth Alfaro MD - Last Filed: 09/22/23 19:19>
[2023-09-22 15:32] LABS: Basophils Absolute Auto 0.01 K/uL (0.00-0.30); Basophils Percent Auto 0.2 % (0.0-3.0); Eosinophils Absolute Auto 0.04 K/uL (0.00-0.50); Eosinophils Percent Auto 0.6 % (0.0-7.0); Hematocrit 42.1 % (33.0-51.0); Hemoglobin* 12.9 gm/dL (12.0-16.0); Immature Granulocytes Abs Auto 0.02 K/uL (0.00-0.30); Immature Granulocytes Pct Auto 0.3 %; Lymphocytes Absolute Auto 1.67 K/uL (0.90-2.90); Lymphocytes Percent Auto 27.1 % (20-44); Mean Corpuscular HGB Conc 31 gm/dL (32-36); Mean Corpuscular Hemoglobin 26 pg (26-34); Mean Corpuscular Volume 86 fL (80-100); Monocytes Percent Auto 10.1 % (0.0-11.0); Neutrophils Percent Auto 61.7 % (42.0-72.0); Platelet Count* 285 K/uL (140-440); Red Blood Count 4.92 m/uL (4.00-5.20); White Blood Count* 6.16 K/uL (4.50-11.00)
[2023-09-22 15:34] LABS: Slide Review Reflex No
[2023-09-22 15:42] LABS: Chloride* 97 mmol/L (96-114); Potassium* 3.7 mmol/L (3.6-5.1); Sodium* 136 mmol/L (135-149)
[2023-09-22 15:44] LABS: INR 2.54 (0.91-1.10); Prothrombin Time 29.3 Seconds
[2023-09-22 15:45] LABS: Anion Gap 10 mEq/L (7-15); Blood Urea Nitrogen* 36 mg/dL (7-30); Carbon Dioxide* 29 mmol/L (20-32); Creatinine* 1.1 mg/dL (0.5-1.5); Est. Creatinine Clearance* 38.19; Estimated Glomerular Filt Rate 51 ml/min
[2023-09-22 15:46] LABS: Calcium* 8.8 mg/dL (8.4-10.6); Glucose* 98 mg/dL (60-115)
[2023-09-22 15:47] LABS: D Dimer Quantitative* 2.18 ug/ml (0.00-0.50)
--- NOTE | 2023-09-22 15:52 | CRLHL7_ITS ---
For Patients: As a result of the Century Cures Act, medical imaging exams and procedure reports are released immediately into your electronic medical record. You may view this report before your referring provider. If you have questions, please contact your health care provider. INDICATION: Elevated D-dimer. TECHNIQUE: CT chest PE was acquired with 95 cc Isovue 370 IV contrast. COMPARISON: 08/26/2023. FINDINGS: Heart and vasculature: Contrast opacification of the pulmonary arterial tree is adequate. Acute multifocal pulmonary emboli involving the right middle and lower lobe subsegmental pulmonary arteries. Cardiomegaly with coronary artery calcifications. Reflux of contrast into the hepatic veins suggestive of elevated right heart pressures. Pulmonary arterial hypertension. Lungs and pleura: Moderate right pleural effusion with compressive atelectasis. Pulmonary emphysema. No pneumothorax. Lymph nodes/mediastinum: No mediastinal, hilar, or axillary adenopathy. Chest wall: S left chest wall pacemaker device. No masses. Upper abdomen: No acute or significant findings. Bones: Unremarkable for age. IMPRESSION: Acute tiny multifocal pulmonary emboli involving the right middle and lower lobe subsegmental pulmonary arteries. No right heart strain. Moderate right pleural effusion with compressive atelectasis. Superimposed pneumonia should be clinically excluded. Cardiomegaly with coronary artery calcifications. Reflux of contrast into the hepatic veins suggestive of elevated right heart pressures. Pulmonary emphysema. Pulmonary arterial hypertension. Case discussed with Dr. Alfaro at 5:08 p.m. on 09/22/2023. Please note that all CT scans at this facility use dose modulation, iterative reconstruction, and/or weight-based dosing when appropriate to reduce radiation dose to as low as reasonably achievable. Dictated by Artemio Ivey MD @ 09/22/2023 4:50:57 PM (Electronically Signed)
[2023-09-22 15:58] LABS: Troponin I* 0.03 ng/mL (0.01-0.04)
[2023-09-22 16:00] LABS: PCR FLU A Negative PCR FLU A (Negative); PCR FLU B Negative PCR FLU B (Negative); PCR RSV Negative PCR RSV (Negative)
[2023-09-22 16:03] LABS: SARS PCR* Negative SARS-CoV-2 (Negative)
[2023-09-22 16:05] LABS: NT Pro B Type NatriureticPept* 15700 pg/mL
[2023-09-22 17:12] LABS: Appearance Urine Clear (Clear); Bilirubin Urine Negative (Negative); Blood Urine Negative (Negative); Color Urine Yellow (Yellow); Glucose Urine Negative (Negative); Ketones Urine Negative (Negative); Leukocyte Esterase Urine Negative (Negative); Nitrite Urine Negative (Negative); Protein Urine Negative (Negative); Specific Gravity Urine 1.015 (1.000-1.030); Urobilinogen Urine 0.2 (0.2-1.0)
[2023-09-22 17:29] LABS: RBC Urine 0-2 (0-2); Squamous Epithelial Cell Urine Few (None-Few); WBC Urine 0-2 (0-5)
[2023-09-22] MEDS: FUROSEMIDE 10 MG/ML inj 20 MG IVP (19:05)
[2023-09-22] MEDS: ATORVASTATIN CALCIUM 40 MG TABLET PO (21:07)
[2023-09-22] MEDS: FAMOTIDINE 20 MG TABLET 10 MG PO (21:10)
[2023-09-22] MEDS: SODIUM CHLORIDE 0.9 % (FLUSH) 10 ML SYRINGE 5 ML IVF (21:11)
--- NOTE | 2023-09-22 22:16 | PM.IMHP1 ---
Hospitalist- H&P: [facility] History of Present Illness Date Seen: 09/22/23 Chief complaint: Chest pressure Narrative: Nery Oropeza is a 78 year old woman with a complicated cardiopulmonary history. Has known heart failure with reduced ejection fraction, EF 20% per TTE 06/02/2023, moderate to severe aortic stenosis, last angiogram at [facility] 05/2023, advanced COPD for the most part adequately managed on current medication regimen, has chronic hypoxemic respiratory failure for which she is ordinarily on oxygen at 2 liters/minute via nasal cannula continuously at home. For the past 1 week the patient has noticed increasing sense of dyspnea. Has occasional dry hacky cough, nonproductive, feels like she is going to choke. At times has intermittent chest pressure without pain. Denies syncope or near syncope, nausea vomiting, or orthostasis. Notes increasing bilateral lower extremity edema. Tells me over the last couple of days her weight has increased by 2.4 lb. Measures her weight at home daily. Has attempted working with her neurophysiological technician who have had her restart her furosemide at 20 mg a day, that was not enough and so they increased it to 40 mg once a day, that was not enough and thus they recommend that she come in for assessment in the emergency department. Denies fevers, rigors, diaphoresis. No recent trauma or injury. Continues to take her warfarin anticoagulation as prescribed. INR recently as high as 4.5 and today it was 2.5. Has not had unilateral lower extremity pain, swelling, erythema. Review of Systems Status of ROS: Reports: 10 or more systems reviewed and unremarkable except as noted in History and below Narrative: Lives in her home with a roommate. She tells me her roommate is recovering from diverticulitis surgery that she had in January of 2023. Denies dysuria, urgency, frequency, hematuria. Denies diarrhea or constipation. Designates her son, Mykel, as her power of claims attorney for health should that be required. Requests full resuscitation in the event of cardiopulmonary demise but states she does not want life support. [facility] Medical History (Updated 09/22/23 @ 22:37 by Catrachito Sigala MD) Aortic stenosis, moderate ?I35.0 - Nonrheumatic aortic (valve) stenosis (ICD-10) Pulmonary hypertension ?I27.20 - Pulmonary hypertension, unspecified (ICD-10) Panlobular emphysema ?J43.1 - Panlobular emphysema (ICD-10) COPD (chronic obstructive pulmonary disease) ?J44.9 - Chronic obstructive pulmonary disease, unspecified (ICD-10) Anemia ?D64.9 - Anemia, unspecified (ICD-10) Hyperkalemia ?E87.5 - Hyperkalemia (ICD-10) Supratherapeutic INR ?R79.1 - Abnormal coagulation profile (ICD-10) Closed compression fracture of L3 vertebra ?S32.030A - Wedge compression fracture of third lumbar vertebra, initial encounter for closed fracture (ICD-10) Subarachnoid hemorrhage ?I60.9 - Nontraumatic subarachnoid hemorrhage, unspecified (ICD-10) Chronic anticoagulation ?Z79.01 - half-way (current) use of anticoagulants (ICD-10) Presence of permanent cardiac pacemaker ?Z95.0 - Presence of cardiac pacemaker (ICD-10) Chronic hypoxemic respiratory failure ?J96.11 - Chronic respiratory failure with hypoxia (ICD-10) Chronic pain of both shoulders ?M25.511 - Pain in right shoulder (ICD-10) ?M25.512 - Pain in left shoulder (ICD-10) ?G89.29 - Other chronic pain (ICD-10) Anticoagulation goal of INR 2 to 3 ?Z51.81 - Encounter for therapeutic drug level monitoring (ICD-10) ?Z79.01 - half-way (current) use of anticoagulants (ICD-10) Anticoagulated on warfarin ?Z79.01 - half-way (current) use of anticoagulants (ICD-10) Paroxysmal atrial fibrillation ?I48.0 - Paroxysmal atrial fibrillation (ICD-10) Closed nondisplaced fracture of greater trochanter of right femur with routine healing ?S72.114D - Nondisplaced fracture of greater trochanter of right femur, subsequent encounter for closed fracture with routine healing (ICD-10) Chronic deep vein thrombosis of left lower extremity ?I82.502 - Chronic embolism and thrombosis of unspecified deep veins of left lower extremity (ICD-10) Intrinsic urethral sphincter deficiency ?N36.42 - Intrinsic sphincter deficiency (ISD) (ICD-10) Mixed stress and urge urinary incontinence ?N39.46 - Mixed incontinence (ICD-10) CKD stage 4 secondary to hypertension ?I12.9 - Hypertensive chronic kidney disease with stage 1 through stage 4 chronic kidney disease, or unspecified chronic kidney disease (ICD-10) ?N18.4 - Chronic kidney disease, stage 4 (severe) (ICD-10) Ischemic cardiomyopathy ?I25.5 - Ischemic cardiomyopathy (ICD-10) Recurrent major depression resistant to treatment ?F33.9 - Major depressive disorder, recurrent, unspecified (ICD-10) Hyperlipidemia ?E78.5 - Hyperlipidemia, unspecified (ICD-10) Hypertension ?I10 - Essential (primary) hypertension (ICD-10) MRSA (methicillin resistant Staphylococcus aureus) ?A49.02 - Methicillin resistant Staphylococcus aureus infection, unspecified site (ICD-10) Hypothyroidism ?E03.9 - Hypothyroidism, unspecified (ICD-10) CHF (congestive heart failure) ?I50.9 - Heart failure, unspecified (ICD-10) CAD (coronary artery disease) ?I25.10 - Atherosclerotic heart disease of [place] coronary artery without angina pectoris (ICD-10) Depression ?F32.A - Depression, unspecified (ICD-10) Atrial fibrillation ?I48.91 - Unspecified atrial fibrillation (ICD-10) Anxiety ?F41.9 - Anxiety disorder, unspecified (ICD-10) Acid reflux ?K21.9 - Gastro-esophageal reflux disease without esophagitis (ICD-10) Severe depression ?F32.2 - Major depressive disorder, single episode, severe without psychotic features (ICD-10) Surgical History History of bilateral hip replacements (2006) ?Z96.643 - Presence of artificial hip joint, bilateral (ICD-10) History of cholecystectomy ?Z90.49 - Acquired absence of other specified parts of digestive tract (ICD-10) History of cataract surgery ?Z98.49 - Cataract extraction status, unspecified eye (ICD-10) Social History Narrative: Lives with a roommate in [place], adult children. Son Mykel and daughter Lakesha would share medical decision making duties. Requests Full Code status, understands that her progressive lung disease puts her at high risk if she were to ever need intubation. She would not want to be kept alive on a ventilator snf. What is your current living situation?: I presently have a place to live Problems where you live: no known problems Problems where you live details: N/A In the past 12 months, utilities in danger of being shut off: no In past 12 months, lack of transportation kept you from medical appts, meetings, work, or getting things needed for daily living: no In the past 12 mos, have been you worried that your food would run out before you had money to buy more?: never true In the past 12 mos, the food you bought just didn't last and you didn't have money to buy more?: never true Highest level of school completed/degree received: some college, no degree Smoking Status: Former smoker What tobacco products do you use: cigarettes Smoking quit date/years: >15 years ago Do you use any of these nicotine containing products: None Second hand tobacco smoke exposure: No How often do you have a drink containing alcohol: never How often do you have six or more drinks on one occasion: Never AUDIT-C Alcohol total score: 0 Non-prescribed substance use: denies use Caffeine: Yes How often does anyone, including family, friends and others, physically hurt you: never How often does anyone, including family, friends and others, insult or talk down to you: never How often does anyone, including family, friends and others, threaten you with harm: never How often does anyone, including family, friends and others, scream or curse at you: never service: No Meds Home Medications and Allergies Home Medications Medication Instructions Recorded Confirmed Type albuterol sulfate 90 mcg/actuation 2 puff inhalation Q4H PRN 06/02/22 08/29/23 History aerosol inhaler atorvastatin 40 mg tablet 40 mg PO HS 06/02/22 08/29/23 History cholecalciferol (vitamin D3) 50 50 mcg PO DAILY 06/02/22 08/29/23 History mcg (2,000 unit) capsule (Vitamin D3) fluticasone fur. 200 mcg-umeclid 1 inh inhalation DAILY 06/02/22 08/29/23 History 62.5 mcg-vilant 25 mcg inhalat.powder (Trelegy Ellipta) levothyroxine 88 mcg tablet 88 mcg PO DAILY 06/02/22 08/29/23 History multivitamin (Multiple Vitamins 1 tab PO DAILY 06/03/22 08/29/23 History tablet) spironolactone 25 mg tablet 25 mg PO DAILY 12/23/22 08/29/23 History famotidine 20 mg tablet 10 mg PO Q12H 04/22/23 08/29/23 History calcium carbonate 600 mg-vitamin 1 tab PO DAILY 05/23/23 08/29/23 History D3 5 mcg (200 unit) tablet (Calcium 600 + D(3)) carvedilol 6.25 mg tablet 3.125 mg PO BID 05/23/23 08/29/23 History fluoxetine 20 mg capsule 20 mg PO DAILY 05/23/23 08/29/23 History fluoxetine 40 mg capsule 40 mg PO DAILY 05/23/23 08/29/23 History acetaminophen 500 mg tablet 1,000 mg PO TID PRN 06/30/23 08/29/23 History ipratropium 0.5 mg-albuterol 3 mg 3 ml inhalation QID PRN 06/30/23 08/29/23 History (2.5 mg base)/3 mL nebulization soln warfarin 2 mg tablet 2 mg PO DAILY 08/29/23 08/29/23 History Allergies Allergy/AdvReac Type Severity Reaction Status Date / Time bacitracin Allergy Mild Verified 07/07/23 13:18 [From Neosporin Plus] lidocaine Allergy Mild Verified 07/07/23 13:18 [From Neosporin Plus] morphine Allergy Mild Hives Verified 07/07/23 13:18 neomycin Allergy Mild Verified 07/07/23 13:18 [From Neosporin Plus] Penicillins Allergy Mild Rash Verified 07/07/23 13:18 polymyxin B Allergy Mild Verified 07/07/23 13:18 [From Neosporin Plus] pramoxine Allergy Mild Verified 07/07/23 13:18 [From Neosporin Plus] BRAD Inhibitors Allergy Unknown Verified 07/07/23 13:18 bupropion [From Wellbutrin] Allergy Unknown Verified 07/07/23 13:18 hydrocodone Allergy Unknown Verified 07/07/23 13:18 levofloxacin [From Levaquin] Allergy Unknown Verified 07/07/23 13:18 oxycodone Allergy Unknown Verified 07/07/23 13:18 sulfamethoxazole Allergy Unknown Verified 07/07/23 13:18 Exam Narrative: Exam Narrative: I examined patient in her hospital room. Appears comfortable and is eating her dinner. Vision and hearing are adequate. Has oxygen being delivered via nasal cannula at 2 liters/minute. Alert and oriented to self, place, time, situation. Friendly, articulate, cooperative. Sitting upright she has no JVD but does have hepatojugular reflux. Has trace edema pretibially bilaterally. Lungs with some scattered rhonchi without wheezing or rales. Heart tones with regular rhythm. Grade 2/6 systolic murmur. Abdomen with active bowel sounds, soft, nontender. Moves all 4 extremities. No focal motor neurologic deficits. Skin is intact. Const: Vital Signs, click to edit/add: Vital Signs - 24 hr 09/22/23 15:03 09/22/23 15:06 09/22/23 15:15 Temperature 99.4 F Pulse Rate 89 93 Pulse Rate [Left P ulse Oximeter] Pulse Rate [Pulse Oximeter] 91 Respiratory Rate 26 H Blood Pressure Blood Pressure [Le ft Arm] Blood Pressure [Le ft Upper Arm] 106/75 Pulse Oximetry 92 94 94 Oxygen Delivery Me thod Room Air Oxygen Flow Rate 09/22/23 15:26 09/22/23 15:30 09/22/23 15:31 Temperature Pulse Rate 90 90 92 Pulse Rate [Left P ulse Oximeter] Pulse Rate [Pulse Oximeter] Respiratory Rate Blood Pressure 115/81 97/71 Blood Pressure [Le ft Arm] Blood Pressure [Le ft Upper Arm] Pulse Oximetry 97 90 86 L Oxygen Delivery Me thod Nasal Cannula Room Air Oxygen Flow Rate 09/22/23 15:45 09/22/23 16:00 09/22/23 16:01 Temperature Pulse Rate 91 91 91 Pulse Rate [Left P ulse Oximeter] Pulse Rate [Pulse Oximeter] Respiratory Rate Blood Pressure 101/77 Blood Pressure [Le ft Arm] Blood Pressure [Le ft Upper Arm] Pulse Oximetry 83 L 92 92 Oxygen Delivery Me thod Oxygen Flow Rate 09/22/23 16:25 09/22/23 16:30 09/22/23 16:31 Temperature Pulse Rate 91 88 89 Pulse Rate [Left P ulse Oximeter] Pulse Rate [Pulse Oximeter] Respiratory Rate Blood Pressure 110/83 Blood Pressure [Le ft Arm] Blood Pressure [Le ft Upper Arm] Pulse Oximetry 94 82 L 83 L Oxygen Delivery Me thod Room Air Oxygen Flow Rate 09/22/23 16:45 09/22/23 17:00 09/22/23 17:06 Temperature Pulse Rate 90 92 Pulse Rate [Left P ulse Oximeter] Pulse Rate [Pulse Oximeter] Respiratory Rate Blood Pressure Blood Pressure [Le ft Arm] Blood Pressure [Le ft Upper Arm] Pulse Oximetry 88 93 Oxygen Delivery Me thod Room Air Nasal Cannula Nasal Cannula Oxygen Flow Rate 2 09/22/23 17:15 09/22/23 17:30 09/22/23 17:31 Temperature Pulse Rate 90 92 91 Pulse Rate [Left P ulse Oximeter] Pulse Rate [Pulse Oximeter] Respiratory Rate Blood Pressure 100/81 Blood Pressure [Le ft Arm] Blood Pressure [Le ft Upper Arm] Pulse Oximetry 96 94 95 Oxygen Delivery Me thod Oxygen Flow Rate 09/22/23 17:32 09/22/23 17:45 09/22/23 18:00 Temperature Pulse Rate 91 89 92 Pulse Rate [Left P ulse Oximeter] Pulse Rate [Pulse Oximeter] Respiratory Rate Blood Pressure Blood Pressure [Le ft Arm] Blood Pressure [Le ft Upper Arm] Pulse Oximetry 96 97 97 Oxygen Delivery Me thod Nasal Cannula Oxygen Flow Rate 09/22/23 18:03 09/22/23 18:15 09/22/23 18:30 Temperature Pulse Rate 90 93 88 Pulse Rate [Left P ulse Oximeter] Pulse Rate [Pulse Oximeter] Respiratory Rate Blood Pressure 102/71 Blood Pressure [Le ft Arm] Blood Pressure [Le ft Upper Arm] Pulse Oximetry 96 92 92 Oxygen Delivery Me thod Nasal Cannula Oxygen Flow Rate 09/22/23 18:32 09/22/23 18:45 09/22/23 19:21 Temperature 98.0 F Pulse Rate 98 92 Pulse Rate [Left P ulse Oximeter] 93 Pulse Rate [Pulse Oximeter] Respiratory Rate 22 Blood Pressure 112/77 Blood Pressure [Le ft Arm] 111/75 Blood Pressure [Le ft Upper Arm] Pulse Oximetry 97 97 98 Oxygen Delivery Me thod Nasal Cannula Oxygen Flow Rate 2 Hospitalist - H&P: Result Labs Labs: Short CBC 09/22/23 Range/Units 15:22 WBC 6.16 (4.50-11.00) K/uL Hgb 12.9 (12.0-16.0) gm/dL Hct 42.1 (33.0-51.0) % Plt Count 285 (140-440) K/uL BMP 09/22/23 15:22 Sodium 136 Potassium 3.7 Chloride 97 Carbon Dioxide 29 BUN 36 H Creatinine 1.1 Glucose 98 Calcium 8.8 Cardiac Enzymes 09/22/23 Range/Units 15:22 Troponin I 0.03 (0.01-0.04) ng/mL Urine 09/22/23 Range/Units 17:05 Urine Color Yellow (Yellow) Urine Appearance Clear (Clear) Urine pH 7.0 (5.0-8.5) Ur Specific [place] 1.015 (1.000-1.030) Urine Protein Negative (Negative) Urine Glucose (UA) Negative (Negative) Imaging Chest x-ray: Attestation: I have reviewed the pertinent imaging results. Radiologist's impression: FINDINGS: Enlarged cardiac silhouette median sternotomy left cardiac pacer. Moderate right effusion underlying atelectasis and/or infiltrate. No pneumothorax. CT angiogram of chest: Attestation: I have reviewed the pertinent imaging results. Radiologist's impression: IMPRESSION: Acute tiny multifocal pulmonary emboli involving the right middle and lower lobe subsegmental pulmonary arteries. No right heart strain. Moderate right pleural effusion with compressive atelectasis. Superimposed pneumonia should be clinically excluded. Cardiomegaly with coronary artery calcifications. Reflux of contrast into the hepatic veins suggestive of elevated right heart pressures. Pulmonary emphysema. Pulmonary arterial hypertension. Assessment and Plan Assessment and plan (1) Acute on chronic HFrEF (heart failure with reduced ejection fraction): Problem comment: -Dr. Alfaro, [facility] Emergency Department, spoke with Liner Machine Operator at [facility], who recommends holding the spironolactone and initiating diuresis with IV furosemide. If this is insufficient or an unsuccessful then to call back and consider possible transfer. Status: Acute (2) Chronic hypoxemic respiratory failure: Problem comment: -chronic COPD, on home O2. -chronic systolic congestive Heart failure with decreased EF Echo 06/14 Final Impressions: 1. Mild to moderately increased left ventricular size, normal wall thickness, severely reduced global systolic function, calculated EF of 20 %. 2. Right ventricular cavity size is mildly enlarged, global systolic RV function is severely reduced. 3. Severe biatrial enlargement. 4. The aortic valve is trileaflet, sclerotic and calcified, with likley severe low-flow/low-gradient stenosis (mean gradient 10 mmHg, ZHEN 0.87 cm^2, DI 0.20, SVI 16 ml/m^2) and trivial regurgitation. 5. The mitral valve is sclerotic, mild mitral regurgitation. 6. Likely at least moderate-severe tricuspid regurgitation noted with systolic flow reversal in hepatic veins (unclear to what extent mechanistically associated with RV pacing lead). Estimated RVSP of 37 mmHg. 7. IVC geometry compatible wtih an elevated estimated RA pressure (15 mmHg). ? Comparison Compared to prior exam of 03/2023: - The left ventricular function has decreased. - Aortic stenosis hemodynamics have worsened and are now compatible with severe low-flow/low-gradient . AV pseudostenosis in face of severe LV systolic dysfunction is a diagnostic possibility. Clinical correlation advised. Given severe cardiomyopathy and progression in consultation [facility] advanced heart failure and multidisciplinary valve team recommended. Status: Acute (3) Pulmonary hypertension: Status: Acute (4) Ischemic cardiomyopathy: Problem comment: Echo reviewed from 06/14 Status: Chronic (5) Aortic stenosis, moderate: Status: Acute (6) CKD stage 4 secondary to hypertension: Problem comment: Stable Status: Chronic (7) COPD (chronic obstructive pulmonary disease): Problem comment: - continue home Trelegy, john Spears, p.r.n. albuterol nebs - no symptoms of acute exacerbation Status: Acute (8) Panlobular emphysema: Problem comment: Oxygen dependent. Continue home medications Status: Acute (9) Anticoagulation goal of INR 2 to 3: Status: Acute Plan 1. Reviewed impression and plan with patient who is agreeable. 2. Monitor labs closely 3. Daily weight 4. Orthostatic blood pressures and pulses 5. Daily INR and Coumadin dosing per pharmacy 6. Her condition is such that she will require ongoing close monitoring and management in the outpatient setting when she is ready for discharge.
[2023-09-22] MEDS: IPRAT-ALBUT 0.5-2.5 MG/3 ML NEB 1 NEB IH (22:33)
--- NOTE | 2023-09-22 23:33 | PC.NURSE ---
End of shift [id number] - Pt arrived from ED at approximately 1900. VSS, afbrile, tolerating 2L of O2 via nasal cannula. Pt up to chair and bedside commode with 1 assist, stand and pivot. Report of SOB with exertion. Pt denies pain, nausea, dizziness. Tolerating regular diet and fluids. Appears to be resting at end of shift.
[2023-09-23] VITALS (10 sets, daily range): BP systolic 108–132; BP diastolic 76–93; PULSE 89–96; RESP 16–20; TEMP 36.1–36.8; O2SAT 93–97
[2023-09-23] MEDS: MELATONIN 3 MG TABLET PO ×2 (00:53→19:38)
--- NOTE | 2023-09-23 06:25 | PC.NURSE ---
End of shift [id number]: A&O pleasant and cooperative. VSS. Pt chronically on 2L of oxygen. SOB w/ exertion. SBA to commode. Pt was awake for most of the night. She reports that she deals with insomnia at home. uses call light appropriately.
[2023-09-23 07:08] LABS: Hematocrit 39.7 % (33.0-51.0); Hemoglobin* 12.5 gm/dL (12.0-16.0); Mean Corpuscular HGB Conc 32 gm/dL (32-36); Mean Corpuscular Hemoglobin 26 pg (26-34); Mean Corpuscular Volume 84 fL (80-100); Platelet Count* 274 K/uL (140-440); Red Blood Count 4.73 m/uL (4.00-5.20); White Blood Count* 6.18 K/uL (4.50-11.00)
[2023-09-23 07:26] LABS: INR 2.38 (0.91-1.10); Prothrombin Time 27.8 Seconds
[2023-09-23 07:27] LABS: Slide Review Reflex No
[2023-09-23 07:29] LABS: Albumin* 3.6 g/dL (3.3-5.0); Chloride* 97 mmol/L (96-114); Potassium* 3.7 mmol/L (3.6-5.1); Sodium* 133 mmol/L (135-149)
[2023-09-23 07:31] LABS: Creatinine* 1.1 mg/dL (0.5-1.5); Est. Creatinine Clearance* 39.67; Estimated Glomerular Filt Rate 51 ml/min
[2023-09-23 07:32] LABS: Anion Gap 9 mEq/L (7-15); Blood Urea Nitrogen* 40 mg/dL (7-30); Carbon Dioxide* 27 mmol/L (20-32); Glucose* 100 mg/dL (60-115); Phosphorus* 4.4 mg/dL (2.5-4.5)
[2023-09-23 07:33] LABS: Magnesium* 1.7 mg/dL (1.5-2.6)
[2023-09-23 07:42] LABS: Troponin I* 0.03 ng/mL (0.01-0.04)
[2023-09-23] MEDS: FAMOTIDINE 20 MG TABLET 10 MG PO ×2 (09:05→19:39)
[2023-09-23] MEDS: FUROSEMIDE 10 MG/ML inj 40 MG IVP ×2 (09:06→13:24)
[2023-09-23] MEDS: SODIUM CHLORIDE 0.9 % (FLUSH) 10 ML SYRINGE 5 ML IVF ×2 (09:06→19:42)
[2023-09-23] MEDS: LEVOTHYROXINE 88 MCG TABLET PO (09:06)
[2023-09-23] MEDS: FLUOXETINE HCL 20 MG CAPSULE 40 MG PO (09:06)
[2023-09-23] MEDS: FLUOXETINE HCL 20 MG CAPSULE PO (09:06)
--- NOTE | 2023-09-23 10:10 | NUTR.NU ---
RDN with MD consult for for Heart Failure. Patient declined verbal education for designated caregiver and will pass along handout provided. Patient reports a fair appetite and denies any concerns regarding oral intakes. No intakes documented at this time. Patient is on a diuretic and RDN anticipate's patient's weight may fluctuate. Patient reports being familiar with the heart failure diet. Patient lives at home with a roommate and reports that her roommate does a majority of the cooking and grocery shopping. Nutrition education provided on a low sodium diet related to congestive heart failure. Verbal and written information provided. Recommend limiting sodium to 2000 mg per day. Discussed foods recommended and to avoid. Handouts provided from [facility] on heart failure nutrition therapy, sodium content of foods, heart healthy label reading tips, sodium-free flavoring tips and heart healthy cooking and shopping tips. Patient verbalized understanding. RDN's contact information was provided and patient was encouraged to call with questions. RDN will continue to follow-up PRN.
[2023-09-23] MEDS: IPRAT-ALBUT 0.5-2.5 MG/3 ML NEB 1 NEB IH (13:24)
--- NOTE | 2023-09-23 13:55 | PC.NURSE ---
End of shift note: Patient has been on 2L nasal cannula (baseline). Up with one and a walker. Recieving IV lasix and voiding frequently. Had a BM today. Refused to shower/wash up/brush teeth. Tele on. Paced with some PVCs. PIV patent and intact. Has chronic right shoulder pain. Denies nausea/vomiting. Refused breakfast, but had a decent lunch. Lung sounds have expiratory wheezes. Received a nebulizer this afternoon. Possibly still discharging this afternoon to home. Has HHC, PT/OT set up already.
--- NOTE | 2023-09-23 14:20 | P.IMPN_ITS ---
Progress Note: A&P Assessment and plan (1) Acute on chronic HFrEF (heart failure with reduced ejection fraction): Problem details: -Dr. Alfaro, [facility] Emergency Department, spoke with Government Employee at [facility], who recommends holding the spironolactone and initiating diuresis with IV furosemide. If this is insufficient or an unsuccessful then to call back and consider possible transfer. -no change in weight, continue IV diuresis, daily weights, strict I&Os Status: Acute (2) Chronic hypoxemic respiratory failure: Problem details: -chronic COPD, on home O2. -chronic systolic congestive Heart failure with decreased EF Echo 06/14 Final Impressions: 1. Mild to moderately increased left ventricular size, normal wall thickness, severely reduced global systolic function, calculated EF of 20 %. 2. Right ventricular cavity size is mildly enlarged, global systolic RV function is severely reduced. 3. Severe biatrial enlargement. 4. The aortic valve is trileaflet, sclerotic and calcified, with likley severe low-flow/low-gradient stenosis (mean gradient 10 mmHg, ZHEN 0.87 cm^2, DI 0.20, SVI 16 ml/m^2) and trivial regurgitation. 5. The mitral valve is sclerotic, mild mitral regurgitation. 6. Likely at least moderate-severe tricuspid regurgitation noted with systolic flow reversal in hepatic veins (unclear to what extent mechanistically associated with RV pacing lead). Estimated RVSP of 37 mmHg. 7. IVC geometry compatible wtih an elevated estimated RA pressure (15 mmHg). ? Comparison Compared to prior exam of 03/2023: - The left ventricular function has decreased. - Aortic stenosis hemodynamics have worsened and are now compatible with severe low-flow/low-gradient . AV pseudostenosis in face of severe LV systolic dysfunction is a diagnostic possibility. Clinical correlation advised. Given severe cardiomyopathy and progression in consultation [facility] advanced heart failure and multidisciplinary valve team recommended. Status: Acute (3) COPD (chronic obstructive pulmonary disease): Problem details: - continue home Trelegy, scheduled DuoNebs, p.r.n. albuterol nebs - no symptoms of acute exacerbation Status: Acute (4) Pulmonary hypertension: Problem details: -noted, continue IV diuresis Status: Acute (5) Ischemic cardiomyopathy: Problem details: -Echo reviewed from 06/14. CT shows cardiomegaly with coronary artery calcifications Status: Chronic (6) Aortic stenosis, moderate: Problem details: -history of Status: Acute (7) CKD stage 4 secondary to hypertension: Problem details: -Stable, creatinine 1.1 Status: Chronic (8) Anticoagulation goal of INR 2 to 3: Problem details: -continue warfarin, pharmacy to dose Status: Acute Plan Continue diuresis, possible discharge - days Time Spent With Patient Total time spent: Total time spent caring for the patient today was 45 minutes. This includes time spent for the visit reviewing the chart, time spent during the visit, time spent after the visit and documentation and planning in coordination of care. Subjective Date Seen: 09/23/23 Interval history: Patient reports feeling better this morning. Breathing has improved. Denies chest pain. Denies headache or dizziness. Remains afebrile. Tolerating orals. Currently on chronic 2 L per nasal cannula saturating mid 90s. No events reported overnight. Exam Narrative: Exam Narrative: PHYSICAL EXAM General: Pleasant, conversant, NAD HEENT: Normocephalic, atraumatic, sclera white, EOMI, oral mucosa moist Cardiovascular: RRR, S1S2. Pulmonary: Mildly diminished without rhonchi, rales, expiratory wheezes. Mild dyspnea Neurological: Alert, answering questions appropriately, cranial nerves intact, no focal findings Extremities: No gross joint deformity or swelling. AROMI. Neurovascularly intact Skin: Warm, dry. Const: Vital Signs, click to edit/add: Vital Signs - 24 hr 09/22/23 15:03 09/22/23 15:06 09/22/23 15:15 Temperature 99.4 F Pulse Rate 89 93 Pulse Rate [Left P ulse Oximeter] Pulse Rate [Pulse Oximeter] 91 Respiratory Rate 26 H Blood Pressure Blood Pressure [Le ft Arm] Blood Pressure [Le ft Upper Arm] 106/75 Pulse Oximetry 92 94 94 Oxygen Delivery Me thod Room Air Oxygen Flow Rate 09/22/23 15:26 09/22/23 15:30 09/22/23 15:31 Temperature Pulse Rate 90 90 92 Pulse Rate [Left P ulse Oximeter] Pulse Rate [Pulse Oximeter] Respiratory Rate Blood Pressure 115/81 97/71 Blood Pressure [Le ft Arm] Blood Pressure [Le ft Upper Arm] Pulse Oximetry 97 90 86 L Oxygen Delivery Me thod Nasal Cannula Room Air Oxygen Flow Rate 09/22/23 15:45 09/22/23 16:00 09/22/23 16:01 Temperature Pulse Rate 91 91 91 Pulse Rate [Left P ulse Oximeter] Pulse Rate [Pulse Oximeter] Respiratory Rate Blood Pressure 101/77 Blood Pressure [Le ft Arm] Blood Pressure [Le ft Upper Arm] Pulse Oximetry 83 L 92 92 Oxygen Delivery Me thod Oxygen Flow Rate 09/22/23 16:25 09/22/23 16:30 09/22/23 16:31 Temperature Pulse Rate 91 88 89 Pulse Rate [Left P ulse Oximeter] Pulse Rate [Pulse Oximeter] Respiratory Rate Blood Pressure 110/83 Blood Pressure [Le ft Arm] Blood Pressure [Le ft Upper Arm] Pulse Oximetry 94 82 L 83 L Oxygen Delivery Me thod Room Air Oxygen Flow Rate 09/22/23 16:45 09/22/23 17:00 09/22/23 17:06 Temperature Pulse Rate 90 92 Pulse Rate [Left P ulse Oximeter] Pulse Rate [Pulse Oximeter] Respiratory Rate Blood Pressure Blood Pressure [Le ft Arm] Blood Pressure [Le ft Upper Arm] Pulse Oximetry 88 93 Oxygen Delivery Me thod Room Air Nasal Cannula Nasal Cannula Oxygen Flow Rate 2 09/22/23 17:15 09/22/23 17:30 09/22/23 17:31 Temperature Pulse Rate 90 92 91 Pulse Rate [Left P ulse Oximeter] Pulse Rate [Pulse Oximeter] Respiratory Rate Blood Pressure 100/81 Blood Pressure [Le ft Arm] Blood Pressure [Le ft Upper Arm] Pulse Oximetry 96 94 95 Oxygen Delivery Me thod Oxygen Flow Rate 09/22/23 17:32 09/22/23 17:45 09/22/23 18:00 Temperature Pulse Rate 91 89 92 Pulse Rate [Left P ulse Oximeter] Pulse Rate [Pulse Oximeter] Respiratory Rate Blood Pressure Blood Pressure [Le ft Arm] Blood Pressure [Le ft Upper Arm] Pulse Oximetry 96 97 97 Oxygen Delivery Me thod Nasal Cannula Oxygen Flow Rate 09/22/23 18:03 09/22/23 18:15 09/22/23 18:30 Temperature Pulse Rate 90 93 88 Pulse Rate [Left P ulse Oximeter] Pulse Rate [Pulse Oximeter] Respiratory Rate Blood Pressure 102/71 Blood Pressure [Le ft Arm] Blood Pressure [Le ft Upper Arm] Pulse Oximetry 96 92 92 Oxygen Delivery Me thod Nasal Cannula Oxygen Flow Rate 09/22/23 18:32 09/22/23 18:45 09/22/23 19:21 Temperature 98.0 F Pulse Rate 98 92 Pulse Rate [Left P ulse Oximeter] 93 Pulse Rate [Pulse Oximeter] Respiratory Rate 22 Blood Pressure 112/77 Blood Pressure [Le ft Arm] 111/75 Blood Pressure [Le ft Upper Arm] Pulse Oximetry 97 97 98 Oxygen Delivery Me thod Nasal Cannula Oxygen Flow Rate 2 09/22/23 19:21 09/22/23 21:32 09/22/23 23:00 Temperature Pulse Rate 89 91 Pulse Rate [Left P ulse Oximeter] Pulse Rate [Pulse Oximeter] Respiratory Rate 22 Blood Pressure Blood Pressure [Le ft Arm] Blood Pressure [Le ft Upper Arm] Pulse Oximetry 96 Oxygen Delivery Me thod Nasal Cannula Oxygen Flow Rate 2 09/22/23 23:36 09/23/23 00:23 09/23/23 03:00 Temperature 98.7 F Pulse Rate Pulse Rate [Left P ulse Oximeter] 89 94 Pulse Rate [Pulse Oximeter] Respiratory Rate 20 20 18 Blood Pressure Blood Pressure [Le ft Arm] 104/78 116/87 Blood Pressure [Le ft Upper Arm] Pulse Oximetry 95 95 95 Oxygen Delivery Me thod Nasal Cannula Nasal Cannula Nasal Cannula Oxygen Flow Rate 2 2 2 09/23/23 07:57 09/23/23 10:14 09/23/23 11:28 Temperature 97.9 F Pulse Rate 90 Pulse Rate [Left P ulse Oximeter] 93 Pulse Rate [Pulse Oximeter] Respiratory Rate 16 Blood Pressure Blood Pressure [Le ft Arm] 132/93 H Blood Pressure [Le ft Upper Arm] Pulse Oximetry 97 94 Oxygen Delivery Me thod Nasal Cannula Nasal Cannula Oxygen Flow Rate 2 2 09/23/23 12:38 Temperature 97.0 F L Pulse Rate Pulse Rate [Left P ulse Oximeter] 94 Pulse Rate [Pulse Oximeter] Respiratory Rate 16 Blood Pressure Blood Pressure [Le ft Arm] 122/85 Blood Pressure [Le ft Upper Arm] Pulse Oximetry 97 Oxygen Delivery Me thod Nasal Cannula Oxygen Flow Rate 2 Labs Labs: Laboratory Results - last 24 hr 09/22/23 09/22/23 09/22/23 15:15 15:22 17:05 WBC 6.16 RBC 4.92 Hgb 12.9 Hct 42.1 MCV 86 MCH 26 MCHC 31 L RDW Coeff of Sudha 17.0 H Plt Count 285 Neut % (Auto) 61.7 Lymph % (Auto) 27.1 [place] % (Auto) 10.1 Eos % (Auto) 0.6 Baso % (Auto) 0.2 Neut # (Auto) 3.80 Lymph # (Auto) 1.67 [place] # (Auto) 0.60 Eos # (Auto) 0.04 Baso # (Auto) 0.01 Abs Immat Gran (auto) 0.02 Imm/Tot Granulo (auto) 0.3 INR 2.54 H D-Dimer Quant (PE/DVT) 2.18 H Sodium 136 Potassium 3.7 Chloride 97 Carbon Dioxide 29 Anion Gap 10 BUN 36 H Creatinine 1.1 Estimated Creat Clear 38.19 Estimated GFR 51 Glucose 98 Calcium 8.8 Phosphorus Magnesium Troponin I 0.03 NT-Pro-B Natriuret Pep [id number] Albumin Urine Color Yellow Urine Appearance Clear Urine pH 7.0 Ur Specific [place] 1.015 Urine Protein Negative Urine Glucose (UA) Negative Urine Ketones Negative Urine Blood Negative Urine Nitrite Negative Urine Bilirubin Negative Urine Urobilinogen 0.2 Ur Leukocyte Esterase Negative Urine RBC 0-2 Urine WBC 0-2 Ur Squamous Epith Cells Few Urine Bacteria None SARS-CoV-2 (PCR) Negative SARS-CoV-2 Influenza Type A (PCR) Negative PCR FLU A Influenza Type B (PCR) Negative PCR FLU B RSV (PCR) Negative PCR RSV 09/23/23 06:12 WBC 6.18 RBC 4.73 Hgb 12.5 Hct 39.7 MCV 84 MCH 26 MCHC 32 RDW Coeff of Sudha Plt Count 274 Neut % (Auto) Lymph % (Auto) [place] % (Auto) Eos % (Auto) Baso % (Auto) Neut # (Auto) Lymph # (Auto) [place] # (Auto) Eos # (Auto) Baso # (Auto) Abs Immat Gran (auto) Imm/Tot Granulo (auto) INR 2.38 H D-Dimer Quant (PE/DVT) Sodium 133 L Potassium 3.7 Chloride 97 Carbon Dioxide 27 Anion Gap 9 BUN 40 H Creatinine 1.1 Estimated Creat Clear 39.67 Estimated GFR 51 Glucose 100 Calcium 9.0 Phosphorus 4.4 Magnesium 1.7 Troponin I 0.03 NT-Pro-B Natriuret Pep Albumin 3.6 Urine Color Urine Appearance Urine pH Ur Specific Hume Urine Protein Urine Glucose (UA) Urine Ketones Urine Blood Urine Nitrite Urine Bilirubin Urine Urobilinogen Ur Leukocyte Esterase Urine RBC Urine WBC Ur Squamous Epith Cells Urine Bacteria SARS-CoV-2 (PCR) Influenza Type A (PCR) Influenza Type B (PCR) RSV (PCR)
[2023-09-23] MEDS: WARFARIN 2 MG TABLET PO (16:50)
[2023-09-23] MEDS: ACETAMINOPHEN 325 MG TABLET 650 MG PO ×2 (16:50→22:56)
[2023-09-23] MEDS: ATORVASTATIN CALCIUM 40 MG TABLET PO (19:39)
--- NOTE | 2023-09-23 22:46 | PC.NURSE ---
End of shift [id number] - Pt alert, oriented, cooperative, fatigued. Pt up to bathroom with walker and standby assist. Functionally incontinent of bladder. Pt reported feeling tired and not getting sleep the night before. Tolerating O2 via nasal cannula at 2L. SOB with exertion noted by RN, pt able to use effective breathing pattern to cope and recover. Tolerating regular diet, fluids. Pt reported pain as 3/10 in R shoulder, given Tylenol with verbalized improvement.
[2023-09-24 03:00] VITALS: BP 113/81; PULSE 95; RESP 16; TEMP 36.5; O2SAT 91
[2023-09-24] MEDS: LEVOTHYROXINE 100 MCG TABLET PO (06:37)
[2023-09-24 07:33] LABS: Hematocrit 38.9 % (33.0-51.0); Hemoglobin* 12.2 gm/dL (12.0-16.0); Mean Corpuscular HGB Conc 31 gm/dL (32-36); Mean Corpuscular Hemoglobin 26 pg (26-34); Mean Corpuscular Volume 84 fL (80-100); Platelet Count* 244 K/uL (140-440); Red Blood Count 4.62 m/uL (4.00-5.20)
[2023-09-24 07:34] LABS: Slide Review Reflex No
[2023-09-24 07:54] LABS: Albumin* 3.6 g/dL (3.3-5.0); Chloride* 94 mmol/L (96-114); Sodium* 132 mmol/L (135-149)
[2023-09-24 07:55] LABS: Potassium* 3.7 mmol/L (3.6-5.1)
[2023-09-24 07:57] LABS: Anion Gap 8 mEq/L (7-15); Blood Urea Nitrogen* 38 mg/dL (7-30); Carbon Dioxide* 30 mmol/L (20-32); Est. Creatinine Clearance* 43.63; Estimated Glomerular Filt Rate 57 ml/min; Glucose* 99 mg/dL (60-115)
[2023-09-24 07:58] LABS: Calcium* 8.8 mg/dL (8.4-10.6); Magnesium* 1.8 mg/dL (1.5-2.6); Phosphorus* 3.7 mg/dL (2.5-4.5)
[2023-09-24 08:06] LABS: Troponin I* 0.03 ng/mL (0.01-0.04)
[2023-09-24 08:08] LABS: INR 1.91 (0.91-1.10); Prothrombin Time 23.3 Seconds
[2023-09-24 08:23] VITALS: BP 118/82; PULSE 94; RESP 20; TEMP 37; O2SAT 92
[2023-09-24] MEDS: FUROSEMIDE 10 MG/ML inj 40 MG IVP (08:27)
[2023-09-24] MEDS: SODIUM CHLORIDE 0.9 % (FLUSH) 10 ML SYRINGE 5 ML IVF (08:28)
[2023-09-24] MEDS: FAMOTIDINE 20 MG TABLET 10 MG PO (08:30)
[2023-09-24] MEDS: LEVOTHYROXINE 88 MCG TABLET PO (08:31)
[2023-09-24] MEDS: CETIRIZINE HCL 10 MG TABLET PO (08:31)
[2023-09-24] MEDS: carvediloL 6.25 MG TABLET 3.125 MG PO (08:31)
[2023-09-24] MEDS: FLUOXETINE HCL 20 MG CAPSULE PO (08:32)
[2023-09-24] MEDS: FLUOXETINE HCL 20 MG CAPSULE 40 MG PO (08:32)
[2023-09-24 09:25] VITALS: PULSE 92
[2023-09-24] MEDS: IPRAT-ALBUT 0.5-2.5 MG/3 ML NEB 1 NEB IH (10:58)
--- NOTE | 2023-09-24 15:29 | PC.SOCIAL ---
Discharge planning- Received a phone call from Marlyn at [facility] at [phone]. Pt has home care nursing, PT, and OT. [facility] is requesting a resumption of care order, Med list, and discharge summary to be faxed to [phone]. Provided update to charge nurse and MD, charge nurse will fax information upon discharge today. Social work will follow up as needed.
--- NOTE | 2023-09-24 18:19 | PM.DS1 ---
DS: Providers Provider Date Seen: 09/24/23 Date of admission: 09/22/23 19:55 Primary care physician: Rosio Gusman DO Admitting Clinician: Catrachito Sigala MD Consults: 09/22/23 19:55 Consult to Nutrition [CONS] Routine Comment: Reason for consult:: Miscellaneous Comment: heart failure 09/22/23 22:54 Consult to Physical Therapy [CONS] Routine Comment: Reason(s) for PT Consult:: Evaluate Ambulation Any Restrictions?:: No Restrictions Attending Physician on discharge: MARIEL Nettles, [facility] Date of Discharge: 09/24/23 DS: Diagnosis Discharge Diagnosis (1) Chronic hypoxemic respiratory failure: Status: Acute Problem details: -chronic COPD, on home O2. -chronic systolic congestive Heart failure with decreased EF Echo 06/14 Final Impressions: 1. Mild to moderately increased left ventricular size, normal wall thickness, severely reduced global systolic function, calculated EF of 20 %. 2. Right ventricular cavity size is mildly enlarged, global systolic RV function is severely reduced. 3. Severe biatrial enlargement. 4. The aortic valve is trileaflet, sclerotic and calcified, with likley severe low-flow/low-gradient stenosis (mean gradient 10 mmHg, ZHEN 0.87 cm^2, DI 0.20, SVI 16 ml/m^2) and trivial regurgitation. 5. The mitral valve is sclerotic, mild mitral regurgitation. 6. Likely at least moderate-severe tricuspid regurgitation noted with systolic flow reversal in hepatic veins (unclear to what extent mechanistically associated with RV pacing lead). Estimated RVSP of 37 mmHg. 7. IVC geometry compatible wtih an elevated estimated RA pressure (15 mmHg). ? Comparison Compared to prior exam of 03/2023: - The left ventricular function has decreased. - Aortic stenosis hemodynamics have worsened and are now compatible with severe low-flow/low-gradient . AV pseudostenosis in face of severe LV systolic dysfunction is a diagnostic possibility. Clinical correlation advised. Given severe cardiomyopathy and progression in consultation [facility] advanced heart failure and multidisciplinary valve team recommended. CT also notes tiny multifocal pulmonary emboli involving the right middle and lower lobe subsegmental pulmonary arteries without right heart strain. Patient currently anticoagulated, previously supratherapeutic. Continued on home anticoagulation. Outpatient follow-up with PCP. (2) Ischemic cardiomyopathy: Status: Chronic Problem details: -Echo reviewed from 06/14. CT shows cardiomegaly with coronary artery calcifications (3) Acute on chronic HFrEF (heart failure with reduced ejection fraction): Status: Acute Problem details: -Dr. Alfaro, [facility], spoke with Commercial Helicopter Pilot at [facility], who recommends holding the spironolactone and initiating diuresis with IV furosemide. During hospital course, continued IV diuresis, improvement in weight, discharge with oral furosemide, daily weights recommended, with close follow-up with PCP. (4) COPD (chronic obstructive pulmonary disease): Status: Acute Problem details: - continued home Trelegy, scheduled DuoNebs, p.r.n. albuterol nebs (5) Anticoagulation goal of INR 2 to 3: Status: Acute Problem details: -continued warfarin with pharmacy dosing (6) Pulmonary hypertension: Status: Acute Problem details: Responded to IV diuresis, transition to oral diuresis on discharge DS: Summary Hospital Course Hospital Course: [age] year old female past medical history significant for panlobular emphysema, COPD, aortic stenosis, pulmonary hypertension, heart failure with reduced ejection fraction, candidiasis, CKD, chronic respiratory failure was admitted to the medical floor for diuresis of acute on chronic heart failure with acute on chronic hypoxemia.. Course of care and details as noted above. Following diuresis with IV furosemide, patient transition to oral furosemide, tapering after 3 days, with close follow-up with PCP. Status at Discharge Overall status at discharge: patient is back to baseline Time Spent with Patient Time attestation: Total time spent providing and/or coordinating discharge services: Time spent: Greater than 30 minutes Exam Narrative: Exam Narrative: PHYSICAL EXAM General: Pleasant, conversant, NAD Cardiovascular: RRR Pulmonary: No dyspnea Neurological: Alert, answering questions appropriately Skin: Warm, dry. Const: Vital Signs, click to edit/add: Vital Signs - 24 hr 09/23/23 18:23 09/23/23 19:00 09/23/23 23:00 Temperature Pulse Rate 89 89 Pulse Rate [Left P ulse Oximeter] 91 Respiratory Rate 16 Blood Pressure [Le ft Arm] 108/76 Pulse Oximetry 93 Oxygen Delivery Me thod Nasal Cannula Oxygen Flow Rate 2 09/23/23 23:00 09/23/23 23:00 09/23/23 23:00 Temperature 98.2 F Pulse Rate Pulse Rate [Left P ulse Oximeter] 96 96 Respiratory Rate 16 16 16 Blood Pressure [Le ft Arm] 128/91 H Pulse Oximetry 93 94 Oxygen Delivery Me thod Nasal Cannula Nasal Cannula Oxygen Flow Rate 2 2 09/24/23 03:00 09/24/23 08:23 09/24/23 08:23 Temperature 97.7 F 98.6 F Pulse Rate Pulse Rate [Left P ulse Oximeter] 95 94 Respiratory Rate 16 20 Blood Pressure [Le ft Arm] 113/81 118/82 Pulse Oximetry 91 92 92 Oxygen Delivery Me thod Nasal Cannula Nasal Cannula Nasal Cannula Oxygen Flow Rate 2 2 2 09/24/23 09:25 Temperature Pulse Rate 92 Pulse Rate [Left P ulse Oximeter] Respiratory Rate Blood Pressure [Le ft Arm] Pulse Oximetry Oxygen Delivery Me thod Oxygen Flow Rate DS: Data Data Completed and Pending Completed studies during hospitalization: Procedures Introduction of Other Gas into Respiratory Tract, Via Natural or Artificial Opening (08/29/23) Labs on day of discharge: Labs from last 24 hours 09/24/23 06:05 WBC 6.90 RBC 4.62 Hgb 12.2 Hct 38.9 MCV 84 MCH 26 MCHC 31 L Plt Count 244 INR 1.91 H Sodium 132 L Potassium 3.7 Chloride 94 L Carbon Dioxide 30 Anion Gap 8 BUN 38 H Creatinine 1.0 Estimated Creat Clear 43.63 Estimated GFR 57 Glucose 99 Calcium 8.8 Phosphorus 3.7 Magnesium 1.8 Troponin I 0.03 Albumin 3.6 Discharge Plan Discharge Disposition: Home, Self-Care Date of Admission: 09/22/23 19:55 Attending Provider on Discharge: Rosalind Troncoso Primary Care Provider: Rosio Gusman Condition: Improved Anticipated Discharge Date/Time: 09/24/23 12:18 Discharge Medications: Continued atorvastatin 40 mg tablet 40 mg PO HS albuterol sulfate 90 mcg/actuation HFA aerosol inhaler 2 puff INHALATION Q4H PRN Patient Comments: INHALE 1 TO 2 PUFFS BY MOUTH EVERY 4 HOURS NEEDED FOR SHORTNESS OF BREATH Trelegy Ellipta 200-62.5-25 mcg blister with device 1 inh INHALATION DAILY Patient Comments: INHALE 1 PUFF BY MOUTH EVERY DAY cholecalciferol (vitamin D3) [Vitamin D3] 50 mcg (2,000 unit) capsule 50 mcg PO DAILY multivitamin [Multiple Vitamins] Tablet 1 tab PO DAILY famotidine 20 mg tablet 10 mg PO Q12H fluoxetine 20 mg capsule 20 mg PO DAILY Patient Comments: total dose 60mg daily fluoxetine 40 mg capsule 40 mg PO DAILY Patient Comments: Rx Instructions: total dose 60mg daily Senna Plus 8.6-50 mg capsule 1 tab-cap PO BID PRNQty: 30 0RF ipratropium-albuterol 0.5 mg-3 mg(2.5 mg base)/3 mL solution for nebulization 3 ml inhalation QID PRN acetaminophen 500 mg Tablet 1,000 mg PO TID PRN warfarin 2 mg tablet 2 mg PO DAILY Rx Instructions: hold on 08/28,08/29, restart 2mg on 08/30 valsartan 40 mg tablet 20 mg PO DAILY Qty: 15 0RF cetirizine 10 mg tablet 10 mg PO DAILY carvedilol 3.125 mg tablet 3.125 mg PO BID levothyroxine 100 mcg tablet 100 mcg PO QAM Changed furosemide 20 mg tablet 40 mg PO BID Qty: 60 0RF Rx Instructions: Take 40mg twice daily for 3 days, then decrease to 20mg twice daily Discontinued spironolactone 25 mg tablet 25 mg PO DAILY Rx Instructions: HOLDING WHILE IN HOSPITAL STAY 09/23/23 Discharge Orders: Discharge Order (Routine); Ordered 09/24/23 Ordered By: Rosalind Troncoso Patient Education: Heart Failure (GEN) Additional Instructions: RESUME HOME CARES - NURSING, PT, OT Continue lasix 40mg twice daily for 3 more days, then decrease your lasix to 20 mg bid until follow up with your PCP. Do not take your spironolactone during this time until follow-up with PCP. Continue home medications otherwise. Activity Level: Activity as Tolerated Activity Detail: Per PT/OT Discharge Diet: Regular Follow Up Appointments: Rosio Gusman DO [Primary Care Provider] - Karma Jang MD [Staff Physician] - 10/01/23 12:40 pm (Post hospital stay - follow up heart failure, medication changes. ) Forms: [facility] Info Instructions
== END 2023-09-24 16:45 | disposition home or self-care (01) | DRG 291 ==
LOC: ED 16:16 → MEDSURG 19:59
PROVIDERS: Emergency Medicine; Admitting Provider Internal Medicine; Emergency Provider Internal Medicine; PCP Family Medicine; Visit Provider Internal Medicine
DX: I13.0 Hypertensive heart and chronic kidney disease with heart failure and stage 1 through stage 4 chronic kidney disease, or unspecified chronic kidney disease (principal); I50.23 Acute on chronic systolic (congestive) heart failure; J96.21 Acute and chronic respiratory failure with hypoxia; N18.4 Chronic kidney disease, stage 4 (severe); F33.9 Major depressive disorder, recurrent, unspecified; I08.3 Combined rheumatic disorders of mitral, aortic and tricuspid valves; I27.20 Pulmonary hypertension, unspecified; I25.5 Ischemic cardiomyopathy; Z79.01 Long term (current) use of anticoagulants; J43.1 Panlobular emphysema; J44.9 Chronic obstructive pulmonary disease, unspecified; Z95.0 Presence of cardiac pacemaker; I48.0 Paroxysmal atrial fibrillation; F41.9 Anxiety disorder, unspecified; E78.5 Hyperlipidemia, unspecified; Z86.718 Personal history of other venous thrombosis and embolism; B37.2 Candidiasis of skin and nail
CPT/HCPCS: 36415; 71045; 71275; 80048; 80069; 81001; 83735; 83880; 84484; 85025; 85027; 85379; 85610; 87631; 93005; 94640; 94761; 97116; 97161; 99283; 99285; A9270; J1940; Q9967